=== PATIENT | male | born 1960 | race Two or more races ===

== ENCOUNTER 2020-05-20 13:16 | Outpatient (REF) | payer OTHER, SELFPAY ==
--- NOTE | 2020-05-20 13:21 | XR_ITS ---
EXAMINATION: XR CHEST CLINICAL INFORMATION: Contusion of right back wall of thorax. COMPARISON: None TECHNIQUE: 2 views of the chest were obtained. FINDINGS: No significant abnormality is noted involving the heart, lungs, mediastinum, bony thorax or soft tissues. XR/XR chest 2V IMPRESSION: Unremarkable chest exam
== END 2020-05-20 13:17 | disposition home or self-care (01) ==
LOC: HO.HMGCX 13:16
PROVIDERS: PCP Nurse Practitioner Family; Visit Provider Internal Medicine
DX: S20.221A Contusion of right back wall of thorax, initial encounter (principal); X58.XXXA Exposure to other specified factors, initial encounter; Y93.9 Activity, unspecified; Y92.9 Unspecified place or not applicable; Y99.9 Unspecified external cause status
CPT/HCPCS: 71046

== ENCOUNTER 2020-06-25 13:15 | Outpatient (REF) | payer OTHER, SELFPAY ==
--- NOTE | ~2020-06-25 | XR_ITS ---
EXAMINATION: XR CHEST CLINICAL INFORMATION: Shortness of breath COMPARISON: 05/20/2020 chest radiographs. TECHNIQUE: 2 views of the chest were obtained. FINDINGS: No significant abnormality is noted involving the heart, lungs, mediastinum, bony thorax or soft tissues. XR/XR chest 2V IMPRESSION: No acute cardiopulmonary process.
== END 2020-06-25 13:16 | disposition home or self-care (01) ==
LOC: HO.XRAY 13:15
PROVIDERS: PCP Nurse Practitioner Family; Visit Provider Family Medicine
DX: Z20.822 Contact with and (suspected) exposure to COVID-19 (principal); R06.02 Shortness of breath
CPT/HCPCS: 36415; 71046; U0003; U0005

== ENCOUNTER 2020-06-28 12:56 | Outpatient (REF) | payer OTHER, SELFPAY ==
--- NOTE | ~2020-06-28 | XR_ITS ---
EXAMINATION: XR knee LT 3V, XR knee standing BI CLINICAL INFORMATION: Reason for Exam M25.562 - Pain in left knee COMPARISON: None available at the time of this dictation. TECHNIQUE: Bilateral frontal standing, left lateral and patella sunrise view. FINDINGS: BONES: No fracture or dislocation is present. JOINTS: Narrowing of joint spaces suggest degenerative osteoarthritis. SOFT TISSUE: Normal XR/XR knee standing BI IMPRESSION: Mild DJD involving primarily medial compartments. No joint effusion.
--- NOTE | ~2020-06-28 | XR_ITS ---
EXAMINATION: XR knee LT 3V, XR knee standing BI CLINICAL INFORMATION: Reason for Exam M25.562 - Pain in left knee COMPARISON: None available at the time of this dictation. TECHNIQUE: Bilateral frontal standing, left lateral and patella sunrise view. FINDINGS: BONES: No fracture or dislocation is present. JOINTS: Narrowing of joint spaces suggest degenerative osteoarthritis. SOFT TISSUE: Normal XR/XR knee LT 3V IMPRESSION: Mild DJD involving primarily medial compartments. No joint effusion.
== END 2020-06-28 12:57 | disposition home or self-care (01) ==
LOC: HO.HOSX 12:56
PROVIDERS: Visit Provider Physician Assistant
DX: M25.562 Pain in left knee (principal); M23.92 Unspecified internal derangement of left knee
CPT/HCPCS: 73562; 73565

== ENCOUNTER 2020-07-01 12:01 | Outpatient (REF) | payer OTHER, SELFPAY ==
--- NOTE | ~2020-07-01 | MR_ITS ---
EXAMINATION: MR KNEE WITHOUT CONTRAST, LEFT CLINICAL INFORMATION: Left knee pain COMPARISON: Radiographs 06/28/2020 TECHNIQUE: MRI of the knee without contrast was performed using routine sequences on a high-field scanner. FINDINGS: MENISCI: Medial Meniscus: There is an undersurface tear at the junction of the body and posterior horn. Lateral Meniscus: Small tear extending obliquely along the superior articular surface of the posterior horn. LIGAMENTS: Cruciate: Anterior cruciate ligament is completely torn. There are distal fibers displaced anteriorly. The posterior cruciate ligament is intact. Collateral: Probable grade 1 sprains of the medial collateral ligament and fibular collateral ligament noting mild surrounding edema. Minimal partial tear at the soleus muscle origin. There is a popliteus muscle strain. There is mild edema of the medial gastrocnemius muscle surrounding an intramuscular vessel. This could represent a muscle strain. Cannot exclude the possibility of a calf vein thrombosis. EXTENSOR MECHANISM: Intact ARTICULAR CARTILAGE/BONE: Patellofemoral Compartment: Mild cartilage signal heterogeneity of the lateral patellar facet. Medial Compartment: Mild cartilage thinning and surface irregularity of the weightbearing femoral condyle. Lateral Compartment: Small impaction fractures with mild concavity and marrow edema at the posterior aspect of the tibia and the lateral femoral condyle anterolaterally near the sulcus terminalis. JOINT FLUID AND BURSAE: There is a moderate joint effusion. MR/MR knee LT wo con IMPRESSION: Complete ACL tear with impaction fractures of the lateral tibia and femoral condyle consistent with a pivot shift injury. Moderate joint effusion. Undersurface tearing of the medial meniscus at the junction of the body and posterior horn. Small horizontal tear of the posterior horn of the lateral meniscus extending along the superior articular surface. Probable grade 1 MCL and fibular collateral ligament sprains with muscle strains as described. There is edema of the medial gastrocnemius muscle surrounding a prominent vessel. Consider Doppler ultrasound for the possibility of a calf vein thrombosis. This critical result was discussed with COURTNEY Feliz at 8:45 AM on 07/02/2020 and it was ascertained that the content and urgency of the report was understood at the time of direct communication.
== END 2020-07-01 12:02 | disposition home or self-care (01) ==
LOC: HO.MRI 12:01
PROVIDERS: Visit Provider Physician Assistant
DX: M23.92 Unspecified internal derangement of left knee (principal)
CPT/HCPCS: 73721

== ENCOUNTER 2020-07-02 11:45 | Outpatient (REF) | payer OTHER, SELFPAY ==
--- NOTE | ~2020-07-02 | US_ITS ---
EXAMINATION: US VENOUS ULTRASOUND WITH DOPPLER LOWER EXTREMITY, LEFT CLINICAL INFORMATION: Left lower extremity pain and swelling. Assess for occult DVT. COMPARISON: Radiographs left knee 06/28/2020, MRI left knee 07/01/2020. TECHNIQUE: Ultrasound of the deep veins is performed from the hip to the calf with compression sonography and color and pulse Doppler assessment. Spectral analysis with color-flow imaging is performed. FINDINGS: There is normal venous compression and respiratory variation and augmented flow. The visualized common femoral vein, superficial femoral vein, profunda femoral vein, popliteal vein, and the trifurcation region shows no evidence of deep venous thrombosis. There is some trace fluid posteriorly at level knee joint, likely related to the moderate effusion noted on recent left knee MRI. US/US venous duplex LE LT IMPRESSION: No DVT demonstrated in the left lower extremity.
== END 2020-07-02 11:46 | disposition home or self-care (01) ==
LOC: HO.US 11:45
PROVIDERS: PCP Nurse Practitioner Family; Visit Provider Physician Assistant
DX: I82.409 Acute embolism and thrombosis of unspecified deep veins of unspecified lower extremity (principal); R60.9 Edema, unspecified
CPT/HCPCS: 93971

== ENCOUNTER → 2020-07-30 08:48 | Outpatient (BNVA) | payer OTHER, SELFPAY | PROVIDERS: PCP Nurse Practitioner Family; Visit Provider Physician Assistant | DX: S83.207D Unspecified tear of unspecified meniscus, current injury, left knee, subsequent encounter (principal); S83.512D Sprain of anterior cruciate ligament of left knee, subsequent encounter; M17.11 Unilateral primary osteoarthritis, right knee | CPT/HCPCS: 20610; J1040 ==

== ENCOUNTER → 2020-08-25 10:02 | Outpatient (BNVA) | payer OTHER, SELFPAY | PROVIDERS: PCP Nurse Practitioner Family; Visit Provider Physician Assistant ==

== ENCOUNTER 2020-10-05 07:13 | Outpatient (REF) | payer OTHER, SELFPAY ==
[2020-10-05 12:14] LABS: Alanine Aminotransferase 26 U/L (0-40); Albumin Level 4.3 g/dL (3.5-5.0); Alkaline Phosphatase 81 U/L (39-117); Anion Gap 13 (12-20); Aspartate Amino Transferase 15 U/L (5-37); Bilirubin Total 0.6 mg/dL (0.0-1.0); Blood Urea Nitrogen 17 mg/dL (9-16); Calcium 9.4 mg/dL (8.4-10.2); Carbon Dioxide 22 mmol/L (22-29); Chloride 108 mmol/L (96-108); Cholesterol 213 mg/dL; Estimated Glomerular Filt Rate > 60; Glucose Fasting 97 mg/dL (60-99); HDL Cholesterol 35 mg/dL; LDL Cholesterol Calculated 151 mg/dl; Potassium 4.3 mmol/L (3.3-5.1); Sodium 139 mmol/L (135-145); Total Protein 7.2 g/dL (6.5-8.0); Triglycerides 136 mg/dL
[2020-10-05 12:15] LABS: TSH reflex Free T4 1.06 uIU/mL (0.32-4.0)
== END 2020-10-05 07:14 | disposition home or self-care (01) ==
LOC: HO.HMGCLDS 07:13
PROVIDERS: PCP Nurse Practitioner Family; Visit Provider Nurse Practitioner Family
DX: Z01.818 Encounter for other preprocedural examination (principal); Z12.5 Encounter for screening for malignant neoplasm of prostate; S83.207A Unspecified tear of unspecified meniscus, current injury, left knee, initial encounter; S83.512A Sprain of anterior cruciate ligament of left knee, initial encounter
CPT/HCPCS: 36415; 80053; 80061; 84153; 84443

== ENCOUNTER 2020-10-11 11:00 | Outpatient (RCR) | payer OTHER, SELFPAY ==
--- NOTE | 2020-07-21 18:16 | MHC.PT.OE ---
[facility] [place] Office [place] Office [place] Office [address] Carlin Evans [address] [phone] F: [phone] F: [phone] F: [phone] F: [phone] Physical Therapy Evaluation Evaluation Date: 07/21/20 Current Condition Diagnosis: L ACL and meniscus tear. Onset Date: 06/28/2020 Date of Surgery: DOI: 06/28/20 Chief Complaint/ Current Level of Function: Pt reports on 06/28/20 he stepped in a snowbank and he lost his balance and felt and heard a pop in his L knee; reports he had to crawl from his front yard into his house. Reports compensating has affected his R knee. Reports standing and walking is unsteady. Reports his L lower leg went sideways when he tried to stand after he got into his house adding insult to initial injury. States no prior limitations. Pt went to ortho see MRI below; presents in donEchodio knee brace and B ax crutches. No surgical intervention at this time. Prior Level of Function/Occupation: Unrestricted; regularly installed handi ramps, stairs and ladders w/o issue. Diagnostic Imaging: MRI MR/MR knee LT wo con IMPRESSION: Complete ACL tear with impaction fractures of the lateral tibia and femoral condyle consistent with a pivot shift injury. Moderate joint effusion. Undersurface tearing of the medial meniscus at the junction of the body and posterior horn. Small horizontal tear of the posterior horn of the lateral meniscus extending along the superior articular surface. Probable grade 1 MCL and fibular collateral ligament sprains with muscle strains as described. Patient Goals and Expectations: Be able to walk, climb stairs and ladders. Past Medical History: Thyroidectomy, hand surgery, Medications: Precautions/ Contraindications: Outcome Measure: LEFI: Pain Pain Score: 7 Pain Scale Used: Numeric (0 - 10) Pain Location/ Description: L knee. Aggravating Factors: Alleviating Factors: Objective Findings Posture: Stands with B Ax crutch; L knee flexion Skin & Soft Tissue/ Palpation: moderate kae patellar effusion L knee. 3+ TTP of L medial joint line / MCL. Gait/ Functional Mobility: B axillary crutches; step to pattern; decreased L LE weight bearing; L knee flexion during stance; L mid/ forefoot contact more often than heel strike. Stairs: non reciprocal; reports at home he uses B crutches as he is not confident of his hand rails or he goes down the stairs on his back side. AROM (PROM) Strength Cervical Spine Flexion: Extension: Lateral Flexion: Rotation: Cervical Comments: Flexion: Extension: Lateral Flexion: Rotation: Other: Shoulder Flexion: Extension: Abduction: ER: IR: Apley ER: Apley IR: Comments: Flexion: Extension: Abduction: Adduction: ER: IR: Other: Elbow Flexion: Extension: Pronation: Supination: Comments: Flexion: Extension: Pronation: Supination: Wrist Flexion: Wrist Extension: Other: Lumbar Spine Flexion: Extension: Lateral Flexion: Rotation: Comments: Transverse abdominus: Extensors: Other: Hip Flexion: Extension: Abduction: Adduction: ER: IR: Comment: Flexion: L: 4+/5. Extension: Abduction: L: 4/5. R 4+/5. Adduction: ER: IR: Other: Knee Flexion: L: 80 degrees. painful. Extension: L: 6 degrees flexion;Pt apprehensive to allow knee to straighten d/t fear. Comments: MMT: L flexion 4/5 and painful. L extension: 4-/5 and painful/ apprehension. Patella Mobility: Flexion: Extension: Other: Ankle Dorsiflexion: Plantarflexion: Inversion: Eversion: Comments: Dorsiflexion: Plantarflexion: Inversion: Eversion: Comments: Mavis Assessment: Sacroiliac Assessment: Muscle Length: Special Tests: (-) ant/ posterior drawers, (+) valgus stress for mild increased laxity and pain. Vitals: BP: HR: O2SAT: RR: Other: Balance: Neurological Screen: Biceps DTR: Brachioradialis DTR: Triceps DTR: Patella DTR: Achilles DTR: Other: Dermatomes: Sensation: Myotomes: Patient Education Primary Language Welsh Mail Distributor Required No Who was Educated Patient Readiness for Learning Accepting Current Knowledge Minimal, needs reinforcement Education Needs Disease Information Equipment Use Exercise Pain Teaching Method Verbal Demonstration Handouts How did Patient Demonstrate Learning Patient demonstrates Patient verbalizes Barriers to Learning None Assessment Assessment: Pt is a 59 y/o male referred to PT for eval and treat of L ACL and meniscus tear who presents with signs and Sx consistent with L knee dysfunction resulting in decreased tolerance and ability for standing and walking, negotiating stairs and ladders, squatting activities, as well as heavy HH chores secondary to decreased L knee ROM, decreased R knee and hip strength, gait abnormality, L knee effusion, TTP of medial L knee joint line/ MCL area, (+) MRI finding for tearing, healing process, and pain. Pt is deemed an appropriate candidate to receive skilled PT in order to address his physical limitations to improve his functional ability. Rehabilitation Potential: Good Plan of Care Frequency and Duration 2 x / wk x 8 wks. Short Term Goals In 1 week: initiate HEP with evidence of compliance. In 3 weeks: full knee flexion achieved. initial: 70 degrees. Chcf Goals In 8 weeks: I with HEP. In 8 weeks: ambulates 1 mile with minimal difficulty; initial: unable. In 8 week: negotiates 1 flight of stairs with managed Sx and reciprocal fashion. Treatment Plan Therapeutic Exercise Dynamic Therapeutic Activities Neuromuscular Re-ed Manual Therapies Joint Mobilization Taping Gait Home Exercise Program Patient Education Electrical Stimulation Iontophoresis Ultrasound Hot or Cold Pack Reviewed/ Agreed with Student Documentation: Therapist: Electronically signed by: Kolby Vaughn PT. Please sign and return to therapist. Thank you for your referral.
--- NOTE | 2020-10-11 12:58 | MHC.PT.DC ---
[facility] [place] Office [place] Office [place] Office [address] Carlin Evans 140 [facility] [phone] F: [phone] F: [phone] F: [phone] F: [phone] Physical Therapy Discharge Report Diagnosis: L ACL and meniscus tear. Date of Surgery: DOI: 06/28/20 Date of Evaluation: 07/21/20 Date of Discharge: 10/11/20 Treatments to Date: Cancellations to Date: 0 No Shows to Date: 0 Discharge Status: Independent with HEP Discharge Summary: Karel has been an active participant in his therapy in the clinic with inconsistent home program and device compliance who is agreeable with DC at this time as he is no longer a non surgical patient and will be undergoing an ACL repair through another office. He has been re-educated and is I with his home program. Electronically signed by: Kolby Vaughn PT. Please sign and return to therapist. Thank you for your referral.
== END 2020-10-11 12:59 | disposition home or self-care (01) ==
LOC: HO.PTCHIC 11:00
PROVIDERS: PCP Nurse Practitioner Family; Visit Provider Physician Assistant
DX: S83.207A Unspecified tear of unspecified meniscus, current injury, left knee, initial encounter (principal); S83.512A Sprain of anterior cruciate ligament of left knee, initial encounter
CPT/HCPCS: 97014; 97110; 97116; 97161; 97530

== ENCOUNTER → 2020-11-15 11:33 | Outpatient (BNVA) | payer OTHER, SELFPAY | PROVIDERS: PCP Nurse Practitioner Family; Referring Provider Nurse Practitioner Family; Visit Provider Surgery ==

== ENCOUNTER 2020-11-18 08:28 | Outpatient (REF) | payer OTHER, SELFPAY ==
--- NOTE | ~2020-11-18 | CT_ITS ---
EXAMINATION: CT ABDOMEN AND PELVIS WITHOUT CONTRAST CLINICAL INFORMATION: Left testicular pain COMPARISON: Previous bladder ultrasound May 2019 TECHNIQUE: Multidetector volumetric imaging was performed from the superior aspect of the liver through the pubic symphysis. Sagittal and coronal reformatted images were obtained on the technologist's workstation. This CT examination was performed using dose optimization techniques as appropriate, variously including the following: *Automated exposure control *Adjustment of mA and/or kV according to patient size (this includes techniques or standardized protocols for targeted exams where dose is matched to indication/reason for exam; i.e. extremities or head) *Use of iterative reconstruction technique DLP: 1071 mGy-cm FINDINGS: LUNG BASES: The visualized lung bases are unremarkable. LIVER, GALLBLADDER, AND BILIARY TREE: The liver is normal in size, shape, and attenuation. No focal hepatic lesion or biliary ductal dilatation is present. There are gallstones in the gallbladder. PANCREAS: Unremarkable. SPLEEN: Unremarkable. ADRENAL GLANDS: Unremarkable. KIDNEYS AND URETERS: The kidneys are normal in size, shape, and attenuation. No hydronephrosis, hydroureter, or calculi seen. No perinephric stranding. BLADDER: Not optimally distended. GASTROINTESTINAL TRACT: There is diverticulosis of the colon. Small and large bowel is otherwise unremarkable. The appendix is normal. The stomach is normal. ABDOMINAL WALL: No significant hernia is appreciated. LYMPH NODES: Normal. VASCULAR: Unremarkable. PELVIC VISCERA: The prostate gland is slightly enlarged measuring 4.3 x 4.8 cm in AP and transverse dimension. OSSEOUS STRUCTURES: There is a lucent lesion with vertical striations in the L1 vertebral body suggestive of a hemangioma. There are several small sclerotic lesions spine. The largest measures 5 mm in the T10 vertebral body. These are nonspecific but may represent bone islands. CT/CT abdomen pelvis wo con IMPRESSION: Gallstones. Diverticulosis. Slightly enlarged prostate gland.
== END 2020-11-18 08:29 | disposition home or self-care (01) ==
LOC: HO.CT 08:28
PROVIDERS: Visit Provider Surgery
DX: N50.812 Left testicular pain (principal)
CPT/HCPCS: 74176

== ENCOUNTER 2020-11-23 15:15 | Outpatient (REF) | payer OTHER, SELFPAY ==
[2020-11-23 16:21] LABS: Glucose Urine UA NEG (NEG); Leukocyte Esterase Urine NEG (NEG); Nitrite Urine NEG (NEG); Specific Gravity - Urine >= 1.030 (1.005-1.025); Urine Blood 1+ (NEG); Urine Ketones NEG (NEG); Urine Protein NEG (NEG-TRACE)
[2020-11-23 16:24] LABS: Cholesterol 186 mg/dL; HDL Cholesterol 32 mg/dL; LDL Cholesterol Calculated 120 mg/dl; Triglycerides 174 mg/dL
[2020-11-23 16:31] LABS: Appearance Urine CLEAR; Color Urine YELLOW
== END 2020-11-23 15:16 | disposition home or self-care (01) ==
LOC: HO.LAB 15:15
PROVIDERS: PCP Nurse Practitioner Family; Visit Provider Surgery
DX: N50.812 Left testicular pain (principal); E78.5 Hyperlipidemia, unspecified
CPT/HCPCS: 36415; 80061; 81001; 81003

== ENCOUNTER 2020-12-01 13:59 | Outpatient (REF) | payer OTHER, SELFPAY ==
--- NOTE | ~2020-12-01 | US_ITS ---
EXAMINATION: US SCROTUM CLINICAL INFORMATION: Left testicular pain. COMPARISON: None TECHNIQUE: A sonogram of the scrotum was performed assessing woodall-scale appearance and color Doppler flow. Spectral Doppler analysis of the arterial and venous flow were performed in the testes bilaterally. FINDINGS: RIGHT: Right testicle measures 5.4 x 3.1 x 3.6 cm, volume 31.5 mL. No focal testicular parenchymal lesions are visualized. Spectral Doppler analysis of the arterial and venous flow is normal in the right testis. Right epididymal head is normal in size. No right varicocele is seen. Trace right-sided hydrocele. Right epididymal Doppler flow is normal. LEFT: Left testicle measures 5.7 x 2.5 x 3.2 cm, volume 23.8 mL. No focal testicular parenchymal lesions are visualized. Spectral Doppler analysis of the arterial and venous flow is normal in the left testis. Left epididymal head is slightly prominent and contains a complex cyst measuring 1.5 cm. No left varicocele is seen. Trace left-sided hydrocele. Left epididymal Doppler flow is normal. US/US scrotum IMPRESSION: Complex left epididymal head cyst measuring up to 1.5 cm. Trace right and left-sided hydroceles.
== END 2020-12-01 14:00 | disposition home or self-care (01) ==
LOC: HO.HMGCX 13:59
PROVIDERS: PCP Nurse Practitioner Family; Visit Provider Surgery
DX: N50.812 Left testicular pain (principal)
CPT/HCPCS: 76870

== ENCOUNTER 2020-12-13 09:42 | Outpatient (REF) | payer OTHER, SELFPAY | END 2020-12-13 09:43 | disposition home or self-care (01) | LOC: HO.LAB 09:42 | PROVIDERS: PCP Nurse Practitioner Family; Referring Provider Nurse Practitioner Family; Visit Provider Surgery | DX: N50.812 Left testicular pain (principal); R30.0 Dysuria | CPT/HCPCS: 87086 ==

== ENCOUNTER 2021-01-26 14:00 | Outpatient (RCR) | payer OTHER, SELFPAY | END 2021-03-21 13:02 | disposition home or self-care (01) | LOC: HO.PT 14:00 | PROVIDERS: Visit Provider Orthopaedic Surgery | DX: Z98.890 Other specified postprocedural states (principal) | CPT/HCPCS: 97110; 97112; 97116; 97162; 97530; 97535 ==

== ENCOUNTER 2021-02-03 09:20 | Outpatient (REF) | payer OTHER, SELFPAY ==
[2021-02-03 11:15] LABS: MANUAL DIFF FLAG NO
[2021-02-03 11:24] LABS: Basophils Absolute Auto 0.1 X10*3/uL (0.0-0.2); Basophils Percent Auto 0.8 % (0-2); Eosinophils Absolute Auto 0.3 X10*3/uL (0.0-0.4); Eosinophils Percent Auto 2.4 % (0-4); Hematocrit 43.4 % (42-52); Hemoglobin 14.3 g/dl (14.0-18.0); Imm Gran Abs Auto 0.05 X10*3/uL (0.00-0.03); Imm Gran Pct Auto 0.4 % (0.0-0.4); Lymphocytes Absolute Auto 2.3 X10*3/uL (1.2-4.9); Lymphocytes Percent Auto 19.8 % (20-40); Mean Corpuscular HGB Conc 32.9 g/dl (31.0-36.0); Mean Corpuscular Hemoglobin 29.9 pg (27.0-33.0); Mean Corpuscular Volume 90.8 fL (80-98); Mean Platelet Volume 12.4 fL (9.4-12.4); Monocytes Absolute Auto 1.1 X10*3/uL (0.1-1.2); Monocytes Percent Auto 9.7 % (2-11); Neutrophils Absolute Auto 7.7 X10*3/uL (2.0-8.3); Neutrophils Percent Auto 66.9 % (45-73); Platelet Count 272 X10*3/uL (160-400); Red Blood Count 4.78 X10*6/uL (4.60-5.80); Red Cell Distribution Width 13.5 % (11.0-16.0); White Blood Count 11.5 X10*3/uL (4.8-10.8)
[2021-02-03 11:45] LABS: Appearance Urine CLOUDY; Color Urine YELLOW; Glucose Urine UA NEG (NEG); Leukocyte Esterase Urine NEG (NEG); Nitrite Urine NEG (NEG); PH 5.5 (5.0-8.0); Specific Gravity - Urine >= 1.030 (1.005-1.025); Urine Blood TRACE (NEG); Urine Ketones 5 MG/DL (NEG); Urine Protein TRACE MG/DL (NEG-TRACE)
[2021-02-03 11:57] LABS: Alanine Aminotransferase 33 U/L (0-40); Albumin Level 4.5 g/dL (3.5-5.0); Alkaline Phosphatase 97 U/L (39-117); Anion Gap 14 (12-20); Aspartate Amino Transferase 20 U/L (5-37); Bilirubin Total 0.7 mg/dL (0.0-1.0); Blood Urea Nitrogen 15 mg/dL (9-16); Carbon Dioxide 22 mmol/L (22-29); Chloride 106 mmol/L (96-108); Estimated Glomerular Filt Rate > 60; Glucose Random 98 mg/dL (60-115); Potassium 4.3 mmol/L (3.3-5.1); Sodium 138 mmol/L (135-145); Total Protein 7.6 g/dL (6.5-8.0)
[2021-02-03 12:04] LABS: Amorphous Sediment Urine 3+ /LPF; RBC Urine 0 /HPF (0); WBC Urine 0 /HPF (0-4)
[2021-02-03 12:10] LABS: Prostate Specific Antigen Scr 4.81 ng/mL (<0.05-4.0)
== END 2021-02-03 09:21 | disposition home or self-care (01) ==
LOC: HO.HMGCLDS 09:20
PROVIDERS: PCP Nurse Practitioner Family; Visit Provider Hospitalist
DX: R10.9 Unspecified abdominal pain (principal)
CPT/HCPCS: 36415; 80053; 81001; 84153; 85025; 87086; U0003; U0005

== ENCOUNTER 2021-03-10 08:28 | Outpatient (REF) | payer OTHER, SELFPAY ==
--- NOTE | ~2021-03-10 | XR_ITS ---
EXAMINATION: XR PELVIS CLINICAL INFORMATION: Pain COMPARISON: CT abdomen pelvis November 18, 2020 TECHNIQUE: AP view of the pelvis. FINDINGS: The pelvic ring is intact. Sacroiliac joints are symmetric. There is neither fracture nor dislocation of either hip. Only mild degenerative changes of both hips is noted. XR/XR pelvis 1-2V IMPRESSION: No fracture.
== END 2021-03-10 08:29 | disposition home or self-care (01) ==
LOC: HO.HOSX 08:28
PROVIDERS: PCP Nurse Practitioner Family; Visit Provider Orthopaedic Surgery
DX: M25.552 Pain in left hip (principal)
CPT/HCPCS: 72170

== ENCOUNTER 2021-03-21 13:14 | Outpatient (REF) | payer OTHER, SELFPAY ==
--- NOTE | ~2021-03-21 | MR_ITS ---
EXAMINATION: MR HIP WITH CONTRAST, LEFT CLINICAL INFORMATION: Pain left hip. Patient reports left hip and groin pain for 6 months, fell. COMPARISON: XR pelvis 03/10/2021. TECHNIQUE: MRI of the left hip was performed after the intra-articular administration of a dilute gadolinium-containing solution on a high-field scanner. FINDINGS: ACETABULAR LABRUM: There is some degenerative irregularity and a superimposed subtle tear of the anterosuperior labrum, best seen on the radial sequence (series 11, image 2). The lateral and posterior labrum appear intact. ALPHA ANGLE: 40 degrees, within normal limits. ACETABULAR DEPTH: Within normal limits. ARTICULAR CARTILAGE/BONE: Intact. MUSCLES/TENDONS: There is mild left distal gluteus minimus insertional tendinosis. There is minor tendinosis at the origin of the left semimembranosus tendon. JOINT FLUID/BURSA: Within normal limits. LIGAMENTUM TERES: Attenuated. INTRAPELVIC STRUCTURES: There is an enlarged heterogeneous prostate. There is mild diffuse bladder wall thickening. MR/MR hip LT w con IMPRESSION: 1. Anterosuperior labral degeneration and subtle tear. 2. No MRI findings to suggest predisposition to femoroacetabular impingement. 3. Mild left distal gluteus minimus insertional tendinosis. Minor tendinosis at the origin of the left semimembranosus tendon. 4. Enlarged heterogeneous prostate and mild diffuse bladder wall thickening.
--- NOTE | ~2021-03-21 | FL_ITS ---
PROCEDURE: XR ARTHROGRAM HIP, LEFT CLINICAL INFORMATION: Left hip pain. COMPARISON: Previous pelvic x-ray 03/10/2021. TECHNIQUE/FINDINGS: Procedure and risks and benefits including bleeding and infection were discussed with the patient and informed consent was obtained. The left hip was prepped and draped in the usual sterile fashion. The skin and soft tissues were anesthetized with 1 % lidocaine plain. Using fluoroscopic guidance and a 22-gauge spinal needle, access to the left hip joint was obtained. A mixture of 6 mL 0.25% bupivacaine plain, 1 mL 80 mg Methylprednisolone and dilute gadolinium solution was injected into the left hip joint pre MRI. FINDINGS: FLUOROSCOPY TIME: 0.3 minutes DOSE AREA PRODUCT: 2.5 uGycm2 FL/FL arthrogram hip LT IMPRESSION: Pre-MRI left hip arthrogram.
== END 2021-03-21 13:15 | disposition home or self-care (01) ==
LOC: HO.XRAY 13:14
PROVIDERS: Visit Provider Orthopaedic Surgery
DX: M25.552 Pain in left hip (principal)
CPT/HCPCS: 27093; 73525; 73722; A9585

== ENCOUNTER → 2021-04-07 12:24 | Outpatient (BNVA) | payer OTHER, SELFPAY | PROVIDERS: Visit Provider Orthopaedic Surgery ==

== ENCOUNTER → 2021-04-28 10:24 | Outpatient (BNVA) | payer OTHER, SELFPAY | PROVIDERS: PCP Nurse Practitioner Family; Visit Provider Urology ==

== ENCOUNTER 2021-06-28 07:07 | Outpatient (REF) | payer OTHER, SELFPAY ==
[2021-06-28 11:55] LABS: Appearance Urine CLOUDY; Color Urine YELLOW; Glucose Urine UA NEG (NEG); Leukocyte Esterase Urine NEG (NEG); Nitrite Urine NEG (NEG); PH 5.5 (5.0-8.0); Specific Gravity - Urine >= 1.030 (1.005-1.025); UACC Culture Trigger NO; Urine Blood TRACE (NEG); Urine Ketones NEG (NEG); Urine Protein NEG (NEG-TRACE)
[2021-06-28 12:12] LABS: Amorphous Sediment Urine 1+ /LPF; Bacteria Urine 1+ /LPF; RBC Urine 0-2 /HPF (0); WBC Urine 0 /HPF (0-4)
[2021-06-28 12:21] LABS: Alanine Aminotransferase 31 U/L (0-40); Albumin Level 4.2 g/dL (3.5-5.0); Alkaline Phosphatase 69 U/L (39-117); Anion Gap 10 (12-20); Aspartate Amino Transferase 16 U/L (5-37); Bilirubin Total 0.5 mg/dL (0.0-1.0); Blood Urea Nitrogen 17 mg/dL (9-16); Calcium 9.8 mg/dL (8.4-10.2); Carbon Dioxide 25 mmol/L (22-29); Chloride 109 mmol/L (96-108); Cholesterol 226 mg/dL; Estimated Glomerular Filt Rate > 60; Glucose Fasting 105 mg/dL (60-99); HDL Cholesterol 29 mg/dL; LDL Cholesterol Calculated 167 mg/dl; Potassium 4.2 mmol/L (3.3-5.1); Sodium 140 mmol/L (135-145); Total Protein 7.1 g/dL (6.5-8.0); Triglycerides 150 mg/dL
[2021-06-28 12:30] LABS: B Type Natriuretic Peptide 12 pg/mL (<100)
== END 2021-06-28 07:08 | disposition home or self-care (01) ==
LOC: HO.HMGCLDS 07:07
PROVIDERS: Visit Provider Nurse Practitioner Family
DX: R60.0 Localized edema (principal); I10 Essential (primary) hypertension
CPT/HCPCS: 36415; 80053; 80061; 81001; 81003; 83880; 84443

== ENCOUNTER 2021-07-08 07:00 | Outpatient (RCR) | payer OTHER, SELFPAY ==
--- NOTE | 2021-05-27 09:03 | MHC.PT.EP ---
[facility] [place] Office [place] Office [place] Office [address] Carlin Evans [address] [phone] F: [phone] F: [phone] F: [phone] F: [phone] Physical Therapy Plan of Care Date of Evaluation: 05/27/20 Diagnosis: left lower quadrant pain Assessment: The patient's objective findings are consistent with subjective report. He has pain with motions using his hip adductors and hip flexors. Decreased strength noted in left lower extremity in general. The patient has poor slumped sitting posture. He also leans to the right side away from pain. His gait pattern is altered to accommodate pain. The patient also had pain with palpation of adductor longus insertion and in the muscle belly of the adductors. Minimal pain with palpation in inguinal canal. Pt demonstrates poor breathing techniques, bed mobility is poor and is straining to his PFM and abdominals, and he has poor body mechanics. The patient asked to defer the internal pelvic floor muscle exam to next session. Externally he had no painful palpation in bulbocavernosus, ishiocavernosus, or testicles directly. Testicular pain seems to be referred pain. Increased testicular pain with forward bending. I reviewed his initial HEP, posture recommendations, breathing technique to facilitate tissue healing. He was practicing on his own step ups and I asked him to stop this at this point. He is an excellent candidate for skilled Physical Therapy. Frequency and Duration: The patient will be seen 1x/week x 8 weeks. Short Term Goals: 1. Review diaphragmatic breathing to facilitate relaxation of PFM. 2. To improve sitting posture and standing posture to facilitate relaxation of PFM. 3. Review anatomy and physiology to help patient understand patient education recommendations. Senior Care Goals: 1. The patient to be able to report no pain in pelvis during house chore, and ADL's to help return to PLOF. 2. Pt to be able to return to normal sexual activity without pain. 3. Pt to be able to climb stairs without pain to return to community obstacle negotiation. Treatment Plan: Modalities to reduce pain, spasms and effusion. Manual therapy to restore motion and function. Therapeutic exercise to improve strength and flexibility. Neuromuscular re-education for posture and balance. Therapeutic activities to return to functional activities of daily living. Electronically signed by: Brynn Lynn PT DPT Please sign and return to therapist. Thank you for your referral.
--- NOTE | 2021-07-08 14:18 | MHC.PT.DC ---
[facility] [place] Office [place] Office [place] Office [address] Carlin Evans [address] [phone] F: [phone] F: [phone] F: [phone] F: [phone] Physical Therapy Discharge Report Diagnosis: left lower quadrant pain Date of Surgery: Na Date of Evaluation: 05/27/21 Date of Discharge: 07/08/21 Treatments to Date: 6 Cancellations to Date: No Shows to Date: Discharge Status: Achieved Goals Improved Function Discharge Summary: The patient asked to be d/c at this time. He feels he can manage on his own at home. We practiced gait pattern to help avoid habitual antalgic gait pattern. Pt able to do 6 inch step without pain. He was able to improve gait pattern with cues. He was able to walk with a heel to toe reciprocal gait pattern without asymmetry. He has limitations during step down on 6 inch step but his knee was more limiting than his groin. He felt poor eccentric control with step down. He has met his goals. D/c with HEP. Electronically signed by: Brynn Lynn PT DPT Please sign and return to therapist. Thank you for your referral.
== END 2021-07-08 14:18 | disposition home or self-care (01) ==
LOC: HO.PT 07:00
PROVIDERS: Visit Provider Urology
DX: R10.32 Left lower quadrant pain (principal)
CPT/HCPCS: 97110; 97112; 97140; 97162; 97530

== ENCOUNTER 2021-08-01 06:55 | Outpatient (REF) | payer OTHER, SELFPAY ==
[2021-08-01 08:44] LABS: Prostate Specific Antigen 3.64 ng/mL (<0.05-4.0)
== END 2021-08-01 06:56 | disposition home or self-care (01) ==
LOC: HO.LAB 06:55
PROVIDERS: PCP Nurse Practitioner Family; Visit Provider Urology
DX: Z12.5 Encounter for screening for malignant neoplasm of prostate (principal); R97.20 Elevated prostate specific antigen [PSA]
CPT/HCPCS: 36415; 84153

== ENCOUNTER → 2021-08-09 08:37 | Outpatient (BNVA) | payer OTHER, SELFPAY | PROVIDERS: PCP Nurse Practitioner Family; Visit Provider Urology | DX: R97.20 Elevated prostate specific antigen [PSA] (principal) ==

== ENCOUNTER → 2021-08-31 08:34 | Outpatient (REF) | payer OTHER, SELFPAY ==
--- NOTE | ~2021-08-31 | NM_ITS ---
Exercise Myocardial perfusion study Indication: Shortness of breath evaluate for myocardial ischemia Technique: The patient was brought in for an exercise perfusion study on 08/31/2021. Patient performed exercise as per Aluri protocol and was injected 45 mCi of sestamibi was given intravenously one target HR was achieved. Images were obtained using the SPECT gamma camera interlaced with the gating device. Images were obtained in supine position. Resting perfusion study was performed on 09/02/2021. Patient was administered 45 mCi of sestamibi intravenously at rest. Images were then obtained in supine position. Images obtained with and without CT attenuation. Total DLP 115 mGy-cm. Images were processed with the software and compared side to side in short axis, horizontal long axis and vertical long axis views. Findings: The stress perfusion study showed non attenuated images show mildly reduced uptake in the basal and mid inferior wall of the LV myocardium. Remainder of the LV myocardium is normally perfused. Attenuation corrected images show normal uptake of radiotracer in all segments of LV myocardium. The gated study shows normal LV systolic function with calculated LVEF of 63%. LV cavity is normal in size. The gated study shows normal systolic wall thickening and contraction of all segments. There is no transient ischemic dilation. Resting study shows no change in perfusion pattern compared to stress perfusion study. Gating at rest reveals normal systolic wall motion with ejection fraction at 61%. The findings are consistent with normal myocardial perfusion. NM/NM cardiolite stress test Impression: 1. Normal myocardial perfusion 2. Gated LVEF is 63% 3. Transient ischemic dilatation not present Stress EKG is negative for ischemia
--- NOTE | 2021-08-31 08:37 | CA_ITS ---
Transthoracic Echocardiogram Patient (Last, First, Middle): Karel Dutton, Gender: Male Date of : 1960 Age: 60 Procedure Date: 08/31/2021 Procedure Type: Transthoracic Echocardiogram Location: OP Height: 180.34 cm Weight: 117.94 kg BSA: 2.36 m2 Heart Rate: bpm BP: 170 / 90 mmHg Tangled Yarn Worker: RADHA Mtz MD: Kodi Be DISH UP PERSON- Symptoms: R60.0 - Localized edema Study Quality: Fair Conclusions: - 1. Normal LV systolic function with impaired relaxation filling pattern with elevated filling pressures 2. Normal cardiac valvular Doppler 3. Normal RV systolic pressure 4. Mildly dilated ascending aorta at 4 cm 5. No gross pericardial effusion Findings Procedure Information The patient declines contrast. Left Ventricle Normal left ventricular size, thickness, and systolic function. The visually estimated ejection fraction is between 60-65%. Spectral Doppler is indicative of an impaired relaxation filling pattern. Elevated filling pressures. E/E prime ratio is >15, consistent with elevated filling pressures. Right Ventricle Normal right ventricular cavity size and systolic function. Atria The left atrium is normal in size. Interatrial shunt cannot be excluded. The right atrium is normal in size. Aortic Valve The aortic valve structure and function is likely normal. There is no aortic valve stenosis. There is no aortic valve regurgitation. Mitral Valve Likely normal mitral valve structure and function. There is trace mitral valve regurgitation. There is no mitral valve stenosis. Pulmonic Valve The pulmonic valve was not well visualized. Tricuspid Valve Likely normal tricuspid valve structure and function. There is trace tricuspid valve regurgitation. The right ventricular systolic pressure is normal. The right ventricular systolic pressure is 26 mmHg. Normal right atrial pressure. There is no evidence of pulmonary hypertension. Great Vessels The pulmonary artery was not well visualized. There is mild dilatation of the ascending aorta measuring 4.00 cm. Venous The inferior vena cava is normal in size and collapses greater than 50% with inspiration. Pericardium/Pleural There is no evidence of pericardial effusion. Prior Study Comparison Changes noted compared to prior study. ascending aorta is measured to be mildly dilated on this study. Measurements 2D Linear Measurements IVSd: 0.94 0.6-0.9/0.6-1.0 cm LVIDd: 3.97 3.9-5.3/4.2-5.9 cm LVIDd Index: 1.68 2.4-3.2/2.2-3.1 cm/m2 LVIDs: 2.87 2.0-3.6 cm LVPWd: 0.86 0.7-1.1 cm LA Diam: 3.20 2.7-3.8/3.0-4.0 cm LAIDs Index: 1.36 1.5-2.3 cm/m2 LV Mass: 224.51 67-162/88-224 g LV Mass Index: 95.13 43-95/49-115 g/m2 LVOT Diam: 2.00 3.0+(-)1.3 cm Mitral Valve MV Pk E: 0.99 MV PK A: 1.21 MV Decel Time: 210.00 E/A: 0.80 E'Lateral: 6.31 E'Medial: 7.07 E/E' Med: 14.10 E/E' Lat: 15.80 PHT: 61.00 MVA PHT: 3.61 Decel Osborne: 4.74 Aortic Valve AoV Pk Didier: 1.52 AoV Mn Didier: 0.92 AoV VTI: 0.29 AoV Pk Grad: 9.00 Aov Mn Grad: 4.00 DELPHINE Cont.VTI: 3.08 LVOT LVOT Pk Didier: 1.47 LVOT Mn Didier: 0.92 LVOT VTI: 0.29 LVOT Pk Grad: 9.00 LVOT Mn Grad: 4.00 LVOT Diam: 2.00 LVOT Area: 3.14 Diastolic Function MV Pk E: 0.99 MV Pk A: 1.21 E/A: 0.80 E'Medial: 7.07 E/E' Med: 14.10 E' Laterial: 6.31 E/E' Lat: 15.80 Right Ventricle TAPSE (mm): 20.30 TVS' Didier: 14.40 Tricuspid Valve TR Pk Didier: 2.42 TR Pk Grad: 23.00 RA Press: 3.00 RVSP: 26.00 Great Vessels Aorta Sinus of Valsalva: 3.80 2.0-3.5 cm Ao Asc: 4.00 2.1-3.4 cm Ao Arch: 3.30 Updated in Other Vendor System with Status of Final Breezy Fields MD electronically signed on 08/31/2021 12:42:44 PM with status of Final
--- NOTE | 2021-08-31 09:34 | CA_ITS ---
Acquisition Time: 2021-08-31 09:51:03 Total Exercise Time: 00:07:00 Test Indications: Dyspnea Medications: ALBUTEROL LEVOTHYROXINE MELOXICAM Protocol: NABOR Max HR: 142 BPM 87% of Pred: 162 BPM Max BP: 168/098 mmHG Max Work Load: 6.5 METS Exercise stress test with exercise 7 min of altered Nabor protocol ( stage 1 held, then at 4 min exercise speed increased to 2 MPH and 12% incline, then at 5.5 min speed increased to 2.3 MPH) with moderate shortness of breath and pelvic floor discomfort, no chest discomfort, without arrythmia, with elevate BP at baseline and normal response to exercise, without EKG changes meeting criteria for ischemia. Nuclear images pending. Test reviewed with Dr Mcnamara. Referred By: Kodi Be Overread By: RICK HU
== END ==
LOC: HO.CARD 08:34
PROVIDERS: Visit Provider Nurse Practitioner Family
DX: I10 Essential (primary) hypertension (principal); R60.0 Localized edema; Z82.49 Family history of ischemic heart disease and other diseases of the circulatory system
CPT/HCPCS: 78452; 93017; 93306; A9500

== ENCOUNTER 2022-01-10 07:54 | Outpatient (REF) | payer OTHER, SELFPAY ==
[2022-01-10 12:16] LABS: Prostate Specific Antigen 3.59 ng/mL (<0.05-4.0)
== END 2022-01-10 07:55 | disposition home or self-care (01) ==
LOC: HO.HMGCLDS 07:54
PROVIDERS: PCP Nurse Practitioner Family; Visit Provider Urology
DX: Z12.5 Encounter for screening for malignant neoplasm of prostate (principal); R97.20 Elevated prostate specific antigen [PSA]
CPT/HCPCS: 36415; 84153

== ENCOUNTER 2022-02-28 08:21 | Outpatient (REF) | payer OTHER, SELFPAY ==
[2022-02-28 11:20] LABS: MANUAL DIFF FLAG NO
[2022-02-28 11:30] LABS: Basophils Absolute Auto 0.1 X10*3/uL (0.0-0.2); Basophils Percent Auto 1.1 % (0-2); Eosinophils Absolute Auto 0.4 X10*3/uL (0.0-0.4); Eosinophils Percent Auto 4.9 % (0-4); Hematocrit 42.8 % (42.0-52.0); Hemoglobin 14.4 g/dl (14.0-18.0); Imm Gran Abs Auto 0.02 X10*3/uL (0.00-0.03); Imm Gran Pct Auto 0.3 % (0.0-0.4); Lymphocytes Absolute Auto 1.6 X10*3/uL (1.2-4.9); Lymphocytes Percent Auto 21.7 % (20-40); Mean Corpuscular HGB Conc 33.6 g/dl (31.0-36.0); Mean Corpuscular Hemoglobin 30.6 pg (27.0-33.0); Mean Corpuscular Volume 90.9 fL (80.0-98.0); Mean Platelet Volume 12.1 fL (9.4-12.4); Monocytes Absolute Auto 0.8 X10*3/uL (0.1-1.2); Monocytes Percent Auto 10.1 % (2-11); Neutrophils Absolute Auto 4.7 x10*3/uL (2.0-8.3); Neutrophils Percent Auto 61.9 % (45-73); Platelet Count 273 X10*3/uL (160-400); Red Blood Count 4.71 X10*6/uL (4.60-5.80); Red Cell Distribution Width 13.4 % (11.0-16.0); White Blood Count 7.5 X10*3/uL (4.8-10.8)
[2022-02-28 11:46] LABS: Alanine Aminotransferase 31 U/L (0-40); Albumin Level 4.3 g/dL (3.5-5.0); Alkaline Phosphatase 78 U/L (39-117); Anion Gap 14 (12-20); Aspartate Amino Transferase 18 U/L (5-37); Bilirubin Total 0.4 mg/dL (0.0-1.0); Blood Urea Nitrogen 12 mg/dL (9-16); Calcium 9.6 mg/dL (8.4-10.2); Carbon Dioxide 24 mmol/L (22-29); Chloride 106 mmol/L (96-108); Cholesterol 188 mg/dL; Estimated Glomerular Filt Rate > 60; Glucose Fasting 101 mg/dL (60-99); HDL Cholesterol 30 mg/dL; LDL Cholesterol Calculated 130 mg/dl; Potassium 4.3 mmol/L (3.3-5.1); Sodium 140 mmol/L (135-145); Total Protein 7.2 g/dL (6.5-8.0); Triglycerides 144 mg/dL
[2022-02-28 12:09] LABS: TSH reflex Free T4 1.28 uIU/mL (0.32-4.0)
== END 2022-02-28 08:22 | disposition home or self-care (01) ==
LOC: HO.HMGCLDS 08:21
PROVIDERS: PCP Nurse Practitioner Family; Visit Provider Nurse Practitioner Family
DX: E78.5 Hyperlipidemia, unspecified (principal); I10 Essential (primary) hypertension
CPT/HCPCS: 36415; 80053; 80061; 84443; 85025

== ENCOUNTER 2022-03-22 06:24 | Emergency (ER) | payer OTHER, SELFPAY ==
--- NOTE | ~2022-03-22 | XR_ITS ---
EXAMINATION: XR CHEST CLINICAL INFORMATION: Chest pain COMPARISON: 06/25/2020 TECHNIQUE: Frontal view of the chest was obtained. FINDINGS: The lungs are well expanded. There is no focal consolidation, edema, or effusion. No pneumothorax. The cardiomediastinal silhouette is within normal limits. No acute osseous abnormality. XR/XR chest 1V IMPRESSION: No acute pulmonary disease.
[2022-03-22 06:57] VITALS: BP 161/108; PULSE 72; RESP 16; TEMP 36.8; O2SAT 95; BMI 38.6
--- NOTE | 2022-03-22 07:50 | ECG_ITS ---
Test Reason : hypertension Blood Pressure : / mmHG Vent. Rate : 071 BPM Atrial Rate : 071 BPM P-R Int : 178 ms QRS Dur : 096 ms QT Int : 392 ms P-R-T Axes : 052 004 032 degrees QTc Int : 425 ms Normal sinus rhythm Normal ECG When compared with ECG of 23-SEP-2017 20:46, No significant change was found Referred By: Generic ED Physician Electronically Signed By:ANYA MCDERMOTT MD
[2022-03-22 08:16] LABS: MANUAL DIFF FLAG NO
[2022-03-22 08:18] LABS: Basophils Absolute Auto 0.1 X10*3/uL (0.0-0.2); Basophils Percent Auto 1.1 % (0-2); Eosinophils Absolute Auto 0.3 X10*3/uL (0.0-0.4); Eosinophils Percent Auto 3.6 % (0-4); Hematocrit 45.5 % (42.0-52.0); Imm Gran Abs Auto 0.03 X10*3/uL (0.00-0.03); Imm Gran Pct Auto 0.4 % (0.0-0.4); Lymphocytes Absolute Auto 2.4 X10*3/uL (1.2-4.9); Lymphocytes Percent Auto 29.1 % (20-40); Mean Corpuscular Hemoglobin 29.9 pg (27.0-33.0); Mean Corpuscular Volume 90.8 fL (80.0-98.0); Mean Platelet Volume 11.1 fL (9.4-12.4); Monocytes Absolute Auto 0.8 X10*3/uL (0.1-1.2); Monocytes Percent Auto 10.1 % (2-11); Neutrophils Absolute Auto 4.6 x10*3/uL (2.0-8.3); Neutrophils Percent Auto 55.7 % (45-73); Platelet Count 262 X10*3/uL (160-400); Red Blood Count 5.01 X10*6/uL (4.60-5.80); Red Cell Distribution Width 13.6 % (11.0-16.0); White Blood Count 8.3 X10*3/uL (4.8-10.8)
[2022-03-22 08:31] LABS: Anion Gap 13 (12-20); Blood Urea Nitrogen 13 mg/dL (9-16); Calcium 9.6 mg/dL (8.4-10.2); Carbon Dioxide 25 mmol/L (22-29); Chloride 106 mmol/L (96-108); Creatinine Clr Calc Pharmacy 124.8; Estimated Glomerular Filt Rate > 60; Glucose Random 97 mg/dL (60-115); Potassium 4.3 mmol/L (3.3-5.1); Sodium 140 mmol/L (135-145)
[2022-03-22 08:39] LABS: Troponin-I High Sensitivity < 3.5 ng/L (<3.5-35.0)
--- NOTE | 2022-03-22 09:04 | ED_ITS ---
HPI - General Adult General Chief complaint: General Medical Stated complaint: sent in by pcp Time Seen by Provider: 03/22/22 09:00 Source: patient Mode of arrival: ambulatory Limitations: no limitations History of Present Illness HPI narrative: 61-year-old male with history of COPD, hypothyroidism, high cholesterol, hypertension on 50 mg of losartan daily here with reports of intermittent high blood pressure episodes for years. Patient reports was blood pressure is high he has a headache, blurry vision, he gets some tingling in his hands and fingers, feels dizzy and brain fog. He tried calling his primary care doctor but was referred into the emergency room. He has been on losartan since June. He has been intermittently checking blood pressure and has been greater than 170 systolic. He has not written down the numbers. He denies any associated shortness of breath, chest pain, leg swelling, fevers, chills. Related Data Previous Rx's Medication Instructions Recorded lidocaine 5 % topical cream (LMX 5) 1 appl topical BID PRN pain 30 08/09/21 days #28.35 grams losartan 50 mg tablet 50 mg PO DAILY 30 days #30 tabs 09/24/21 rosuvastatin 10 mg tablet 10 mg PO DAILY 90 days #90 tabs 02/28/22 albuterol sulfate 90 mcg/actuation 1 inh inhalation QID PRN shortness 03/01/22 aerosol inhaler (Ventolin HFA) of breath or wheezing 30 days #8.5 grams amlodipine 10 mg tablet (Norvasc) 10 mg PO DAILY #30 tabs 03/22/22 levothyroxine 75 mcg tablet 75 mcg PO QAM 90 days #90 tabs 03/22/22 Allergies Allergy/AdvReac Type Severity Reaction Status Date / Time methocarbamol [From Robaxin] Allergy Intermediate throat Verified 03/21/22 10:12 swells. Sulfa (Sulfonamide Allergy Unknown throat Verified 03/21/22 10:12 Antibiotics) swelling Review of Systems Review of Systems: Yes all other systems are reviewed and are negative Constitutional: Constitutional: Reports no additional constitutional complaints, Denies body ache(s), Denies chills, Denies fever(s), Reports headache(s) and Denies weakness Eyes: Eyes: Reports no additional eye complaints, Reports blurry vision, Denies change in vision and Denies photophobia ENT: Reports system reviewed and no additional complaints, except as documented, Reports dizziness, Reports headache(s), Denies nasal congestion, Denies nasal discharge and Denies neck pain Cardiovascular: Cardiovascular: Reports no additional cardiovascular complaints, Denies chest pain, Denies leg edema and Denies dyspnea Respiratory: Respiratory: Reports no additional respiratory complaints, Denies cough and Denies dyspnea Gastrointestinal: Gastrointestinal: Reports no additional gastrointestinal complaints, Denies abdominal pain, Denies diarrhea, Denies nausea and Denies vomiting Genitourinary: Genitourinary: Denies urinary incontinence Musculoskeletal: Musculoskeletal: Reports no additional musculoskeletal complaints, Denies back pain, Denies arthralgias, Denies joint swelling, Denies neck pain, Denies numbness and Reports tingling Integumentary/Breasts: Skin/Breast: Reports system reviewed and no additional complaints, except as docu and Denies rash Neurologic: Reports system reviewed and no additional complaints, except as documented, Reports dizziness, Reports headache(s), Denies numbness, Reports tingling and Denies weakness PMF Past Medical History Attestation statement: The following information was validated with the patient. Source: old records reviewed and nursing notes reviewed Medical History COPD (chronic obstructive pulmonary disease) Epididymal cyst Left testicular pain Mild ascending aorta dilatation Thyroid disease Surgical History H/O colonoscopy H/O hemorrhoidectomy History of nasal septoplasty History of repair of ACL Hx of tonsillectomy Family History Family History Father Hypertension Stroke Mother No problems noted. 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 Cognitive needs: Yes (cane) Hearing needs: No Vision needs: Yes (glasses) Physical Exam ED Vital Signs: Vital Signs - 24 hr 03/22/22 06:57 03/22/22 10:08 Temperature 98.2 F 98.8 F Pulse Rate 72 67 Respiratory Rate 16 16 Blood Pressure 161/108 H 181/110 H Pulse Oximetry 95 96 Oxygen Delivery Method Room Air Room Air BMI result Body Mass Index 38.6 Const General: cooperative, healthy appearing, comfortable and no acute distress Orientation/consciousness: patient oriented x3 Limitations: no limitations HENMT Head: Yes normal to inspection Ears: hearing grossly normal bilaterally and TM's normal bilaterally Throat: Yes posterior oropharynx normal Eyes General: appearance normal, both eyes and all related structures Visual Thompson: normal visual thompson by confrontation Alignment and Position: alignment normal Periorbital: periorbital findings normal Eyelids: Yes eyelids normal Conjunctivae: conjunctivae normal Sclerae: sclerae normal Corneas: corneas normal Pupils: Equal, round and reactive pupils present EOM: EOMs intact bilaterally Direct Ophthalmoscopy: No photophobia Neck Neck: Yes normal visual inspection, Yes full ROM, Yes no lymphadenopathy and Yes no meningeal signs Chest Chest palpation & inspection: normal inspection of the chest Resp Effort & Inspection: normal respiratory effort Auscultation: clear to auscultation bilaterally Cardio Rate: regular rate Rhythm: regular rhythm Peripheral pulses: Peripheral pulses 2+ throughout GI Inspection: Yes normal to inspection Palpation (GI): Soft to palpation and nontender General: Yes no CVA tenderness Back/Spine/Pelvis Back: no CVA tenderness Thoracic/Lumbar Spine: thoracic and lumbar spine normal to inspection Skin General skin exam: no rashes or lesions noted Neuro General: patient oriented x3, moves all extremities and no meningeal signs Cranial nerves: Yes CN's II-XII intact bilaterally, Yes Equal, round and reactive pupils present, Yes Bilaterally intact EOM present, Yes Nystagmus not present, Yes Normal facial strength present and Yes Midline tongue present Cognition (Neuro): normal cognition Gait exam (Neuro): Normal gait present Motor exam (neuro): 5/5 motor strength present throughout Sensory Exam: Normal double simultaneous stimulation for sensation Extrem General: Yes normal to inspection, Yes no pedal edema and Yes no calf tenderness NIH Stroke Scale Internal: Initial- Upon Arrival Level of Consciousness: Alert Level of Consciousness Questions: Answers both questions correctly Level of Consciousness Commands: Performs both tasks correctly Best Gaze: Normal Visual: No visual loss Facial Palsy: Normal Motor Arm (Right): No drift Motor Arm (Left): No drift Motor Leg (Right): No drift Motor Leg (Left): No drift Limb Ataxia: Absent Sensory: Normal Best Language: No aphasia Dysarthia: Normal Extinction and Inattention: No abnormality Score: 0 Course Course Course Narrative: Blood work is unremarkable. EKG shows no ischemic changes or signs of LVH. Chest x-ray is negative for any acute finding. Blood pressure 160/108. Would consider increasing dose of losartan to 100mg daily from 50mg daily. However, patient does not want to do this. He tells me he tried taking double doses for several days with no improvement in blood pressure. Will start norvasc 10mg daily instead. Will need f/u with PCP closely. Reevaluation(s) Reevaluation #1: 1000-I did speak to PCP office and patient has a follow-up tomorrow at 3:15pm. Reevaluation #2: 1020-Spoke to PCP Kodi MONTELONGO. We discussed patient's case and he feels comfortable following with the patient tomorrow. Consultations Consultation #1: Kodi MONTELONGO Medical Decision Making MDM Narrative Medical decision making narrative: 61-year-old male here with uncontrolled hypertension for years per patient despite being on losartan 50 mg. Patient tells me that when his blood pressure is elevated he feels quite symptomatic with headache, tingling in his hands and fingers, dizzy, blurry vision, brain fog. Patient tried getting his primary care doctor but was referred into the emergency room. Normal neuro exam w/ no focal deficit. Blood pressure 160/108. Feels okay here. NO CP/SOB/leg swelling. Sounds like hypertensive urgency when BP elevated. Will need better control and so we discussed increasing dose of losartan to 100mg daily but patient did not want to do this. Therefore we will add second agent. Patient given first dose in the ER. Will need close f/u with PCP. Patient wants to change PCP as he is not happy with current provider. We discussed he should have better control of BP prior to doing this to ensure follow-up. Will speak to PCP. Low concern for ACS with negative troponin, EKG which shows no ischemic changes No clinical findings concerning for CHF Medical Records Medical records reviewed: Yes I reviewed the patient's medical records. Lab Data Lab results reviewed: Yes I reviewed the patient's lab results. Result diagrams: 03/22/22 08:11 03/22/22 08:12 Labs: Lab Results 03/22/22 03/22/22 03/22/22 Range/Units 08:11 08:11 08:12 WBC 8.3 (4.8-10.8) X10*3/uL RBC 5.01 (4.60-5.80) X10*6/uL Hgb 15.0 (14.0-18.0) g/dl Hct 45.5 (42.0-52.0) % MCV 90.8 (80.0-98.0) fL MCH 29.9 (27.0-33.0) pg MCHC 33.0 (31.0-36.0) g/dl RDW 13.6 (11.0-16.0) % Plt Count 262 (160-400) X10*3/uL MPV 11.1 (9.4-12.4) fL Immature Gran % (Auto) 0.4 (0.0-0.4) % Neut % (Auto) 55.7 (45-73) % Lymph % (Auto) 29.1 (20-40) % [place] % (Auto) 10.1 (2-11) % Eos % (Auto) 3.6 (0-4) % Baso % (Auto) 1.1 (0-2) % Lymph # (Auto) 2.4 (1.2-4.9) X10*3/uL [place] # (Auto) 0.8 (0.1-1.2) X10*3/uL Eos # (Auto) 0.3 (0.0-0.4) X10*3/uL Baso # (Auto) 0.1 (0.0-0.2) X10*3/uL Abs Immat Gran (auto) 0.03 (0.00-0.03) X10*3/uL Absolute Neuts (auto) 4.6 (2.0-8.3) x10*3/uL Absolute Nucleated RBC 0.000 (0.0-0.012) X10*3/uL Nucleated RBC % (auto) 0.0 (0.0-0.2) /100WBC Sodium 140 (135-145) mmol/L Potassium 4.3 (3.3-5.1) mmol/L Chloride 106 (96-108) mmol/L Carbon Dioxide 25 (22-29) mmol/L Anion Gap 13 (12-20) BUN 13 (9-16) mg/dL Creatinine 0.86 (0.5-1.4) mg/dL Estim Creat Clear Calc 124.8 Estimated GFR > 60 Random Glucose 97 (60-115) mg/dL Calcium 9.6 (8.4-10.2) mg/dL Troponin I High Sens < 3.5 (<3.5-35.0) ng/L Imaging Data Chest x-ray: Attestation: I personally reviewed and interpreted this imaging study as follows: Radiologist's impression: [address] [address] XRay Report Signed Patient: Karel Dutton MR#: [id number] : 1960 Acct:[id number] Age/Sex: 61 / M ADM Date: 03/22/22 Loc: .ED Attending Dr: Ordering Physician: Generic ED Physician Date of Service: 03/22/22 Procedure(s): XR chest 1V Accession Number(s): [id number] cc: Generic ED Physician~ EXAMINATION: XR CHEST CLINICAL INFORMATION: Chest pain COMPARISON: 06/25/2020 TECHNIQUE: Frontal view of the chest was obtained. FINDINGS: The lungs are well expanded. There is no focal consolidation, edema, or effusion. No pneumothorax. The cardiomediastinal silhouette is within normal limits. No acute osseous abnormality. XR/XR chest 1V IMPRESSION: No acute pulmonary disease. ? ECG Data Attestation: I personally reviewed and interpreted this ECG as follows: Interpretation: Normal sinus rhythm with a rate of 71, normal IL, normal QRS, normal QT Discharge Plan Discharge Clinical Impression: Hypertension Patient Disposition: Home, Self-Care Instructions: Hypertension (ED) Additional Instructions: Please check blood pressure daily and write down the number Your EKG, blood work and chest x-ray are reassuring Follow-up with your PCP for a blood pressure re-check You do have an appointment tomorrow at 315 pm with Kodi Be. I will speak to him today to tell him about your ER visit. Continue your losartan 50mg daily. Start amlodipine. I do not expect that you will have a normal blood pressure immediately. It may take some time as well as titration of your medications. Prescriptions: New amlodipine [Norvasc] 10 mg tablet 10 mg PO DAILY Qty: 30 0RF No Action losartan 50 mg tablet 50 mg PO DAILY 30 Days Qty: 30 3RF rosuvastatin 10 mg tablet 10 mg PO DAILY 90 Days Qty: 90 0RF levothyroxine 75 mcg tablet 75 mcg PO QAM 90 Days Qty: 90 0RF albuterol sulfate [Ventolin HFA] 90 mcg/actuation HFA aerosol inhaler 1 inh inhalation QID PRN (Reason: shortness of breath or wheezing) 30 Days Qty: 8.5 1RF lidocaine [LMX 5] 5 % cream 1 appl topical BID PRN (Reason: pain) 30 Days Qty: 28.35 2RF Referrals: Kodi Be DIRECTOR OF CATEGORY MANAGEMENT-BC [Primary Care Provider] - 2 weeks Interventions: ED Discharge Assessment Last Done: 03/22/22 10:42 Discharge Date/Time: 03/22/22 10:44
[2022-03-22 10:08] VITALS: BP 181/110; PULSE 67; RESP 16; TEMP 37.1; O2SAT 96
[2022-03-22] MEDS: amLODIPine Besylate 10 MG TABLET PO (10:18)
== END 2022-03-22 10:44 | disposition home or self-care (01) ==
PROVIDERS: Emergency Provider Emergency Medicine; PCP Nurse Practitioner Family
DX: R51.9 Headache, unspecified (principal); I10 Essential (primary) hypertension; Z79.899 Other long term (current) drug therapy; Z87.891 Personal history of nicotine dependence
CPT/HCPCS: 36415; 71045; 80048; 84484; 85025; 93005; 99283; 99284

== ENCOUNTER 2022-03-29 07:23 | Outpatient (REF) | payer OTHER, SELFPAY ==
--- NOTE | ~2022-03-29 | CT_ITS ---
CT SOFT TISSUE NECK WITHOUT CONTRAST CLINICAL INFORMATION: Recurrent cyst under the right ear. COMPARISON: None available. TECHNIQUE: Helical imaging was performed in the axial plane with generation of coronal and sagittal reformatted images. This CT examination was performed using dose optimization techniques as appropriate, variously including the following: *Automated exposure control *Adjustment of mA and/or kV according to patient size (this includes techniques or standardized protocols for targeted exams where dose is matched to indication/reason for exam; i.e. extremities or head) *Use of iterative reconstruction technique FINDINGS: A palpable marker has been placed on the skin overlying the right parotid gland. No large intraparotid mass lesions are identified. There are several small 2 to 3 mm lymph nodes along the periphery of the right parotid tail at the site of palpable abnormality. Assessment is limited without contrast. The left parotid gland and the unenhanced submandibular glands are unremarkable there are a few surgical clips adjacent to the right thyroid gland and the thyroid is otherwise unremarkable. There is focal left facial skin thickening that contacts the left zygomaticus muscle on image 28 of series 3. Recommend correlating with physical exam. There are no retropharyngeal fluid collections. There is a lobulated up to 2 cm lesion extending from the preepiglottic fat through the thyrohyoid membrane between the upper thyroid strap muscles eccentric to the right side, likely a thyroglossal duct cyst that can be more definitively assessed with MRI. There is a partially imaged nodular density just anterior to the ascending thoracic aorta measuring 1.5 cm that can be further assessed with a contrast-enhanced CT of the chest. Imaged upper lungs remain clear and exhibit small pleural blebs. There is multilevel cervical spondylosis. No acute osseous findings. There is mild mucosal thickening throughout the ethmoid air cells bilaterally and within the left maxillary sinus. Moderate mucosal thickening within the right frontal sinus. Mastoid air cells are clear. CT/CT soft tissue neck wo IV con IMPRESSION: - A palpable marker has been placed on the skin overlying the right parotid gland. No large intraparotid mass lesions are identified. There are several small 2 to 3 mm lymph nodes along the periphery of the right parotid tail at the site of palpable abnormality. Assessment is limited without contrast. - There is a lobulated up to 2 cm lesion extending from the preepiglottic fat through the thyrohyoid membrane between the upper thyroid strap muscles eccentric to the right side, likely a thyroglossal duct cyst that can be more definitively assessed with MRI. - There is focal left facial skin thickening that contacts the left zygomaticus muscle on image 28 of series 3. Recommend correlating with physical exam. - There is a partially imaged nodular density just anterior to the ascending thoracic aorta measuring 1.5 cm that can be further assessed with a contrast-enhanced CT of the chest.
== END 2022-03-29 07:24 | disposition home or self-care (01) ==
LOC: HO.CT 07:23
PROVIDERS: PCP Nurse Practitioner Family; Visit Provider Surgery
DX: K11.8 Other diseases of salivary glands (principal)
CPT/HCPCS: 70490

== ENCOUNTER 2022-04-03 15:51 | Outpatient (REF) | payer OTHER, SELFPAY ==
--- NOTE | ~2022-04-03 | XR_ITS ---
EXAMINATION: XR HAND, RIGHT CLINICAL INFORMATION: M79.641 - Pain in right hand COMPARISON: None TECHNIQUE: PA, lateral, and oblique views of the right hand. FINDINGS: There is focal soft tissue swelling versus equal attenuation soft tissue mass lateral side mid index finger adjacent to the PIP joint. No soft tissue mineralization or gas tracking in the soft tissues. The bony structures appear intact. There is no acute or healing fracture, dislocation, or arthropathy. No focal joint narrowing or erosive change. No focal significant exostosis. XR/XR hand RT min 3V IMPRESSION: 1. Focal soft tissue swelling versus equal attenuation soft tissue mass lateral side index finger adjacent to PIP joint. No soft tissue mineralization or gas tracking in soft tissues. 2. No bony abnormality or arthropathy.
== END 2022-04-03 15:52 | disposition home or self-care (01) ==
LOC: HO.HOSX 15:51
PROVIDERS: Visit Provider Orthopaedic Surgery
DX: M79.641 Pain in right hand (principal)
CPT/HCPCS: 73130

== ENCOUNTER 2022-05-12 09:40 | Outpatient (REF) | payer OTHER, SELFPAY ==
--- NOTE | ~2022-05-12 | US_ITS ---
EXAMINATION: ULTRASOUND RENAL WITH DOPPLER CLINICAL INFORMATION: Hypertension, rule out renal artery stenosis COMPARISON: CT abdomen pelvis on 11/18/2020 TECHNIQUE: Real-time grayscale, color Doppler, and duplex Doppler evaluation of the kidneys and renal vasculature was performed. FINDINGS: RENAL MEASUREMENTS: Right: 13.4 x 6.3 x 5.7 cm (Sag x AP x TV) Left: 13.1 x 5.6 x 7.0 cm (Sag x AP x TV) The renal parenchyma appears normal. No hydronephrosis or nephrolithiasis. DOPPLER INTERROGATION: Aorta: 74.8 cm/sec Right Main Renal Artery: Proximal: 114 cm/sec Mid: 88 cm/sec Distal: 79 cm/sec Left Main Renal Artery: Proximal: 115 cm/sec Mid: 113 cm/sec Distal: 58 cm/sec Renal-Aortic Ratio (RAR): Right: 1.52 Left: 1.53 Interlobar resistive indices: Right: 0.67, 0.65, 0.61 Left: 0.53, 0.59, 0.67 Renal veins: Right: Patent Left: Patent US/US renal doppler IMPRESSION: No evidence of renal artery stenosis.
== END 2022-05-12 09:41 | disposition home or self-care (01) ==
LOC: HO.US 09:40
PROVIDERS: Visit Provider Internal Medicine Nephrology
DX: I10 Essential (primary) hypertension (principal)
CPT/HCPCS: 93975

== ENCOUNTER 2022-06-05 14:26 | Outpatient (REF) | payer OTHER, SELFPAY ==
--- NOTE | ~2022-06-05 | MR_ITS ---
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 COMPARISON: CT neck from 03/29/2022. TECHNIQUE: MRI of the neck was obtained using routine sequences without and with contrast. Intravenous contrast: Gadavist 10 mL. FINDINGS: Similar prior exam, there is a focal region of cutaneous thickening along the left cheek that abuts the adjacent left zygomatic muscle without overtly suspicious enhancement. There is a nonenhancing 0.6 cm cutaneous-based nodule in the right periauricular region posterolateral to the right parotid gland. No additional significant cutaneous thickening or subcutaneous inflammation. As previously noted, there is a midline nonenhancing cyst abutting the posterior margin of the body of the hyoid bone. There appears to be a component of this cystic structure that extends beneath the hyoid bone into the tissues anterior to the thyroid cartilage. The component of this cyst deep to the hyoid bone measures approximately 0.8 x 0.7 x 0.9 cm. The component of this cyst that extends anterior to the thyroid cartilage measures approximately 1 x 0.5 x 0.9 cm. No additional discrete fluid collection within the deep tissues of the neck. The premaxillary, retromaxillary, pterygopalatine fossa, orbital apical, parapharyngeal, and prelaryngeal adipose tissue is maintained. Normal appearance of the parotid, submandibular, and thyroid glands. Scattered subcentimeter lymph nodes bilaterally, none of which are pathologically enlarged or abnormally enhancing. No demonstrated focal lesion or abnormal enhancement within the intrinsic tissues of the tongue or floor of mouth. Normal mucosal contours of the pharynx and larynx without abnormal enhancement. Normal anatomic alignment of the cervical spine. Moderate degenerative disc disease from C4-C7. On limited evaluation, a disc-osteophyte complex eccentric to the left at C5-C6 appears to lead to mild spinal canal stenosis at this level. There is no prevertebral soft tissue swelling. Right dominant vertebral artery. The major vascular flow voids of the neck are maintained. The visualized portion of the skull base is without significant abnormalities. 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 Minimal mucosal thickening of the visualized paranasal sinuses. No signal abnormalities within the mastoids. Mild prominence of the CSF space posterior to the left cerebellar hemisphere. No demonstrated additional significant abnormalities of the visualized intracranial structures at the skull base. MR/MR orbits face neck wo/w con IMPRESSION: 1. As previously noted, there is a midline nonenhancing cyst abutting the posterior margin of the body of the hyoid bone suggestive of a thyroglossal duct cyst. 2. Nonspecific, nonenhancing 0.6 cm cutaneous-based nodule in the right periauricular region posterolateral to the right parotid gland. 3. No demonstrated additional focal lesion, collection, pathologically enlarged lymphadenopathy, or abnormal enhancement within the soft tissues of the neck. 4. Similar prior exam, there is a focal region of cutaneous thickening along the left cheek that abuts the adjacent left zygomatic muscle without overtly suspicious enhancement. 5. Moderate multilevel degenerative spondyloarthropathy of the cervical spine. There appears to be mild spinal canal stenosis at C5-C6.
== END 2022-06-05 14:27 | disposition home or self-care (01) ==
LOC: HO.MRI 14:26
PROVIDERS: PCP Nurse Practitioner Family; Visit Provider Otolaryngology
DX: D37.030 Neoplasm of uncertain behavior of the parotid salivary glands (principal)
CPT/HCPCS: 70543; A9585

== ENCOUNTER → 2022-06-06 08:58 | Outpatient (BNVA) | payer OTHER, SELFPAY | PROVIDERS: PCP Nurse Practitioner Family; Visit Provider Orthopaedic Surgery | DX: R22.32 Localized swelling, mass and lump, left upper limb (principal) ==

== ENCOUNTER 2022-06-28 11:37 | Outpatient (REF) | payer OTHER, SELFPAY ==
--- NOTE | 2022-06-28 08:30 | EMG_ITS ---
Please see scanned EMG / Nerve Conduction Report. MTDD
== END 2022-06-28 11:38 | disposition home or self-care (01) ==
LOC: HO.NEURO 11:37
PROVIDERS: PCP Nurse Practitioner Family; Visit Provider Orthopaedic Surgery
DX: R20.0 Anesthesia of skin (principal); R20.2 Paresthesia of skin
CPT/HCPCS: 95885; 95913

== ENCOUNTER 2022-07-06 06:53 | Day surgery (SDC) | payer OTHER, SELFPAY ==
[2022-07-03 09:24] VITALS: BMI 38.6
[2022-07-06] VITALS (7 sets, daily range): BP systolic 109–136; BP diastolic 70–79; PULSE 70–79; RESP 18–24; TEMP 36.3–36.6; O2SAT 95–98
--- NOTE | 2022-07-06 08:03 | P.HPSUR_ITS ---
Pre-Procedural Eval Section A Date of Service: 07/06/22 The patient is an INPATIENT: No Changes since office visit: No Cold of Flu in the past 2 weeks, No New Medical Problems, No Changes in Medication and No Patient answered all questions The History & Physical has been completed within 30 days and I have reviewed it.: Yes Section B Chief Complaint: Right index mass, and carpal tunnel syndrome Allergies: Allergies Allergy/AdvReac Type Severity Reaction Status Date / Time methocarbamol [From Robaxin] Allergy Intermediate throat Verified 06/06/22 09:04 swells. Sulfa (Sulfonamide Allergy Intermediate throat Verified 07/03/22 09:24 Antibiotics) swelling Plan Diagnosis/Plan: Change I have reviewed the history and physical and performed a pertinent physical examination on my patient. No changes have occurred unless specified. addendum was made to his last clinic note adding the EMG nerve conduction study findings. We are therefore adding a right carpal tunnel release to this procedure. The risks and benefits of operative treatment were discussed with the patient and the patient wishes to proceed with surgery. These risks include, but are not limited to risk of damage to blood vessels, nerves, tendons, infection, recurrence, incomplete relief of preoperative symptoms, persistent pain, possible need for further surgery and the risks associated with regional blocks and anesthesia. The plan is to take the patient to the operating room Today for the following procedures: 1. right index finger mass excisional biopsy 2. right carpal tunnel release All of the preoperative paperwork including the consent was filled out today. All the patient's questions were answered. The patient understands that they will be contacted by our production control specialist soon to schedule this procedure Time Spent With Patient Time: Total time managing care of this patient today ____ minutes.
--- NOTE | 2022-07-06 08:05 | W.PM.OPN ---
Operative Note Operative Note Date of Service: 07/06/22 Narrative: Operative Note Narrative: Preop diagnosis: 1. Right index finger soft tissue mass 2. Right carpal tunnel syndrome Postop diagnosis: Same Procedure: 1. Right index finger soft tissue mass excisional biopsy 2. Right carpal tunnel release Surgeon: Suzie Crook MD Anesthesia: General Anesthesia plus local blocks Findings: Right index finger soft tissue mass measured approximately 9 1 cm in diameter was white, and filled with a gritty white material most consistent with an epidermal inclusion cyst. Implants: none Tourniquet time: 18 minutes EBL: 5.0 ml Specimen: right index finger soft tissue mass for histopathology Drains: None Complications: None Disposition: Brought to the recovery room in stable condition Plan: Follow-up in 10-14 days for wound check, suture removal and to check pathology Indications: The patient is a 61 year old man with a right index finger soft tissue mass and right carpal tunnel syndrome . The risks and benefits of operative treatment, including but not limited to risk of damage to blood vessels, nerves, tendons, infection, recurrence, persistent pain or numbness, incomplete resolution of preoperative symptoms, or need for further surgery were discussed with the patient and they wished to proceed with surgery. Procedure: Once consent was obtained digital blocks were performed by me in preop hold using a combination of 1%lidocaine with epinephrine with sodium bicarb as a buffer. the patient tolerated that well. The patient was brought back to the operating suite and placed in the operating table in a supine position. . Perioperative antibiotics and anesthesia was administered by the anesthesia team. A tourniquet was applied to the proximal aspect of the right upper extremity and the limb was prepped and draped in a standard surgical fashion. The limb was elevated exsanguinated with Esmarch bandage and the tourniquet inflated to 250 mm of mercury for a total tourniquet time of 18 minutes. Once assured that we had a good block, a 2.0 cm longitudinal incision was made centered over the right carpal tunnel. The incision was made through the skin to the subcutaneous tissues using a #15 blade. Dissection was made down to the level of the transverse carpal ligament with care being taken to protect the palmar cutaneous nerve. Once the transverse carpal ligament was clearly visualized, a longitudinal incision was made in the transverse carpal ligament 1st using a #15 blade, then using tenotomy scissors under direct visualization. Care was taken to look for and protect the motor branch of the median nerve when seen in this area. Once satisfied with our carpal tunnel release the wound was irrigated with normal saline. I made a longitudinal mid lateral incision over the radial aspect of the patient's right index finger centered over the soft tissue mass. The incision was made through the skin to the subcutaneous tissues using a 15. Blade. I then carefully dissected down to the level of the soft tissue mass using tenotomy and iris scissors. The mass was white and spherical and measured about 1 cm in diameter. It extended deeply down to the level of the neurovascular bundle. The mass was carefully dissected free from the surrounding soft tissues with care being taken to protect the neurovascular bundle. It was then removed and placed on the back table to be sent for histo for pathology. No further masses were appreciated. At this point the tourniquet was deflated and hemostasis obtained with a brief period of local pressure and bipolar electrocautery. The wounds were copiously irrigated with normal saline. The skin edges were reapproximated with 5-0 nylon suture. A Sterile dressing was then applied. The patient appears to have tolerated the procedure well and with no complications. All digits were well vascularized conclusion of the case.
--- NOTE | 2022-07-06 08:59 | HO.ANESPROP2 ---
HPI - Anesthesia Eval Consult details Narrative: 61 M for right index finger soft tissue excision PMFSH Active Problems Active Problems: All Active Problems (Updated 07/03/22 @ 09:21 by Emily Harkins RN) Contusion (Acute) Shortness of breath (Acute) Cough (Acute) Internal derangement of left knee (Acute) DVT (deep venous thrombosis) (Acute) Edema (Acute) Tears of meniscus and ACL of left knee (Acute) Osteoarthritis of right knee (Acute) Pre-op evaluation (Acute) Screening PSA (prostate specific antigen) (Acute) COPD (chronic obstructive pulmonary disease) (Acute) Dyslipidemia (Acute) Elevated PSA (Acute) Dysuria (Acute) Abdominal pain (Acute) Left hip pain (Acute) Deep inguinal pain, left (Acute) HTN (hypertension) (Acute) Bilateral edema of lower extremity (Acute) Family history of PA (myocardial infarction) (Acute) Facial lesion (Acute) Hand lesion (Acute) Sinusitis (Acute) Mass of parotid gland (Acute) Bilateral hand numbness (Acute) Thyroglossal duct cyst (Acute) Mass of finger of left hand (Acute) COPD (chronic obstructive pulmonary disease) (Acute) Thyroid disease (Acute) Left testicular pain (Acute) Past Medical History Medical History (Updated 07/03/22 @ 09:21 by Emily Harkins RN) COPD (chronic obstructive pulmonary disease) Epididymal cyst Left testicular pain Mild ascending aorta dilatation Thyroid disease Family History Family History Father Hypertension Stroke Mother No problems noted. 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 Sulfa (Sulfonamide Allergy Intermediate throat Verified 07/03/22 09:24 Antibiotics) swelling Exam Exam Date and Time: July 06, 2022 0859 Height,Weight and Vital Signs: Height 5 ft 11 in Weight 125.645 kg Last Vital Signs Temp 97.3 F 07/06/22 07:41 Pulse 74 07/06/22 07:41 Resp 18 07/06/22 07:41 BP 136/79 07/06/22 07:41 Pulse Ox 97 07/06/22 07:41 O2 Del Method 07/06/22 07:41 Airway Mallampati Class: IV TM Dist: >3cm Neck ROM: Full Partial: Upper Loose/Missing/Broken Teeth: Yes Heart: S1,S2 Lungs: b/l breath sounds Assessment and Plan Assessment Anesthesia Assessment: Anesthesia Plan Discussed and Chart Reviewed Final Anesthetic Review Family History of Problems with Anesthesia: No History of Problems with Anesthesia: Yes (PONV) NPO: Yes ASA Class: III Final Preanesthetic Review: Meds/Allgs Chart Reviewed, Consent Obtained/Reviewed and Anes Risks/Benef Reviewed Patient Risk: Intermediate Procedure Risk: Intermediate Anesthetic Plan Anesthetic Plan: GA Disposition: Standard PACU
== END 2022-07-06 12:20 | disposition home or self-care (01) ==
PROVIDERS: PCP Nurse Practitioner Family; Visit Provider Orthopaedic Surgery
PROC: (CPT 64721; principal; 2022-07-06 08:40)
DX: G56.01 Carpal tunnel syndrome, right upper limb (principal); L72.0 Epidermal cyst; J44.9 Chronic obstructive pulmonary disease, unspecified; Z79.899 Other long term (current) drug therapy; Z88.2 Allergy status to sulfonamides; Z88.8 Allergy status to other drugs, medicaments and biological substances; Z87.891 Personal history of nicotine dependence
CPT/HCPCS: 64721; 11422; 88304; J0171; J0690; J1100; J2250; J2370; J2795

== ENCOUNTER → 2022-07-19 12:24 | Outpatient (BNVA) | payer OTHER, SELFPAY | PROVIDERS: PCP Nurse Practitioner Family; Visit Provider Physician Assistant | DX: Z13.89 Encounter for screening for other disorder (principal) ==

== ENCOUNTER 2022-10-20 08:34 | Outpatient (REF) | payer OTHER, SELFPAY ==
[2022-10-20 11:24] LABS: MANUAL DIFF FLAG NO
[2022-10-20 11:51] LABS: Basophils Absolute Auto 0.1 X10*3/uL (0.0-0.2); Basophils Percent Auto 1.3 % (0-2); Eosinophils Absolute Auto 0.2 X10*3/uL (0.0-0.4); Eosinophils Percent Auto 2.8 % (0-4); Hematocrit 43.1 % (42.0-52.0); Imm Gran Abs Auto 0.02 X10*3/uL (0.00-0.03); Imm Gran Pct Auto 0.3 % (0.0-0.4); Lymphocytes Absolute Auto 2.2 X10*3/uL (1.2-4.9); Lymphocytes Percent Auto 27.7 % (20-40); Mean Corpuscular HGB Conc 32.5 g/dl (31.0-36.0); Mean Corpuscular Hemoglobin 29.2 pg (27.0-33.0); Mean Platelet Volume 11.9 fL (9.4-12.4); Monocytes Absolute Auto 0.7 X10*3/uL (0.1-1.2); Monocytes Percent Auto 9.5 % (2-11); Neutrophils Absolute Auto 4.5 x10*3/uL (2.0-8.3); Neutrophils Percent Auto 58.4 % (45-73); Platelet Count 260 X10*3/uL (160-400); Red Blood Count 4.79 X10*6/uL (4.60-5.80); Red Cell Distribution Width 14.2 % (11.0-16.0); White Blood Count 7.8 X10*3/uL (4.8-10.8)
[2022-10-20 12:00] LABS: Appearance Urine Clear; Color Urine Yellow; Glucose Urine UA Negative (Negative); Leukocyte Esterase Urine Small (1+) (Negative); Nitrite Urine Negative (Negative); Specific Gravity - Urine 1.025 (1.005-1.025); UMIC TRIGGER UACC YES; Urine Blood Negative (Negative); Urine Ketones Negative (Negative); Urine Protein Negative (Neg-Trace)
[2022-10-20 12:16] LABS: Bacteria Urine None Seen (None Seen); Hyaline Casts Urine 0-2 /LPF (0-2); RBC Urine 0-2 /HPF (0-2); Squamous Epithelial Cell Urine 0-2 /HPF (0-2); UACC Culture Trigger YES; WBC Urine 0-5 /HPF (0-5)
[2022-10-20 12:38] LABS: Alanine Aminotransferase 36 U/L (0-40); Albumin Level 4.1 g/dL (3.5-5.0); Alkaline Phosphatase 74 U/L (39-117); Anion Gap 12 (12-20); Aspartate Amino Transferase 17 U/L (5-37); Bilirubin Total 0.6 mg/dL (0.0-1.0); Blood Urea Nitrogen 16 mg/dL (9-16); Calcium 9.5 mg/dL (8.4-10.2); Carbon Dioxide 24 mmol/L (22-29); Chloride 109 mmol/L (96-108); Cholesterol 223 mg/dL; Estimated Glomerular Filt Rate > 60; Glucose Fasting 99 mg/dL (60-99); HDL Cholesterol 33 mg/dL; LDL Cholesterol Calculated 161 mg/dl; Potassium 4.2 mmol/L (3.3-5.1); Sodium 141 mmol/L (135-145); TSH reflex Free T4 1.11 uIU/mL (0.32-4.0); Triglycerides 149 mg/dL
== END 2022-10-20 08:35 | disposition home or self-care (01) ==
LOC: HO.HMGCLDS 08:34
PROVIDERS: PCP Nurse Practitioner Family; Visit Provider Nurse Practitioner Family
DX: Z00.00 Encounter for general adult medical examination without abnormal findings (principal); R82.90 Unspecified abnormal findings in urine; E07.9 Disorder of thyroid, unspecified; E78.5 Hyperlipidemia, unspecified
CPT/HCPCS: 36415; 80053; 80061; 81001; 84443; 85025; 87086

== ENCOUNTER 2022-11-09 07:42 | Outpatient (REF) | payer OTHER, SELFPAY ==
--- NOTE | ~2022-11-09 | CT_ITS ---
EXAMINATION: CT CHEST WITH CONTRAST CLINICAL INFORMATION: Follow-up left upper lobe nodule seen on neck CT COMPARISON: Neck CT March 2022 TECHNIQUE: Multidetector volumetric CT imaging of the chest was obtained after the administration of 65 mL of Omnipaque 350 intravenous contrast without immediate adverse reactions. Axial MIP volume rendering provided. Sagittal and coronal reformatted images were obtained. This CT examination was performed using dose optimization techniques as appropriate, variously including the following: *Automated exposure control *Adjustment of mA and/or kV according to patient size (this includes techniques or standardized protocols for targeted exams where dose is matched to indication/reason for exam; i.e. extremities or head) *Use of iterative reconstruction technique DLP: 365 mGy-cm FINDINGS: LUNGS: Question 1.5 cm central perivascular left upper lobe nodule versus a nonopacified vessel axial image 155 series 5. This is similar appearing to neck CT March 2022. 3 mm peripheral or subpleural right lower lobe nodule axial image 349 series 5. The lungs are otherwise clear. There is mild paraseptal emphysema. MEDIASTINUM: Stable mediastinal lymph nodes. Largest lymph node is an anterior superior mediastinal lymph node that is upper normal in size anterior to aortic arch axial image 17 series 3 that measures 1.1 cm in short axis. There are additional smaller mediastinal and bilateral hilar lymph nodes.. No enlarged lymph nodes. Normal heart size. No pericardial effusion. No coronary artery calcification. Normal caliber thoracic aorta. PLEURA: There is no pleural effusion. No pleural mass or thickening. AXILLA: No lymphadenopathy. UPPER ABDOMEN: Gallstone. Small cyst in the spleen. OSSEOUS STRUCTURES: Degenerative changes of the spine. Nonspecific 1 cm sclerotic lesion in the right T10 vertebral body. Probable L1 hemangioma. CT/CT chest w IV con IMPRESSION: Stable question 1.5 cm. Sommer vascular left upper lobe nodule versus unopacified vessel. Follow-up contrast-enhanced chest CT scan recommended. Mild emphysema. Stable upper normal-size anterior mediastinal lymph node. Fleischner guidelines were followed.
[2022-11-09] MEDS: iohexoL 350 MG/ML 100 ML INFUS..BTL 65 ML IV (08:42)
== END 2022-11-09 07:43 | disposition home or self-care (01) ==
LOC: HO.CT 07:42
PROVIDERS: PCP Nurse Practitioner Family; Visit Provider Nurse Practitioner Family
DX: R93.89 Abnormal findings on diagnostic imaging of other specified body structures (principal)
CPT/HCPCS: 71260; Q9967

== ENCOUNTER 2023-01-01 06:59 | Outpatient (REF) | payer OTHER, SELFPAY ==
[2023-01-01 09:37] LABS: PSA,Total (Free>4and<10) 4.24 ng/mL (0.00-4.00)
[2023-01-01 09:48] LABS: Cholesterol 175 mg/dL; HDL Cholesterol 31 mg/dL; LDL Cholesterol Calculated 120 mg/dl; Triglycerides 122 mg/dL
[2023-01-04 09:33] LABS: Free Prostate Spec Ag 0.7 ng/mL; Percent Free Prostate Spec Ag 18 % (calc) (>25); Prostate Specific Ag Total 3.8 ng/mL (< OR = 4.0)
== END 2023-01-01 07:00 | disposition home or self-care (01) ==
LOC: HO.LAB 06:59
PROVIDERS: PCP Nurse Practitioner Family; Visit Provider Urology
DX: Z12.5 Encounter for screening for malignant neoplasm of prostate (principal); R97.20 Elevated prostate specific antigen [PSA]; E78.5 Hyperlipidemia, unspecified
CPT/HCPCS: 36415; 80061; 84153; 84154

== ENCOUNTER 2023-01-12 08:25 | Outpatient (AMB) | payer OTHER, SELFPAY ==
--- NOTE | 2023-01-12 08:28 | A.OFFVIS_ITS ---
Intake Intake Visit Reasons: 1YR PSA(set) Intake Note: Patient presents today for a follow-up on 1 year PSA : Meds- None Allergies to Antibiotic- Sulfa Blood Thinner- None PSA- 4.24 ng/mL 01/01/2023 Machine Guide Base Winder Required: No Accompanied by: Self / Same As Patient Allergies methocarbamol [From Robaxin] Allergy (Intermediate, Verified 01/12/23 08:34) throat swells. Sulfa (Sulfonamide Antibiotics) Allergy (Intermediate, Verified 01/12/23 08:34) throat swelling Medication List - Last Reconciled 01/12/23 by Sharad Pizarro MD albuterol sulfate 90 mcg/actuation (Ventolin HFA) 1 inh inhalation QID PRN 30 days amlodipine (Norvasc) 10 mg PO DAILY ezetimibe 10 mg PO DAILY 30 days levothyroxine 75 mcg PO QAM 90 days losartan 50 mg PO DAILY HPI HPI Comments History of Present Illness Details Karel SHAH is a very pleasant male. They are a patient of Dr Esquivel. He is seen for the following urologic conditions. - lower urinary tract symptoms - prior elevated PSA - left inguinal disruption PSA 3.6 Occasional left groin pain Continuing with exercises Review in 12 months with PSA Elevated PSA/Abnormal SANDRO:? Laboratory investigations include?05/08 4.58.? - 02/08 4.8, 08/09 3.6, 01/09 3.6, 01/10 3.8 18% Lower Urinary Tract Symptoms:? Current visit is for?further symptom evaluation of, lower urinary tract symptoms.? Current treatment includes?observation.? Prostate Symptom Score?05/08 , Mild (0-8), Bother 3.? Symptoms include?incomplete emptying, weak stream, nocturia (>2), and are progressing.? Prostate volume?50+gm.? Testing at next visit will include?bladder scan.? Treatment plan?continue review [facility] Medical History COPD (chronic obstructive pulmonary disease) Dyslipidemia Epididymal cyst Left testicular pain Mild ascending aorta dilatation Thyroid disease Surgical History H/O colonoscopy H/O hemorrhoidectomy History of nasal septoplasty History of repair of ACL Hx of tonsillectomy Family History Father Hypertension Stroke Mother No problems noted. 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 Cognitive needs: Yes (cane) Hearing needs: No Vision needs: Yes (glasses) Results AMB Urinalysis, Automated UA Leukoctes 0 Nikko/uL Last Edit by LAURA Green on 01/12/23 08:40 UA Nitrite Negative Last Edit by LAURA Green on 01/12/23 08:40 UA Urobilinogen 0.2 mg/dL Last Edit by LAURA Green on 01/12/23 08:4 0 UA Protein 0 mg/dL Last Edit by LAURA Green on 01/12/23 08:40 UA pH 7.0 Last Edit by LAURA Green on 01/12/23 08:40 UA Blood 0 Morales/uL Last Edit by LAURA Green on 01/12/23 08:40 UA Specific [place] 1.010 Last Edit by LAURA Green on 01/12/23 08: 40 UA Ketone Negative Last Edit by LAURA Green on 01/12/23 08:40 UA Bilirubin 0 mg/dL Last Edit by LAURA Green on 01/12/23 08:40 UA Glucose 0 mg/dL Last Edit by LAURA Green on 01/12/23 08:40 Results Reviewed Results Reviewed: Laboratory Last Values Urine pH (Auto) 7.0 01/12/23 08:39 Specific [place] (Auto) 1.010 01/12/23 08:39 Urine Protein (Auto) 0 mg/dL 01/12/23 08:39 Glucose (UA)(Auto) 0 mg/dL 01/12/23 08:39 Urine Ketones (Auto) Negative 01/12/23 08:39 Urine Blood (Auto) 0 Morales/uL 01/12/23 08:39 Urine Nitrite (Auto) Negative 01/12/23 08:39 Urine Bilirubin (Auto) 0 mg/dL 01/12/23 08:39 Urine Urobilinogen (Auto) 0.2 mg/dL 01/12/23 08:39 Leukocyte Esterase (Auto) 0 Nikko/uL 01/12/23 08:39 Assessment & Plan Assessment & Plan (1) Bladder outlet obstruction: Code(s): N32.0 - Bladder-neck obstruction Plan 12 month follow-up Orders: Orders PSA,Total (Free>4and<10) 364 Days N32.0 - Bladder-neck obstruction AMB Urinalysis Automated Today Z13.9 - Encounter for screening, unspecified Medications: New mupirocin 2% thin coat to affected area 3x a day for 2 weeks 1 appl topical TID 15 grams 0RF N32.0 - Bladder-neck obstruction, N48.1 - Balanitis lidocaine 5% 1 appl topical BEDTIME PRN 30 grams 0RF skin irritation 30 days N32.0 - Bladder-neck obstruction Patient Instructions: Imaging studies, laboratory and physical exam results were discussed and reviewed in detail. No major barriers to patient understanding were identified. An opportunity to ask questions regarding the treatment plan was provided. All questions were answered. The patient expressed understanding and agreement with the above treatment plan. The patient is aware they should contact our office by phone for worsening of their current condition or the appearance of new urologic symptoms. Compliance is encouraged with any medications and followup testing that is ordered. It is a privilege to participate in the urologic care of your patient. If you have any questions or concerns regarding treatment for the above conditions, or other urologic issues, please do not hesitate to contact me. The office telephone contact is [phone]. This note is constructed using voice recognition software. While every effort has been made to ensure accuracy observer gravity prospecting errors may have been included. Yours sincerely, Dr Sharad Pizarro MD, [facility] - Urology Providers of Expert, Compassionate Care for the Genitourinary System Coding Level of Care Code Est Pt Level 4 (82039) Diagnoses Bladder outlet obstruction N32.0
== END 2023-01-12 09:11 | disposition home or self-care (01) ==
PROVIDERS: PCP Nurse Practitioner Family; Visit Provider Urology
DX: N32.0 Bladder-neck obstruction (principal); Z13.89 Encounter for screening for other disorder
CPT/HCPCS: 99214

== ENCOUNTER → 2023-01-12 08:25 | Outpatient (BNVA) | payer OTHER, SELFPAY | PROVIDERS: Visit Provider Urology | DX: N32.0 Bladder-neck obstruction (principal) | CPT/HCPCS: 81003 ==

== ENCOUNTER 2023-02-15 08:16 | Outpatient (AMB) | payer OTHER, SELFPAY ==
[2023-02-15 08:25] VITALS: BP 138/88; PULSE 75; O2SAT 96; BMI 39.5
--- NOTE | 2023-02-15 08:25 | MHC.PC.OV ---
Vital Signs 02/15/23 08:25 Height 5 ft 11 in Weight 283 lb 8 oz BMI 39.5 BP 138/88 Blood Pressure Location Lt brachial Position Sitting Pulse 75 Pulse Source Pulse Oximeter Pulse Oximetry (%) 96 Oxygen Delivery Method Room Air Intake Visit Reasons: 4m follow up Allergies methocarbamol [From Robaxin] Allergy (Intermediate, Verified 02/15/23 08:29) throat swells. Sulfa (Sulfonamide Antibiotics) Allergy (Intermediate, Verified 02/15/23 08:29) throat swelling Medication List - Last Reconciled 02/15/23 by BRYAN Diaz albuterol sulfate 90 mcg/actuation (Ventolin HFA) 1 inh inhalation QID PRN 30 days amlodipine (Norvasc) 10 mg PO DAILY ezetimibe 10 mg PO DAILY levothyroxine 75 mcg PO QAM 90 days lidocaine 5% 1 appl topical BEDTIME PRN 30 days losartan 50 mg PO DAILY mupirocin 2% 1 appl topical TID Tobacco use date assessed: 02/15/23 Dental Screening Dental Screen Date: 02/15/23 Did you have a dental visit in the last 12 months?: No Did you have a dental problem in the last 6 months where you did not have access to dental care?: No Was dental information given to patient?: No HPI 4m follow up HPI Details HTN: stable currently. Denies any CP, dizziness, SOB, COOLEY, blurred vision. dilatation ascending aorta on previous echo, will repeat echo. . [facility] Medical History (Updated 02/15/23 @ 08:49 by BRYAN Diaz) Mild ascending aorta dilatation Epididymal cyst COPD (chronic obstructive pulmonary disease) Thyroid disease Left testicular pain Dyslipidemia Surgical History History of repair of ACL H/O colonoscopy H/O hemorrhoidectomy History of nasal septoplasty Hx of tonsillectomy Family History Father Hypertension Stroke Mother No problems noted. 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 Easton Yeboah, Mojgan White, Dylan Ferraro and colleagues, with an educational heather from [employer]. Physical exam (Primary Care) Vital Signs: Last Vital Signs Pulse 75 02/15/23 08:25 BP 138/88 02/15/23 08:25 Pulse Ox 96 02/15/23 08:25 Oxygen Delivery Method Room Air 02/15/23 08:25 BMI result Body Mass Index 39.5 Tobacco/Smoking Status: Tobacco use Status Tobacco use date assessed 02/15/23 02/15/23 08:32 Patient Tobacco Use Status Former Tobacco user 02/15/23 08:32 e-Cigarette/Vaping Use Never Used 02/15/23 08:32 Thrive Assessment: Date of Thrive Assessment Date Thrive assessed 03/01/22 02/15/23 08:32 Resp Effort & Inspection: normal respiratory effort Auscultation: clear to auscultation bilaterally (dim bilat) Cardio Palpation: normal PMI Rate: regular rate Rhythm: regular rhythm Heart sounds: S1 normal heart sound present and S2 normal heart sound present Extrem Right lower extremity: edema (trace) Left lower extremity: edema (trace) Assessment and Plan Assessment & Plan (1) HTN (hypertension): Code(s): I10 - Essential (primary) hypertension (2) Mild ascending aorta dilatation: Comment: had echocardiogram 08/31/21 ordered by PCP Code(s): I77.810 - Thoracic aortic ectasia Orders: Orders Complete Blood Count Auto Diff Today I10 - Essential (primary) hypertension TSH reflex Free T4 Today I10 - Essential (primary) hypertension Lipid Panel Today I10 - Essential (primary) hypertension Comprehensive [place]. Panel Fast Today I10 - Essential (primary) hypertension UA CC w/rflx Micro + Cult Today I10 - Essential (primary) hypertension CA echo transthoracic complete Today I77.810 - Thoracic aortic ectasia Medications: Refilled albuterol sulfate 90 mcg/actuation (Ventolin HFA) 1 inh inhalation QID 30 days PRN 8.5 grams 1RF shortness of breath or wheezing Coding Level of Care Code Est Pt Level 3 (58213) Diagnoses HTN (hypertension) I10 Mild ascending aorta dilatation I77.810
== END 2023-02-15 09:12 | disposition home or self-care (01) ==
PROVIDERS: Visit Provider Nurse Practitioner Family
DX: I10 Essential (primary) hypertension (principal); I77.810 Thoracic aortic ectasia
CPT/HCPCS: 99213

== ENCOUNTER → 2023-03-20 07:39 | Outpatient (REF) | payer OTHER, SELFPAY ==
--- NOTE | 2023-03-20 07:41 | CA_ITS ---
Transthoracic Echocardiogram Patient (Last, First, Middle): Karel Dutton, Gender: Male Date of : 1960 Age: 62 Procedure Date: 03/20/2023 Procedure Type: Transthoracic Echocardiogram Location: OP Height: 180.34 cm Weight: 113.4 kg BSA: 2.32 m2 Heart Rate: bpm BP: 138 / 85 mmHg Accounting Clerk: FARHANA/SIRIA Referring MD: Kodi Be [facility]- Symptoms: I77.810 - Thoracic aortic ectasia Study Quality: Adequate with contrast ECG Rhythm: Sinus Conclusions: - The left ventricular systolic function is normal. The calculated ejection fraction is 61% by biplane method. - No obvious valvular pathology seen on this study. - There is mild dilatation of the ascending aorta measuring 4.20 cm. Findings Procedure Information Contrast agent, definity, is being given per protocol without apparent complications. Left Ventricle Normal left ventricular cavity size. The left ventricular systolic function is normal. The calculated ejection fraction is 61% by biplane method. There is no evidence of regional wall motion abnormalities. Evidence suggests grade I (mild) diastolic dysfunction. There is mild septal asymmetric hypertrophy. Right Ventricle Mildly increased right ventricular cavity size. There is normal right ventricular systolic function. Atria Both atria are normal in size. Aortic Valve There is a normal trileaflet aortic valve. There is no aortic valve stenosis. There is no aortic valve regurgitation. Mitral Valve The mitral valve appears normal. There is no mitral valve regurgitation. There is no mitral valve stenosis. Pulmonic Valve The pulmonic valve is likely normal. Tricuspid Valve There is trace tricuspid valve regurgitation. There is no evidence of pulmonary hypertension. Great Vessels There is mild dilatation of the ascending aorta measuring 4.20 cm. Venous The inferior vena cava is normal in size and collapses greater than 50% with inspiration. Pericardium/Pleural There is no evidence of pericardial effusion. Prior Study Comparison Changes noted compared to prior study dated: 08/31/2021. slight increase in ascending aortic size. Recommendations, Care & Conclusions No obvious valvular pathology seen on this study. Measurements 2D Linear Measurements IVSd: 1.24 0.6-0.9/0.6-1.0 cm LVIDd: 3.74 3.9-5.3/4.2-5.9 cm LVIDd Index: 1.61 2.4-3.2/2.2-3.1 cm/m2 LVIDs: 2.54 2.0-3.6 cm LVPWd: 1.08 0.7-1.1 cm LA Diam: 3.50 2.7-3.8/3.0-4.0 cm LAIDs Index: 1.51 1.5-2.3 cm/m2 LV Mass: 177.04 67-162/88-224 g LV Mass Index: 76.31 43-95/49-115 g/m2 LVOT Diam: 2.20 3.0+(-)1.3 cm 2D Systolic Function EF 4C: 57.60 >55% EF 2C: 60.10 >55% EF BiP: 60.80 >55% Mitral Valve MV Pk E: 0.79 MV PK A: 1.08 MV Decel Time: 168.00 E/A: 0.70 E'Lateral: 6.31 E'Medial: 5.87 E/E' Med: 13.40 E/E' Lat: 12.50 PHT: 49.00 MVA PHT: 4.49 Decel [place]: 4.69 Aortic Valve AoV Pk Didier: 1.76 AoV Mn Didier: 1.07 AoV VTI: 0.34 AoV Pk Grad: 12.00 Aov Mn Grad: 6.00 DELPHINE Cont.VTI: 3.74 LVOT LVOT Pk Didier: 1.73 LVOT Mn Didier: 1.08 LVOT VTI: 0.34 LVOT Pk Grad: 12.00 LVOT Mn Grad: 6.00 LVOT Diam: 2.20 LVOT Area: 3.80 Diastolic Function MV Pk E: 0.79 MV Pk A: 1.08 E/A: 0.70 E'Medial: 5.87 E/E' Med: 13.40 E' Laterial: 6.31 E/E' Lat: 12.50 Right Ventricle TAPSE (mm): 25.90 TVS' Didier: 15.90 Tricuspid Valve TR Pk Didier: 2.44 TR Pk Grad: 24.00 RA Press: 3.00 RVSP: 27.00 Great Vessels Aorta Sinus of Valsalva: 4.00 2.0-3.[address] [place]: 3.41 1.7-3.4 cm Ao Asc: 4.20 2.1-3.4 cm Updated in Other Vendor System with Status of Final Shawn Rogers MD electronically signed on 03/20/2023 12:21:12 PM with status of Final
== END ==
LOC: HO.CARD 07:39
PROVIDERS: PCP Nurse Practitioner Family; Visit Provider Nurse Practitioner Family
DX: I77.810 Thoracic aortic ectasia (principal)
CPT/HCPCS: 93306; Q9957

== ENCOUNTER → 2023-03-20 07:41 | Outpatient (BNV) | payer OTHER, SELFPAY | PROVIDERS: PCP Nurse Practitioner Family; Visit Provider Internal Medicine | DX: I77.810 Thoracic aortic ectasia (principal) | CPT/HCPCS: 93306 ==

== ENCOUNTER 2023-05-15 08:03 | Outpatient (REF) | payer OTHER, SELFPAY ==
[2023-05-15] MEDS: iohexoL 350 MG/ML 100 ML INFUS..BTL IV (08:49)
[2023-05-15 13:29] LABS: Creatinine POC 0.9 mg/dL (0.5-1.4); GFR POC > 60
== END 2023-05-15 08:04 | disposition home or self-care (01) ==
LOC: HO.CT 08:03
PROVIDERS: PCP Nurse Practitioner Family; Visit Provider Nurse Practitioner Family
DX: R91.1 Solitary pulmonary nodule (principal)
CPT/HCPCS: 71260; 82565; Q9967

== ENCOUNTER 2023-05-18 06:06 | Outpatient (REF) | payer OTHER, SELFPAY ==
[2023-05-18 06:28] LABS: MANUAL DIFF FLAG NO
[2023-05-18 07:08] LABS: Basophils Absolute Auto 0.1 X10*3/uL (0.0-0.2); Basophils Percent Auto 1.1 % (0-2); Eosinophils Absolute Auto 0.3 X10*3/uL (0.0-0.4); Eosinophils Percent Auto 3.8 % (0-4); Hematocrit 43.4 % (42.0-52.0); Hemoglobin 14.6 g/dl (14.0-18.0); Imm Gran Abs Auto 0.03 X10*3/uL (0.00-0.03); Imm Gran Pct Auto 0.4 % (0.0-0.4); Lymphocytes Absolute Auto 2.7 X10*3/uL (1.2-4.9); Lymphocytes Percent Auto 32.1 % (20-40); Mean Corpuscular HGB Conc 33.6 g/dl (31.0-36.0); Mean Corpuscular Hemoglobin 29.9 pg (27.0-33.0); Mean Corpuscular Volume 88.9 fL (80.0-98.0); Mean Platelet Volume 11.3 fL (9.4-12.4); Monocytes Absolute Auto 0.9 X10*3/uL (0.1-1.2); Monocytes Percent Auto 10.8 % (2-11); Neutrophils Absolute Auto 4.4 x10*3/uL (2.0-8.3); Neutrophils Percent Auto 51.8 % (45-73); Platelet Count 247 X10*3/uL (160-400); Red Blood Count 4.88 X10*6/uL (4.60-5.80); White Blood Count 8.5 X10*3/uL (4.8-10.8)
[2023-05-18 07:15] LABS: Appearance Urine Clear; Color Urine Yellow; Glucose Urine UA Negative (Negative); Leukocyte Esterase Urine Trace (Negative); Nitrite Urine Negative (Negative); PH 5.5 (5.0-9.0); Specific Gravity - Urine >= 1.030 (1.005-1.025); UMIC TRIGGER UACC YES; Urine Blood Negative (Negative); Urine Ketones Negative (Negative); Urine Protein Negative (Neg-Trace)
[2023-05-18 07:20] LABS: Bacteria Urine None Seen (None Seen); Hyaline Casts Urine 0-2 /LPF (0-2); RBC Urine 0-2 /HPF (0-2); Squamous Epithelial Cell Urine 0-2 /HPF (0-2); UACC Culture Trigger YES
[2023-05-18 07:30] LABS: Alanine Aminotransferase 32 U/L (0-40); Albumin Level 4.2 g/dL (3.5-5.0); Alkaline Phosphatase 69 U/L (39-117); Anion Gap 13 (12-20); Aspartate Amino Transferase 18 U/L (5-37); Bilirubin Total 0.3 mg/dL (0.0-1.0); Blood Urea Nitrogen 17 mg/dL (9-16); Calcium 9.5 mg/dL (8.4-10.2); Carbon Dioxide 23 mmol/L (22-29); Chloride 107 mmol/L (96-108); Cholesterol 218 mg/dL (<200); Estimated Glomerular Filt Rate > 60; Glucose Fasting 101 mg/dL (60-99); HDL Cholesterol 37 mg/dL (>40); LDL Cholesterol Calculated 156 mg/dL (<100); Sodium 139 mmol/L (135-145); Total Protein 7.4 g/dL (6.5-8.0); Triglycerides 129 mg/dL (<150)
[2023-05-18 07:46] LABS: TSH reflex Free T4 3.13 uIU/mL (0.32-4.0)
== END 2023-05-18 06:07 | disposition home or self-care (01) ==
LOC: HO.LAB 06:06
PROVIDERS: PCP Nurse Practitioner Family; Visit Provider Nurse Practitioner Family
DX: I10 Essential (primary) hypertension (principal); R82.90 Unspecified abnormal findings in urine
CPT/HCPCS: 36415; 80053; 80061; 81001; 84443; 85025; 87086

== ENCOUNTER 2023-05-30 12:51 | Outpatient (AMB) | payer OTHER, SELFPAY ==
--- NOTE | 2023-05-30 12:56 | A.OFFVIS_ITS ---
Intake Vital Signs 05/30/23 13:04 Height 5 ft 11 in Weight 289 lb BMI 40.3 BP 144/87 H Blood Pressure Location Rt brachial Position Sitting Pulse 86 Intake Visit Reasons: multiple lung nodules Intake Note: Patient referred by pcp Kodi Be NP for multiple lung nodules. Recent Chest CT on 05-15-23. Patient c/o: difficulty breathing. Shortness of breath for many years. 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 Financial Service Professional Required: No Accompanied by: Nicole, spouse Allergies methocarbamol [From Robaxin] Allergy (Intermediate, Verified 05/30/23 13:01) throat swells. Sulfa (Sulfonamide Antibiotics) Allergy (Intermediate, Verified 05/30/23 13:01) throat swelling ezetimibe Adverse Reaction (Verified 05/30/23 13:01) Muscle Pain Medication List - Last Reconciled 05/30/23 by Aaron Heaton MD albuterol sulfate 90 mcg/actuation (Ventolin HFA) 1 inh inhalation QID PRN 30 days amlodipine (Norvasc) 10 mg PO DAILY ezetimibe 10 mg PO DAILY levothyroxine 75 mcg PO QAM 90 days lidocaine 5% 1 appl topical BEDTIME PRN 30 days losartan 50 mg PO DAILY mupirocin 2% 1 appl topical TID HPI HPI Comments History of Present Illness Details Patient's his for annual lung cancer screening/surveillance. His most recent CT scan was compared with the others and he has stable bilateral lung lesions. Incidental finding of a small liver hemangioma. Patient has no new respiratory symptoms. He has some shortness of breath which has been longstanding. He denies any chronic cough, hemoptysis, chest pain, wheezing. Appetite energy and weight are stable. Chart was reviewed patient evaluate [facility] Medical History (Updated 05/30/23 @ 13:05 by LAURA Harrington) Vocal cord nodule Thyroid nodule Mild ascending aorta dilatation Epididymal cyst COPD (chronic obstructive pulmonary disease) Thyroid disease Left testicular pain Dyslipidemia Surgical History (Updated 05/30/23 @ 13:41 by Aaron Heaton MD) History of repair of ACL H/O colonoscopy H/O hemorrhoidectomy History of nasal septoplasty Hx of tonsillectomy Family History Father Hypertension Stroke Mother No problems noted. 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 Corpulent male in no acute distress. Neck Other: No cervical periclavicular adenopathy bilaterally. Chest Other: Breath sounds bilaterally. GI Other: Abdomen soft, corpulent, benign Assessment & Plan Assessment & Plan (1) Lung nodule, multiple: Code(s): R91.8 - Other nonspecific abnormal finding of lung field Plan: Current plan is for continued annual lung cancer screening surveillance. Arrangements were made for this. All questions answered. Patient will see me when years time or p.r.n.. Orders: Orders CT chest wo con - High Res 11 Months R91.8 - Other nonspecific abnormal finding of lung field Coding Level of Care Code New Pt Level 4 (20574) Diagnoses Lung nodule, multiple R91.8
[2023-05-30 13:04] VITALS: BP 144/87; PULSE 86; BMI 40.3
== END 2023-05-30 13:49 | disposition home or self-care (01) ==
PROVIDERS: PCP Nurse Practitioner Family; Referring Provider Nurse Practitioner Family; Visit Provider Surgery
DX: R91.8 Other nonspecific abnormal finding of lung field (principal)
CPT/HCPCS: 99204

== ENCOUNTER → 2023-05-30 12:51 | Outpatient (BNVA) | payer OTHER, SELFPAY | PROVIDERS: PCP Nurse Practitioner Family; Referring Provider Nurse Practitioner Family; Visit Provider Surgery ==

== ENCOUNTER 2023-08-16 08:25 | Outpatient (AMB) | payer OTHER, SELFPAY ==
[2023-08-16 08:30] VITALS: BP 132/80; PULSE 73; O2SAT 96; BMI 40.4
--- NOTE | 2023-08-16 08:30 | A.OFFPC_ITS ---
Vital Signs 08/16/23 08:30 Height 5 ft 11 in Weight 290 lb BMI 40.4 BP 132/80 Blood Pressure Location Lt brachial Position Sitting Pulse 73 Pulse Source Pulse Oximeter Pulse Oximetry (%) 96 Oxygen Delivery Method Room Air Intake Visit Reasons: 6 month follow up Intake Note: pt is here for 6 month follow up, weight loss Test Administrator Required: No Accompanied by: Self / Same As Patient Allergies methocarbamol [From Robaxin] Allergy (Intermediate, Verified 05/30/23 13:01) throat swells. Sulfa (Sulfonamide Antibiotics) Allergy (Intermediate, Verified 05/30/23 13:01) throat swelling ezetimibe Adverse Reaction (Verified 05/30/23 13:01) Muscle Pain Medication List - Last Reconciled 08/16/23 by BRYAN Diaz albuterol sulfate 90 mcg/actuation (Ventolin HFA) 1 inh inhalation QID PRN 30 days amlodipine (Norvasc) 10 mg PO DAILY levothyroxine 75 mcg PO QAM 90 days lidocaine 5% 1 appl topical BEDTIME PRN 30 days losartan 50 mg PO DAILY mupirocin 2% 1 appl topical TID Tobacco use date assessed: 08/16/23 Dental Screening Dental Screen Date: 08/16/23 Did you have a dental visit in the last 12 months?: Yes Did you have a dental problem in the last 6 months where you did not have access to dental care?: No Was dental information given to patient?: Patient has dentist HPI 6 month follow up HPI Details HTN: Blood pressure is stable, managed with losartan 50mg and amlodipine 10mg. Pt monitors his blood pressure at home. Denies chest pain, heacache, dizziness, and blurred vision. He does report some shortness of breath. Pt used to smoke but reports quitting 20 years ago. He will be seeing pulmonology next month.Pt goes for low-dose lung CTs. Pt had an echo in February of 2023 which showed: the left ventricular systolic function is normal. The calculated ejection fraction is 61% by biplane method. No obvious valvular pathology seen on this study. There is mild dilatation of the ascending aorta measuring 4.20 cm. Repeat echo has been ordered to be completed in the fall. Pt reports some edema of his BLE. Will start chlorthalidone 15mg. Pt may start decreasing his amlodipine. [facility] Medical History Vocal cord nodule Thyroid nodule Mild ascending aorta dilatation Epididymal cyst COPD (chronic obstructive pulmonary disease) Thyroid disease Left testicular pain Dyslipidemia Surgical History History of repair of ACL H/O colonoscopy H/O hemorrhoidectomy History of nasal septoplasty Hx of tonsillectomy Family History Father Hypertension Stroke Mother No problems noted. 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 1. Little interest or pleasure in doing things: not at all 2. Feeling down, depressed, or hopeless: not at all 3. Trouble falling or staying asleep, or sleeping too much: not at all 4. Feeling tired or having little energy: not at all 5. Poor appetite or overeating: not at all 6. Feeling bad about yourself - or that you are a failure or have let yourself or your family down: not at all 7. Trouble concentrating on things, such as reading the newspaper or watching television: not at all 8. Moving or speaking so slowly that other people could have noticed. Or the opposite - being so fidgety or restless that you have been moving around a lot more than usual: not at all 9. Thoughts that you would be better off or of hurting yourself in some way: not at all Total score: 0 Depression Screening Interpretation: Negative Depression Screening Done: Yes 62658 - PHQ-9 Billing: Yes Source: Developed by Drs. Easton Yeboah, Mojgan White, Dylan Ferraro and colleagues, with an educational heather from [employer]. Thrive Questionnaire Date Thrive assessed: 08/16/23 I am a: Patient What is your living situation today?: I have a steady place to live Within the past 12 months, did the food you bought not last and you didn't have the money to get more?: Never true Within the past 12 months, did you worry whether your food would run out before you got money to buy more?: Never true Do you have trouble paying for medicines?: No Do you have trouble getting transportation to medical appointments?: No Do you have trouble paying your heating and electricity bill?: No Do you have trouble taking care of your child, family member or friend?: No Do you have trouble with day-to-day activities such as bathing, preparing meals, shopping, managing finances, etc.?: No Are you currently unemployed and looking for a job?: No Are you interested in more education?: No Please select the resources that you would like help with: None Currently or been in a relationship where the following occur: no concerns reported THRIVE Score: 0 AUDIT C Alcohol Use Questionnaire (AUDIT-C) 1. How often do you have a drink containing alcohol?: Never 3. How often do you have six or more drinks on one occasion?: Never Total Score: 0 Score Reviewed/Action Taken: Yes KAMALA-7 AMB Questionnaire KAMALA-7 Date KAMALA - 7 assessed: 08/16/23 Feeling nervous, anxious, or on edge: 0 = Not at all Not being able to stop or control worryin = Not at all Worrying too much about different things: 0 = Not at all Trouble relaxin = Not at all Being so restless that it is hard to sit still: 0 = Not at all Becoming easily annoyed or irritable: 0 = Not at all Feeling afraid as if something awful might happen: 0 = Not at all Total KAMALA-7 score (0-4 normal; 5-9 mild; 10-14 moderate; 15-21 severe): 0 Source: Developed by Drs. Easton Yeboah, Mojgan White, Dylan Ferraro and colleagues, with an educational heather from [employer]. KAMALA-7 Assessment Billing KAMALA-7 Assessment Tool: KAMALA-7 Assessment 03635 Review of Systems Const Reports as per HPI Physical exam (Primary Care) Vital Signs: Last Vital Signs Pulse 73 08/16/23 08:30 BP 132/80 08/16/23 08:30 Pulse Ox 96 08/16/23 08:30 Oxygen Delivery Method Room Air 08/16/23 08:30 BMI result Body Mass Index 40.4 Tobacco/Smoking Status: Tobacco use Status Tobacco use date assessed 08/16/23 08/16/23 08:36 Patient Tobacco Use Status Former Tobacco user 08/16/23 08:30 e-Cigarette/Vaping Use Never Used 08/16/23 08:30 PHQ-9: PHQ-9 Score PHQ-9: Total score 0 08/16/23 09:13 Depression Screening Interpretation: Negative Thrive Assessment: Date of Thrive Assessment Date Thrive assessed 08/16/23 08/16/23 08:36 Currently or been in a relationship where the following occur: no concerns reported Const General: cooperative Nutritional Appearance: obese morbidly obese Orientation/consciousness: patient oriented x3 Resp Effort & Inspection: normal respiratory effort Auscultation: clear to auscultation bilaterally Cardio Rate: regular rate Rhythm: regular rhythm Heart sounds: S1 normal heart sound present and S2 normal heart sound present Neuro General: patient oriented x3 Extrem Right lower extremity: edema Details: pitting and 1+ Left lower extremity: edema Details: pitting and 1+ Psych Appearance: grossly normal Mental Status: mental status grossly normal Speech and movement: Normal speech and movement present Affect: normal affect Attitude: cooperative Thought process: Normal thought process present Thought content: Normal thought content present Insight: Good insight present (Psych) Judgement: Good judgement present (Psych) Assessment and Plan Assessment & Plan (1) HTN (hypertension): Code(s): I10 - Essential (primary) hypertension Plan: Labs ordered, started diuretic, repeat labs in approx 2 weeks Plan The patient agreed to the use of a medical receptionist for this encounter. Scribed for BRYAN Hernández by Tamica Prather medical receptionist, on 08/16/2023 at 08:50 EST. Orders: Orders Complete Blood Count Auto Diff Today I10 - Essential (primary) hypertension TSH reflex Free T4 Today I10 - Essential (primary) hypertension Comprehensive [place]. Panel Fast Today I10 - Essential (primary) hypertension UA CC w/rflx Micro + Cult Today I10 - Essential (primary) hypertension Lipid Panel Today I10 - Essential (primary) hypertension Medications: New chlorthalidone 15 mg PO DAILY 90 tabs 0RF Coding Level of Care Code Est Pt Level 3 (76962) Diagnoses HTN (hypertension) I10 Additional Codes KAMALA-7 Assessment Billing - KAMALA-7 Assessment Tool: KAMALA-7 Assessment 29700 ([id number])
== END 2023-08-16 09:47 | disposition home or self-care (01) ==
PROVIDERS: PCP Nurse Practitioner Family; Visit Provider Nurse Practitioner Family
DX: I10 Essential (primary) hypertension (principal)
CPT/HCPCS: 99213

== ENCOUNTER 2023-09-18 10:26 | Outpatient (AMB) | payer OTHER, SELFPAY ==
[2023-09-18 10:38] VITALS: PULSE 77; O2SAT 96; BMI 40.4
--- NOTE | 2023-09-18 10:38 | MHC.OFFVIS ---
Vital Signs 09/18/23 10:38 Height 5 ft 11 in Weight 290 lb BMI 40.4 Pulse 77 Pulse Source Pulse Oximeter Pulse Oximetry (%) 96 Oxygen Delivery Method Room Air Intake Visit Reasons: Shortness of breath Glueline Worker Required: No Allergies methocarbamol [From Robaxin] Allergy (Intermediate, Verified 09/18/23 10:39) throat swells. Sulfa (Sulfonamide Antibiotics) Allergy (Intermediate, Verified 09/18/23 10:39) throat swelling ezetimibe Adverse Reaction (Verified 09/18/23 10:39) Muscle Pain HPI Comments Details: The patient is here for pulmonary evaluation. The patient is a 62-year-old gentleman presenting with worsening symptoms of dyspnea. The patient states that for the last year to he has been noticing progressive dyspnea on exertion. He does have a rescue inhaler with albuterol that he uses in does not help him at all. 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 The patient did smoke for many years but quit around 15 years ago or so. He has been participating in the lung cancer screening program. We did look at CT scan together. The patient does have some septal emphysema and some subpleural emphysema but minimal therefore not explain his degree of dyspnea. He has not had pulmonary function studies. Will go ahead and start him on a maintenance inhaler and also request pulmonary function studies see with the lung capacities like. Will go ahead and follow-up after his trial with Kristina in his pulmonary function studies. [facility] Medical History Vocal cord nodule Thyroid nodule Mild ascending aorta dilatation Epididymal cyst COPD (chronic obstructive pulmonary disease) Thyroid disease Left testicular pain Dyslipidemia Surgical History History of repair of ACL H/O colonoscopy H/O hemorrhoidectomy History of nasal septoplasty Hx of tonsillectomy Family History Father Hypertension Stroke Mother No problems noted. 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 Cognitive needs: Yes (cane) Hearing needs: No Vision needs: Yes (glasses) Review of Systems Const Denies chills and Denies fever(s) Eyes Denies blurry vision ENT Denies vertigo, Denies dizziness and Denies sore throat Card Denies chest pain at rest, Denies chest pain with activity, Denies diaphoresis, Denies dyspnea and Reports dyspnea on exertion Resp Denies cough, Denies dyspnea, Reports dyspnea on exertion and Denies wheezing GI Denies abdominal pain, Denies melena, Denies hematochezia, Denies constipation, Denies diarrhea and Denies loose stools Musc Denies numbness and Denies tingling Skin/Breast Denies lesions Neuro Denies vertigo, Denies dizziness, Denies numbness and Denies tingling Psych Denies anxiety, Denies depression, Denies homicidal ideation, Denies suicidal ideation and Denies other (substance abuse) Aller/Immun Denies wheezing Physical Exam Vital Signs: Last Vital Signs Pulse 77 09/18/23 10:38 Pulse Ox 96 09/18/23 10:38 Oxygen Delivery Method Room Air 09/18/23 10:38 BMI result Body Mass Index 40.4 Const General: cooperative and comfortable Orientation/consciousness: patient oriented x3 HEENT Head: Yes normocephalic and Yes atraumatic Eyes Pupils: Equal, round and reactive pupils present EOM: EOMs intact bilaterally Neck Neck: Yes supple Chest Chest palpation & inspection: normal inspection of the chest Resp Other: Distant breath sounds with some wheezing Effort & Inspection: normal respiratory effort and prolonged expiratory phase Auscultation: not clear to auscultation bilaterally, no wheezes and diminished lung sounds Cardio Rate: regular rate Rhythm: regular rhythm Heart sounds: S1 normal heart sound present, S2 normal heart sound present, no gallops, no murmurs and no rubs GI Palpation (GI): Soft to palpation Skin General skin exam: no rashes or lesions noted Neuro General: patient oriented x3 and gait normal Cranial nerves: Yes Equal, round and reactive pupils present Extrem General: Yes no clubbing, cyanosis or edema Psych Affect: normal affect Assessment & Plan Assessment & Plan (1) Lung nodule, multiple: Code(s): R91.8 - Other nonspecific abnormal finding of lung field Category: Surgical (2) Former tobacco use: Code(s): Z87.891 - Personal history of nicotine dependence Category: Social Hx (3) Cough: Code(s): R05 - Cough Category: Medical Qualifiers: Cough type: chronic Qualified Code(s): R05.3 - Chronic cough (4) COPD (chronic obstructive pulmonary disease): Code(s): J44.9 - Chronic obstructive pulmonary disease, unspecified Category: Medical Qualifiers: COPD type: chronic bronchitis Chronic bronchitis type: simple Qualified Code(s): J41.0 - Simple chronic bronchitis Plan start Trelegy DWAIN as needed PFTs repeat CT chest 04/2024 F/U 2-3 months Orders: Orders PFT pulmonary function test Today Medications: New tdbtziktudb-fxncpcmzr-bwastblo 100-62.5-25 mcg (Trelegy Ellipta) 1 inh inhalation DAILY 30 days 60 ea 11RF J44.9 - Chronic obstructive pulmonary disease, unspecified Coding Level of Care Code New Pt Level 4 (23969) Diagnoses Lung nodule, multiple R91.8 Former tobacco use Z87.891 Chronic cough R05.3 Cough type: chronic Simple chronic bronchitis J41.0 COPD type: chronic bronchitis Chronic bronchitis type: simple Time Spent (min) 40
== END 2023-09-18 11:01 | disposition home or self-care (01) ==
PROVIDERS: PCP Nurse Practitioner Family; Visit Provider Hospitalist
DX: R91.8 Other nonspecific abnormal finding of lung field (principal); Z87.891 Personal history of nicotine dependence; R05.3 Chronic cough
CPT/HCPCS: 99204

== ENCOUNTER → 2023-09-18 10:26 | Outpatient (BNVA) | payer OTHER, SELFPAY | PROVIDERS: PCP Nurse Practitioner Family; Visit Provider Hospitalist ==

== ENCOUNTER 2023-09-29 07:43 | Outpatient (REF) | payer OTHER, SELFPAY ==
--- NOTE | 2023-09-29 09:22 | PFT_ITS ---
Flows: FEV1: 89 % of predicted at 3.26 L FVC: 85 % of predicted at 4.05 L FEV1/FVC: 80 % Bronchodilator response: Absent Volumes: Total lung capacity: 86 % of predicted at 6.39 L Residual volume: 97 % of predicted at 2.25 L Slow vital capacity: 79 % of predicted at 4.13 L Expiratory reserve volume: 6 % of predicted at 0.08 L Diffusion capacity: Normal Impression: No obstructive or restrictive ventilatory defect. No bronchodilator response. Decreased expiratory reserve volume suggests extrathoracic restriction likely secondary to abdominal obesity. MTDD
[2023-09-29 10:27] VITALS: PULSE 76; RESP 16; O2SAT 96
== END 2023-09-29 07:44 | disposition home or self-care (01) ==
LOC: HO.RESP 07:43
PROVIDERS: PCP Nurse Practitioner Family; Visit Provider Hospitalist
DX: R06.00 Dyspnea, unspecified (principal)
CPT/HCPCS: 94010; 94640; 94727; 94729

== ENCOUNTER → 2023-09-29 09:22 | Outpatient (BNV) | payer OTHER, SELFPAY | PROVIDERS: PCP Nurse Practitioner Family; Visit Provider Internal Medicine Pulmonary Disease | DX: R06.09 Other forms of dyspnea (principal) | CPT/HCPCS: 94060; 94727; 94729 ==

== ENCOUNTER 2023-10-18 06:00 | Outpatient (REF) | payer OTHER, SELFPAY ==
[2023-10-18 06:11] LABS: MANUAL DIFF FLAG NO
[2023-10-18 07:56] LABS: Appearance Urine Clear; Basophils Absolute Auto 0.1 X10*3/uL (0.0-0.2); Basophils Percent Auto 1.5 % (0-2); Color Urine Yellow; Eosinophils Absolute Auto 0.3 X10*3/uL (0.0-0.4); Eosinophils Percent Auto 3.4 % (0-4); Glucose Urine UA Negative (Negative); Hematocrit 42.4 % (42.0-52.0); Hemoglobin 14.5 g/dl (14.0-18.0); Imm Gran Abs Auto 0.03 X10*3/uL (0.00-0.03); Imm Gran Pct Auto 0.3 % (0.0-0.4); Leukocyte Esterase Urine Small (1+) (Negative); Lymphocytes Absolute Auto 3.2 X10*3/uL (1.2-4.9); Mean Corpuscular HGB Conc 34.2 g/dl (31.0-36.0); Mean Corpuscular Hemoglobin 30.7 pg (27.0-33.0); Mean Corpuscular Volume 89.8 fL (80.0-98.0); Mean Platelet Volume 12.1 fL (9.4-12.4); Monocytes Percent Auto 10.8 % (2-11); Neutrophils Absolute Auto 4.7 x10*3/uL (2.0-8.3); Nitrite Urine Negative (Negative); PH 6.5 (5.0-9.0); Platelet Count 257 X10*3/uL (160-400); Red Blood Count 4.72 X10*6/uL (4.60-5.80); Red Cell Distribution Width 13.7 % (11.0-16.0); Specific Gravity - Urine 1.015 (1.005-1.025); UMIC TRIGGER UACC YES; Urine Blood Negative (Negative); Urine Ketones Negative (Negative); Urine Protein Negative (Neg-Trace); White Blood Count 9.4 X10*3/uL (4.8-10.8)
[2023-10-18 08:09] LABS: Bacteria Urine None Seen (None Seen); Hyaline Casts Urine 0-2 /LPF (0-2); RBC Urine 0-2 /HPF (0-2); Squamous Epithelial Cell Urine 0-2 /HPF (0-2); UACC Culture Trigger YES; WBC Urine 0-5 /HPF (0-5)
[2023-10-18 08:35] LABS: Alanine Aminotransferase 34 U/L (0-40); Albumin Level 4.2 g/dL (3.5-5.0); Alkaline Phosphatase 73 U/L (39-117); Anion Gap 14 (12-20); Aspartate Amino Transferase 17 U/L (5-37); Bilirubin Total 0.4 mg/dL (0.0-1.0); Blood Urea Nitrogen 19 mg/dL (9-16); Calcium 9.2 mg/dL (8.4-10.2); Carbon Dioxide 23 mmol/L (22-29); Chloride 107 mmol/L (96-108); Cholesterol 206 mg/dL (<200); Estimated Glomerular Filt Rate > 60; Glucose Fasting 97 mg/dL (60-99); HDL Cholesterol 35 mg/dL (>40); LDL Cholesterol Calculated 142 mg/dL (<100); Potassium 3.6 mmol/L (3.3-5.1); Sodium 140 mmol/L (135-145); Total Protein 7.3 g/dL (6.5-8.0); Triglycerides 146 mg/dL (<150)
[2023-10-18 08:41] LABS: TSH reflex Free T4 1.28 uIU/mL (0.32-4.0)
== END 2023-10-18 06:01 | disposition home or self-care (01) ==
LOC: HO.LAB 06:00
PROVIDERS: PCP Nurse Practitioner Family; Visit Provider Nurse Practitioner Family
DX: I10 Essential (primary) hypertension (principal); E78.5 Hyperlipidemia, unspecified; R82.90 Unspecified abnormal findings in urine
CPT/HCPCS: 36415; 80053; 80061; 81001; 84443; 85025; 87086

== ENCOUNTER 2023-11-19 08:39 | Outpatient (AMB) | payer OTHER, SELFPAY ==
[2023-11-19 08:42] VITALS: PULSE 75; O2SAT 96; BMI 40.4
--- NOTE | 2023-11-19 08:42 | MHC.OFFVIS ---
Vital Signs 11/19/23 08:42 Height 5 ft 11 in Weight 290 lb BMI 40.4 Pulse 75 Pulse Source Pulse Oximeter Pulse Oximetry (%) 96 Oxygen Delivery Method Room Air Intake Visit Reasons: Shortness of breath Fuel Attendant Required: No Allergies methocarbamol [From Robaxin] Allergy (Intermediate, Verified 11/19/23 08:43) throat swells. Sulfa (Sulfonamide Antibiotics) Allergy (Intermediate, Verified 11/19/23 08:43) throat swelling ezetimibe Adverse Reaction (Verified 11/19/23 08:43) Muscle Pain HPI Comments Details: The patient is a 62-year-old gentleman presenting with worsening symptoms of dyspnea. The patient states that for the last year to he has been noticing progressive dyspnea on exertion. He does have a rescue inhaler with albuterol that he uses in does not help him at all. 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 The patient did smoke for many years but quit around 15 years ago or so. He has been participating in the lung cancer screening program. We did look at CT scan together. The patient does have some septal emphysema and some subpleural emphysema but minimal therefore not explain his degree of dyspnea. He has not had pulmonary function studies. Will go ahead and start him on a maintenance inhaler and also request pulmonary function studies see with the lung capacities like. Will go ahead and follow-up after his trial with Trelegy in his pulmonary function studies. 11/19/2023 the patient is here for pulmonary follow-up visit overall he is doing okay. He did stop the Trelegy because it was causing some nausea symptoms. Initially he stopped it in him he restarted develop the same symptoms and therefore he knew that it was the medication. His respiratory status has been stable. The we did review his pulmonary function studies that had in 10/08/2023. No evidence of any obstructive nor restrictive ventilatory defects and no significant response to bronchodilators noted. Therefore I do believe that a rescue inhaler be sufficient. Specially with the heating humidity during the season. The patient also had a CT scan of the chest back in 05/09/2023 demonstrating multiple pulmonary nodules. He will need to have a repeat CT scan sometime around 6 months to follow-up those nodules. The patient also has a minimal emphysema noted. Otherwise patient is without any other complaints. Will follow-up in 6-[address] scan. [facility] Medical History Vocal cord nodule Thyroid nodule Mild ascending aorta dilatation Epididymal cyst COPD (chronic obstructive pulmonary disease) Thyroid disease Left testicular pain Dyslipidemia Surgical History History of repair of ACL H/O colonoscopy H/O hemorrhoidectomy History of nasal septoplasty Hx of tonsillectomy Family History Father Hypertension Stroke Mother No problems noted. 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 Cognitive needs: Yes (cane) Hearing needs: No Vision needs: Yes (glasses) Review of Systems Const Denies chills and Denies fever(s) Eyes Denies blurry vision ENT Denies vertigo, Denies dizziness and Denies sore throat Card Denies chest pain at rest, Denies chest pain with activity, Denies diaphoresis, Denies dyspnea and Reports dyspnea on exertion Resp Denies cough, Denies dyspnea, Reports dyspnea on exertion and Denies wheezing GI Denies abdominal pain, Denies melena, Denies hematochezia, Denies constipation, Denies diarrhea and Denies loose stools Musc Denies numbness and Denies tingling Skin/Breast Denies lesions Neuro Denies vertigo, Denies dizziness, Denies numbness and Denies tingling Psych Denies anxiety, Denies depression, Denies homicidal ideation, Denies suicidal ideation and Denies other (substance abuse) Aller/Immun Denies wheezing Physical Exam Vital Signs: Last Vital Signs Pulse 75 11/19/23 08:42 Pulse Ox 96 11/19/23 08:42 Oxygen Delivery Method Room Air 11/19/23 08:42 BMI result Body Mass Index 40.4 Const General: cooperative and comfortable Orientation/consciousness: patient oriented x3 HEENT Head: Yes normocephalic and Yes atraumatic Eyes Pupils: Equal, round and reactive pupils present EOM: EOMs intact bilaterally Neck Neck: Yes supple Chest Chest palpation & inspection: normal inspection of the chest Resp Other: Distant breath sounds with some wheezing Effort & Inspection: normal respiratory effort Auscultation: not clear to auscultation bilaterally, no wheezes and diminished lung sounds Cardio Rate: regular rate Rhythm: regular rhythm Heart sounds: S1 normal heart sound present, S2 normal heart sound present, no gallops, no murmurs and no rubs GI Palpation (GI): Soft to palpation Skin General skin exam: no rashes or lesions noted Neuro General: patient oriented x3 and gait normal Cranial nerves: Yes Equal, round and reactive pupils present Extrem General: Yes no clubbing, cyanosis or edema Psych Affect: normal affect Assessment & Plan Assessment & Plan (1) Lung nodule, multiple: Code(s): R91.8 - Other nonspecific abnormal finding of lung field Category: Surgical (2) Former tobacco use: Code(s): Z87.891 - Personal history of nicotine dependence Category: Social Hx (3) Cough: Code(s): R05 - Cough Category: Medical Qualifiers: Cough type: chronic Qualified Code(s): R05.3 - Chronic cough (4) COPD (chronic obstructive pulmonary disease): Code(s): J44.9 - Chronic obstructive pulmonary disease, unspecified Category: Medical Qualifiers: COPD type: chronic bronchitis Chronic bronchitis type: simple Qualified Code(s): J41.0 - Simple chronic bronchitis Plan stopped Trelegy due to adverse symptoms DWAIN as needed repeat CT chest 04/2024 F/U 6-8 months Orders: Orders CT chest wo IV con 05/26/24 R91.8 - Other nonspecific abnormal finding of lung field Coding Level of Care Code Est Pt Level 4 (59080) Diagnoses Lung nodule, multiple R91.8 Former tobacco use Z87.891 Chronic cough R05.3 Cough type: chronic Simple chronic bronchitis J41.0 COPD type: chronic bronchitis Chronic bronchitis type: simple Time Spent (min) 16
== END 2023-11-19 08:59 | disposition home or self-care (01) ==
PROVIDERS: PCP Nurse Practitioner Family; Visit Provider Hospitalist
DX: R91.8 Other nonspecific abnormal finding of lung field (principal); Z87.891 Personal history of nicotine dependence; J41.0 Simple chronic bronchitis
CPT/HCPCS: 99214

== ENCOUNTER → 2023-11-19 08:39 | Outpatient (BNVA) | payer OTHER, SELFPAY | PROVIDERS: PCP Nurse Practitioner Family; Visit Provider Hospitalist | DX: J44.9 Chronic obstructive pulmonary disease, unspecified (principal) ==

== ENCOUNTER 2024-01-17 06:17 | Outpatient (REF) | payer OTHER, SELFPAY ==
[2024-01-17 08:38] LABS: PSA,Total (Free>4and<10) 5.48 ng/mL (0.00-4.00)
[2024-01-22 11:08] LABS: Free Prostate Spec Ag 0.9 ng/mL; Percent Free Prostate Spec Ag 15 % (calc) (>25); Prostate Specific Ag Total 5.9 ng/mL (< OR = 4.0)
== END 2024-01-17 06:18 | disposition home or self-care (01) ==
LOC: HO.LAB 06:17
PROVIDERS: PCP Nurse Practitioner Family; Visit Provider Urology
DX: N32.0 Bladder-neck obstruction (principal); Z12.5 Encounter for screening for malignant neoplasm of prostate
CPT/HCPCS: 36415; 84153; 84154

== ENCOUNTER 2024-02-29 10:51 | Outpatient (AMB) | payer OTHER, SELFPAY ==
--- NOTE | 2024-02-29 11:22 | A.OFFVIS_ITS ---
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 Sulfa (Sulfonamide Antibiotics) Allergy (Intermediate, Verified 03/06/24 10:33) throat swelling ezetimibe Adverse Reaction (Verified 03/06/24 10:33) Muscle Pain Medication List - Last Reconciled 02/29/24 by Sharad Pizarro MD albuterol sulfate 90 mcg/actuation 2 inhalations inhalation Q6H PRN 30 days amlodipine (Norvasc) 10 mg PO DAILY chlorthalidone 15 mg PO DAILY finasteride 5 mg PO DAILY 90 days levothyroxine 75 mcg PO QAM 90 days lidocaine 5% 1 appl topical BEDTIME PRN 30 days losartan 50 mg PO DAILY mupirocin 2% 1 appl topical TID tadalafil 5 mg PO DAILY 90 days HPI Comments Details: Karel SHAH is a very pleasant male. They are a patient of Dr Joyce tenorio. He is seen for the following urologic conditions. - lower urinary tract symptoms - prior elevated PSA - left inguinal disruption PSA slight climb free PSA stable Recommend trial finasteride Add finasteride He would like to trial daily Cialis Six-month follow-up lab Elevated PSA/Abnormal SANDRO:? Laboratory investigations include?05/08 4.58.? - 02/08 4.8, 08/09 3.6, 01/09 3.6, 01/10 3.8 18%, 01/11 5.9 15% Lower Urinary Tract Symptoms:? Current visit is for?further symptom evaluation of, lower urinary tract symptoms.? Current treatment includes?observation.? Prostate Symptom Score?05/08 , Mild (0-8), Bother 3.? Symptoms include?incomplete emptying, weak stream, nocturia (>2), and are progressing.? Prostate volume?50+gm.? Testing at next visit will include?bladder scan.? Treatment plan?continue review [facility] Medical History (Updated 03/28/24 @ 20:06 by BRYAN Diaz) Vocal cord nodule Thyroid nodule Mild ascending aorta dilatation Epididymal cyst COPD (chronic obstructive pulmonary disease) Thyroid disease Left testicular pain Dyslipidemia Surgical History History of repair of ACL H/O colonoscopy H/O hemorrhoidectomy History of nasal septoplasty Hx of tonsillectomy Family History Father Hypertension Stroke Mother No problems noted. 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 Cognitive needs: Yes (cane) Hearing needs: No Vision needs: Yes (glasses) Review of Systems Const Denies chills and Denies fever(s) Card Reports no additional complaints and Denies syncope Resp Denies cough GI Denies abdominal pain and Denies heartburn Reports as per HPI and Denies change in libido Neuro Denies syncope Psych Denies change in libido Endo Denies change in libido Physical Exam Const General: cooperative, healthy appearing, comfortable and no acute distress Orientation/consciousness: patient oriented x3 HEENT Face and sinus: Yes normal facial exam Mouth: moist mucous membranes Neck Neck: Yes normal visual inspection, Yes full ROM and Yes trachea midline Chest Chest palpation & inspection: normal inspection of the chest Resp Effort & Inspection: normal respiratory effort, able to speak in complete sentences and no respiratory distress GI Inspection: Yes normal to inspection Back/Spine/Pelvis Cervical Spine: normal cervical lordosis Thoracic/Lumbar Spine: thoracic and lumbar spine normal to inspection Skin General skin exam: no rashes or lesions noted Neuro General: patient oriented x3, gait normal, tone normal and moves all extremities Extrem General: Yes normal to inspection and Yes capillary refill normal Assessment & Plan Assessment & Plan (1) Elevated PSA: Code(s): R97.20 - Elevated prostate specific antigen [PSA] Category: Medical (2) Bladder outlet obstruction: Code(s): N32.0 - Bladder-neck obstruction Category: Medical Plan Start finasteride Six-month follow-up PSA Trial tadalafil Orders: Orders PSA,Total (Free>4and<10) 6 Months R97.20 - Elevated prostate specific antigen [PSA] Medications: New finasteride 5 mg PO DAILY 90 tabs 1RF 90 days R97.20 - Elevated prostate specific antigen [PSA], N40.1 - Benign prostatic hyperplasia with lower urinary tract symptoms, N13.8 - Other obstructive and reflux uropathy, R33.9 - Retention of urine, unspecified tadalafil 5 mg PO DAILY 90 tabs 1RF sexual activity 90 days N32.0 - Bladder- neck obstruction Patient Instructions: Imaging studies, laboratory and physical exam results were discussed and reviewed in detail. No major barriers to patient understanding were identified. An opportunity to ask questions regarding the treatment plan was provided. All questions were answered. The patient expressed understanding and agreement with the above treatment plan. The patient is aware they should contact our office by phone for worsening of their current condition or the appearance of new urologic symptoms. Compliance is encouraged with any medications and followup testing that is ordered. It is a privilege to participate in the urologic care of your patient. If you have any questions or concerns regarding treatment for the above conditions, or other urologic issues, please do not hesitate to contact me. The office telephone contact is [phone]. This note is constructed using voice recognition software. While every effort has been made to ensure accuracy electric motor tester errors may have been included. Yours sincerely, Dr Sharad Pizarro MD, [facility] - Urology Providers of Expert, Compassionate Care for the Genitourinary System Coding Level of Care Code Est Pt Level 4 (93472) Diagnoses Elevated PSA R97.20 Bladder outlet obstruction N32.0
== END 2024-02-29 12:14 | disposition home or self-care (01) ==
PROVIDERS: PCP Nurse Practitioner Family; Visit Provider Urology
DX: R97.20 Elevated prostate specific antigen [PSA] (principal); N32.0 Bladder-neck obstruction
CPT/HCPCS: 99214

== ENCOUNTER → 2024-02-29 10:51 | Outpatient (BNVA) | payer OTHER, SELFPAY | PROVIDERS: PCP Nurse Practitioner Family; Visit Provider Urology ==

== ENCOUNTER 2024-03-06 09:55 | Outpatient (AMB) | payer OTHER, SELFPAY ==
--- NOTE | 2024-03-06 09:56 | A.OFFPC_ITS ---
Vital Signs 03/06/24 09:57 Height 5 ft 11 in Weight 295 lb BMI 41.1 BP 136/80 Blood Pressure Location Rt brachial Position Sitting Pulse 77 Pulse Source Pulse Oximeter Pulse Oximetry (%) 96 Oxygen Delivery Method Room Air Intake Visit Reasons: Med F/U Intake Note: pt is here for a follow up Property Condition Assessor Required: No Accompanied by: Self / Same As Patient Allergies methocarbamol [From Robaxin] Allergy (Intermediate, Verified 03/06/24 10:33) throat swells. Sulfa (Sulfonamide Antibiotics) Allergy (Intermediate, Verified 03/06/24 10:33) throat swelling ezetimibe Adverse Reaction (Verified 03/06/24 10:33) Muscle Pain Medication List - Last Reconciled 03/06/24 by BRYAN Diaz albuterol sulfate 90 mcg/actuation 2 inhalations inhalation Q6H PRN 30 days amlodipine (Norvasc) 10 mg PO DAILY finasteride 5 mg PO DAILY 90 days levothyroxine 75 mcg PO QAM 90 days lidocaine 5% 1 appl topical BEDTIME PRN 30 days losartan 50 mg PO DAILY mupirocin 2% 1 appl topical TID tadalafil 5 mg PO DAILY 90 days Tobacco use date assessed: 08/16/23 Dental Screening Dental Screen Date: 08/16/23 HPI Med F/U HPI Details HTN: Blood pressure is managed with amlodipine 10mg, chlorthalidone 15mg, and losartan 50mg. He reports that his blood pressure has been elevated at home (140s/80s). Pt reports that he has beensplitting some of his medications, taking amlodipine 2.5mg and losartan 25mg. Will have him take 2.5mg of amlodipine and 50mg of losartan. Will stop chlorthalidone 15mg, because he has not been taking this, it causes dizziness and i pee too much . Denies chest pain, shortness of breath, headache, dizziness, and blurred vision. [facility] Medical History Vocal cord nodule Thyroid nodule Mild ascending aorta dilatation Epididymal cyst COPD (chronic obstructive pulmonary disease) Thyroid disease Left testicular pain Dyslipidemia Surgical History History of repair of ACL H/O colonoscopy H/O hemorrhoidectomy History of nasal septoplasty Hx of tonsillectomy Family History Father Hypertension Stroke Mother No problems noted. 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 1. Little interest or pleasure in doing things: not at all 2. Feeling down, depressed, or hopeless: not at all 3. Trouble falling or staying asleep, or sleeping too much: not at all 4. Feeling tired or having little energy: not at all 5. Poor appetite or overeating: not at all 6. Feeling bad about yourself - or that you are a failure or have let yourself or your family down: not at all 7. Trouble concentrating on things, such as reading the newspaper or watching television: not at all 8. Moving or speaking so slowly that other people could have noticed. Or the opposite - being so fidgety or restless that you have been moving around a lot more than usual: not at all 9. Thoughts that you would be better off or of hurting yourself in some way: not at all Total score: 0 Depression Screening Interpretation: Negative Depression Screening Done: Yes 77830 - PHQ-9 Billing: Yes Source: Developed by Drs. Easton Yeboah, Mojgan White, Dylan Ferraro and colleagues, with an educational heather from [employer]. Thrive Questionnaire Date Thrive assessed: 03/06/24 I am a: Patient What is your living situation today?: I have a steady place to live Within the past 12 months, did the food you bought not last and you didn't have the money to get more?: I choose not to answer this question Within the past 12 months, did you worry whether your food would run out before you got money to buy more?: Never true Do you have trouble paying for medicines?: No Do you have trouble getting transportation to medical appointments?: No Do you have trouble paying your heating and electricity bill?: Yes Do you have trouble taking care of your child, family member or friend?: No Do you have trouble with day-to-day activities such as bathing, preparing meals, shopping, managing finances, etc.?: No Are you currently unemployed and looking for a job?: I choose not to answer this question Are you interested in more education?: No Please select the resources that you would like help with: None Currently or been in a relationship where the following occur: No concerns reported THRIVE Score: 1 AUDIT C Alcohol Use Questionnaire (AUDIT-C) 1. How often do you have a drink containing alcohol?: Monthly or less 2. How many drinks containing alcohol do you have on a typical day when you are drinking?: 1 or 2 3. How often do you have six or more drinks on one occasion?: Never Total Score: 1 Score Reviewed/Action Taken: Yes KAMALA-7 AMB Questionnaire KAMALA-7 Date KAMALA - 7 assessed: 03/06/24 Feeling nervous, anxious, or on edge: 0 = Not at all Not being able to stop or control worryin = Not at all Worrying too much about different things: 1 = Several days Trouble relaxin = Not at all Being so restless that it is hard to sit still: 0 = Not at all Becoming easily annoyed or irritable: 0 = Not at all Feeling afraid as if something awful might happen: 0 = Not at all Total KAMALA-7 score (0-4 normal; 5-9 mild; 10-14 moderate; 15-21 severe): 1 Source: Developed by Drs. Easton Yeboah, Mojgan White, Dylan Ferraro and colleagues, with an educational heather from [employer]. KAMALA-7 Assessment Billing KAMALA-7 Assessment Tool: KAMALA-7 Assessment 35590 Review of Systems Const Reports as per HPI Physical exam (Primary Care) Vital Signs: Last Vital Signs Pulse 77 03/06/24 09:57 BP 136/80 03/06/24 09:57 Pulse Ox 96 03/06/24 09:57 Oxygen Delivery Method Room Air 03/06/24 09:57 BMI result Body Mass Index 41.1 Tobacco/Smoking Status: Tobacco use Status Tobacco use date assessed 08/16/23 03/06/24 10:02 Patient Tobacco Use Status Former Tobacco user 03/06/24 10:02 e-Cigarette/Vaping Use Never Used 03/06/24 10:02 PHQ-9: PHQ-9 Score PHQ-9: Total score 0 03/06/24 10:12 Depression Screening Interpretation: Negative Thrive Assessment: Date of Thrive Assessment Date Thrive assessed 03/06/24 03/06/24 10:02 Currently or been in a relationship where the following occur: No concerns reported Const General: cooperative Nutritional Appearance: obese morbidly obese Orientation/consciousness: patient oriented x3 Resp Effort & Inspection: normal respiratory effort Auscultation: clear to auscultation bilaterally (slightly dim) Cardio Rate: regular rate Rhythm: regular rhythm Heart sounds: S1 normal heart sound present, S2 normal heart sound present and Murmur heart sound present systolic Neuro General: patient oriented x3 Extrem Right lower extremity: edema (trace) Left lower extremity: edema (trace) Psych Appearance: grossly normal Mental Status: mental status grossly normal Speech and movement: Normal speech and movement present Affect: normal affect Attitude: cooperative Thought process: Normal thought process present Thought content: Normal thought content present Insight: Good insight present (Psych) Judgement: Good judgement present (Psych) Coding Level of Care Code Est Pt Level 3 (37371) Diagnoses HTN (hypertension) I10 Systolic murmur R01.1 Additional Codes KAMALA-7 Assessment Billing - KAMALA-7 Assessment Tool: KAMALA-7 Assessment 05924 ([id number]) Assessment & Plan Assessment & Plan (1) HTN (hypertension): Code(s): I10 - Essential (primary) hypertension Category: Medical Plan: losartan 50mg and amlodipine 2.5mg (2) Systolic murmur: Code(s): R01.1 - Cardiac murmur, unspecified Category: Medical Plan: echo ordered for ascending aorta dilatation as well Plan The patient agreed to the use of a medical staff physician for this encounter. Scribed for BRYAN Hernández by sotero Antunez scribe, on 03/06/2024 at 10:10 EST. Orders: Orders Complete Blood Count Auto Diff Today I10 - Essential (primary) hypertension Comprehensive [place]. Panel Fast Today I10 - Essential (primary) hypertension TSH reflex Free T4 Today I10 - Essential (primary) hypertension UA CC w/rflx Micro + Cult Today I10 - Essential (primary) hypertension Lipid Panel Today I10 - Essential (primary) hypertension Medications: Discontinued chlorthalidone Discontinued Reason: Doctor's Order 15 mg PO DAILY 90 tabs 0RF
[2024-03-06 09:57] VITALS: BP 136/80; PULSE 77; O2SAT 96; BMI 41.1
== END 2024-03-06 10:33 | disposition home or self-care (01) ==
PROVIDERS: PCP Nurse Practitioner Family; Visit Provider Nurse Practitioner Family
DX: I10 Essential (primary) hypertension (principal); R01.1 Cardiac murmur, unspecified

== ENCOUNTER → 2024-03-06 09:55 | Outpatient (BNVA) | payer OTHER, SELFPAY | PROVIDERS: PCP Nurse Practitioner Family; Visit Provider Nurse Practitioner Family | DX: I10 Essential (primary) hypertension (principal); R01.1 Cardiac murmur, unspecified; Z79.899 Other long term (current) drug therapy | CPT/HCPCS: 96127 ==

== ENCOUNTER 2024-03-13 06:04 | Outpatient (REF) | payer OTHER, SELFPAY ==
[2024-03-13 06:26] LABS: MANUAL DIFF FLAG NO
[2024-03-13 07:53] LABS: Basophils Absolute Auto 0.1 X10*3/uL (0.0-0.2); Basophils Percent Auto 1.1 % (0-2); Eosinophils Absolute Auto 0.3 X10*3/uL (0.0-0.4); Eosinophils Percent Auto 3.3 % (0-4); Hematocrit 41.9 % (42.0-52.0); Imm Gran Abs Auto 0.04 X10*3/uL (0.00-0.03); Imm Gran Pct Auto 0.5 % (0.0-0.4); Lymphocytes Absolute Auto 2.3 X10*3/uL (1.2-4.9); Lymphocytes Percent Auto 27.2 % (20-40); Mean Corpuscular HGB Conc 33.4 g/dl (31.0-36.0); Mean Corpuscular Hemoglobin 30.2 pg (27.0-33.0); Mean Corpuscular Volume 90.3 fL (80.0-98.0); Mean Platelet Volume 11.7 fL (9.4-12.4); Monocytes Absolute Auto 0.8 X10*3/uL (0.1-1.2); Monocytes Percent Auto 9.6 % (2-11); Neutrophils Percent Auto 58.3 % (45-73); Platelet Count 276 X10*3/uL (160-400); Red Blood Count 4.64 X10*6/uL (4.60-5.80); Red Cell Distribution Width 14.2 % (11.0-16.0); White Blood Count 8.6 X10*3/uL (4.8-10.8)
[2024-03-13 08:02] LABS: Appearance Urine Clear; Color Urine Yellow; Glucose Urine UA Negative (Negative); Leukocyte Esterase Urine Negative (Negative); Nitrite Urine Negative (Negative); Specific Gravity - Urine 1.025 (1.005-1.025); Urine Blood Negative (Negative); Urine Ketones Negative (Negative); Urine Protein Negative (Neg-Trace)
[2024-03-13 08:28] LABS: Alanine Aminotransferase 40 U/L (0-40); Albumin Level 4.1 g/dL (3.5-5.0); Alkaline Phosphatase 64 U/L (39-117); Anion Gap 10 (12-20); Aspartate Amino Transferase 24 U/L (5-37); Bilirubin Total 0.4 mg/dL (0.0-1.0); Blood Urea Nitrogen 17 mg/dL (9-16); Calcium 9.9 mg/dL (8.4-10.2); Carbon Dioxide 26 mmol/L (22-29); Chloride 107 mmol/L (96-108); Cholesterol 204 mg/dL (<200); Estimated Glomerular Filt Rate > 60; Glucose Fasting 102 mg/dL (60-99); HDL Cholesterol 33 mg/dL (>40); LDL Cholesterol Calculated 147 mg/dL (<100); Potassium 4.2 mmol/L (3.3-5.1); Sodium 139 mmol/L (135-145); Triglycerides 121 mg/dL (<150)
[2024-03-13 08:48] LABS: TSH reflex Free T4 1.43 uIU/mL (0.32-4.0)
== END 2024-03-13 06:05 | disposition home or self-care (01) ==
LOC: HO.LAB 06:04
PROVIDERS: PCP Nurse Practitioner Family; Visit Provider Nurse Practitioner Family
DX: I10 Essential (primary) hypertension (principal)
CPT/HCPCS: 36415; 80053; 80061; 81003; 84443; 85025

== ENCOUNTER → 2024-03-18 07:38 | Outpatient (REF) | payer OTHER, SELFPAY ==
--- NOTE | 2024-03-18 07:42 | CA_ITS ---
Transthoracic Echocardiogram Patient (Last, First, Middle): Karel Dutton, Gender: Male Date of : 1960 Age: 63 Procedure Date: 03/18/2024 Procedure Type: Transthoracic Echocardiogram Location: OP Height: 180.34 cm Weight: 133.81 kg BSA: 2.49 m2 Heart Rate: bpm BP: 130 / 80 mmHg Product Development Scientist: BARBER Referring MD: Kodi Be [facility] Symptoms: I77.810 - Thoracic aortic ectasia Study Quality: Adequate ECG Rhythm: Sinus Conclusions: - The left ventricular systolic function is normal. The visually estimated ejection fraction is between 60-65%. - No obvious valvular pathology seen on this study. - There is mild dilatation of the ascending aorta measuring 4.10 cm. Findings Left Ventricle Normal left ventricular cavity size. There is mildly increased left ventricular wall thickness. The left ventricular systolic function is normal. The visually estimated ejection fraction is between 60-65%. There is no evidence of regional wall motion abnormalities. Diastolic function is normal for age. Right Ventricle Mildly increased right ventricular cavity size. There is normal right ventricular systolic function. Atria Both atria are normal in size. Aortic Valve There is a normal trileaflet aortic valve. There is no aortic valve stenosis. There is no aortic valve regurgitation. Mitral Valve The mitral valve appears normal. There is no mitral valve regurgitation. There is no mitral valve stenosis. Pulmonic Valve The pulmonic valve is likely normal. Tricuspid Valve There is trace tricuspid valve regurgitation. There is no evidence of pulmonary hypertension. Great Vessels There is mild dilatation of the ascending aorta measuring 4.10 cm. Venous The inferior vena cava is normal in size and collapses less than 50% with inspiration. Pericardium/Pleural There is no evidence of pericardial effusion. Prior Study Comparison No significant change compared to prior study dated: 03/20/2023. Recommendations, Care & Conclusions No obvious valvular pathology seen on this study. Measurements 2D Linear Measurements IVSd: 1.11 0.6-0.9/0.6-1.0 cm LVIDd: 5.41 3.9-5.3/4.2-5.9 cm LVIDd Index: 2.17 2.4-3.2/2.2-3.1 cm/m2 LVIDs: 3.15 2.0-3.6 cm LVPWd: 1.14 0.7-1.1 cm Ao Root: 3.70 2.1-3.5 cm LA Diam: 3.50 2.7-3.8/3.0-4.0 cm LAIDs Index: 1.41 1.5-2.3 cm/m2 LV Mass: 302.76 67-162/88-224 g LV Mass Index: 121.59 43-95/49-115 g/m2 LVOT Diam: 2.30 3.0+(-)1.3 cm 2D Systolic Function EF 4C: 69.30 >55% EF 2C: 66.10 >55% Mitral Valve MV Pk E: 0.88 MV PK A: 1.16 MV Decel Time: 146.00 E/A: 0.80 E'Lateral: 8.27 E'Medial: 5.77 E/E' Med: 15.30 E/E' Lat: 10.70 PHT: 43.00 MVA PHT: 5.12 Decel Clark: 6.02 Aortic Valve AoV Pk Didier: 1.55 AoV Mn Didier: 0.96 AoV VTI: 0.31 AoV Pk Grad: 10.00 Aov Mn Grad: 4.00 DELPHINE Cont.VTI: 2.92 LVOT LVOT Pk Didier: 0.97 LVOT Mn Didier: 0.73 LVOT VTI: 0.22 LVOT Pk Grad: 4.00 LVOT Mn Grad: 2.00 LVOT Diam: 2.30 LVOT Area: 4.15 Diastolic Function MV Pk E: 0.88 MV Pk A: 1.16 E/A: 0.80 E'Medial: 5.77 E/E' Med: 15.30 E' Laterial: 8.27 E/E' Lat: 10.70 Right Ventricle TAPSE (mm): 29.00 TVS' Didier: 17.00 Tricuspid Valve TR Pk Didier: 2.30 TR Pk Grad: 21.00 RA Press: 8.00 RVSP: 29.00 Great Vessels Aorta Ao Root-2D: 3.70 2.0-3.7 cm Ao Asc: 4.10 2.1-3.4 cm Pulmonary Valve PV Pk Didier: 1.03 Peak PV Grad: 4.00 Updated in Other Vendor System with Status of Final Shawn Rogers MD electronically signed on 03/19/2024 11:20:16 AM with status of Final
== END ==
LOC: HO.CARD 07:38
PROVIDERS: PCP Nurse Practitioner Family; Visit Provider Nurse Practitioner Family
DX: I77.810 Thoracic aortic ectasia (principal); R01.1 Cardiac murmur, unspecified
CPT/HCPCS: 93306

== ENCOUNTER → 2024-03-18 07:42 | Outpatient (BNV) | payer OTHER, SELFPAY | PROVIDERS: PCP Nurse Practitioner Family; Visit Provider Internal Medicine | DX: I36.1 Nonrheumatic tricuspid (valve) insufficiency (principal); I77.810 Thoracic aortic ectasia | CPT/HCPCS: 93306 ==

== ENCOUNTER 2024-06-19 07:02 | Outpatient (REF) | payer OTHER, SELFPAY ==
--- NOTE | ~2024-06-19 | CT_ITS ---
CLINICAL HISTORY: R91.8 - Other nonspecific abnormal finding of lung field CT chest without contrast Comparison: CT/REG/SR - CT CHEST W IV CON - 05/15/23 08:[address]/NM - CT CHEST W IV CON - 11/09/22 08:18 EDT Findings: There is no cardiomegaly. There remains mild atherosclerotic disease of the coronary arteries. Stable subcentimeter prevascular lymph node. No discrete thyroid lesion identified. Stable pulmonary nodules, for example subpleural right upper lobe on axial image 76 and subpleural right lower lobe on axial image 104. No new, increasing or suspicious nodule. Mild centrilobular emphysema and small paraseptal bleb formation. Airway thickening is present. The visualized upper abdomen demonstrates gallstones. No acute osseous abnormality. Stable sclerotic focus within T10. Impression: Stable benign pulmonary nodules given long-term stability. No further follow-up guidance for these nodules This document has been electronically signed by: Andi Strauss MD on 06/19/2024 10:37:58
--- OUTSIDE RECORDS SUMMARY | 2024-06-19 10:28 | XMS_ITS | Clinical Summary ---
Author Organization [facility] Address [address] [place] [address] Care Team Providers Care Paper Cup Handle Machine Operator Name Role Phone Kodi Be Primary Care Provider [phone] Allergies No known active allergies Medications Medication Sig Dispensed Refills Start Date End Date Status levothyroxine (SYNTHROID, LEVOXYL) tablet 75 mcg Take 75 mcg by mouth every morning on an empty stomach. 0 Active meloxicam (MOBIC) 15 MG tablet Take 1 tablet daily for 7 days following surgery, beginning the night of surgery 7 tablet 0 11/04/2020 Active gabapentin (Neurontin) 300 MG capsule Take 300mg for 3 days at bedtime. Please start 1 night prior to surgery 3 capsule 0 11/04/2020 Active oxyCODONE (ROXICODONE) 5 MG immediate release tablet Take 1 tablet (5 mg total) by mouth every 6 (six) hours as needed for pain. Do not take until after surgery 25 tablet 0 11/04/2020 Active promethazine (PHENERGAN) 12.5 MG tablet Take 1 tablet (12.5 mg total) by mouth every 8 (eight) hours as needed for nausea. Use after surgery as needed 4 tablet 0 11/04/2020 Active Active Problems No known active problems Family History Medical History Relation Name Comments Hypertension Father Relation Name Status Comments Father Social History Tobacco Use Types Packs/Day Years Used Date Smoking Tobacco: Former Cigarettes Q uit: 2000 Smokeless Tobacco: Never Alcohol Use Standard Drinks/Week Comments No 0 (1 standard drink = 0.6 oz pur e alcohol) Sex and Gender Information Value Date Recorded Sex Assigned at Not on file Gender Identity Not on file Sexual Orientation Not on file Job Start Date Occupation Industry Not on file Not on file Not on file Last Filed Vital Signs Vital Sign Reading Time Taken Comments Blood Pressure - - Pulse - - Temperature - - Respiratory Rate - - Oxygen Saturation - - Inhaled Oxygen Concentration - - Weight 112.9 kg (249 lb) 04/11/2021 1:33 PM EST Height 180.3 cm (5' 11 ) 04/11/2021 1:33 PM EST Body Mass Index 34.73 04/11/2021 1:33 PM EST Plan of Treatment Health Maintenance Due Date Last Done Comments Hepatitis C Screening 1960 COVID-19 Vaccine (#1) 06/26/1961 Pneumococcal Vaccine (1 of 2 - PCV) 1968 Depression Screening 1974 BMI Counseling 1980 Preventative Health Evaluation 1980 DTap / Tdap / Td (1 - Tdap) 1981 Colon Cancer Screening (Colonoscopy) 12/25/2007 Shingrix-Zoster Vaccine (1 of 2) 2012 Influenza Vaccine (#1) 2024 RSV Adult > 60+ Yrs or Pregn ant (1 - 1-dose 75+ series) 2037 Hepatitis B Vaccines Aged Out No long er eligible based on patient's age to complete this topic RSV Ped < 20 months Aged Out No longe r eligible based on patient's age to complete this topic Care Teams Paper Cup Handle Machine Operator Relationship Specialty Start Date End Date Kodi Be [address] [place] [address] PCP - General Family Medicine 08/26/20
--- OUTSIDE RECORDS SUMMARY | 2024-06-19 10:28 | XMS_ITS | Clinical Summary ---
Author Organization [facility], Address [address] [place] [address] [place] [address] Phone Care Team Providers Care Fish And Wildlife Scientific Aid Name Role Phone Kodi Be NP Primary Care Provider [phone] Allergies Active Allergy Reactions Criticality Noted Date Comments Betamethasone 03/30/2022 Medications losartan (Cozaar) 50 MG tablet Take 1.5 tablets (75 mg total) by mouth 1 (one) time each day 135 tablet 3 04/05/2022 Active tamsulosin (FLOMAX) 0.4 MG 24 hr capsule Take 1 capsule (0.4 mg total) by mouth 1 (one) time each day 30 capsule 5 07/18/2022 Active amLODIPine (NORVASC) 10 MG tablet TAKE 1 TABLET BY MOUTH EVERY DAY 90 tablet 1 05/17/2023 Active Active Problems Problem Noted Date Diagnosed Date Hypertension 03/30/2022 Social History Tobacco Use Types Packs/Day Years Used Date Smoking Tobacco: Never Assessed Sex and Gender Information Value Date Recorded Sex Assigned at Not on file Legal Sex Male 9:21 AM EDT Gender Identity Not on file Sexual Orientation Not on file Last Filed Vital Signs Vital Sign Reading Time Taken Comments Blood Pressure 124/85 07/18/2022 4:15 PM EST Pulse 81 07/18/2022 4:15 PM EST Temperature - - Respiratory Rate - - Oxygen Saturation - - Inhaled Oxygen Concentration - - Weight - - Height - - Body Mass Index - - Plan of Treatment Health Maintenance Due Date Last Done Comments Pneumococcal Vaccine: Pediat rics (0 to 5 Years) and At-Risk Patients (6 to 64 Years) (1 of 2 - PCV) 1968 Colorectal Cancer Screening: Annual FOBT 12/25/2011 Colorectal Cancer Screening: Colonoscopy 12/25/2011 Colorectal Cancer Screening: Sigmoidoscopy 12/25/2011 Influenza Vaccine (#1) 2024 Hepatitis B Vaccine Aged Out No longe r eligible based on patient's age to complete this topic Insurance COMPREHENSIVE BENEFITS Care Teams Fish And Wildlife Scientific Aid Relationship Specialty Start Date End Date Kodi Be NP [address] [place] [id number] PCP - General Nurse Practitioner 03/23/22
--- OUTSIDE RECORDS SUMMARY | 2024-06-19 10:28 | XMS_ITS | Encounter Summary ---
Author Organization [facility] Address [address] [place] [address] Phone Care Team Providers Care Business Planning Director Name Role Phone Kodi Be NP Primary Care Provider [phone] Encounter Details Date Type Department Care Team (Late st Contact Info) Description 03/31/2022 Documentation Only [facility] [place], [address] [place] [address] Kodi Be NP [address] [place] [address] Social History Tobacco Use Types Packs/Day Years Used Date Smoking Tobacco: Never Assessed Sex and Gender Information Value Date Recorded Sex Assigned at Not on file Legal Sex Male 9:21 AM EDT Gender Identity Not on file Sexual Orientation Not on file documented as of this encounter Plan of Treatment Not on file documented as of this encounter Visit Diagnoses Not on filedocumented in this encounter Care Teams Business Planning Director Relationship Specialty Start Date End Date Kodi Be NP [address] [place] [address] PCP - General Nurse Practitioner 03/23/22 documented as of this encounter
--- OUTSIDE RECORDS SUMMARY | 2024-06-19 10:28 | XMS_ITS | Clinical Summary ---
Author Organization [facility] Address [address] [place] [address] Care Team Providers Care Hosiery Looper Name Role Phone Unavailable Primary Care Provider Unavailabl e Source Comments PLEASE NOTE, if this patient is a minor, it may be UNLAWFUL to discuss sensitive information that is contained in these records (such as FAMILY PLANNING, MENTAL HEALTH or SUBSTANCE ABUSE) with the minor patient's parent or other person without the patient's specific authorization.[facility] Social History Tobacco Use Types Packs/Day Years Used Date Smoking Tobacco: Never Assessed Social Connections Answer Date Recorded Social Connections and Isolation 0 08/15/2019 Financial Resource Strain Answer Date R ecorded Financial Resource Strain 0 2019 Stress Answer Date Recorded Stress 0 08/15/2019 Physical Activity Answer Date Recorded Physical Activity 0 08/15/2019 Food Insecurity Answer Date Recorded Food 0 08/15/2019 Transportation Needs Answer Date Record ed Transportation 0 08/15/2019 Housing Stability Answer Date Recorded Housing 0 08/15/2019 Safety and Environment Answer Date Roel rded Safety 0 08/15/2019 Utilities Answer Date Recorded Utilities 0 08/15/2019 Employment Answer Date Recorded Employment 0 08/15/2019 Sex and Gender Information Value Date Recorded Sex Assigned at Not on file Legal Sex Male 5:33 AM PDT Gender Identity Female 11/04/2018 4:55 PM PDT Sexual Orientation Not on file Plan of Treatment Not on file Insurance [employer]
--- OUTSIDE RECORDS SUMMARY | 2024-06-19 10:28 | XMS_ITS | Encounter Summary ---
Author Organization [facility] Address [address] [place] [address] Phone Care Team Providers Care Rate Clerk Passenger Name Role Phone Kodi Be NP Primary Care Provider [phone] Reason for Visit * Reason Comments Med Refill Encounter Details Date Type Department Care Team (Late st Contact Info) Description 08/08/2023 Refill [facility] [place], [address] [place] [address] Mihir Wheeler MD [address] [place] [address] Social History Tobacco Use Types Packs/Day Years [...] on filedocumented in this encounter Care Teams Rate Clerk Passenger Relationship Specialty Start Date End Date Kodi Be NP [address] [place] [address] PCP - General Nurse Practitioner 03/23/22 documented as of this encounter
--- OUTSIDE RECORDS SUMMARY | 2024-06-19 10:28 | XMS_ITS | Encounter Summary ---
Author Organization [facility] Address [address] [place] [address] Phone Care Team Providers Care Airport Operations Manager Name Role Phone Kodi Be NP Primary Care Provider [phone] Encounter Details Date Type Department Care Team (Late st Contact Info) Description 03/28/2022 Documentation Only [facility] [place], [address] [place] [address] Kodi Be NP [address] [place] [address] Social History Tobacco Use Types Packs/Day Years [...] on filedocumented in this encounter Care Teams Airport Operations Manager Relationship Specialty Start Date End Date Kodi Be NP [address] [place] [address] PCP - General Nurse Practitioner 03/23/22 documented as of this encounter
--- OUTSIDE RECORDS SUMMARY | 2024-06-19 10:28 | XMS_ITS | Encounter Summary ---
Author Organization [facility] Address [address] [place] [address] Phone Care Team Providers Care Apparel Cutter Name Role Phone Kodi Be NP Primary Care Provider [phone] Reason for Visit * Reason Comments Med Refill Encounter Details Date Type Department Care Team (Late st Contact Info) Description 11/05/2023 Refill [facility] [place], [address] [place] [address] Mihir Wheeler MD [address] [place] [address] Social History Tobacco Use Types [...] on filedocumented in this encounter Care Teams Apparel Cutter Relationship Specialty Start Date End Date Kodi Be NP [address] [place] [address] PCP - General Nurse Practitioner 03/23/22 documented as of this encounter
== END 2024-06-19 07:03 | disposition home or self-care (01) ==
LOC: HO.CT 07:02
PROVIDERS: PCP Nurse Practitioner Family; Visit Provider Surgery
DX: R91.8 Other nonspecific abnormal finding of lung field (principal)
CPT/HCPCS: 71250

== ENCOUNTER → 2024-06-19 07:04 | Outpatient (BNV) | payer OTHER, SELFPAY | PROVIDERS: PCP Nurse Practitioner Family; Visit Provider Radiology Vascular & Interventional Radiology | DX: R91.8 Other nonspecific abnormal finding of lung field (principal) | CPT/HCPCS: 71250 ==

== ENCOUNTER → 2024-07-01 14:02 | Outpatient (BNVA) | payer OTHER, SELFPAY | PROVIDERS: PCP Nurse Practitioner Family; Visit Provider Surgery ==

== ENCOUNTER 2024-07-14 09:26 | Outpatient (AMB) | payer OTHER, SELFPAY ==
[2024-07-14 09:30] VITALS: BP 160/98; PULSE 81; O2SAT 95; BMI 39.5
--- NOTE | 2024-07-14 09:30 | A.OFFVIS_ITS ---
Vital Signs 07/14/24 09:30 Height 5 ft 11 in Weight 283 lb 4.704 oz BMI 39.5 BP 160/98 H Blood Pressure Location Rt brachial Position Sitting Pulse 81 Pulse Source Pulse Oximeter Pulse Oximetry (%) 95 Oxygen Delivery Method Room Air Intake Visit Reasons: Shortness of breath Allergies methocarbamol [From Robaxin] Allergy (Intermediate, Verified 07/14/24 09:36) throat swells. Sulfa (Sulfonamide Antibiotics) Allergy (Intermediate, Verified 07/14/24 09:36) throat swelling ezetimibe Adverse Reaction (Verified 07/14/24 09:36) Muscle Pain HPI Comments Details: The patient is a 63-year-old gentleman presenting with worsening symptoms of dyspnea. The patient states that for the last year to he has been noticing progressive dyspnea on exertion. He does have a rescue inhaler with albuterol that he uses in does not help him at all. 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 The patient did smoke for many years but quit around 15 years ago or so. He has been participating in the lung cancer screening program. We did look at CT scan together. The patient does have some septal emphysema and some subpleural emphysema but minimal therefore not explain his degree of dyspnea. He has not had pulmonary function studies. Will go ahead and start him on a maintenance inhaler and also request pulmonary function studies see with the lung capacities like. Will go ahead and follow-up after his trial with Trelegy in his pulmonary function studies. 11/19/2023 the patient is here for pulmonary follow-up visit overall he is doing okay. He did stop the Trelegy because it was causing some nausea symptoms. Initially he stopped it in him he restarted develop the same symptoms and therefore he knew that it was the medication. His respiratory status has been stable. The we did review his pulmonary function studies that had in 10/08/2023. No evidence of any obstructive nor restrictive ventilatory defects and no significant response to bronchodilators noted. Therefore I do believe that a rescue inhaler be sufficient. Specially with the heating humidity during the season. The patient also had a CT scan of the chest back in 05/09/2023 demonstrating multiple pulmonary nodules. He will need to have a repeat CT scan sometime around 6 months to follow-up those nodules. The patient also has a minimal emphysema noted. Otherwise patient is without any other complaints. Will follow-up in 6-[address] scan. 07/14/2024 the patient is here for a pulmonary follow-up visit. Overall the patient has been doing okay. Today his blood pressure is a little high. He has been adjusting his blood pressure medications. He will continue to do that and then follow-up with his primary care doctor about that. I believe the initial blood pressure was 160/98 then I rechecked at 150/92. He does have a blood pressure cuff at home that he can use. From a respiratory status seems to be doing okay. He rarely uses his rescue inhaler typically once a week. He did have a CT scan of the chest that we personally reviewed. Pulmonary nodules have not changed compared to the last CT scan although he also has a bone island that we looked at. Does not appear to have changed either. Will follow-up with a CT scan in a year's time. If he has any issues prior to that he will call for an earlier assessment. [facility] Medical History (Updated 07/14/24 @ 17:10 by Dmitry Funez MD) Bone lesion Vocal cord nodule Thyroid nodule Mild ascending aorta dilatation Epididymal cyst COPD (chronic obstructive pulmonary disease) Thyroid disease Left testicular pain Dyslipidemia Surgical History History of repair of ACL H/O colonoscopy H/O hemorrhoidectomy History of nasal septoplasty Hx of tonsillectomy Family History Father Hypertension Stroke Mother No problems noted. 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 Cognitive needs: Yes (cane) Hearing needs: No Vision needs: Yes (glasses) Review of Systems Const Denies chills and Denies fever(s) Eyes Denies blurry vision ENT Denies vertigo, Denies dizziness and Denies sore throat Card Denies chest pain at rest, Denies chest pain with activity, Denies diaphoresis, Denies dyspnea and Reports dyspnea on exertion Resp Denies cough, Denies dyspnea, Reports dyspnea on exertion and Denies wheezing GI Denies abdominal pain, Denies melena, Denies hematochezia, Denies constipation, Denies diarrhea and Denies loose stools Musc Denies numbness and Denies tingling Skin/Breast Denies lesions Neuro Denies vertigo, Denies dizziness, Denies numbness and Denies tingling Psych Denies anxiety, Denies depression, Denies homicidal ideation, Denies suicidal ideation and Denies other (substance abuse) Aller/Immun Denies wheezing Physical Exam Vital Signs: Last Vital Signs Pulse 81 07/14/24 09:30 BP 160/98 H 07/14/24 09:30 Pulse Ox 95 07/14/24 09:30 Oxygen Delivery Method Room Air 07/14/24 09:30 BMI result Body Mass Index 39.5 Const General: cooperative and comfortable Orientation/consciousness: patient oriented x3 HEENT Head: Yes normocephalic and Yes atraumatic Eyes Pupils: Equal, round and reactive pupils present EOM: EOMs intact bilaterally Neck Neck: Yes supple Chest Chest palpation & inspection: normal inspection of the chest Resp Other: Distant breath sounds with some wheezing Effort & Inspection: normal respiratory effort Auscultation: not clear to auscultation bilaterally, no wheezes and diminished lung sounds Cardio Rate: regular rate Rhythm: regular rhythm Heart sounds: S1 normal heart sound present, S2 normal heart sound present, no gallops, no murmurs and no rubs GI Palpation (GI): Soft to palpation Skin General skin exam: no rashes or lesions noted Neuro General: patient oriented x3 and gait normal Cranial nerves: Yes Equal, round and reactive pupils present Extrem General: Yes no clubbing, cyanosis or edema Psych Affect: normal affect Office Procedures Flu Questionnaire Does the patient have a severe egg allergy?: No Does the patient have severe life threatening allergies?: No Does the patient have a fever or illness today?: No Has the patient ever had Guillain-Polo Syndrome?: No Has the patient ever had any past reaction to a flu shot?: No Immunizations Fluarix Triv [id number] (PF) 45 mcg (15 mcg x 3)/0.5 mL IM syringe Performing Provider: Dmitry Funez MD Performing Location: [facility] Administered by: Samreen Bush LPN on 07/14/24 09:58 Dose Route Admin Location Dispensed Lot Number Expiration Date NDC Committee Member 0.5 mL IM Left Deltoid 0.5 mL [id number] 11/17/24 25959-116-29 [employer] VIS Given Date VIS Provided VIS Publication Date 07/14/24 Single Vaccine 20 Eligibility Eligibility Date Funding Source Not [facility] Eligible 07/14/24 Private Administration Comments: given by Dmitry Funez MD Assessment & Plan Assessment & Plan (1) Lung nodule, multiple: Code(s): R91.8 - Other nonspecific abnormal finding of lung field Category: Surgical (2) Former tobacco use: Code(s): Z87.891 - Personal history of nicotine dependence Category: Social Hx (3) Cough: Code(s): R05 - Cough Category: Medical Qualifiers: Cough type: chronic Qualified Code(s): R05.3 - Chronic cough (4) COPD (chronic obstructive pulmonary disease): Code(s): J44.9 - Chronic obstructive pulmonary disease, unspecified Category: Medical Qualifiers: COPD type: chronic bronchitis Chronic bronchitis type: simple Qualified Code(s): J41.0 - Simple chronic bronchitis (5) Bone lesion: Code(s): M89.9 - Disorder of bone, unspecified Category: Medical (6) HTN (hypertension): Code(s): I10 - Essential (primary) hypertension Category: Medical Qualifiers: Hypertension type: primary hypertension Qualified Code(s): I10 - Essential (primary) hypertension Plan DWAIN as needed repeat CT chest 1 yr F/U with PCP regarding elevated BP F/U 12 months Orders: Orders Influenza [id number] Immunization Today J41.0 - Simple chronic bronchitis CT chest wo IV con 1 Year R91.1 - Solitary pulmonary nodule Medications: Discontinued albuterol sulfate 90 mcg/actuation Discontinued Reason: Doctor's Order 2 inhalations inhalation Q6H 30 days PRN 18 grams 12RF shortness of breath or wheezing J44.9 - Chronic obstructive pulmonary disease, unspecified, J45.909 - Unspecified asthma, uncomplicated Coding Level of Care Code Est Pt Level 4 (78921) Diagnoses Lung nodule, multiple R91.8 Former tobacco use Z87.891 Chronic cough R05.3 Cough type: chronic Simple chronic bronchitis J41.0 COPD type: chronic bronchitis Chronic bronchitis type: simple Bone lesion M89.9 Primary hypertension I10 Hypertension type: primary hypertension Time Spent (min) 17
--- OUTSIDE RECORDS SUMMARY | 2024-07-14 10:13 | XMS_ITS | Encounter Summary ---
Author Organization [facility] Address [address] [place] [address] Phone Care Team Providers Care Nonprofit Fundraiser Name Role Phone Kodi Be NP Primary Care Provider [phone] Encounter Details Date Type Department Care Team (Late st Contact Info) Description 03/28/2022 Documentation Only [facility] [place], [address] [place] [address] Kodi Be NP [address] [place] [address] Social History Tobacco Use Types Packs/Day Years [...] on filedocumented in this encounter Care Teams Nonprofit Fundraiser Relationship Specialty Start Date End Date Kodi Be NP [address] [place] [address] PCP - General Nurse Practitioner 03/23/22 documented as of this encounter
--- OUTSIDE RECORDS SUMMARY | 2024-07-14 10:13 | XMS_ITS | Clinical Summary ---
Author Organization [facility] Address [address] [place] [address] Care Team Providers Care Polisher Aluminum Name Role Phone Kodi Be Primary Care Provider [phone] Allergies No known active allergies Medications Medication [...] age to complete this topic Care Teams Polisher Aluminum Relationship Specialty Start Date End Date Kodi Be [address] [place] [address] PCP - General Family Medicine 08/26/20
--- OUTSIDE RECORDS SUMMARY | 2024-07-14 10:13 | XMS_ITS | Encounter Summary ---
Author Organization [facility] Address [address] [place] [address] Phone Care Team Providers Care Manager Transport Name Role Phone Kodi Be NP Primary Care Provider [phone] Encounter Details Date Type Department Care Team (Late st Contact Info) Description 03/31/2022 Documentation Only [facility] [place], [address] [place] [address] Kodi Be NP [address] [place] [address] Social History Tobacco Use Types Packs/Day Years [...] on filedocumented in this encounter Care Teams Manager Transport Relationship Specialty Start Date End Date Kodi Be NP [address] [place] [address] PCP - General Nurse Practitioner 03/23/22 documented as of this encounter
--- OUTSIDE RECORDS SUMMARY | 2024-07-14 10:13 | XMS_ITS | Encounter Summary ---
Author Organization [facility] Address [address] [place] [address] Phone Care Team Providers Care Motor Setter Name Role Phone Kodi Be NP Primary Care Provider [phone] Reason for Visit * Reason Comments Med Refill Encounter Details Date Type Department Care Team (Late st Contact Info) Description 11/05/2023 Refill [facility] [place], [address] [place] [address] Mihir Wheeler MD [address] [facility] [place] [address] Social History Tobacco Use Types [...] on filedocumented in this encounter Care Teams Motor Setter Relationship Specialty Start Date End Date Kodi Be NP [address] [place] [address] PCP - General Nurse Practitioner 03/23/22 documented as of this encounter
--- OUTSIDE RECORDS SUMMARY | 2024-07-14 10:13 | XMS_ITS | Encounter Summary ---
Author Organization [facility] Address [address] [place] [address] Phone Care Team Providers Care Absorption Operator Name Role Phone Kodi Be NP Primary Care Provider [phone] Reason for Visit * Reason Comments Med Refill Encounter Details Date Type Department Care Team (Late st Contact Info) Description 08/08/2023 Refill [facility] [place], [address] [place] [address] Mihir Wheeler MD [address] [place] [address] Social History Tobacco Use Types [...] on filedocumented in this encounter Care Teams Absorption Operator Relationship Specialty Start Date End Date Kodi Be NP [address] [place] [address] PCP - General Nurse Practitioner 03/23/22 documented as of this encounter
--- OUTSIDE RECORDS SUMMARY | 2024-07-14 10:13 | XMS_ITS | Clinical Summary ---
Author Organization [facility], Address [address] [place] [address] [place] [address] Phone Care Team Providers Care Outside Sales Executive Name Role Phone Kodi Be NP Primary Care Provider [phone] Allergies Active Allergy Reactions Criticality Noted Date [...] to complete this topic [place] [address] Care Teams Outside Sales Executive Relationship Specialty Start Date End Date Kodi Be NP [address] [place] [address] PCP - General Nurse Practitioner 03/23/22
--- OUTSIDE RECORDS SUMMARY | 2024-07-14 10:13 | XMS_ITS | Clinical Summary ---
Author Organization [facility] Address [address] [place] [address] Care Team Providers Care Piped Pocket Machine Operator Name Role Phone Unavailable Primary [...]
== END 2024-07-14 10:30 | disposition home or self-care (01) ==
PROVIDERS: PCP Nurse Practitioner Family; Visit Provider Hospitalist
DX: Z23 Encounter for immunization (principal); R91.8 Other nonspecific abnormal finding of lung field; Z87.891 Personal history of nicotine dependence; J41.0 Simple chronic bronchitis; M89.9 Disorder of bone, unspecified; I10 Essential (primary) hypertension
CPT/HCPCS: 99214

== ENCOUNTER → 2024-07-14 09:26 | Outpatient (BNVA) | payer OTHER, SELFPAY | PROVIDERS: PCP Nurse Practitioner Family; Visit Provider Hospitalist | DX: J41.0 Simple chronic bronchitis (principal); R91.8 Other nonspecific abnormal finding of lung field; Z23 Encounter for immunization; R05.3 Chronic cough; M89.9 Disorder of bone, unspecified; I10 Essential (primary) hypertension; Z87.891 Personal history of nicotine dependence | CPT/HCPCS: 90471; 90656 ==

== ENCOUNTER 2024-07-22 07:47 | Outpatient (AMB) | payer OTHER, SELFPAY ==
--- OUTSIDE RECORDS SUMMARY | 2024-07-22 07:50 | XMS_ITS | Encounter Summary ---
Author Organization [facility] Address [address] [place] [address] Phone Care Team Providers Care Medical Equipment Technician Name Role Phone Kodi Be NP Primary Care Provider [phone] Reason for Visit * Reason Comments Med Refill Encounter Details Date Type Department Care Team (Late st Contact Info) Description 11/05/2023 Refill [facility] [place], [address] [place] [address] Mihir Wheeler MD [address] [place] [address] Social History Tobacco Use Types [...] on filedocumented in this encounter Care Teams Medical Equipment Technician Relationship Specialty Start Date End Date Kodi Be NP [address] [place] [address] PCP - General Nurse Practitioner 03/23/22 documented as of this encounter
--- OUTSIDE RECORDS SUMMARY | 2024-07-22 07:50 | XMS_ITS | Clinical Summary ---
Author Organization [facility], Address [address] [place] [address] [place] [address] Phone Care Team Providers Care Technology Specialist Name Role Phone Kodi Be NP Primary Care Provider [phone] Allergies Active Allergy Reactions Criticality Noted Date [...] this topic Insurance COMPREHENSIVE BENEFITS Care Teams Technology Specialist Relationship Specialty Start Date End Date Kodi Be NP [address] [place] [address] PCP - General Nurse Practitioner 03/23/22
--- OUTSIDE RECORDS SUMMARY | 2024-07-22 07:50 | XMS_ITS | Encounter Summary ---
Author Organization [facility] Address [address] [place] [address] Phone Care Team Providers Care Cage Cashier Name Role Phone Kodi Be NP Primary Care Provider [phone] Encounter Details Date Type Department Care Team (Late st Contact Info) Description 03/28/2022 Documentation Only [facility] [place], [address] [place] [address] Kodi Be NP [address] [place] [address] Social History Tobacco Use Types Packs/Day Years [...] on filedocumented in this encounter Care Teams Cage Cashier Relationship Specialty Start Date End Date Kodi Be NP [address] [place] [address] PCP - General Nurse Practitioner 03/23/22 documented as of this encounter
--- OUTSIDE RECORDS SUMMARY | 2024-07-22 07:50 | XMS_ITS | Clinical Summary ---
Author Organization [facility] Address [address] [place] [address] Care Team Providers Care Breast Surgeon Name Role Phone Unavailable Primary Care Provider [...]
--- OUTSIDE RECORDS SUMMARY | 2024-07-22 07:50 | XMS_ITS | Encounter Summary ---
Author Organization [facility] Address [address] [place] [address] Phone Care Team Providers Care It Sales Consultant Name Role Phone Kodi Be NP Primary Care Provider [phone] Encounter Details Date Type Department Care Team (Late st Contact Info) Description 03/31/2022 Documentation Only [facility] [place], [address] [place] [address] Kodi Be NP [address] [place] [address] Social History Tobacco Use Types Packs/Day Years [...] on filedocumented in this encounter Care Teams It Sales Consultant Relationship Specialty Start Date End Date Kodi Be NP [address] [place] [address] PCP - General Nurse Practitioner 03/23/22 documented as of this encounter
--- OUTSIDE RECORDS SUMMARY | 2024-07-22 07:50 | XMS_ITS | Clinical Summary ---
Author Organization [facility] Address [address] [place] [address] Care Team Providers Care Drapery Hemmer Automatic Name Role Phone Kodi Be Primary Care Provider [phone] Allergies No known active allergies Medications Medication [...] age to complete this topic Care Teams Drapery Hemmer Automatic Relationship Specialty Start Date End Date Kodi Be [address] [place] [address] PCP - General Family Medicine 08/26/20
--- OUTSIDE RECORDS SUMMARY | 2024-07-22 07:50 | XMS_ITS | Encounter Summary ---
Author Organization [facility] Address [address] [place] [address] Phone Care Team Providers Care Clearing House Clerk Name Role Phone Kodi Be NP Primary Care Provider [phone] Reason for Visit * Reason Comments Med Refill Encounter Details Date Type Department Care Team (Late st Contact Info) Description 08/08/2023 Refill [facility] [place], [address] [place] [address] Mihir Wheeler MD [address] [place] [address] Social History Tobacco Use Types [...] on filedocumented in this encounter Care Teams Clearing House Clerk Relationship Specialty Start Date End Date Kodi Be NP [address] [place] [address] PCP - General Nurse Practitioner 03/23/22 documented as of this encounter
[2024-07-22 08:05] VITALS: BP 140/94; PULSE 78; TEMP 36.7; O2SAT 98; BMI 38.8
--- NOTE | 2024-07-22 08:05 | A.OFFPC_ITS ---
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 Sulfa (Sulfonamide Antibiotics) Allergy (Intermediate, Verified 07/22/24 08:35) throat swelling ezetimibe Adverse Reaction (Verified 07/22/24 08:35) Muscle Pain Medication List - Last Reconciled 07/22/24 by REGINALD Diaz- finasteride 5 mg PO DAILY 90 days levothyroxine 75 mcg PO QAM 90 days lidocaine 5% 1 appl topical BEDTIME PRN 30 days losartan 100 mg PO DAILY 90 days mupirocin 2% 1 appl topical TID semaglutide (Ozempic) 0.25 mg (0.368 mL) subcut QWEEK tadalafil 5 mg PO DAILY 90 days Tobacco use date assessed: 07/22/24 Dental Screening Dental Screen Date: 07/22/24 Did you have a dental visit in the last 12 months?: Yes Did you have a dental problem in the last 6 months where you did not have access to dental care?: No Was dental information given to patient?: Patient has dentist HPI PE HPI Details History of Present Illness The patient is a 63-year-old male presenting with Essential Hypertension management and weight management. He is on Mounjaro as part of a weight management program, which he continues to tolerate well, contributing to successful weight loss. Blood pressure remains elevated at 140s systolically. Previous antihypertensive therapy included amlodipine, which he prefers to avoid. We plan to initiate hydrochlorothiazide 12.5 mg to supplement his current losartan 100 mg regimen to optimize blood pressure control. He denies recent chest pain, dyspnea, any gastrointestinal symptoms, neurological deficits, or any mental health concerns such as suicidal or homicidal ideation. The patient is undergoing surveillance for lung nodules with thoracic/pulmonary care, maintaining stability in this regard. Colon cancer screening is current, and PSA levels are routinely monitored under urological guidance. His ?s recent breast cancer diagnosis may affect his psychological well- being. Continuous monitoring and support will be necessitated as they navigate this development. Health Maintenance - Current on colon cancer screening - Regular PSA testing with urology Social History - Spouse recently diagnosed with breast cancer - Actively involved in weight management program Review of Systems - Cardiovascular: Reports blood pressure readings in the 140s systolically. - Respiratory: Denies shortness of breat h. - Gastrointestinal: Denies blood in stoo l, constipation, diarrhea, or abdominal tenderness. - Neurological: Denies numbness and ting ling. - Psychiatric: Denies suicidal or homici suzie ideations. Physical Exam General: Cooperative, healthy appearing, comfortable, no acute distress and well developed Orientation: Patient oriented x3 Limitations: No limitations Head: Normal to inspection Ears: Hearing grossly normal bilaterally Nose: Normal external nose present Face and sinus: Normal facial exam Eyes: Appearance normal, both eyes and all related structures Neck: Normal visual inspection and Yes full ROM Respiratory: Normal respiratory effort and able to speak in complete sentences. Clear to auscultation bilaterally Cardiovascular: Regular rate and rhythm. Normal S1 and S2 GI: Normal to inspection. Soft to palpation and nontender Skin: No rashes or lesions noted Neuro: Patient oriented x3 Extremities: Normal to inspection Results Plan 1. 5 mg to his current losartan 100 mg f or improved blood pressure management. The patient will complete follow-up lab work to evaluate the efficacy and toleration of the new combination. Ongoing monitoring of lung nodules remains in effect through specialized care. Given the recent development of his ?s breast cancer diagnosis, emotional support and mental health monitoring are recommended.: Discussion Notes I discussed with the patient the decision to add hydrochlorothiazide to his antihypertensive regimen to better manage his Essential Hypertension, emphasizing the goal of achieving optimal blood pressure control. The risks and benefits of the change in medication, as well as potential side effects, were reviewed, with the patient expressing understanding and agreement. I underscored the importance of follow-up lab testing to monitor the adjustment. We addressed his ongoing surveillance of lung nodules, affirming no changes needed at this time. Outlined the provision of support amidst his spouse?s diagnosis and emphasized the importance of maintaining his own health during this period. Patient Instructions - Begin taking hydrochlorothiazide 12.5 mg in addition to losartan 100 mg as directed. - Schedule and complete follow-up lab te sts to monitor new medication regimen. - Continue attending appointments for jeri ng nodule monitoring. - Seek support and maintain good self-ca re practices in light of recent family health changes. - Report any new or worsening symptoms p romptly. [facility] Medical History Bone lesion Vocal cord nodule Thyroid nodule Mild ascending aorta dilatation Epididymal cyst COPD (chronic obstructive pulmonary disease) Thyroid disease Left testicular pain Dyslipidemia Surgical History History of repair of ACL H/O colonoscopy H/O hemorrhoidectomy History of nasal septoplasty Hx of tonsillectomy Family History Father Hypertension Stroke Mother No problems noted. 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 1. Little interest or pleasure in doing things: not at all 2. Feeling down, depressed, or hopeless: not at all 3. Trouble falling or staying asleep, or sleeping too much: not at all 4. Feeling tired or having little energy: not at all 5. Poor appetite or overeating: not at all 6. Feeling bad about yourself - or that you are a failure or have let yourself or your family down: not at all 7. Trouble concentrating on things, such as reading the newspaper or watching television: not at all 8. Moving or speaking so slowly that other people could have noticed. Or the opposite - being so fidgety or restless that you have been moving around a lot more than usual: not at all 9. Thoughts that you would be better off or of hurting yourself in some way : not at all Total score: 0 Depression Screening Interpretation: Negative Depression Screening Done: Yes 09010 - PHQ-9 Billing: Yes Source: Developed by Drs. Easton Yeboah, Mojgan White, Dylan Ferraro and colleagues, with an educational heather from [employer]. Thrive Questionnaire Date Thrive assessed: 07/15/24 I am a: Patient What is your living situation today?: I have a steady place to live Within the past 12 months, did the food you bought not last and you didn't have the money to get more?: Never true Within the past 12 months, did you worry whether your food would run out before you got money to buy more?: Never true Do you have trouble paying for medicines?: No Do you have trouble getting transportation to medical appointments?: No Do you have trouble paying your heating and electricity bill?: No Do you have trouble taking care of your child, family member or friend?: No Do you have trouble with day-to-day activities such as bathing, preparing meals, shopping, managing finances, etc.?: No Are you currently unemployed and looking for a job?: No Are you interested in more education?: No Please select the resources that you would like help with: None Currently or been in a relationship where the following occur: No concerns reported THRIVE Score: 0 AUDIT C Alcohol Use Questionnaire (AUDIT-C) 1. How often do you have a drink containing alcohol?: Monthly or less 2. How many drinks containing alcohol do you have on a typical day when you are drinking?: 1 or 2 3. How often do you have six or more drinks on one occasion?: Never Total Score: 1 Score Reviewed/Action Taken: Yes KAMALA-7 AMB Questionnaire KAMALA-7 Date KAMALA - 7 assessed: 07/22/24 Feeling nervous, anxious, or on edge: 0 = Not at all Not being able to stop or control worryin = Not at all Worrying too much about different things: 0 = Not at all Trouble relaxin = Not at all Being so restless that it is hard to sit still: 0 = Not at all Becoming easily annoyed or irritable: 0 = Not at all Feeling afraid as if something awful might happen: 0 = Not at all Total KAMALA-7 score (0-4 normal; 5-9 mild; 10-14 moderate; 15-21 severe): 0 Source: Developed by Drs. Easton Yeboah, Mojgan White, Dylan Ferraro and colleagues, with an educational heather from [employer]. KAMALA-7 Assessment Billing KAMALA-7 Assessment Tool: KAMALA-7 Assessment 01898 Physical exam (Primary Care) Vital Signs: Last Vital Signs Temp 98.1 F 07/22/24 08:05 Pulse 78 07/22/24 08:05 BP 140/94 H 07/22/24 08:05 Pulse Ox 98 07/22/24 08:05 BMI result Body Mass Index 38.8 Tobacco/Smoking Status: Tobacco use Status Tobacco use date assessed 07/22/24 07/22/24 08:06 Patient Tobacco Use Status Former Tobacco user 07/22/24 08:06 e-Cigarette/Vaping Use Never Used 07/22/24 08:06 PHQ-9: PHQ-9 Score PHQ-9: Total score 0 07/22/24 08:06 Depression Screening Interpretation: Negative Thrive Assessment: Date of Thrive Assessment Date Thrive assessed 07/15/24 07/22/24 08:06 Currently or been in a relationship where the following occur: No concerns reported Coding Level of Care Code Est Pt Prev Care 40-64y(84400) Diagnoses Primary hypertension I10 Hypertension type: primary hypertension Physical exam Z00.00 Lung nodule, multiple R91.8 Additional Codes KAMALA-7 Assessment Billing - KAMALA-7 Assessment Tool: KAMALA-7 Assessment 72957 ([id number]) PHQ-9 - 05370 - PHQ-9 Billing: Yes ([id number]) Assessment & Plan Assessment & Plan (1) HTN (hypertension): Code(s): I10 - Essential (primary) hypertension Category: Medical Qualifiers: Hypertension type: primary hypertension Qualified Code(s): I10 - Essential (primary) hypertension (2) Physical exam: Code(s): Z00.00 - Encounter for general adult medical examination without abnormal findings Category: Medical (3) Lung nodule, multiple: Code(s): R91.8 - Other nonspecific abnormal finding of lung field Category: Surgical Plan . Orders: Orders Complete Blood Count Auto Diff Today Z00.00 - Encounter for general adult medical examination without abnormal findings Comprehensive [place]. Panel Fast Today Z00.00 - Encounter for general adult medical examination without abnormal findings TSH reflex Free T4 Today Z00.00 - Encounter for general adult medical examination without abnormal findings UA CC w/rflx Micro + Cult Today Z00.00 - Encounter for general adult medical examination without abnormal findings Lipid Panel Today Z00.00 - Encounter for general adult medical examination wit aurora abnormal findings Medications: New losartan-hydrochlorothiazide 100-12.5 mg 1 tab PO DAILY 90 tabs 0RF Discontinued losartan Discontinued Reason: Doctor's Order 100 mg PO DAILY 90 days 90 tabs 1RF
== END 2024-07-22 09:33 | disposition home or self-care (01) ==
PROVIDERS: PCP Nurse Practitioner Family; Visit Provider Nurse Practitioner Family
DX: I10 Essential (primary) hypertension (principal); Z00.00 Encounter for general adult medical examination without abnormal findings; R91.8 Other nonspecific abnormal finding of lung field

== ENCOUNTER → 2024-07-22 07:47 | Outpatient (BNVA) | payer OTHER, SELFPAY | PROVIDERS: PCP Nurse Practitioner Family; Visit Provider Nurse Practitioner Family | DX: Z00.01 Encounter for general adult medical examination with abnormal findings (principal); I10 Essential (primary) hypertension; R91.8 Other nonspecific abnormal finding of lung field; R60.0 Localized edema | CPT/HCPCS: 96127 ==

== ENCOUNTER 2024-08-29 06:35 | Outpatient (REF) | payer OTHER, SELFPAY ==
--- OUTSIDE RECORDS SUMMARY | 2024-08-29 06:38 | XMS_ITS | Encounter Summary ---
Author Organization [facility] Address [address] [place] [address] Phone Care Team Providers Care Documentation Supervisor Name Role Phone Kodi Be NP Primary Care Provider [phone] Encounter Details Date Type Department Care Team (Late st Contact Info) Description 03/28/2022 Documentation Only [facility] [place], [address] [place] [address] Kodi Be NP [address] [place] [address] Social History Tobacco Use Types Packs/Day Years [...] on filedocumented in this encounter Care Teams Documentation Supervisor Relationship Specialty Start Date End Date Kodi Be NP [address] [place] [address] PCP - General Nurse Practitioner 03/23/22 documented as of this encounter
--- OUTSIDE RECORDS SUMMARY | 2024-08-29 06:38 | XMS_ITS | Clinical Summary ---
Author Organization [facility] Address [address] [place] [address] Care Team Providers Care Music Publisher Name Role Phone Kodi Be Primary Care Provider [phone] Allergies No known active allergies Medications Medication [...] age to complete this topic Care Teams Music Publisher Relationship Specialty Start Date End Date Kodi Be [address] [place] [address] PCP - General Family Medicine 08/26/20
--- OUTSIDE RECORDS SUMMARY | 2024-08-29 06:38 | XMS_ITS | Encounter Summary ---
Author Organization [facility] Address [address] [place] [address] Phone Care Team Providers Care Gas Worker Name Role Phone Kodi Be NP Primary Care Provider [phone] Encounter Details Date Type Department Care Team (Late st Contact Info) Description 03/31/2022 Documentation Only [facility] [place], [address] [place] [address] Kodi Be NP [address] [place] [address] Social History Tobacco Use Types Packs/Day Years [...] on filedocumented in this encounter Care Teams Gas Worker Relationship Specialty Start Date End Date Kodi Be NP [address] [place] [address] PCP - General Nurse Practitioner 03/23/22 documented as of this encounter
--- OUTSIDE RECORDS SUMMARY | 2024-08-29 06:38 | XMS_ITS | Clinical Summary ---
Author Organization [facility] Address [address] [place] [address] Care Team Providers Care Plumbing Mechanic Name Role Phone Unavailable Primary Care Provider [...]
--- OUTSIDE RECORDS SUMMARY | 2024-08-29 06:38 | XMS_ITS | Encounter Summary ---
Author Organization [facility] Address [address] [place] [address] Phone Care Team Providers Care Events Manager Name Role Phone Kodi Be NP Primary Care Provider [phone] Reason for Visit * Reason Comments Med Refill Encounter Details Date Type Department Care Team (Late st Contact Info) Description 11/05/2023 Refill [facility], [address] [place] [address] Mihir Wheeler MD [address] [place] [address] Social History Tobacco Use Types [...] on filedocumented in this encounter Care Teams Events Manager Relationship Specialty Start Date End Date Kodi Be NP [address] [place] [address] PCP - General Nurse Practitioner 03/23/22 documented as of this encounter
--- OUTSIDE RECORDS SUMMARY | 2024-08-29 06:38 | XMS_ITS | Clinical Summary ---
Author Organization [facility], Address [address] [place] [address] [place] [address] Phone Care Team Providers Care Filtration Supervisor Name Role Phone Kodi Be NP Primary Care Provider [phone] Allergies Active Allergy Reactions Criticality Noted Date [...] Due Date Last Done Comments Pneumococcal Vaccine: Peds ( 0 to 5 Years) and At-Risk Patients (6 to 49 Years) (1 of 2 - PCV) 1968 Colorectal Cancer Screening: Annual FOBT 12/25/2011 Colorectal Cancer Screening: Colonoscopy 12/25/2011 Colorectal Cancer Screening: Sigmoidoscopy 12/25/2011 Influenza Vaccine (Season Ended) 2025 Hepatitis B Vaccine Aged Out No longe r eligible based on patient's age to complete this topic Insurance Comprehensive Benefits Care Teams Filtration Supervisor Relationship Specialty Start Date End Date Kodi Be NP [facility] [place] [address] PCP - General Nurse Practitioner 03/23/22
[2024-08-29 06:59] LABS: MANUAL DIFF FLAG NO
[2024-08-29 07:08] LABS: Basophils Absolute Auto 0.1 X10*3/uL (0.0-0.2); Basophils Percent Auto 1.1 % (0-2); Eosinophils Absolute Auto 0.3 X10*3/uL (0.0-0.4); Eosinophils Percent Auto 3.2 % (0-4); Hematocrit 42.3 % (42.0-52.0); Hemoglobin 14.3 g/dl (14.0-18.0); Imm Gran Abs Auto 0.05 X10*3/uL (0.00-0.03); Imm Gran Pct Auto 0.5 % (0.0-0.4); Lymphocytes Absolute Auto 2.8 X10*3/uL (1.2-4.9); Lymphocytes Percent Auto 27.4 % (20-40); Mean Corpuscular HGB Conc 33.8 g/dl (31.0-36.0); Mean Corpuscular Hemoglobin 30.6 pg (27.0-33.0); Mean Corpuscular Volume 90.6 fL (80.0-98.0); Mean Platelet Volume 10.9 fL (9.4-12.4); Monocytes Percent Auto 9.6 % (2-11); Neutrophils Absolute Auto 5.9 x10*3/uL (2.0-8.3); Neutrophils Percent Auto 58.2 % (45-73); Platelet Count 257 X10*3/uL (160-400); Red Blood Count 4.67 X10*6/uL (4.60-5.80); White Blood Count 10.2 X10*3/uL (4.8-10.8)
[2024-08-29 07:22] LABS: Appearance Urine Clear; Color Urine Yellow; Glucose Urine UA Negative (Negative); Leukocyte Esterase Urine Negative (Negative); Nitrite Urine Negative (Negative); PH 5.5 (5.0-9.0); Specific Gravity - Urine 1.025 (1.005-1.025); Urine Blood Negative (Negative); Urine Ketones Negative (Negative); Urine Protein Negative (Neg-Trace)
[2024-08-29 07:31] LABS: Alanine Aminotransferase 29 U/L (0-40); Albumin Level 4.1 g/dL (3.5-5.0); Alkaline Phosphatase 69 U/L (39-117); Anion Gap 11 (12-20); Aspartate Amino Transferase 19 U/L (5-37); Bilirubin Total 0.4 mg/dL (0.0-1.0); Blood Urea Nitrogen 20 mg/dL (9-16); Calcium 9.6 mg/dL (8.4-10.2); Carbon Dioxide 24 mmol/L (22-29); Chloride 109 mmol/L (96-108); Cholesterol 191 mg/dL (<200); Estimated Glomerular Filt Rate > 60; Glucose Fasting 100 mg/dL (60-99); Glucose Random 99 mg/dL (60-115); HDL Cholesterol 32 mg/dL (>40); LDL Cholesterol Calculated 130 mg/dL (<100); Potassium 3.9 mmol/L (3.3-5.1); Sodium 140 mmol/L (135-145); Total Protein 7.2 g/dL (6.5-8.0); Triglycerides 145 mg/dL (<150)
[2024-08-29 08:00] LABS: PSA,Total (Free>4and<10) 4.52 ng/mL (0.00-4.00)
[2024-09-01 11:04] LABS: Free Prostate Spec Ag 0.5 ng/mL; Percent Free Prostate Spec Ag 12 % (calc) (>25); Prostate Specific Ag Total 4.3 ng/mL (< OR = 4.0)
== END 2024-08-29 06:36 | disposition home or self-care (01) ==
LOC: HO.LAB 06:35
PROVIDERS: Absent Provider Urology; PCP Nurse Practitioner Family; Visit Provider Nurse Practitioner Family
DX: Z00.00 Encounter for general adult medical examination without abnormal findings (principal); R97.20 Elevated prostate specific antigen [PSA]; I10 Essential (primary) hypertension; E78.5 Hyperlipidemia, unspecified; Z12.5 Encounter for screening for malignant neoplasm of prostate
CPT/HCPCS: 36415; 80053; 80061; 81003; 84153; 84154; 84443; 85025

== ENCOUNTER 2024-09-02 14:38 | Outpatient (AMB) | payer OTHER, SELFPAY ==
--- NOTE | 2024-09-02 14:41 | MHC.OFFVIS ---
Intake Visit Reasons: 6 M PSA Intake Note: Patient is present for 6M/PSA Urology Medication:FINASTERRIDE,TADALAFIL,LIDOCAINE Antibiotic Allergy:SULFA Blood Thinner:NONE TODAY'S PVR:317ML'S Security Solutions Engineer Required: No Allergies methocarbamol [From Robaxin] Allergy (Intermediate, Verified 09/02/24 14:42) throat swells. Sulfa (Sulfonamide Antibiotics) Allergy (Intermediate, Verified 09/02/24 14:42) throat swelling ezetimibe Adverse Reaction (Verified 09/02/24 14:42) Muscle Pain HPI Comments Details: Karel SHAH is a very pleasant male. They are a patient of Dr Esquivel. He is seen for the following urologic conditions. - lower urinary tract symptoms - prior elevated PSA - left inguinal disruption PSA slowly falling on finasteride Also on tadalafil 5 mg daily Lab work in six-months Tele visit Elevated PSA/Abnormal SANDRO:? Laboratory investigations include?05/08 4.58.? - 02/08 4.8, 08/09 3.6, 01/09 3.6, 01/10 3.8 18%, 01/11 5.9 15%, 08/12 4.3 12% Lower Urinary Tract Symptoms:? Current visit is for?further symptom evaluation of, lower urinary tract symptoms.? Current treatment includes?observation.? Prostate Symptom Score?05/08 , Mild (0-8), Bother 3.? Symptoms include?incomplete emptying, weak stream, nocturia (>2), and are progressing.? Prostate volume?50+gm.? Testing at next visit will include?bladder scan.? Treatment plan?continue review [facility] Medical History Bone lesion Vocal cord nodule Thyroid nodule Mild ascending aorta dilatation Epididymal cyst COPD (chronic obstructive pulmonary disease) Thyroid disease Left testicular pain Dyslipidemia Surgical History History of repair of ACL H/O colonoscopy H/O hemorrhoidectomy History of nasal septoplasty Hx of tonsillectomy Family History Father Hypertension Stroke Mother No problems noted. 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 Cognitive needs: Yes (cane) Hearing needs: No Vision needs: Yes (glasses) Review of Systems Const Denies chills and Denies fever(s) Card Reports no additional complaints and Denies syncope Resp Denies cough GI Denies abdominal pain and Denies heartburn Reports as per HPI and Denies change in libido Neuro Denies syncope Psych Denies change in libido Endo Denies change in libido Physical Exam Const General: cooperative, healthy appearing, comfortable and no acute distress Orientation/consciousness: patient oriented x3 HEENT Face and sinus: Yes normal facial exam Mouth: moist mucous membranes Neck Neck: Yes normal visual inspection, Yes full ROM and Yes trachea midline Chest Chest palpation & inspection: normal inspection of the chest Resp Effort & Inspection: normal respiratory effort, able to speak in complete sentences and no respiratory distress GI Inspection: Yes normal to inspection Back/Spine/Pelvis Cervical Spine: normal cervical lordosis Thoracic/Lumbar Spine: thoracic and lumbar spine normal to inspection Skin General skin exam: no rashes or lesions noted Neuro General: patient oriented x3, gait normal, tone normal and moves all extremities Extrem General: Yes normal to inspection and Yes capillary refill normal Office Procedures Post Void Residual Post Residual Void Post Void Residual (PVR): [id number] Void Residual by ultrasound Assessment & Plan Assessment & Plan (1) Bladder outlet obstruction: Code(s): N32.0 - Bladder-neck obstruction Category: Medical (2) Elevated PSA: Code(s): R97.20 - Elevated prostate specific antigen [PSA] Category: Medical Plan Six-month follow-up lab work Orders: Orders PSA,Total (Free>4and<10) 6 Months R97.20 - Elevated prostate specific antigen [PSA] Patient Instructions: This note is constructed using voice recognition software. While every effort has been made to ensure accuracy environmental health inspector errors may have been included. Imaging studies, laboratory and physical exam results were discussed and reviewed in detail. No major barriers to patient understanding were identified. An opportunity to ask questions regarding the treatment plan was provided. All questions were answered. The patient expressed understanding and agreement with the above treatment plan. The patient is aware they should contact our office by phone for worsening of their current condition or the appearance of new urologic symptoms. Compliance is encouraged with any medications and followup testing that is ordered. It is a privilege to participate in the urologic care of your patient. If you have any questions or concerns regarding treatment for the above conditions, or other urologic issues, please do not hesitate to contact me. The office telephone contact is [phone]. Sincerely, Dr Sharad Pizarro MD, [facility] - Urology Compassionate Specialist Care for the Genitourinary System Coding Level of Care Code Est Pt Level 3 (24746) Complex EM visit Add On G2211 Diagnoses Bladder outlet obstruction N32.0 Elevated PSA R97.20 CPT Codes Post Residual Void - PVR CPT Code: 30265-Omdh Void Residual by ultrasound ([id number])
--- OUTSIDE RECORDS SUMMARY | 2024-09-02 17:52 | XMS_ITS | Encounter Summary ---
Author Organization [facility] Address [address] [place] [address] Phone Care Team Providers Care Construction Superintendent Name Role Phone Kodi Be NP Primary Care Provider [phone] Reason for Visit * Reason Comments Med Refill Encounter Details Date Type Department Care Team (Late st Contact Info) Description 11/05/2023 Refill [facility] [place], [address] [place] [address] Mihir Wheeler MD [address] [place] [address] Social History Tobacco Use Types [...] on filedocumented in this encounter Care Teams Construction Superintendent Relationship Specialty Start Date End Date Kodi Be NP [address] [place] [address] PCP - General Nurse Practitioner 03/23/22 documented as of this encounter
--- OUTSIDE RECORDS SUMMARY | 2024-09-02 17:52 | XMS_ITS | Clinical Summary ---
Author Organization [facility] Address [address] [place] [address] Care Team Providers Care Punch Box Tender Name Role Phone Kodi Be Primary Care Provider [phone] Allergies No known active allergies Medications Medication [...] age to complete this topic Care Teams Punch Box Tender Relationship Specialty Start Date End Date Kodi Be [address] [place] [address] PCP - General Family Medicine 08/26/20
--- OUTSIDE RECORDS SUMMARY | 2024-09-02 17:52 | XMS_ITS | Clinical Summary ---
Author Organization [facility], Address [address] [place] [address] [place] [address] Phone Care Team Providers Care Operators School Manager Name Role Phone Kodi Be NP Primary Care Provider [phone] Allergies Active Allergy Reactions Criticality Noted Date [...] Due Date Last Done Comments Pneumococcal Vaccine: 50+ Ye ars (1 of 2 - PCV) 1981 Colorectal Cancer Screening: Annual FOBT 12/25/2011 Colorectal Cancer Screening: Colonoscopy 12/25/2011 Colorectal Cancer Screening: Sigmoidoscopy 12/25/2011 Influenza Vaccine (Season Ended) 2025 Hepatitis B Vaccine Aged Out No longe r eligible based on patient's age to complete this topic Insurance Comprehensive Benefits Care Teams Operators School Manager Relationship Specialty Start Date End Date Kodi Be NP [address] [place] [address] PCP - General Nurse Practitioner 03/23/22
--- OUTSIDE RECORDS SUMMARY | 2024-09-02 17:52 | XMS_ITS | Encounter Summary ---
Author Organization [facility] Address [address] [place] [address] Phone Care Team Providers Care Quality Officer Name Role Phone Kodi Be NP Primary Care Provider [phone] Encounter Details Date Type Department Care Team (Late st Contact Info) Description 03/28/2022 Documentation Only [facility] [place], [address] [place] [address] Kodi Be NP [address] [place] [address] Social History Tobacco Use Types Packs/Day Years [...] on filedocumented in this encounter Care Teams Quality Officer Relationship Specialty Start Date End Date Kodi Be NP [address] [place] [address] PCP - General Nurse Practitioner 03/23/22 documented as of this encounter
--- OUTSIDE RECORDS SUMMARY | 2024-09-02 17:52 | XMS_ITS | Encounter Summary ---
Author Organization [facility] Address [address] [place] [address] Phone Care Team Providers Care Account Coordinator Name Role Phone Kodi Be NP Primary Care Provider [phone] Reason for Visit * Reason Comments Med Refill Encounter Details Date Type Department Care Team (Late st Contact Info) Description 08/08/2023 Refill [facility] [place], [address] [place] [address] Mihir Wheeler MD [address] [place] [address] Social History Tobacco Use Types [...] on filedocumented in this encounter Care Teams Account Coordinator Relationship Specialty Start Date End Date Kodi Be NP [address] [place] [address] PCP - General Nurse Practitioner 03/23/22 documented as of this encounter
--- OUTSIDE RECORDS SUMMARY | 2024-09-02 17:52 | XMS_ITS | Encounter Summary ---
Author Organization [facility] Address [address] [place] [address] Phone Care Team Providers Care Metal Cleaner Name Role Phone Kodi Be NP Primary Care Provider Encounter Details Date Type Department Care Team (Late st Contact Info) Description 03/31/2022 Documentation Only [facility] [place], [address] [place] [address] Kodi Be NP [address] [place] [address] Social History Tobacco Use Types Packs/Day Years [...] on filedocumented in this encounter Care Teams Metal Cleaner Relationship Specialty Start Date End Date Kodi Be NP [address] [place] [address] PCP - General Nurse Practitioner 03/23/22 documented as of this encounter
--- OUTSIDE RECORDS SUMMARY | 2024-09-02 17:52 | XMS_ITS | Clinical Summary ---
Author Organization [facility] Address [address] [place] [address] Care Team Providers Care Coal Pipeline Operator Name Role Phone Unavailable Primary Care [...]
== END 2024-09-02 14:58 | disposition home or self-care (01) ==
LOC: HO.HUSH 14:38
PROVIDERS: PCP Nurse Practitioner Family; Visit Provider Urology
DX: N32.0 Bladder-neck obstruction (principal); R97.20 Elevated prostate specific antigen [PSA]
CPT/HCPCS: 99213

== ENCOUNTER → 2024-09-02 14:38 | Outpatient (BNVA) | payer OTHER, SELFPAY | PROVIDERS: PCP Nurse Practitioner Family; Visit Provider Urology | DX: N32.0 Bladder-neck obstruction (principal); R97.20 Elevated prostate specific antigen [PSA] | CPT/HCPCS: 51798 ==

== ENCOUNTER 2024-11-25 10:17 | Outpatient (AMB) | payer OTHER, SELFPAY ==
--- NOTE | 2024-11-25 10:19 | A.OFFVIS_ITS ---
Intake Visit Reasons: retractile testicle Intake Note: Patient is present for follow up Urology Medication:FINASTERRIDE,TADALAFIL Antibiotic Allergy:SULFA Blood Thinner:NONE TODAY'S PVR:32 ml's Vocational Rehabilitation Supervisor Required: No Accompanied by: Self / Same As Patient Allergies methocarbamol (From Robaxin) Allergy (Intermediate, Verified 11/25/24 10:20) throat swells. Sulfa (Sulfonamide Antibiotics) Allergy (Intermediate, Verified 11/25/24 10:20) throat swelling ezetimibe Adverse Reaction (Verified 11/25/24 10:20) Muscle Pain HPI Comments Details: Karel SHAH is a very pleasant male. They are a patient of Dr Esquivel. He is seen for the following urologic conditions. - lower urinary tract symptoms - prior elevated PSA - left inguinal disruption Recurrent left testicle pain primarily to do with testicular retraction during activity discussed options conservative versus intervention would like to move ahead with surgery PSA slowly falling on finasteride Also on tadalafil 5 mg daily Elevated PSA/Abnormal SANDRO:? Laboratory investigations include?05/08 4.58.? - 02/08 4.8, 08/09 3.6, 01/09 3.6, 01/10 3.8 18%, 01/11 5.9 15%, 08/12 4.3 12% Lower Urinary Tract Symptoms:? Current visit is for?further symptom evaluation of, lower urinary tract symptoms.? Current treatment includes?observation.? Prostate Symptom Score?05/08 , Mild (0-8), Bother 3.? Symptoms include?incomplete emptying, weak stream, nocturia (>2), and are progressing.? Prostate volume?50+gm.? Testing at next visit will include?bladder scan.? Treatment plan?continue review [facility] Medical History Bone lesion Vocal cord nodule Thyroid nodule Mild ascending aorta dilatation Epididymal cyst COPD (chronic obstructive pulmonary disease) Thyroid disease Left testicular pain Dyslipidemia Surgical History History of repair of ACL H/O colonoscopy H/O hemorrhoidectomy History of nasal septoplasty Hx of tonsillectomy Family History Father Hypertension Stroke Mother No problems noted. 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 Cognitive needs: Yes (cane) Hearing needs: No Vision needs: Yes (glasses) Review of Systems Const Denies chills and Denies fever(s) Card Reports no additional complaints and Denies syncope Resp Denies cough GI Denies abdominal pain and Denies heartburn Reports as per HPI and Denies change in libido Neuro Denies syncope Psych Denies change in libido Endo Denies change in libido Physical Exam Const General: cooperative, healthy appearing, comfortable and no acute distress Orientation/consciousness: patient oriented x3 HEENT Face and sinus: Yes normal facial exam Mouth: moist mucous membranes Neck Neck: Yes normal visual inspection, Yes full ROM and Yes trachea midline Chest Chest palpation & inspection: normal inspection of the chest Resp Effort & Inspection: normal respiratory effort, able to speak in complete sentences and no respiratory distress GI Inspection: Yes normal to inspection Back/Spine/Pelvis Cervical Spine: normal cervical lordosis Thoracic/Lumbar Spine: thoracic and lumbar spine normal to inspection Skin General skin exam: no rashes or lesions noted Neuro General: patient oriented x3, gait normal, tone normal and moves all extremities Extrem General: Yes normal to inspection and Yes capillary refill normal Assessment & Plan Assessment & Plan (1) 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 These include but are not limited to infection, bleeding, damage to local organs and tissues, need for further interventions. Anesthetic risks regarding cardiac arrhythmia, blood clots, and potential mortality were discussed. The patient understands the typical recovery time and the outpatient nature of the procedure. After consideration of these risks the patient gives full informed consent and they wish to move ahead with the procedure. microsurgical subinguinal cremaster muscle release - left side Patient Instructions: This note is constructed using voice recognition software. While every effort has been made to ensure accuracy credit card specialist errors may have been included. Imaging studies, laboratory and physical exam results were discussed and reviewed in detail. No major barriers to patient understanding were identified. An opportunity to ask questions regarding the treatment plan was provided. All questions were answered. The patient expressed understanding and agreement with the above treatment plan. The patient is aware they should contact our office by phone for worsening of their current condition or the appearance of new urologic symptoms. Compliance is encouraged with any medications and followup testing that is ordered. It is a privilege to participate in the urologic care of your patient. If you have any questions or concerns regarding treatment for the above conditions, or other urologic issues, please do not hesitate to contact me. The office telephone contact is [phone]. 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
--- OUTSIDE RECORDS SUMMARY | 2024-11-25 11:09 | XMS_ITS | Encounter Summary ---
Author Organization [facility] Address [address] [place] [address] Phone Care Team Providers Care Machine Joint Cutter Name Role Phone Kodi Be NP Primary Care Provider [phone] Reason for Visit * Reason Comments Med Refill Encounter Details Date Type Department Care Team (Late st Contact Info) Description 08/08/2023 Refill [facility] [place], [address] [place] [place] [address] Mihir Wheeler MD [address] [place] [address] Social History Tobacco Use Types [...] on filedocumented in this encounter Care Teams Machine Joint Cutter Relationship Specialty Start Date End Date Kodi Be NP [address] [place] [address] PCP - General Nurse Practitioner 03/23/22 documented as of this encounter
--- OUTSIDE RECORDS SUMMARY | 2024-11-25 11:10 | XMS_ITS | Data Portability ---
Author Organization [facility], , [facility] Address [address] [place] [address] Care Team Providers Care Lifter Name Role Phone [facility] OTHER Assessment No assessment recorded. Plan of Treatment Reminders Order Date Submit Date Provider Last Modified By Organization Details Last Modified Time Details Appointments None recorded. Lab BMP, serum or plasma 2017 018 [facility], [address] [facility], [place], [address], 8 15:59:08 Referral urologist referral - 57 y/o with recurrent infections in the scrotum, please assess and treat 2017 018 HIWOT Harris MD, [address] [facility] [place], [facility] [address], [place], [address], 9 05:00:22 orthopedic surgeon referral - L pinky finger trigger finger.// appt 05/31/2018 10am Karl Chamberlain 2017 018 [email or web address] Giuseppe Callaway MD, [address] [facility] , [facility] [address], [place], [address], 9 08:13:59 Procedures None recorded. Surgeries None recorded. Imaging US, scrotum - 57 y/o with hx of scrotal cyst, please assess 2017 018 [facility] (Imaging), [address], [place], [address], 8 13:37:24 CT, chest, w/o contrast - f/u pulm nodules - due Jun 2018//auth #[id number] A 2017 018 [facility], [address] [facility], [place], [address], 9 05:44:57 Medication Orders hydrochlor othiazide 25 mg tablet 2017 018 [facility], [address] [place] [address], [address], 8 10:20:04 losartan 50 mg tablet 2017 018 [facility], [address] [place] [address], [address], 8 09:50:29 ammonium lactate 12 % topical cream 2017 018 [facility], [address] [place] [address], [address], 8 12:15:01 levothyrox ine 75 mcg tablet 2017 018 [facility], [address] [place] [address], [address], 8 12:26:57 lisinopril 10 mg tablet 2017 018 [facility], [address] [place] [address], [address], 8 09:23:51 Patient TargetsNo targets recorded. Patient Instructions Encounter Date Encounter Id Patient Instructions Last Modified By Organization Details Last Modified Time 10/29/2017 [id number] BP at goal of less than 140/90 and thyroid in control. Cracked heel - try amonium lactated cream. move [facility] to [facility] sent there. [email or web address] Not available 10/29/2017 12:26:38 11/20/2017 [id number] Tdap administere d today. Call clinic if you develop fever/chills, or red streaks near site of injury. Wellness exam 04/01/2019. [email or web address] Not available 11/20/2017 17:37:36 04/01/2018 [id number] Well Visit 50 to 65: Care Instructions [email or web address] Not available 04/01/2018 09:48:13 Doing pretty well. Recommend see sports medicine for the left pinky trigger finger. Acutaly he prefers ortho at [place]. Thyroid was checked in September in the emergency room and was normal as was the sugar which was also normal. For the cough on lisinopril we can easily switch over to losartan and that causes a cough 1% of the time rather than 15% of the time. Follow-up blood pressure check for that in 3-4 wks. Skin tags can be treated on legs. - they irritate Repeat CT scan. for the nodule rekha Not available 04/01/2018 09:47:25 Prostate Cancer Screening using PSA was discussed. The U.S. Preventive Services Task Force advises not to make a PSA test a part of the standard exam for men ages 55-69. Instead they recommend the uncertainties about the test be discussed and ordered only if a patient still wants it. Over their lifetimes as many as 50% or more of men will develop prostate cancer but only 2% of men will of prostate cancer. For men who chose to be screened for prostate cancer if 1000 men are screened with a psa test over a 15 year period there might be 1-2 deaths prevented however 235 men will have a biopsy with risk of infection, bleeding and Pain, 100 men will have their prostate removed by surgery or radiation treatments and 60-70 of those will suffer incontinence or impotence. There is also the risk of anesthesia or radiation complications. For men over 70 prostate cancer screening offered no benefit and risked pain, worry, expense and possibly shorter life expectancy. Not available 04/01/2018 08:51:29 04/22/2018 [id number] BP good on hctz. Mild COOLEY. And some confusion. He'll stop it for about a week and see if those symptoms resolved and then reStart it. If he can definitely show that the symptoms were related in other words they come back when he restarts it then I would change to the amlodipine 2.5. Get labs on it. For the skin tags he'll follow up as needed. [email or web address] Not available 04/22/2018 10:18:32 05/16/2018 [id number] -Finish antibiotic -Call urology office for appointment: Royce Aldridge MD [address] [place] [address] Ph. Not available 05/16/2018 13:16:48 Reason for Referral Orthopedic Surgeon Referral for Trigger finger of left hand L pinky finger trigger finger.// appt 05/31/2018 10am Karl Chamberlain Referring Physician: Kareem Esquivel, Family Medicine, Encounter Date: 04/01/2018 Urologist Referral for Pain in scrotum 57 y/o with recurrent infections in the scrotum, please assess and treat Referring Physician: Carmela Awad, Family Medicine, Encounter Date: 05/16/2018 Results Created Date Observation Date Name Description Value Unit Range Abnormal Flag Note LastModifiedBy Organization Detail LastModifiedTime 10/04/19 18 10/03/2017 gluco se, QN [mass /volu me], serum or plasm a glucose 97 mg/dL 70-100 Not Available [address], [address], 10/03/2017 11:39:06 04/22/20 18 04/22/2018 BMP, serum or plasm a glucose 87 mg/dL 70-100 Not Available [address], [address], 04/22/2018 15:59:08 04/22/20 18 04/22/2018 BMP, serum or plasm a BUN 18 mg/dL 7-18 Not Available [address], [address], 04/22/2018 15:59:08 04/22/20 18 04/22/2018 BMP, serum or plasm a creatinine 1.0 mg/dL 0.8-1. 3 Not Available [address], [address], 04/22/2018 15:59:08 04/22/20 18 04/22/2018 BMP, serum or plasm a B/C 18.0 ratio Not Available [address], [address], 04/22/2018 15:59:08 04/22/20 18 04/22/2018 BMP, serum or plasm a GFR -non 82.5 mL/mi n Recom megha d GFR by the Natio nal Kidne y Found ation >60 mL/mi n/1.7 3m2 - Beth l <60 mL/mi n/1.7 3m2 - Chron ic Kidne y Disea se <15 mL/mi n/1.7 3m2 - Kidne y Failu re Not Available [address], [address], 04/22/2018 15:59:08 04/22/20 18 04/22/2018 BMP, serum or plasm a GFR - if 99.8 mL/mi n For Afric an Ameri can patie nts: Resul ts Multi plied by 1.21 Not Available [address], [address], 04/22/2018 15:59:08 04/22/20 18 04/22/2018 BMP, serum or plasm a sodium 140 mmol/ L 136-14 5 Not Available [address], [address], 04/22/2018 15:59:08 04/22/20 18 04/22/2018 BMP, serum or plasm a potassium 4.3 mmol/ L 3.5-5. 1 Not Available [address], [address], 04/22/2018 15:59:08 04/22/20 18 04/22/2018 BMP, serum or plasm a chloride 101 mmol/ L 96-107 Not Available [address], [address], 04/22/2018 15:59:08 04/22/20 18 04/22/2018 BMP, serum or plasm a anion gap 10.5 5.0-15 .0 Not Available [address], [address], 04/22/2018 15:59:08 04/22/20 18 04/22/2018 BMP, serum or plasm a CO2 29 mmol/ L 21-32 Not Available [address], [address], 04/22/2018 15:59:08 04/22/20 18 04/22/2018 BMP, serum or plasm a calcium 10.2 mg/dL 8.5-10 .3 Not Available [address], [address], 04/22/2018 15:59:08 10/19/19 18 10/16/2017 exerc ise stres s test No observ ation record ed. [facility] [address], [place], [address], 10/21/2017 20:25:17 10/20/19 18 10/16/2017 exerc ise stres s test No observ ation record ed. [facility] [address], [place], [address], 10/21/2017 20:25:17 10/20/19 18 10/19/2017 exerc ise stres s test No observ ation record ed. [facility] [address], [place], [address], 10/29/2017 12:00:37 05/16/20 18 05/16/2018 US, scrot um OBSERV ATION: Ultras onic examin ation of the perine um below the scrotu m is perfor med in evalua tion of painfu l mass. No prior. No fluid collec tions. There is soft tissue thicke liam involv ing portio ns of what appear s to be dermal layer of the skin but no cyst or fluid collec tion. Blood flow is seen in the region , possib ly indica ting inflam matory reacti on. Impres campos: Soft tissue thicke liam of nonspe cific appear ance withou t discre te mass or fluid collec tion. POS - VMG Electr onical ly signed Readin g Physic negin: Andreas heaton MD [facility] (Imaging) [address] , [place], [address], 05/16/2018 13:44:02 07/31/19 19 07/30/2018 CT, chest , w/o contr ast No observ ation record ed. [facility] [address] [facility], [place], [address], 08/03/2018 12:19:09 Result Notes None recorded. Problems Name Problem SNOMED Code Status Onset Date Resolution Date Notes Provider Name and Address Organization Details Recorded Time Hypothyroidis m 92308910 Active 2015 Kareem Esquivel MD [address] [place], [place] [address], [address], [facility] 6 09:36:23 Multiple nodules of lung 925879511 Active 2017 f/u 06/2018 for repeat Kareem Esquivel MD [address] [place], [place] [address], [address], [facility] 8 09:18:44 Problem Notes None recorded. Procedures Surgical History Date Name Laterality Status Provider Name and Address Organization Details Recorded Time 8 Skin Tag Removal (up to 15) completed Kareem Esquivel MD [address] [place] [address], [address], [facility] 04/22/2018 10:15:38 8 Post hospital/SNF follow-up/Raymundo sitional Care completed Omaira Sewell CMA [facility] 09/26/2017 08:43:47 7 POC Urinalysis Testing completed Manisha Block [facility] 09/12/2016 15:03:22 7 POC Strep Testing completed Seema Sanchez LPN [facility] 09/06/2016 16:28:58 Imaging Results None recorded. Procedure Notes None recorded. Medical Equipment None Reported. Allergies Allergen ID Allergen Name Allergen Category Reaction Reaction Severity Criticality Documentation Date Start Date Code Code System Note Provider Name and Address Organization Details Recorded Time 20810119 lisinopri l medicatio n cough moderate Not available 04/01/20182017 81001 RxNorm Kareem Esquivel MD [address] [place] [address], [place], [address] , [facility] 8 09:24:12 Medications Name Sig Start Date Stop Date Status Note LastModified by Organization Details LastModified Time losartan 50 mg tablet Take 1 tablet every day by oral route. 04/22 completed Headache s and confusio n Not Available Not Available Not Available amoxicill in 500 mg capsule TAKE 1 CAP BY MOUTH 3 TIMES DAILY FOR 7 DAYS active Not Available Not Available No t Available doxycycli ne hyclate 100 mg capsule 12/13 completed Not Available Not Available Not Available atorvasta tin 20 mg tablet 09/06 completed Not Available Not Available Not Available fluconazo le 150 mg tablet TAKE 1 TABLET BY MOUTH ONCE. MAY REPEAT AFTER 72 HOURS active Not Available Not Available No t Available benzonata te 200 mg capsule 12/13 completed Not Available Not Available Not Available ondansetr on HCl 4 mg tablet 02/27 completed Not Available Not Available Not Available Anucort-H C 25 mg supposito ry Insert 1 supposit ory every day by rectal route. 09/06 completed Not Available Not Available Not Available amlodipin e 2.5 mg tablet Take 1 tablet every day by oral route. 10/29 completed Not Available Not Available Not Available prochlorp erazine maleate 10 mg tablet 02/27 completed Not Available Not Available Not Available ciproflox acin 500 mg tablet Take 1 tablet every 12 hours by oral route for 21 days. 11/29 completed Not Available Not Available Not Available levothyro xine 75 mcg tablet TAKE ONE TABLET BY MOUTH ONCE DAILY 2018 active Not Available Not Available Not Avai lable oxycodone -acetamin ophen 5 mg-325 mg tablet 09/06 completed Not Available Not Available Not Available amoxicill in 875 mg tablet 09/06 completed Not Available Not Available Not Available levothyro xine 50 mcg tablet 02/27 completed Not Available Not Available Not Available lisinopri l 10 mg tablet Take 1 tablet every day by oral route. 04/01 completed cough Not Available Not Available Not Available ammonium lactate 12 % topical cream APPLY TO AFFECTED AREA TWICE A DAY BY TOPICAL ROUTE 2017 active Not Available Not Available Not Avai lable hydrochlo rothiazid e 25 mg tablet Take 1 tablet every day by oral route. 2017 active Not Available Not Available Not Avai lable ibuprofen 600 mg tablet 02/27 completed Not Available Not Available Not Available polyethyl ganesh glycol 3350 17 gram/dose oral powder Take 17 g every day by oral route. 09/06 completed Not Available Not Available Not Available fluticaso ne propionat e 50 mcg/actua tion nasal spray,tiburcio pension 01/05 completed PRN Not Available Not Available Not Available clotrimaz ole 1 % topical cream APPLY TO AFFECTED AREA EXTERNAL LY TWICE A DAY FOR 7 DAYS active Not Available Not Available No t Available amoxicill in 875 mg-potass ium clavulana te 125 mg tablet 09/06 completed Not Available Not Available Not Available Ventolin HFA 90 mcg/actua tion aerosol inhaler 01/05 completed PRN Not Available Not Available Not Available Bactrim DS 800 mg-160 mg tablet Take 1 tablet every 12 hours by oral route for 10 days. 2017 active Not Available Not Available Not Avai lable Dulcolax Stool Softener (docusate ) 100 mg capsule 03/29 completed Not Available Not Available Not Available GaviLyte- G 236 gram-22.7 4 gram-6.74 gram-5.86 gram oral solution 03/29 completed Not Available Not Available Not Available lidocaine 5 % topical ointment 02/27 completed Not Available Not Available Not Available Flucelvax Quad 5951-7602 (PF) 60 mcg (15 mcg x 4)/0.5 mL IM syringe TO BE ADMINIST ERED BY PHARMACI ST FOR IMMUNIZA TION 04/01 completed Not Available Not Available Not Available Vitals Date Recorded Body height Body mass index (BMI) Body weight Heart rate Systolic And Diastolic Provider Name and Address Organization Details Last Updated DateTime 10/29/2017 176.53 cm 38 kg/m2 728305.6 1 g 80 /min 112/72 mm[Hg] Omaira Sewell CMA [facility] 10/29/2017 11:55:49 Date Recorded Body height Body mass index (BMI) Body weight Heart rate Systolic And Diastolic Provider Name and Address Organization Details Last Updated DateTime 11/20/2017 176.53 cm 37.8 kg/m2 330637.2 2 g 88 /min 128/84 mm[Hg] Seema Sanchez LPN [facility] 8 16:53:01 Date Recorded Body height Body mass index (BMI) Body weight Heart rate Systolic And Diastolic Provider Name and Address Organization Details Last Updated DateTime 04/01/2018 176.53 cm 38.3 kg/m2 614201.7 9 g 64 /min 110/74 mm[Hg] Omaira Sewell [facility] 04/01/2018 09:00:01 Date Recorded Body height Body mass index (BMI) Body weight Heart rate Systolic And Diastolic Provider Name and Address Organization Details Last Updated DateTime 04/22/2018 176.53 cm 38.6 kg/m2 105304.9 8 g 80 /min 136/86 mm[Hg] Omaira Sewell [facility] 04/22/2018 09:38:54 Date Recorded Body height Body mass index (BMI) Body weight Heart rate Body temperature Systolic And Diastolic Provider Name and Address Organization Details Last Updated DateTime 176.53 cm 38.7 kg/m2 412127. 57 g 82 /min 98 [degF] 110/70 mm[Hg] Omaira Sewell [facility] 8 12:25:10 Social History Question Answer Notes LastModified by Organizat ion Details LastModified Time Tobacco Smoking Status Former Smoker Kareem Esquivel MD [address] [place] [address], [address], [facility] 02/07/2016 10:54:45 When Did You Quit Smoking? 11-15years sincelastc igarette Quit Age 42 [facility] Information not available 02/07/2016 How Many Days In The Past Year Have You Had A Heavy Drinking Consumption (4+ Female, 5+ Male)? 0 [facility] Information not available 02/28/2016 Live Alone Or With Others? With Others Information not available 01/05/2017 Marital Status Single 20 Yr GF Nara( Taxes Not Favorable For Marriage) [facility] Information not available 02/07/2016 What Was The Date Of Your Most Recent Tobacco Screening? 05/16/2018 Information not available 12/11/2018 What Is Your Current Pack Years? 30ormorepa ckyears [facility] Information not available 02/07/2016 Seat Belts Used Routinely Yes Information not available 01/05/2017 Smoke Alarm In Home Yes Information not available 01/05/2017 General Stress Level Medium Information not available 01/05/2017 Sex: Unknown Functional Status Question Answer Note LastModified by Organizat ion Details LastModified Time What is your level of alcohol consumption? 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 Family History Relationship Description Onset Age of this Age Resolved Age Notes LastModified by Organization Details LastModified Time Father Transient cerebral ischemia on BP meds [facility] Not available 09/26/2017 09:10:30 Notes:Grandmother: aortic an eurysm Medical History No medical history recorded. Immunizations Vaccine Type Date Status Note Provider Nam e and Address Organization Details Recorded Time Influenza, split virus, quadrivalent, PF 6 completed Not Available [facility] 06/07/2019 02:20:43 Tdap 8 completed Not Available [facility] 06/07/2019 02:37:12 influenza, unspecified formulation 8 completed Omaira Sewell CMA [facility] 04/01/2018 08:58:42 Past Encounters Encounter ID Performer Location Encounter Start Date Encounter Closed Date Diagnosis/Indication Diagnosis SNOMED-CT Code Diagnosis ICD10 Code Diagnosis Note [id number] MD ARIANNE Greene, [facility], OFFICE [address] [place] [id number] 02/07/2016 08:18:03 02/07/2016 09:30:37 Epidermoid cyst of skin 814287461 L72.0 Active or passive immunization 404361800 Z23 Hemorrhoids 08350258 K64 .9 [id number] MD ARIANNE Greene, [place], OFFICE [address] [place] [phone] 02/28/2016 08:50:56 02/28/2016 13:39:59 Hypothyroidism 75708718 E03.9 Adult heal th examination 886515983 Z00.00 Screening for malignant neoplasm of lung 270714794 Z12.2 Dyspnea 977229914 R06.00 [id number] Kareem Esquivel MD , [facility], OFFICE [address] [place] [id number] 03/29/2016 09:15:42 03/29/2016 09:56:46 Hemorrhoids 84103812 K64.9 Hypothyroidism 76036236 E03.9 Dyspnea on exertion 6084 5006 R06.09 Chronic constipation 236 787999 K59.09 Aortic billy t dilatation 057469237 I77.449 [id number] Kareem Esquivel MD , [facility], OFFICE [address] [place] [id number] 05/01/2016 07:49:03 05/01/2016 09:01:05 Obesity 879349636 E66.9 Dyspnea 867230126 R06.00 Hypothyroidism 34390694 E03.9 Palpitations 27805017 R0 0.2 [id number] Kareem Esquivel MD , [facility], OFFICE [address] [place] [id number] 05/24/2016 08:06:32 05/24/2016 10:23:48 Dyspnea on exertion 57107307 R06.09 Aortic billy t dilatation 242267797 I77.810 Abnormal weight gain 161 560324 R63.5 Decreased diffusion capacity of lung 50837014 R94.2 [id number] Terri Damon, , Rdn, Ldn, [facility] [address] [address] 06/22/2016 08:50:48 06/22/2016 09:47:42 Obesity 413540214 E66.9 [id number] Terri Damon Ms, Rdn, Ldn, [facility] [address] [address] 08/17/2016 07:47:52 08/17/2016 14:52:53 Obesity 300772464 E66.9 [id number] Sirena Clark NP , [facility], OFFICE [address] [place] [phone] 09/06/2016 16:20:10 09/06/2016 16:44:33 Acute pharyngitis 642882950 J02.9 Most sore throats are viral and do not benefit from antibiotic s. Recommend supportive care with warm salt water gargles, lozenges, tea and honey. Return to clinic if develop difficulty swallowing , throat or neck swelling, or severe pain. Good hygiene with careful hand washing and avoiding sharing utensils and food will prevent contagion. [id number] Kareem Esquivel MD , [facility], OFFICE [address] [place] [id number] 09/12/2016 14:14:09 09/12/2016 15:01:11 Obesity 945592376 E66.9 Acute prostatitis 494802 02 N41.0 Dysuria 45036579 R30.0 Parotitis 40184898 K11.2 0 [id number] Kareem Esquivel MD , [facility], OFFICE [address] [place] [id number] 11/29/2016 11:26:17 11/29/2016 13:40:15 On examination - parotid swelling 730455581 K11.9 Tinnitus 92282787 H93.13 [id number] Kareem Esquivel MD , [facility], OFFICE [address] [place] [id number] 12/13/2016 09:17:14 12/13/2016 10:34:35 Disorder of salivary gland 26126882 K11.9 Mass of parotid gland 31 6967238 R22.1 Solitary n odule of lung 695740315 R91.1 Seborrheic dermatitis 50 825276 L21.9 Fatigue 21464584 R53.83 [id number] Kareem Esquivel MD , [facility], OFFICE [address] [place] [id number] 01/05/2017 08:18:42 01/05/2017 08:59:13 On examination - parotid swelling 757503519 K11.9 [id number] Kareem Esquivel MD , [facility], OFFICE [address] [place] [id number] 03/30/2017 08:39:22 03/30/2017 09:46:32 Adult health examination 493280857 Z00.00 see Risk Assessment and Lifestyle Change Counseling section above Counseling 632325106 Z71 .9 Hypothyroidism 69249571 E03.9 Aortic billy t dilatation 796588191 I77.810 Pes anseri nus bursitis 49252485 M70.52 [id number] Kareem Esquivel MD , [facility], OFFICE [address] [place] [id number] 6 09/26/2017 08:26:15 09/26/2017 09:23:59 Benign essential hypertension 2636420 I10 Chest pain 35450876 R07. 9 [id number] Kareem Esquivel MD , [facility], OFFICE [address] [place] [id number] 10/03/2017 08:38:53 10/03/2017 09:58:10 Benign essential hypertension 9613876 I10 Blood pressure at goal of less than 140/90. [id number] Kareem Esquivel MD , [facility], OFFICE [address] [place] [id number] 10/29/2017 11:49:18 10/30/2017 10:32:31 Benign essential hypertension 8649889 I10 Blood pressure at goal of less than 140/90. Hypothyroidism 85311963 E03.9 On examina tion - cracked skin of feet 073580685 R23.4 [id number] Siena May MD , [facility], OFFICE [address] [place] [id number] 11/20/2017 16:44:50 11/22/2017 15:50:28 Open wound of foot 281352013 S91.301A Tdap administer ed. Active or passive immunization 470521859 Z23 [id number] MD ARIANNE Greene, [facility], OFFICE [address] [place] [id number] 04/01/2018 08:41:11 04/01/2018 10:07:40 Adult health examination 819546782 Z00.00 see Risk Assessment and Lifestyle Change Counseling section above Counseling 679628999 Z71 .9 Depression screening 171 730946 Z13.89 depression screening tool administer ed, entered into emr, scored Hypothyroidism 57081638 E03.9 Benign ess ential hypertension 1909122 I10 Blood pressure at goal of less than 140/90. Solitary n odule of lung 878704902 R91.1 Cough 74396205 R05 Trigger fi nger of left hand 7406208266 1209372 M65.30 [id number] Kareem Esquivel MD FP, [facility], OFFICE [address] [place] [address] 04/22/2018 09:29:30 04/22/2018 10:55:56 Benign essential hypertension 6120193 I10 Blood pressure at goal of less than 140/90 Multiple skin tags 44836 7009 L91.8 [id number] Carmela Awad , [facility], OFFICE [address] [place] [address] 05/16/2018 12:14:29 05/16/2018 13:09:43 Pain in scrotum 62373985 N50.82 Cellulitis 712970593 L03 .90 Recurrent, but no collection on [place] Plan as below. Health Concerns Section Related Observation LastModified by Organization Detai ls LastModified Time None Recorded Concern Status LastModified by Organization Details LastModified Time None Recorded Advance Directives Directive None Recorded Payers Insurance Date Sequence Insurance Name Policy Number Policy Peacock Covered Member ID Peacock Member ID Guarantor Name 09/04/2017 1 [facility] [employer] - TOGETHER (MEDICAID HMO) Karel Dutton [id number] Karel Dutton 07/09/2018 1 [place] [facility] PRIOR TO 08/19/2022 - [facility] (MEDICAID) Karel Polancoty [id number] Karel Marija Notes Date Note Type Note Provider Name and Address Organization Details Recorded Time 8 text/html Has rare cough on the new lisinopril. low salt diet. had stress test to follow up the chest pain from [facility] ER visit. Stress test on 10/19 was normal. last laboratory test here was November but he had one in the emergency department this past September which was 1.07 on 10/05/17. Just moved this weekend from [place] to [place]. would like to change pahmacies. Notes cracked heel. putting cream on it. seems to be gettingn bigger. Kareem Esquivel MD [address] [place], [address], [facility] 10/29/2017 12:27:20 8 text/html Comes in with .56 y/o male presents with CC of cutting right foot on nail this morning. Slammed nail on medial right foot.Cleaned wound with hydrogen peroxide and topical antibitioc ointment 2 x today, covered in bandage.Wound bled for 1 hour.Denies pain, swelling. Light amount of blood.No record of tetnus vaccine, belives it's been over 5 years. Sima Devries NP [address] [place] [address], [phone], [facility] 11/20/2017 18:43:35 8 text/html Risk Assessment and Lifestyle Change Counseling 50-64Reported bypatient.Coronary Artery Disease Risk Assessment:No Family history of coronary artery disease; No personal history of diabetes; No history of peripheral vascular disease, AAA, or carotid disease; No personal history of coronary artery disease Breast Cancer Risk Assessment:No family history of breast cancer; No history of breast cancer or dcis Colon Cancer Risk Assessment:No family history of colon polyps or cancer; No history of adenomatous colon polyps Lung Cancer Risk Assessment:Never smoked; No asbestos exposure Fracture Risk Assessment:No unexplained fracture Cognitive/Behavioral Risk Assessment:No personal history of mental illness; No family history of mental illness Safety Risk Assessment:No evidence of abuse/neglect Here for physical. Has had colonsocopy.Wanda) [employer] house in [place]. [place] in the [place]- clearing brush, fence posts, etc. [place]. Lots of stress trying to improve the house-/ land, but the city giving them grief. Parotid gland swelling finallyl resolved. Quit smoking 2011. 1ppd x 30 yrs. Hx enlarged ascending aorta. Cough he attributes to liniopril. 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 Has been on lisinopril which gave him a cough, losartan which gave him headache and confusion. It looks like amlodipine was prescribed but I don't think he ever took it. He was started on HCTZ 3 weeks ago and thinks he might have a mild headache associated with that and ? confusion. Kareem Esquivel MD [address] [place] [address], [phone], [facility] 04/23/2018 20:46:45 8 text/html Pt comes in today lump behind c/o lump behind the scrotum. Pt has had this issue intermittently over the past ten years or so. Pt had surgery a few years ago 'to remove the pocket' and it didn't work at all. Pt started on Bactrim four days ago without improvement. Pt states it's painful with walking. No drainage. He can't see it; his girlfriend said it lookd inflamed. Carmela Awad [address] [place], [phone], [facility] 05/16/2018 13:17:18
--- OUTSIDE RECORDS SUMMARY | 2024-11-25 11:10 | XMS_ITS | Clinical Summary ---
Author Organization [facility] Address [address] [place] [address] Care Team Providers Care Director Of Hotel Operations Name Role Phone Unavailable Primary Care Provider [...]
--- OUTSIDE RECORDS SUMMARY | 2024-11-25 11:10 | XMS_ITS | Clinical Summary ---
Author Organization [facility] Address [address] [place] [address] Care Team Providers Care Sample Coordinator Name Role Phone Kodi Be Primary Care Provider [phone] Allergies No known active allergies Medications Medication [...] (1 of 2) 2012 Influenza Vaccine (#1) 2025 RSV Adult > 60+ Yrs or Pregn ant (1 - 1-dose 75+ series) 2037 Hepatitis B Vaccines Aged Out No long er eligible based on patient's age to complete this topic RSV Ped < 20 months Aged Out No longe r eligible based on patient's age to complete this topic Care Teams Sample Coordinator Relationship Specialty Start Date End Date Kodi Be [address] [place] [address] PCP - General Family Medicine 08/26/20
== END 2024-11-25 10:50 | disposition home or self-care (01) ==
LOC: HO.HUSH 10:18
PROVIDERS: PCP Nurse Practitioner Family; Visit Provider Urology
DX: Q55.22 Retractile testis (principal); Z13.9 Encounter for screening, unspecified
CPT/HCPCS: 99214

== ENCOUNTER → 2024-11-25 10:17 | Outpatient (BNVA) | payer OTHER, SELFPAY | PROVIDERS: PCP Nurse Practitioner Family; Visit Provider Urology | DX: Q55.22 Retractile testis (principal) | CPT/HCPCS: 51798; 81003 ==

== ENCOUNTER 2024-11-27 13:30 | Outpatient (AMB) | payer OTHER, SELFPAY ==
--- OUTSIDE RECORDS SUMMARY | 2024-11-27 13:32 | XMS_ITS | Encounter Summary ---
Author Organization [facility] Address [address] [place] [address] Phone Care Team Providers Care New Car Driver Name Role Phone Kodi Be NP Primary Care Provider [phone] Reason for Visit * Reason Comments Med Refill Encounter Details Date Type Department Care Team (Late st Contact Info) Description 08/08/2023 Refill [facility], [address] [place] [address] Mihir Wheeler MD [address] [place] [address] Social History Tobacco Use Types [...] on filedocumented in this encounter Care Teams New Car Driver Relationship Specialty Start Date End Date Kodi Be NP [address] [place] [address] PCP - General Nurse Practitioner 03/23/22 documented as of this encounter
--- NOTE | 2024-11-27 13:33 | MHC.PC.OV ---
Vital Signs 11/27/24 13:37 Height 5 ft 11 in Weight 262 lb BMI 36.5 BP 122/78 Blood Pressure Location Rt brachial Position Sitting Respiration 16 Pulse 82 Pulse Source Pulse Oximeter Temp 98.5 F Temp Source Oral Pulse Oximetry (%) 96 Oxygen Delivery Method Room Air Intake Visit Reasons: 4 month followup Intake Note: pt coming in for 4mth f/u Training Engineer Required: No Allergies methocarbamol (From Robaxin) Allergy (Intermediate, Verified 11/27/24 14:15) throat swells. Sulfa (Sulfonamide Antibiotics) Allergy (Intermediate, Verified 11/27/24 14:15) throat swelling ezetimibe Adverse Reaction (Verified 11/27/24 14:15) Muscle Pain Medication List - Last Reconciled 11/27/24 by REGINALD Diaz-HUGO finasteride 5 mg PO DAILY 90 days levothyroxine 75 mcg PO QAM 90 days lidocaine 5% 1 appl topical DAILY PRN losartan-hydrochlorothiazide 100-12.5 mg 1 tab PO DAILY semaglutide (Ozempic) 0.25 mg (0.368 mL) subcut QWEEK tadalafil 5 mg PO DAILY 90 days Tobacco use date assessed: 11/27/24 Dental Screening Dental Screen Date: 11/27/24 Did you have a dental visit in the last 12 months?: Yes Did you have a dental problem in the last 6 months where you did not have access to dental care?: No Was dental information given to patient?: Patient has dentist HPI 4 month followup HPI Details Chief Complaint The patient presents for follow-up on hypertension. History of Present Illness The patient is a 63-year-old male presenting with hypertension management. His blood pressure is currently well controlled, and he denies experiencing any increased dyspnea, chest pain, headaches, blurred vision, or dizziness. He reports feeling quite well overall. The patient has a history of thyroidectomy / thyroid nodule. There is no documentation available regarding the thyroidectomy or the thyroid nodule, and an ultrasound is planned for further assessment. Social History Health Maintenance Review of Systems - Cardiovascular: Denies chest pain, dizziness, or headaches. - Respiratory: Denies dyspnea. - Neurological: Denies blurred vision. Physical Exam General: Cooperative, healthy appearing, comfortable, no acute distress and well developed, obese Orientation: Patient oriented x3 Limitations: No limitations Head: Normal to inspection Ears: Hearing grossly normal bilaterally Nose: Normal external nose present Face and sinus: Normal facial exam Eyes: Appearance normal, both eyes and all related structures Neck: Normal visual inspection and Yes full ROM Respiratory: Normal respiratory effort and able to speak in complete sentences. Clear to auscultation bilaterally Cardiovascular: Regular rate and rhythm. Normal S1 and S2 GI: Normal to inspection. Soft to palpation and nontender Skin: No rashes or lesions noted Neuro: Patient oriented x3 Extremities: Normal to inspection, trace edema to lower extremities Results Plan The patient will continue with current hypertension management as his blood pressure is well controlled. Lab orders have been entered, and the patient is advised to fast before the tests. An ultrasound is planned to assess the thyroid nodule, given the history of thyroidectomy. Patient Instructions - Continue current hypertension management. - Fast before lab tests as instructed. - Follow up for an ultrasound to assess the thyroid nodule. [facility] Medical History (Updated 11/27/24 @ 14:10 by BRYAN Diaz) Bone lesion Vocal cord nodule Thyroid nodule Mild ascending aorta dilatation Epididymal cyst COPD (chronic obstructive pulmonary disease) Thyroid disease Left testicular pain Dyslipidemia Surgical History (Updated 11/27/24 @ 14:12 by BRYAN Diaz) H/O partial thyroidectomy History of repair of ACL H/O colonoscopy H/O hemorrhoidectomy History of nasal septoplasty Hx of tonsillectomy Family History Father Hypertension Stroke Mother No problems noted. 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 1. Little interest or pleasure in doing things: not at all 2. Feeling down, depressed, or hopeless: not at all 3. Trouble falling or staying asleep, or sleeping too much: not at all 4. Feeling tired or having little energy: not at all 5. Poor appetite or overeating: not at all 6. Feeling bad about yourself - or that you are a failure or have let yourself or your family down: not at all 7. Trouble concentrating on things, such as reading the newspaper or watching television: not at all 8. Moving or speaking so slowly that other people could have noticed. Or the opposite - being so fidgety or restless that you have been moving around a lot more than usual: not at all 9. Thoughts that you would be better off or of hurting yourself in some way: not at all Total score: 0 Depression Screening Interpretation: Negative Depression Screening Done: Yes 97619 - PHQ-9 Billing: Yes Source: Developed by Drs. Easton Yeboah, Mojgan White, Dylan Ferraro and colleagues, with an educational heather from [employer]. Thrive Questionnaire Date Thrive assessed: 11/27/24 I am a: Patient What is your living situation today?: I have a steady place to live Within the past 12 months, did the food you bought not last and you didn't have the money to get more?: Never true Within the past 12 months, did you worry whether your food would run out before you got money to buy more?: Never true Do you have trouble paying for medicines?: No Do you have trouble getting transportation to medical appointments?: No Do you have trouble paying your heating and electricity bill?: No Do you have trouble taking care of your child, family member or friend?: No Do you have trouble with day-to-day activities such as bathing, preparing meals, shopping, managing finances, etc.?: No Are you currently unemployed and looking for a job?: No Are you interested in more education?: No Please select the resources that you would like help with: None Currently or been in a relationship where the following occur: No concerns reported THRIVE Score: 0 AUDIT C Alcohol Use Questionnaire (AUDIT-C) 1. How often do you have a drink containing alcohol?: Monthly or less 2. How many drinks containing alcohol do you have on a typical day when you are drinking?: 1 or 2 3. How often do you have six or more drinks on one occasion?: Never Total Score: 1 Score Reviewed/Action Taken: Yes KAMALA-7 AMB Questionnaire KAMALA-7 Date KAMALA - 7 assessed: 07/22/24 Source: Developed by DrsSarath Yeboah, Mojgan White, Dylan Ferraro and colleagues, with an educational heather from [employer]. Physical exam (Primary Care) Vital Signs: Last Vital Signs Temp 98.5 F 11/27/24 13:37 Pulse 82 11/27/24 13:37 Resp 16 11/27/24 13:37 BP 122/78 11/27/24 13:37 Pulse Ox 96 11/27/24 13:37 Oxygen Delivery Method Room Air 11/27/24 13:37 BMI result Body Mass Index 36.5 Tobacco/Smoking Status: Tobacco use Status Tobacco use date assessed 11/27/24 11/27/24 13:44 Patient Tobacco Use Status Former Tobacco user 11/27/24 13:44 e-Cigarette/Vaping Use Never Used 11/27/24 13:44 PHQ-9: PHQ-9 Score PHQ-9: Total score 0 11/27/24 14:04 Depression Screening Interpretation: Negative Thrive Assessment: Date of Thrive Assessment Date Thrive assessed 11/27/24 11/27/24 13:44 Currently or been in a relationship where the following occur: No concerns reported Coding Level of Care Code Est Pt Level 3 (93524) Diagnoses Primary hypertension I10 Hypertension type: primary hypertension Thyroid nodule E04.1 Additional Codes PHQ-9 - 15088 - PHQ-9 Billing: Yes ([id number]) Assessment & Plan Assessment & Plan (1) HTN (hypertension): Code(s): I10 - Essential (primary) hypertension Category: Medical Qualifiers: Hypertension type: primary hypertension Qualified Code(s): I10 - Essential (primary) hypertension (2) Thyroid nodule: Comment: 2011 Code(s): E04.1 - Nontoxic single thyroid nodule Category: Medical Plan . Orders: Orders UA CC w/rflx Micro + Cult Today I10 - Essential (primary) hypertension Complete Blood Count Auto Diff Today I10 - Essential (primary) hypertension Comprehensive Letcher. Panel Fast Today I10 - Essential (primary) hypertension TSH reflex Free T4 Today I10 - Essential (primary) hypertension Lipid Panel Today I10 - Essential (primary) hypertension US thyroid Today E04.1 - Nontoxic single thyroid nodule Medications: New lidocaine 5% 1 appl topical DAILY PRN 50 grams 2RF pain
--- OUTSIDE RECORDS SUMMARY | 2024-11-27 13:33 | XMS_ITS | Clinical Summary ---
Author Organization [facility] Address [address] [place] [address] Care Team Providers Care Premix Concrete Batcher Name Role Phone Unavailable Primary Care Provider [...]
--- OUTSIDE RECORDS SUMMARY | 2024-11-27 13:33 | XMS_ITS | Clinical Summary ---
Author Organization [facility] Address [address] [place] [address] Care Team Providers Care Craft Superintendent Name Role Phone Kodi Be Primary Care Provider [phone] Allergies No known active allergies Medications Medication [...] age to complete this topic Care Teams Craft Superintendent Relationship Specialty Start Date End Date Kodi Be [address] [place] [address] PCP - General Family Medicine 08/26/20
[2024-11-27 13:37] VITALS: BP 122/78; PULSE 82; RESP 16; TEMP 36.9; O2SAT 96; BMI 36.5
== END 2024-11-27 14:56 | disposition home or self-care (01) ==
LOC: HO.HMCC 13:31
PROVIDERS: PCP Nurse Practitioner Family; Visit Provider Nurse Practitioner Family
DX: I10 Essential (primary) hypertension (principal); E04.1 Nontoxic single thyroid nodule

== ENCOUNTER → 2024-11-27 13:30 | Outpatient (BNVA) | payer OTHER, SELFPAY | PROVIDERS: PCP Nurse Practitioner Family; Visit Provider Nurse Practitioner Family | DX: I10 Essential (primary) hypertension (principal); E04.1 Nontoxic single thyroid nodule | CPT/HCPCS: 96127 ==

== ENCOUNTER 2024-12-16 08:11 | Outpatient (AMB) | payer OTHER, SELFPAY ==
--- OUTSIDE RECORDS SUMMARY | 2024-12-16 08:17 | XMS_ITS | Data Portability ---
Author Organization [facility], , [facility] Address [address] [place] [address] Care Team Providers Care Oil Treater Name Role Phone [facility] OTHER [phone] Assessment No assessment recorded. Plan of Treatment Reminders Order Date Submit Date Provider Last Modified By Organization Details Last Modified Time Details Appointments None recorded. Lab BMP, serum or plasma 2017 018 [facility], [address], [place], [address], 8 15:59:08 Referral urologist referral - 57 y/o with recurrent infections in the scrotum, please assess and treat 2017 018 HIWOT Harris MD, [address] [facility], [facility] [address], [place], [address], 9 05:00:22 orthopedic surgeon referral - L pinky finger trigger finger.// appt 05/31/2018 10am Karl Chamberlain 2017 018 [email or web address] Giuseppe Callaway MD, 10 [facility] , [facility] [address], [place], [address], 9 08:13:59 Procedures None recorded. Surgeries None recorded. Imaging US, scrotum - 57 y/o with hx of scrotal cyst, please assess 2017 018 [facility] ([facility]), [address], [place], [address], 8 13:37:24 CT, chest, w/o contrast - f/u pulm nodules - due Jun 2018//auth #[id number] A 2017 018 [facility], [address] [facility], [place], [address], 9 05:44:57 Medication Orders hydrochlor othiazide 25 mg tablet 2017 018 [facility], [address] [place] [address], [address], 8 10:20:04 losartan 50 mg tablet 2017 018 [facility], [address] [place] [address], [address], 8 09:50:29 ammonium lactate 12 % topical cream 2017 018 [facility], [address] [place] [address], [address], 8 12:15:01 levothyrox ine 75 mcg tablet 2017 018 [facility], [address] [place] [address], [address], 8 12:26:57 lisinopril 10 mg tablet 2017 018 [facility], [address] [place] [address], [address], 8 09:23:51 Patient TargetsNo targets recorded. Patient Instructions Encounter Date Encounter Id Patient Instructions Last Modified By Organization Details Last Modified Time 10/29/2017 [id number] BP at goal of less than 140/90 and thyroid in control. Cracked heel - try amonium lactated cream. move [facility] to [facility] sent there. [email or web address] Not available 10/29/2017 12:26:38 11/20/2017 [id number] Tdap administere d today. Call clinic if you develop fever/chills, or red streaks near site of injury. Wellness exam 04/01/2019. [email or web address] Not available 11/20/2017 17:37:36 04/01/2018 [id number] Well Visit 50 to 65: Care Instructions [email or web address] Not available 04/01/2018 09:48:13 Doing pretty well. Recommend see sports medicine for the left pinky trigger finger. Acutaly he prefers ortho at [place]. Thyroid was checked in September in the [...] life expectancy. Not available 04/01/2018 08:51:29 04/22/2018 [id number] BP good on hctz. Mild COOLEY. And [...] needed. [email or web address] Not available 04/22/2018 10:18:32 05/16/2018 [id number] -Finish antibiotic -Call urology office for appointment: Royce Aldridge MD [address] [place] [address] Ph. Not available 05/16/2018 13:16:48 Reason for [...] a glucose 97 mg/dL 70-100 Not Available [address], [address], 10/03/2017 11:39:06 04/22/20 18 04/22/2018 BMP, serum or plasm a glucose 87 mg/dL 70-100 Not Available [address], [address], 04/22/2018 15:59:08 04/22/20 18 04/22/2018 BMP, serum or plasm a BUN 18 mg/dL 7-18 Not Available [address], [address], 04/22/2018 15:59:08 04/22/20 18 04/22/2018 BMP, serum or plasm a creatinine 1.0 mg/dL 0.8-1. 3 Not Available [address], [address], 04/22/2018 15:59:08 04/22/20 18 04/22/2018 BMP, serum or plasm a B/C 18.0 ratio Not Available [address], [address], 04/22/2018 15:59:08 04/22/20 18 04/22/2018 BMP, serum or plasm a GFR -non 82.5 mL/mi n Recom megha d GFR by the Natio nal Kidne y Found ation >60 mL/mi n/1.7 3m2 - Beth l <60 mL/mi n/1.7 3m2 - Chron ic Kidne y Disea se <15 mL/mi n/1.7 3m2 - Kidne y Failu re Not Available [address], [address], 04/22/2018 15:59:08 04/22/20 18 04/22/2018 BMP, serum or plasm a GFR - if 99.8 mL/mi n For Afric an Ameri can patie nts: Resul ts Multi plied by 1.21 Not Available [address], [address], 04/22/2018 15:59:08 04/22/20 18 04/22/2018 BMP, serum or plasm a sodium 140 mmol/ L 136-14 5 Not Available [address], [address], 04/22/2018 15:59:08 04/22/20 18 04/22/2018 BMP, serum or plasm a potassium 4.3 mmol/ L 3.5-5. 1 Not Available [address], [address], 04/22/2018 15:59:08 04/22/20 18 04/22/2018 BMP, serum or plasm a chloride 101 mmol/ L 96-107 Not Available [address], [address], 04/22/2018 15:59:08 04/22/20 18 04/22/2018 BMP, serum or plasm a anion gap 10.5 5.0-15 .0 Not Available [address], [address], 04/22/2018 15:59:08 04/22/20 18 04/22/2018 BMP, serum or plasm a CO2 29 mmol/ L 21-32 Not Available [address], [address], 04/22/2018 15:59:08 04/22/20 18 04/22/2018 BMP, serum or plasm a calcium 10.2 mg/dL 8.5-10 .3 Not Available [address], [address], 04/22/2018 15:59:08 10/19/19 18 10/16/2017 exerc ise stres s test No observ ation record ed. [facility] [address], [place], [address], 10/21/2017 20:25:17 10/20/19 18 10/16/2017 exerc ise stres s test No observ ation record ed. [facility] [address], [place], [address], 10/21/2017 20:25:17 10/20/19 18 10/19/2017 exerc ise stres s test No observ ation record ed. [facility] [address], [place], [address], 10/29/2017 12:00:37 05/16/20 18 05/16/2018 US, scrot [...] Readin g Physic negin: Andreas heaton MD [facility]) [address] , [place], [address], 05/16/2018 13:44:02 07/31/19 19 07/30/2018 CT, chest , w/o contr ast No observ ation record ed. [facility] [address] [facility], [place], [address], 08/03/2018 12:19:09 Result Notes None recorded. Problems Name Problem SNOMED Code Status Onset Date Resolution Date Notes Provider Name and Address Organization Details Recorded Time Hypothyroidis m 48600246 Active 2015 Kareem Esquivel MD [address] [place], [place] [address], [address], [facility] 6 09:36:23 Multiple nodules of lung 669602443 Active 2017 f/u 06/2018 for repeat Kareem Esquivel MD [address] [place], [place] [address], [address], [facility] 8 09:18:44 Problem Notes None recorded. Procedures Surgical History Date Name Laterality Status Provider Name and Address Organization Details Recorded Time 8 Skin Tag Removal (up to 15) completed Kareem Esquivel MD [address] [place] [address], [address], [facility] 04/22/2018 10:15:38 8 Post hospital/SNF follow-up/Raymundo sitional Care completed Omaira Sewell CMA [facility] 09/26/2017 08:43:47 7 POC Urinalysis Testing completed Manisha Block [facility] 09/12/2016 15:03:22 7 POC Strep Testing completed Seema Sanchez LPN [facility] 09/06/2016 16:28:58 Imaging Results None recorded. Procedure Notes None recorded. Medical Equipment None Reported. Allergies Allergen ID Allergen Name Allergen Category Reaction Reaction Severity Criticality Documentation Date Start Date Code Code System Note Provider Name and Address Organization Details Recorded Time 20810119 lisinopri l medicatio n cough moderate Not available 04/01/20182017 21756 RxNorm Kareem Esquivel MD [address] [place] [address], [place], [address] , [facility] 8 09:24:12 Medications Name Sig Start Date [...] Available Not Available Not Available Flucelvax Quad 7895-2688 (PF) 60 mcg (15 mcg x 4)/0.5 mL IM syringe TO BE ADMINIST ERED BY PHARMACI ST FOR IMMUNIZA TION 04/01 completed Not Available Not Available Not Available Vitals Date Recorded Body height Body mass index (BMI) Body weight Heart rate Systolic And Diastolic Provider Name and Address Organization Details Last Updated DateTime 10/29/2017 176.53 cm 38 kg/m2 556945.6 1 g 80 /min 112/72 mm[Hg] Omaira Sewell CMA [facility] 10/29/2017 11:55:49 Date Recorded Body height Body mass index (BMI) Body weight Heart rate Systolic And Diastolic Provider Name and Address Organization Details Last Updated DateTime 11/20/2017 176.53 cm 37.8 kg/m2 815699.2 2 g 88 /min 128/84 mm[Hg] Seema Sanchez LPN [facility] 8 16:53:01 Date Recorded Body height Body mass index (BMI) Body weight Heart rate Systolic And Diastolic Provider Name and Address Organization Details Last Updated DateTime 04/01/2018 176.53 cm 38.3 kg/m2 546411.7 9 g 64 /min 110/74 mm[Hg] Omaira Sewell [facility] 04/01/2018 09:00:01 Date Recorded Body height Body mass index (BMI) Body weight Heart rate Systolic And Diastolic Provider Name and Address Organization Details Last Updated DateTime 04/22/2018 176.53 cm 38.6 kg/m2 911749.9 8 g 80 /min 136/86 mm[Hg] Omaira Sewell [facility] 04/22/2018 09:38:54 Date Recorded Body height Body mass index (BMI) Body weight Heart rate Body temperature Systolic And Diastolic Provider Name and Address Organization Details Last Updated DateTime 176.53 cm 38.7 kg/m2 298617. 57 g 82 /min 98 [degF] 110/70 mm[Hg] Omaira Sewell [facility] 8 12:25:10 Social History Question Answer Notes LastModified by Organizat ion Details LastModified Time Tobacco Smoking Status Former Smoker Kareem Esquivel MD [address] [place] [address], [address], [facility] 02/07/2016 10:54:45 When Did You Quit Smoking? 11-15years sincelastc igarette Quit Age 42 [facility] Information not available 02/07/2016 How Many Days In The Past Year Have You Had A Heavy Drinking Consumption (4+ Female, 5+ Male)? 0 [facility] Information not available 02/28/2016 Live Alone Or With Others? With Others Information not available 01/05/2017 Marital Status Single 20 Yr GF Nara( Taxes Not Favorable For Marriage) [facility] Information not available 02/07/2016 What Was The Date Of Your Most Recent Tobacco Screening? 05/16/2018 Information not available 12/11/2018 What Is Your Current Pack Years? 30ormorepa ckyears [facility] Information not available 02/07/2016 Seat Belts Used Routinely Yes Information not available 01/05/2017 Smoke Alarm In Home Yes Information not available 01/05/2017 General Stress Level Medium Information not available 01/05/2017 Sex: Unknown Functional Status Question Answer Note LastModified by Organizat ion Details LastModified Time What is your level of alcohol consumption? 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 Family History Relationship Description Onset Age of this Age Resolved Age Notes LastModified by Organization Details LastModified Time Father Transient cerebral ischemia on BP meds [facility] Not available 09/26/2017 09:10:30 Notes:Grandmother: aortic an [...] unspecified formulation 8 completed Omaira Sewell CMA [facility] 04/01/2018 08:58:42 Past Encounters Encounter ID Performer Location Encounter Start Date Encounter Closed Date Diagnosis/Indication Diagnosis SNOMED-CT Code Diagnosis ICD10 Code Diagnosis Note [id number] MD ARIANNE Greene, [facility], OFFICE [address] [place] [id number] 02/07/2016 08:18:03 02/07/2016 09:30:37 Epidermoid cyst of skin 225368262 L72.0 Active or passive immunization 098451254 Z23 Hemorrhoids 40895180 K64 .9 [id number] MD ARIANNE Greene, [place], OFFICE [address] [place] [id number] 02/28/2016 08:50:56 02/28/2016 13:39:59 Hypothyroidism 99436814 E03.9 Adult heal th examination 833792771 Z00.00 Screening for malignant neoplasm of lung 296165553 Z12.2 Dyspnea 524958798 R06.00 [id number] Kareem Esquivel MD , [facility], OFFICE [address] [place] [id number] 03/29/2016 09:15:42 03/29/2016 09:56:46 Hemorrhoids 38579141 K64.9 Hypothyroidism 08645898 E03.9 Dyspnea on exertion 6084 5006 R06.09 Chronic constipation 236 768324 K59.09 Aortic billy t dilatation 581093494 I77.355 [id number] Kareem Esquivel MD , [facility], OFFICE [address] [place] [id number] 05/01/2016 07:49:03 05/01/2016 09:01:05 Obesity 370619063 E66.9 Dyspnea 968740273 R06.00 Hypothyroidism 45539611 E03.9 Palpitations 35619667 R0 0.2 [id number] Kareem Esquivel MD , [facility], OFFICE [address] [place] [id number] 05/24/2016 08:06:32 05/24/2016 10:23:48 Dyspnea on exertion 62566197 R06.09 Aortic billy t dilatation 403442562 I77.810 Abnormal weight gain 161 360465 R63.5 Decreased diffusion capacity of lung 23968055 R94.2 [id number] Terri Damon, , Rdn, Ldn, [facility] [employer] [address] [address] 06/22/2016 08:50:48 06/22/2016 09:47:42 Obesity 686740327 E66.9 [id number] Terri Damon Ms, Rdn, Ldn, [employer] [address] [address] 08/17/2016 07:47:52 08/17/2016 14:52:53 Obesity 549251338 E66.9 [id number] Sirena Clark NP , [facility], OFFICE [address] [place] [id number] 09/06/2016 16:20:10 09/06/2016 16:44:33 Acute pharyngitis 164457044 J02.9 Most sore throats are viral and do not benefit from antibiotic s. Recommend supportive care with warm salt water gargles, lozenges, tea and honey. Return to clinic if develop difficulty swallowing , throat or neck swelling, or severe pain. Good hygiene with careful hand washing and avoiding sharing utensils and food will prevent contagion. [id number] Kareem Esquivel MD , [facility], OFFICE [address] [place] [id number] 09/12/2016 14:14:09 09/12/2016 15:01:11 Obesity 861158529 E66.9 Acute prostatitis 546408 02 N41.0 Dysuria 93154725 R30.0 Parotitis 95154490 K11.2 0 [id number] Kareem Esquivel MD , [facility], OFFICE [address] [place] [id number] 11/29/2016 11:26:17 11/29/2016 13:40:15 On examination - parotid swelling 974738073 K11.9 Tinnitus 01153570 H93.13 [id number] Kareem Esquivel MD , [facility], OFFICE [address] [place] [id number] 12/13/2016 09:17:14 12/13/2016 10:34:35 Disorder of salivary gland 18376996 K11.9 Mass of parotid gland 31 5710094 R22.1 Solitary n odule of lung 778343795 R91.1 Seborrheic dermatitis 50 731414 L21.9 Fatigue 74911328 R53.83 [id number] Kareem Esquivel MD , [facility], OFFICE [address] [place] [id number] 01/05/2017 08:18:42 01/05/2017 08:59:13 On examination - parotid swelling 672556944 K11.9 [id number] Kareem Esquivel MD , [facility], OFFICE [address] [place] [id number] 03/30/2017 08:39:22 03/30/2017 09:46:32 Adult health examination 729372872 Z00.00 see Risk Assessment and Lifestyle Change Counseling section above Counseling 737039345 Z71 .9 Hypothyroidism 93545212 E03.9 Aortic billy t dilatation 345755732 I77.810 Pes anseri nus bursitis 34825846 M70.52 [id number] Kareem Esquivel MD , [facility], OFFICE [address] [place] [id number] 09/26/2017 08:26:15 09/26/2017 09:23:59 Benign essential hypertension 7405047 I10 Chest pain 29001452 R07. 9 [id number] Kareem Esquivel MD , [facility], OFFICE [address] [place] [id number] 10/03/2017 08:38:53 10/03/2017 09:58:10 Benign essential hypertension 7603993 I10 Blood pressure at goal of less than 140/90. [id number] Kareem Esquivel MD , [facility], OFFICE [address] [place] [id number] 10/29/2017 11:49:18 10/30/2017 10:32:31 Benign essential hypertension 9145275 I10 Blood pressure at goal of less than 140/90. Hypothyroidism 52080299 E03.9 On examina tion - cracked skin of feet 455298210 R23.4 [id number] Siena May MD , [facility], OFFICE [address] [place] [id number] 11/20/2017 16:44:50 11/22/2017 15:50:28 Open wound of foot 694051382 S91.301A Tdap administer ed. Active or passive immunization 589746104 Z23 [id number] MD ARIANNE Greene, [facility], OFFICE [address] [place] [id number] 04/01/2018 08:41:11 04/01/2018 10:07:40 Adult health examination 443565612 Z00.00 see Risk Assessment and Lifestyle Change Counseling section above Counseling 344033841 Z71 .9 Depression screening 171 606619 Z13.89 depression screening tool administer ed, entered into emr, scored Hypothyroidism 41686594 E03.9 Benign ess ential hypertension 6130292 I10 Blood pressure at goal of less than 140/90. Solitary n odule of lung 403788501 R91.1 Cough 42398488 R05 Trigger fi nger of left hand 6550249261 9233210 M65.30 [id number] Kareem Esquivel MD FP, [facility], OFFICE [address] [place] [id number] 04/22/2018 09:29:30 04/22/2018 10:55:56 Benign essential hypertension 7360355 I10 Blood pressure at goal of less than 140/90 Multiple skin tags 98009 7009 L91.8 [id number] Carmela Awad , [facility], OFFICE [address] [place] [id number] 05/16/2018 12:14:29 05/16/2018 13:09:43 Pain in scrotum 98289510 N50.82 Cellulitis 819392134 L03 .90 Recurrent, but no collection on [place] Plan as below. Health Concerns Section Related Observation LastModified by Organization Detai ls LastModified Time None Recorded Concern Status LastModified by Organization Details LastModified Time None Recorded Advance Directives Directive None Recorded Payers Insurance Date Sequence Insurance Name Policy Number Policy Peacock Covered Member ID Peacock Member ID Guarantor Name 09/04/2017 1 [facility] [employer] - TOGETHER (MEDICAID HMO) Karel Dutton [id number] Karel Dutton 07/09/2018 1 [place] PRIOR TO 2022 - [facility] (MEDICAID) Karel Dutton [id number] Karel Dutton
--- OUTSIDE RECORDS SUMMARY | 2024-12-16 08:17 | XMS_ITS | Clinical Summary ---
Author Organization [facility] Address [address] [place] [address] Care Team Providers Care Title I Coordinator Name Role Phone Unavailable Primary Care [...]
--- OUTSIDE RECORDS SUMMARY | 2024-12-16 08:17 | XMS_ITS | Encounter Summary ---
Author Organization [facility] Address [address] [place] [address] Phone Care Team Providers Care Vehicle Modification Technician Name Role Phone Kodi Be NP Primary Care Provider [phone] Reason for Visit * Reason Comments Med Refill Encounter Details Date Type Department Care Team (Late st Contact Info) Description 08/08/2023 Refill [facility], [address] [place] [address] Mihir Wheeler MD [address] [place] [address] Social History Tobacco Use Types [...] on filedocumented in this encounter Care Teams Vehicle Modification Technician Relationship Specialty Start Date End Date Kodi Be NP [address] [place] [address] PCP - General Nurse Practitioner 03/23/22 documented as of this encounter
--- OUTSIDE RECORDS SUMMARY | 2024-12-16 08:17 | XMS_ITS | Encounter Summary ---
Author Organization [facility] Address [address] [place] [address] [place] [address] Phone Care Team Providers Care Fruit Harvest Worker Name Role Phone Kareem Esquivel MD Primary Care Provider Kareem Esquivel MD Unavailable [phone] Kareem Esquivel MD Unavailable [phone] Encounter Details Date Type Department Care Team (Late st Contact Info) Description 06/29/2017 Procedure Pass [facility], Ct Scan - [address] [address] Social History Tobacco Use Types Packs/Day Years [...] on filedocumented in this encounter Care Teams Fruit Harvest Worker Relationship Specialty Start Date End Date Kareem Esquivel MD [email or web address] PCP - General Family Medicine 12/13/16 Kareem Esquivel MD [email or web address] Referring Physician 12/26/16 Kareem Esquivel MD [address] [place] [id number] [email or web address] Insurance Assigned Provider 08/18/17 04/26/19 documented as of this encounter Additional Source Comments The information contained in this document represents components of the legal health record. It is not the complete legal health record.[facility]
--- OUTSIDE RECORDS SUMMARY | 2024-12-16 08:17 | XMS_ITS | Clinical Summary ---
Author Organization [facility] Address [address] [place] [address] Care Team Providers Care Purchasing Intern Name Role Phone Kodi Be Primary Care Provider [phone] Allergies No known active allergies Medications Medication [...] age to complete this topic Care Teams Purchasing Intern Relationship Specialty Start Date End Date Kodi Be [address] [place] [address] PCP - General Family Medicine 08/26/20
[2024-12-16 08:25] VITALS: BP 142/82; PULSE 77; TEMP 36.7; O2SAT 97; BMI 36.7
--- NOTE | 2024-12-16 08:25 | AM.OFFWIN_ITS ---
Intake Vital Signs 12/16/24 08:25 Height 5 ft 11 in Weight 263 lb BMI 36.7 BP 142/82 H Blood Pressure Location Lt brachial Position Sitting Pulse 77 Pulse Source Pulse Oximeter Temp 98.1 F Temp Source Oral Pulse Oximetry (%) 97 Oxygen Delivery Method Room Air Intake Visit Reasons: EP personal? Intake Note: presents with burning to inside penis and with peeing for a few days, denies rash/lower abdominal pain Patient Tobacco Use Status: Former Tobacco user Allergies methocarbamol (From Robaxin) Allergy (Intermediate, Verified 12/16/24 08:28) throat swells. Sulfa (Sulfonamide Antibiotics) Allergy (Intermediate, Verified 12/16/24 08:28) throat swelling ezetimibe Adverse Reaction (Verified 12/16/24 08:28) Muscle Pain Do you need a note to return to daycare/school/sports/work: No HPI HPI Comments History of Present Illness Details History - The patient is a 63-year-old male pres enting with 2-3 days of symptoms suggestive of a urinary tract infection and concerns about a possible sexually transmitted infection. - Reports burning sensation during urina tion with clear fluid discharge, no fever, low back pain, or hematuria. - Increased frequency of urination and i ncomplete bladder emptying noted, consistent with baseline BPH. - Engaged in unprotected sexual intercou rse with a regular partner three weeks ago, raising STI concerns. Physical Exam General: Cooperative, healthy appearing, comfortable, no acute distress and well developed Orientation: Patient oriented x3 Limitations: No limitations Head: Normal to inspection Ears: Hearing grossly normal bilaterally Face and sinus: Normal facial exam Neck: Normal visual inspection and Yes full ROM Respiratory: Normal respiratory effort and able to speak in complete sentences. Skin: No rashes or lesions noted Neuro: Patient oriented x3 [facility] Medical History (Updated 11/27/24 @ 14:10 by REGINALD Diaz-HUGO) Bone lesion Vocal cord nodule Thyroid nodule Mild ascending aorta dilatation Epididymal cyst COPD (chronic obstructive pulmonary disease) Thyroid disease Left testicular pain Dyslipidemia Surgical History (Updated 11/27/24 @ 14:12 by REGINALD Diaz-HUGO) H/O partial thyroidectomy History of repair of ACL H/O colonoscopy H/O hemorrhoidectomy History of nasal septoplasty Hx of tonsillectomy Family History Father Hypertension Stroke Mother No problems noted. 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 Cognitive needs: Yes (cane) Hearing needs: No Vision needs: Yes (glasses) Review of Systems Const All systems reviewed & are unremarkable except as noted in HPI and below Physical Exam Vital Signs: Last Vital Signs Temp 98.1 F 12/16/24 08:25 Pulse 77 12/16/24 08:25 BP 142/82 H 12/16/24 08:25 Pulse Ox 97 12/16/24 08:25 Oxygen Delivery Method Room Air 12/16/24 08:25 BMI result Body Mass Index 36.7 Assessment & Plan Assessment & Plan (1) Dysuria: Code(s): R30.0 - Dysuria Plan: Plan Patient was informed and verbally consented to the use of an ambient scribe for clinic note documentation during this visit. Dysuria - Urinalysis negative; urine culture pending to guide antibiotic therapy. - Gonorrhea and chlamydia tests pending; antibiotics to be prescribed if positive. - 5 previous urine cultures were all negative Orders: Orders Urine Culture Today N39.0 - Urinary tract infection, site not specified Coding Level of Care Code Est Pt Level 3 (87019) Diagnoses Dysuria R30.0
== END 2024-12-16 09:36 | disposition home or self-care (01) ==
PROVIDERS: PCP Nurse Practitioner Family; Visit Provider Physician Assistant
DX: R30.0 Dysuria (principal); Z13.9 Encounter for screening, unspecified

== ENCOUNTER 2024-12-16 08:11 | Outpatient (REF) | payer OTHER, SELFPAY ==
[2024-12-16 10:34] LABS: Appearance Urine Cloudy; Glucose Urine UA Negative (Negative); PH 7.0 (5.0-9.0); Specific Gravity - Urine 1.020 (1.005-1.025); UMIC TRIGGER UACC YES
== END 2024-12-16 08:12 | disposition home or self-care (01) ==
LOC: HO.LAB 08:11
PROVIDERS: PCP Nurse Practitioner Family
DX: R30.0 Dysuria (principal); R35.0 Frequency of micturition
CPT/HCPCS: 81001; 81003; 87086

== ENCOUNTER 2025-01-06 13:38 | Outpatient (REF) | payer OTHER, SELFPAY ==
--- NOTE | ~2025-01-06 | US_ITS ---
EXAMINATION: US THYROID CLINICAL INFORMATION: Nontoxic single thyroid nodule. Partial thyroidectomy COMPARISON: None available. TECHNIQUE: Linear transducer grayscale and color Doppler examination with attention to the region of the thyroid. FINDINGS: SIZE: Measurements of the thyroid lobes and nodules are given in sagittal, anteroposterior and transverse dimensions respectively. Right Thyroid Lobe: 3.5 x 1.4 x 1.4 cm, volume 3.4 mL. Parenchyma: The gland echotexture is normal. Thyroid vascularity is normal. Left Thyroid Lobe: 4.5 x 1.8 x 2.0 cm, volume 8.5 mL. Parenchyma: The gland echotexture is normal. Thyroid vascularity is normal. Isthmus: 0.5 cm in maximum AP dimension. Estimated total number of nodules greater than or equal to 1 cm: 0. Photo Mask Pattern Generator nodules are described as follows: 1. Location: Midportion left thyroid lobe.. Size: 0.4 x 0.3 x 0.4 cm, volume 0.03 mL. Nodule characteristics: Composition: Solid/almost completely solid (2). Echogenicity: Hypoechoic (2). Shape: Not taller than wide (0). Margins: Ill-defined (0). Echogenic Foci: None (0). ACR TI-RADS total points: 4 ACR TI-RADS category: 4 NODES: No lymphadenopathy is seen in the tissue surrounding the thyroid gland. US/US thyroid IMPRESSION: ACR TI-RADS category: 4. Subcentimeter nodule left thyroid lobe. ACR TI-RADS RECOMMENDATION REFERENCE: Ultrasound-guided fine-needle aspiration, followup ultrasound, no further follow up. * TR1 (0 point) and TR2 (2 points): No FNA or follow up. * TR3 (3 points): FNA if more than or equal to 2.5 cm in maximum dimension, followup ultrasound in 1, 3 and 5 years if 1.5 to 2.4 cm in maximum dimension. * TR4 (4-6 points): FNA if more than or equal to 1.5 cm in maximum dimension, followup ultrasound in 1, 2, 3 and 5 years if 1 to 1.4 cm in maximum dimension. * TR5 (more than or equal to 7 points): FNA if more than or equal to 1 cm in maximum dimension, followup ultrasound every year for 5 years if 0.5 to 0.9 cm in maximum dimension. * TR3, TR4 or TR5 nodules that are below the size threshold for followup receive no follow up. Electronically signed by: Steven Rosales MD 01/06/2025 02:39 PM EDT
--- OUTSIDE RECORDS SUMMARY | 2025-01-06 14:52 | XMS_ITS | Encounter Summary ---
Author Organization [facility] Address [address] [place] [address] [place] [id number] Phone Care Team Providers Care Complex Director Name Role Phone Kareem Esquivel MD Primary Care Provider Kareem Esquivel MD Unavailable [phone] Kareem Esquivel MD Unavailable [phone] Encounter Details Date Type Department Care Team (Late st Contact Info) Description 06/29/2017 Procedure Pass [facility], Ct Scan - [address] [address] Social History Tobacco Use Types Packs/Day Years [...] on filedocumented in this encounter Care Teams Complex Director Relationship Specialty Start Date End Date Kareem Esquivel MD PCP - General Family Medicine 12/13/16 Kareem Esquivel MD [email or web address] Referring Physician 12/26/16 Kareem Esquivel MD [address] [place] [id number] [email or web address] Insurance Assigned Provider 08/18/17 04/26/19 documented as of this encounter Additional Source Comments The information contained in this document represents components of the legal health record. It is not the complete legal health record.[facility]
--- OUTSIDE RECORDS SUMMARY | 2025-01-06 14:52 | XMS_ITS | Clinical Summary ---
Author Organization [facility] Address [address] [place] [address] Care Team Providers Care Glove Operator Name Role Phone Kodi Be Primary Care Provider [phone] Allergies No known active allergies Medications Medication [...] age to complete this topic Care Teams Glove Operator Relationship Specialty Start Date End Date Kodi Be [address] [place] [address] PCP - General Family Medicine 08/26/20
--- OUTSIDE RECORDS SUMMARY | 2025-01-06 14:52 | XMS_ITS | Encounter Summary ---
Author Organization [facility] Address [address] [place] [address] Phone Care Team Providers Care Pleating Machine Operator Name Role Phone Kodi Be NP Primary Care Provider [phone] Reason for Visit * Reason Comments Med Refill Encounter Details Date Type Department Care Team (Late st Contact Info) Description 08/08/2023 Refill [facility], [address] [place] [address] Mihir Wheeler MD [address] [place] [address] Social History Tobacco Use Types [...] on filedocumented in this encounter Care Teams Pleating Machine Operator Relationship Specialty Start Date End Date Kodi Be NP [address] [place] [address] PCP - General Nurse Practitioner 03/23/22 documented as of this encounter
--- OUTSIDE RECORDS SUMMARY | 2025-01-06 14:52 | XMS_ITS | Clinical Summary ---
Author Organization [facility] Address [address] [place] [address] Care Team Providers Care Air Pollution Specialist Name Role Phone Unavailable Primary Care Provider [...]
== END 2025-01-06 13:39 | disposition home or self-care (01) ==
LOC: HO.US 13:38
PROVIDERS: PCP Nurse Practitioner Family; Visit Provider Nurse Practitioner Family
DX: E04.1 Nontoxic single thyroid nodule (principal)
CPT/HCPCS: 76536

== ENCOUNTER → 2025-01-06 13:40 | Outpatient (BNV) | payer OTHER, SELFPAY | PROVIDERS: PCP Nurse Practitioner Family; Visit Provider Radiology Diagnostic Radiology | DX: E04.1 Nontoxic single thyroid nodule (principal) | CPT/HCPCS: 76536 ==

== ENCOUNTER 2025-01-12 11:45 | Day surgery (SDC) | payer OTHER, SELFPAY ==
--- OUTSIDE RECORDS SUMMARY | 2024-12-08 08:00 | XMS_ITS | Clinical Summary ---
Author Organization [facility] Address [address] [place] [address] Care Team Providers Care Rehab Office Coordinator Name Role Phone Unavailable Primary Care Provider [...]
--- OUTSIDE RECORDS SUMMARY | 2024-12-08 08:00 | XMS_ITS | Clinical Summary ---
Author Organization [facility] Address [address] [place] [address] Care Team Providers Care Slasher Name Role Phone Kodi Be Primary Care Provider [phone] Allergies No known active allergies Medications Medication [...] age to complete this topic Care Teams Slasher Relationship Specialty Start Date End Date Kodi Be [address] [place] [address] PCP - General Family Medicine 08/26/20
--- OUTSIDE RECORDS SUMMARY | 2024-12-08 08:00 | XMS_ITS | Encounter Summary ---
Author Organization [facility] Address [address] [place] [address] Phone Care Team Providers Care Air Deodorizer Servicer Name Role Phone Kodi Be NP Primary Care Provider [phone] Reason for Visit * Reason Comments Med Refill Encounter Details Date Type Department Care Team (Late st Contact Info) Description 08/08/2023 Refill [facility], [address] [place] [address] Mihir Wheeler MD [address] [place] [address] Social History Tobacco Use Types [...] on filedocumented in this encounter Care Teams Air Deodorizer Servicer Relationship Specialty Start Date End Date Kodi Be NP [address] [place] [address] PCP - General Nurse Practitioner 03/23/22 documented as of this encounter
--- OUTSIDE RECORDS SUMMARY | 2024-12-08 08:00 | XMS_ITS | Encounter Summary ---
Author Organization [facility] Address [address] [place] [address] [place] [address] Phone Care Team Providers Care Etymology Teacher Name Role Phone Kareem Esquivel MD Primary Care Provider Kareem Esquivel MD Unavailable [phone] Kareem Esquivel MD Unavailable [phone] Encounter Details Date Type Department Care Team (Late st Contact Info) Description 06/29/2017 Procedure [facility], Ct Scan - [address] [address] Social History Tobacco Use Types Packs/Day Years [...] on filedocumented in this encounter Care Teams Etymology Teacher Relationship Specialty Start Date End Date Kareem Esquivel MD PCP - General Family Medicine 12/13/16 Kareem Esquivel MD Referring Physician 12/26/16 Kareem Esquivel MD [address] [place] [id number] [email or web address] Insurance Assigned Provider 08/18/17 04/26/19 documented as of this encounter Additional Source Comments The information contained in this document represents components of the legal health record. It is not the complete legal health record.[facility]
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
--- NOTE | 2025-01-09 11:24 | P.CONAN_ITS ---
HPI - Anesthesia Eval Consult details Narrative: 64 yr old male for Denervation left Testicle (micro surgical Sub inguinal,Creamster muscle Release) Thoracic aorta dilatation: last echo 2023 detailed below Anesthesia Pre-Procedure Meds Is the patient on any of the following meds?: GLP1/DPP4 PMFSH Active Problems Active Problems: All Active Problems Thyroid nodule (Acute) Retractile testis (Acute) Bone lesion (Acute) Systolic murmur (Acute) Lung nodule, multiple (Acute) Former tobacco use (Acute) Mild ascending aorta dilatation (Acute) Bladder outlet obstruction (Acute) Lung nodule (Acute) Dyslipidemia (Acute) Nodular radiologic density (Acute) Physical exam (Acute) S/P carpal tunnel release (Acute) Contusion (Acute) Shortness of breath (Acute) Cough (Acute) Internal derangement of left knee (Acute) DVT (deep venous thrombosis) (Acute) Edema (Acute) Tears of meniscus and ACL of left knee (Acute) Osteoarthritis of right knee (Acute) Pre-op evaluation (Acute) Screening PSA (prostate specific antigen) (Acute) COPD (chronic obstructive pulmonary disease) (Acute) Elevated PSA (Acute) Dysuria (Acute) Abdominal pain (Acute) Left hip pain (Acute) Deep inguinal pain, left (Acute) HTN (hypertension) (Acute) Bilateral edema of lower extremity (Acute) Family history of TN (myocardial infarction) (Acute) Facial lesion (Acute) Hand lesion (Acute) Sinusitis (Acute) Mass of parotid gland (Acute) Bilateral hand numbness (Acute) Thyroglossal duct cyst (Acute) Mass of finger of left hand (Acute) COPD (chronic obstructive pulmonary disease) (Acute) Thyroid disease (Acute) Left testicular pain (Acute) Past Medical History Medical History (Updated 11/27/24 @ 14:10 by REGINALD Diaz-HUGO) Bone lesion Vocal cord nodule Thyroid nodule Mild ascending aorta dilatation Epididymal cyst COPD (chronic obstructive pulmonary disease) Thyroid disease Left testicular pain Dyslipidemia Family History Family History Father Hypertension Stroke Mother No problems noted. 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 Sulfa (Sulfonamide Allergy Intermediate throat Verified 12/16/24 08:28 Antibiotics) swelling ezetimibe AdvReac Muscle Pain Verified 12/16/24 08:28 Exam Narrative Narrative: Procedure Date: 03/18/2024 Procedure Type: Transthoracic Echocardiogram Location: OP Height: 180.34 cm Weight: 133.81 kg BSA: 2.49 m2 Heart Rate: bpm BP: 130 / 80 mmHg Respiratory Supervisor: Referring MD: Kodi Be [facility] Symptoms: I77.810 - Thoracic aortic ectasia Study Quality: Adequate ECG Rhythm: Sinus Conclusions: - The left ventricular systolic function is normal. The visually estimated ejection fraction is between 60-65%. - No obvious valvular pathology seen on this study. - There is mild dilatation of the ascending aorta measuring 4.10 cm. Assessment and Plan Final Anesthetic Review Family History of Problems with Anesthesia: No History of Problems with Anesthesia: Yes (PONV)
[2025-01-12] VITALS (7 sets, daily range): BP systolic 129–149; BP diastolic 68–83; PULSE 60–97; RESP 16–18; TEMP 36.6–36.8; O2SAT 94–97; BMI 36.5
--- NOTE | 2025-01-12 14:50 | MHC.SHP ---
Pre-Procedural Eval Section A - 24 Hr Update-Section A only Date of Service: 01/12/25 The patient is an INPATIENT: No Changes since office visit: No Cold of Flu in the past 2 weeks, No New Medical Problems, No Changes in Medication and No Patient answered all questions The patient has been examined within 24 hours of the surgical procedure. 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 Sulfa (Sulfonamide Allergy Intermediate throat Verified 12/16/24 08:28 Antibiotics) swelling ezetimibe AdvReac Muscle Pain Verified 12/16/24 08:28 Review of Systems Sugical H&P ROS: Negative: Constitution, Cardiovascular, Respiratory, Neurological, Psychiatric, Hem-Onc, Allergic/Immunologic, Gastrointestinal, Genitourinary, Musculoskeletal, Integumentary, Endocrine and Eyes/Ears/Nose/Throat Exam Surgical H&P Exam: Normal: HEENT, Normal: Heart, Normal: Lungs, Normal: Extremities, Normal: Abdomen, Normal: Skin and Normal: Neurological Plan Diagnosis/Plan: Unchanged I have reviewed the history and physical and performed a pertinent physical examination on my patient. No changes have occurred unless specified. Time Spent With Patient Time: Total time managing care of this patient today ____ minutes.
--- NOTE | 2025-01-12 16:44 | P.OP_ITS ---
Operative Note Operative Note Date of Service: 01/12/25 Narrative: PreOperative Diagnosis: Left painful testicular retraction and persistent testicular pain Post Operative Diagnosis: Same Procedure: microscopic division of left cremasteric cord fibers and inguinal nerve denervation Surgeon: Dr Sharad Pizarro Anesthesia: General Indications for procedure: Left painful testicular retraction and Persistent testicular pain. In the office responded well to local anesthetic infiltration in the cord. Was offered microscopic division of cremasteric cord structures plus inguinal cord denervation. Understands this is 80% successful and primary risk is loss of testicle. Procedure: After informed consent was verified the patient was brought to the operating room and placed in a supine position. Anesthesia was administered per protocol. The patient was shaved and prepped and draped in a sterile fashion. Safety pause time-out was performed. Antibiotics had been given. The left inguinal canal was palpated. This was marked and then a 4 cm incision was marked approximately 1 cm distal to the inguinal canal. The skin was infiltrated with local anesthetic. Using a 15 blade skin was incised and dissection was performed in the subcutaneous tissue. [employer] retractors were used. Dissection was performed using a snape until inguinal cord was visualised. A peanut was used to help expose the cord. Using a bassam clap the cord was delivered through the incision to the skin surface. A tongue depressor was then used to elevate the cord from the incision placed through a half-inch Sekou drain. Dissection and denervation were performed on the cremasteric muscle layer and kae vasal tissues. The operating microscope was brought into place. Dissection was then performed on the cord. Cremasteric muscle fibers surrounding the cord were all dissected. This was performed using bipolar cautery and scissors. The overlying tissue was removed and the cord packets exposed. Fascia was cauterized and dissected from the packet. During dissection there was marked retractile response from the cremasteric fibers. The proximal cremasteric fibers retracted significantly toward the inguinal canal. The vas deferens packet was dissected. The primary vascular packet was then tagged with a vessel loop and retracted from the field. The vas deferens packet was identified and the cord was isolated. Using an ocular blade the cord was denervated for approximately 1-1.5 cm. The blade was swept across the surface of the vas deferens small bleeding areas were controlled using bipolar cautery. When this was complete the cord was examined. The tongue depressor was removed and the cord allowed to sit in its normal position. The area was irrigated with saline. Then excess local anesthetic was allowed to soak the cord area. Reapproximation of deep tissue was performed using interrupted 3-0 Vicryl. Skin was reapposed using a 4-0 running Monocryl. Incisions were closed with Dermabond He tolerated the procedure well and was extubated in operating room and transferred in stable condition to the recovery area.
== END 2025-01-12 17:48 | disposition home or self-care (01) ==
PROVIDERS: PCP Nurse Practitioner Family; Visit Provider Urology
PROC: (CPT 55899; principal; 2025-01-12 13:50)
DX: Q55.22 Retractile testis (principal); N50.812 Left testicular pain; J44.9 Chronic obstructive pulmonary disease, unspecified; E78.5 Hyperlipidemia, unspecified; I77.810 Thoracic aortic ectasia; M89.9 Disorder of bone, unspecified; E04.1 Nontoxic single thyroid nodule; Z88.2 Allergy status to sulfonamides; Z88.8 Allergy status to other drugs, medicaments and biological substances; Z98.890 Other specified postprocedural states; Z87.891 Personal history of nicotine dependence
CPT/HCPCS: 55899; 64722; J0131; J0690; J1100; J1596; J1885; J2003; J2250; J2405; J2704; J2795; J3010

== ENCOUNTER → 2025-01-12 11:45 | Outpatient (BNV) | payer OTHER, SELFPAY | PROVIDERS: PCP Nurse Practitioner Family; Visit Provider Urology | DX: N50.812 Left testicular pain (principal) | CPT/HCPCS: 55520; 64640 ==

== ENCOUNTER 2025-02-11 12:44 | Outpatient (AMB) | payer OTHER, SELFPAY ==
--- OUTSIDE RECORDS SUMMARY | 2016-02-14 | XMS_ITS | Encounter Summary ---
Author Organization [facility] Address [address] [facility] [address] [place] [address] Phone Care Team Providers Care Animal Control Officer Name Role Phone Unavailable Primary Care Provider Unavailabl e Reason for Visit * MRI/CAT Scan - Closed Specialty Diagnoses / Procedures Referred By Contac t Referred To Contact Procedures CT Neck Outside (No Interpretation) Rodri Peña MD [address] [place] [address] Phone: tel: fax: mailto:[email or web address] Referral ID Status Reason Start Date Expiration Date Visits Re quested Visits Authorized [id number] Closed 01/08/2017 01/08/2018 1 1 Encounter Details Date Type Department Care Team (Late st Contact Info) Description 02/14/2016 Hospital Encounter [facility] [address] [place] [address] Rodri Peña MD [address] [place] [phone] [email or web address] Social History Tobacco Use Types Packs/Day Years [...] (No Interpretation) (02/14/2016 12:00 AM EDT) Narrative [facility] INTERFACES - 01/08/2017 10:27 AM EDT This study is for PACS storage only and not for interpretation. us Rodri Peña MD IMG OUTSIDE IMAGING W/OUT INT ERPRETATION Final Result [facility]G INTERFACES documented in this encounter Visit Diagnoses Not on filedocumented in this encounter Additional Source Comments The information contained in this document represents components of the legal health record. It is not the complete legal health record.[facility]
--- OUTSIDE RECORDS SUMMARY | 2016-02-14 00:15 | XMS_ITS | Encounter Summary ---
Author Organization [facility] Address [address] [facility] [address] [place] [id number] Phone Care Team Providers Care Yarn Texture Machine Operator Name Role Phone Unavailable Primary Care Provider Unavailabl e Reason for Visit * MRI/CAT Scan - Closed Specialty Diagnoses / Procedures Referred By Contac t Referred To Contact Procedures CT Neck Outside (No Interpretation) Rodri Peña MD [address] [place] [id number] Phone: tel: fax: mailto:[email or web address] Referral ID Status Reason Start Date Expiration Date Visits Re quested Visits Authorized [id number] Closed 01/08/2017 01/08/2018 1 1 Encounter Details Date Type Department Care Team (Late st Contact Info) Description 02/14/2016 12:15 AM EDT Hospital Encounter [facility] [address] [place] [address] Rodri Peña MD [address] [place] [id number] [email or web address] Social History Tobacco Use Types Packs/Day [...] (No Interpretation) (02/14/2016 12:15 AM EDT) Narrative [facility] - 01/08/2017 10:28 AM EDT This study is for PACS storage only and not for interpretation. us Rodri Peña MD IMG OUTSIDE IMAGING W/OUT INT ERPRETATION Final Result [facility] documented in this encounter Visit Diagnoses Not on filedocumented in this encounter Additional Source Comments The information contained in this document represents components of the legal health record. It is not the complete legal health record.[facility]
--- NOTE | 2025-02-11 12:52 | A.OFFVIS_ITS ---
Intake Visit Reasons: micro subinguinal cremaster muscle release F/U Intake Note: Patient is present for Post-Op Urology Medication:FINASTERRIDE,TADALAFIL Antibiotic Allergy:SULFA Blood Thinner:NONE BP: 144/86 Pulse:98 LAST PVR:32 ml's [employer] Superintendent Required: No Accompanied by: Self / Same As Patient Allergies methocarbamol (From Robaxin) Allergy (Intermediate, Verified 02/11/25 12:53) throat swells. Sulfa (Sulfonamide Antibiotics) Allergy (Intermediate, Verified 02/11/25 12:53) throat swelling ezetimibe Adverse Reaction (Verified 02/11/25 12:53) Muscle Pain HPI Comments Details: Karel SHAH is a very pleasant male. They are a patient of Dr Esquivel. He is seen for the following urologic conditions. - lower urinary tract symptoms - prior elevated PSA - left inguinal disruption Has done well from testicular Procedure Left testicle hanging much lower Minimal pain new incision healing well Does want to increase daily tadalafil from 5 mg to 10 mg Prescription provided Elevated PSA/Abnormal SANDRO:? Laboratory investigations include?05/08 4.58.? - 02/08 4.8, 08/09 3.6, 01/09 3.6, 01/10 3.8 18%, 01/11 5.9 15%, 08/12 4.3 12% Lower Urinary Tract Symptoms:? Current visit is for?further symptom evaluation of, lower urinary tract symptoms.? Current treatment includes?observation.? Prostate Symptom Score?05/08 , Mild (0-8), Bother 3.? Symptoms include?incomplete emptying, weak stream, nocturia (>2), and are progressing.? Prostate volume?50+gm.? Testing at next visit will include?bladder scan.? Treatment plan?continue review [facility] Medical History Bone lesion Vocal cord nodule Thyroid nodule Mild ascending aorta dilatation Epididymal cyst COPD (chronic obstructive pulmonary disease) Thyroid disease Left testicular pain Dyslipidemia Surgical History (Updated 11/27/24 @ 14:12 by REGINALD Diaz-BC) H/O partial thyroidectomy History of repair of ACL H/O colonoscopy H/O hemorrhoidectomy History of nasal septoplasty Hx of tonsillectomy Family History Father Hypertension Stroke Mother No problems noted. 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 Cognitive needs: Yes (cane) Hearing needs: No Vision needs: Yes (glasses) Review of Systems Const Denies chills and Denies fever(s) Card Reports no additional complaints and Denies syncope Resp Denies cough GI Denies abdominal pain and Denies heartburn Reports as per HPI and Denies change in libido Neuro Denies syncope Psych Denies change in libido Endo Denies change in libido Physical Exam Const General: cooperative, healthy appearing, comfortable and no acute distress Orientation/consciousness: patient oriented x3 HEENT Face and sinus: Yes normal facial exam Mouth: moist mucous membranes Neck Neck: Yes normal visual inspection, Yes full ROM and Yes trachea midline Chest Chest palpation & inspection: normal inspection of the chest Resp Effort & Inspection: normal respiratory effort, able to speak in complete sentences and no respiratory distress GI Inspection: Yes normal to inspection Back/Spine/Pelvis Cervical Spine: normal cervical lordosis Thoracic/Lumbar Spine: thoracic and lumbar spine normal to inspection Skin General skin exam: no rashes or lesions noted Neuro General: patient oriented x3, gait normal, tone normal and moves all extremities Extrem General: Yes normal to inspection and Yes capillary refill normal Assessment & Plan Assessment & Plan (1) Left testicular pain: Code(s): N50.812 - Left testicular pain Category: Medical Plan Six-month follow-up PSA Orders: Orders Prostate Specific Antigen 6 Months R97.20 - Elevated prostate specific antigen [PSA] Medications: Changed From tadalafil 5 mg PO DAILY 90 days 90 tabs 1RF sexual activity N32.0 - Bladder-neck obstruction To tadalafil 10 mg PO DAILY 90 tabs 1RF sexual activity 90 days N32.0 - Bladder- neck obstruction Patient Instructions: This note is constructed using voice recognition software. While every effort has been made to ensure accuracy business management analyst errors may have been included. Imaging studies, laboratory and physical exam results were discussed and reviewed in detail. No major barriers to patient understanding were identified. An opportunity to ask questions regarding the treatment plan was provided. All questions were answered. The patient expressed understanding and agreement with the above treatment plan. The patient is aware they should contact our office by phone for worsening of their current condition or the appearance of new urologic symptoms. Compliance is encouraged with any medications and followup testing that is ordered. It is a privilege to participate in the urologic care of your patient. If you have any questions or concerns regarding treatment for the above conditions, or other urologic issues, please do not hesitate to contact me. The office telephone contact is [phone]. Sincerely, Dr Sharad Pizarro MD, [facility] - Urology Compassionate Specialist Care for the Genitourinary System Coding Level of Care Code Est Pt Level 4 (88856) Diagnoses Left testicular pain N50.812
--- OUTSIDE RECORDS SUMMARY | 2025-02-11 15:15 | XMS_ITS | Clinical Summary ---
Author Organization [facility], Address [address] [place] [address] [place] [address] Phone Care Team Providers Care E Commerce Merchandising Coordinator Name Role Phone Kodi Be NP Primary Care Provider [phone] Allergies Active Allergy Reactions Criticality Noted Date [...] Cancer Screening: Sigmoidoscopy 12/25/2011 Influenza Vaccine (#1) 2025 Hepatitis B Vaccine Aged Out No longe r eligible based on patient's age to complete this topic Insurance Comprehensive Benefits Care Teams E Commerce Merchandising Coordinator Relationship Specialty Start Date End Date Kodi Be NP [address] [place] [address] PCP - General Nurse Practitioner 03/23/22
--- OUTSIDE RECORDS SUMMARY | 2025-02-11 15:15 | XMS_ITS | Encounter Summary ---
Author Organization [facility] Address [address] [facility] [address] [place] [address] Phone Care Team Providers Care Loom Tuner Name Role Phone Kareem Esquivel MD Primary Care Provider [phone] Kareem Esquivel MD Unavailable [phone] Kareem Esquivel MD Unavailable [phone] Reason for Referral * MRI/CAT Scan - Closed Specialty Diagnoses / Procedures Referred By Ritchie johns Referred To Contact Radiology Diagnoses Solitary pulmonary nodule Procedures CT Chest Kareem Esquivel MD Phone: tel: fax: [email or web address] Referral ID Status Reason Start Date Expiration Date Visits Re quested Visits Authorized [id number] Closed 06/25/2017 09/23/2017 1 1 Encounter Details Date Type Department Care Team (Late st Contact Info) Description 06/29/2017 Ancillary Orders Virtual Department [address] [place] [address] Kareem Esquivel MD [address] [place] [address] [email or web address] Solitary pulmonary nodule Social History Tobacco Use Types Packs/Day Years [...] on file documented as of this encounter Results * CT CHEST WITHOUT CONTRAST (07/09/2017 9:10 AM EST) Anatomical Region Laterality Modality Chest Computed Tomogra phy 07/09/2017 10:1 4 AM EST Impressions 07/09/2017 1:23 PM EST Right pulmonary nodules measuring up to 7 mm are stable as far back as 06/14/2016. One of the nodules has ground-glass appearance. Recommend follow-up CT in 12 months. Cholelithiasis. TOTAL CTDIvol: 10.40 mGy POS - [id number] Edited by: Sharon Tee on 07/09/2017 11:10 AM Narrative 07/09/2017 1:23 PM EST COMPARISON: 12/12/2016, 06/14/2016 TECHNIQUE: CT of the chest without IV contrast. Sagittal and coronal reformatted images obtained. Automated exposure control utilized. FINDINGS: Lungs/pleura: A 7 mm subpleural nodule anteriorly in the right middle lobe, 2 mm subpleural nodule in the posterior right lower lobe on image 186, punctate nodule in the right lower lobe on image 197, and a 3 mm ground-glass nodule in the medial right apex are stable since 06/14/2016. No new nodule mass or infiltrate. No endobronchial lesion. No pleural effusions. Mild centrilobular and paraseptal emphysema. Lymph nodes: Sensitivity for lymphadenopathy is limited without IV contrast. Stable borderline-enlarged lymph node in the superior mediastinum. No new mediastinal or hilar lymphadenopathy. No axillary lymphadenopathy. Cardiovascular: Heart is not enlarged. Minimal pericardial fluid at the base of the heart as before. Tiny calcifications within the left anterior descending coronary artery. Stable dilatation of the ascending aorta measuring 4.0 cm at the level of the pulmonary trunk. It tapers at the arch. No major arch anomaly. Soft tissues: Surgical clips adjacent to a diminutive right thyroid lobe. Stable appearance of the left thyroid lobe. No esophageal abnormality. Upper abdomen: No adrenal mass. Multiple subcentimeter calcified gallstones. Stable too small to characterize hypodense lesions in the upper spleen, cysts or hemangiomas are possible. Bones: No new compression deformities. Stable hemangioma within the T12 vertebral body. No new destructive bone lesion. Procedure Note Jere Nuñez MD - 07/09/2017 COMPARISON: 12/12/2016, 06/14/2016 TECHNIQUE: CT of the chest without IV contrast. Sagittal and coronalreformatted images obtained. Automated exposure control utilized. FINDINGS: Lungs/pleura: A 7 mm subpleural nodule anteriorly in the right middlelobe, 2 mm subpleural nodule in the posterior right lower lobe on [id number], punctate nodule in the right lower lobe on image 197, and a 3 mmground-glass nodule in the medial right apex are stable since 06/14/2016.No new nodule mass or infiltrate. No endobronchial lesion. No pleuraleffusions. Mild centrilobular and paraseptal emphysema. Lymph nodes: Sensitivity for lymphadenopathy is limited without IVcontrast. Stable borderline-enlarged lymph node in the superiormediastinum. No new mediastinal or hilar lymphadenopathy. No axillarylymphadenopathy. Cardiovascular: Heart is not enlarged. Minimal pericardial fluid at thebase of the heart as before. Tiny calcifications within the left anteriordescending coronary artery. Stable dilatation of the ascending aortameasuring 4.0 cm at the level of the pulmonary trunk. It tapers at thearch. No major arch anomaly. Soft tissues: Surgical clips adjacent to a diminutive right thyroidlobe. Stable appearance of the left thyroid lobe. No esophagealabnormality. Upper abdomen: No adrenal mass. Multiple subcentimeter calcifiedgallstones. Stable too small to characterize hypodense lesions in theupper spleen, cysts or hemangiomas are possible. Bones: No new compression deformities. Stable hemangioma within the [id number] body. No new destructive bone lesion. IMPRESSION: Right pulmonary nodules measuring up to 7 mm are stable as far back 06/14/2016. One of the nodules has ground-glass appearance. Recommendfollow-up CT in 12 months. Cholelithiasis. TOTAL CTDIvol: 10.40 mGy POS - [id number] Edited by: Sharon Tee on 07/09/2017 11:10 AM Kareem Esquivel MD IMG CT CHEST Final Resul t documented in this encounter Visit Diagnoses Diagnosis Solitary pulmonary nodule Solitary pulmonary nodule documented in this encounter Care Teams Loom Tuner Relationship Specialty Start Date End Date Kareem Esquivel MD PCP - General Family Medicine 12/13/16 Kareem Esquivel MD Referring Physician 12/26/16 Kareem Esquivel MD [address] [place] [id number] [email or web address] Insurance Assigned Provider 08/18/17 04/26/19 documented as of this encounter Additional Source Comments The information contained in this document represents components of the legal health record. It is not the complete legal health record.[facility]
--- OUTSIDE RECORDS SUMMARY | 2025-02-11 15:15 | XMS_ITS | Clinical Summary ---
Author Organization [facility] Address [address] [place] [address] Care Team Providers Care Payment Manager Name Role Phone Kodi Be Primary Care Provider Allergies No known active allergies Medications Medication [...] age to complete this topic Care Teams Payment Manager Relationship Specialty Start Date End Date Kodi Be [address] [place] [address] PCP - General Family Medicine 08/26/20
--- OUTSIDE RECORDS SUMMARY | 2025-02-11 15:15 | XMS_ITS | Encounter Summary ---
Author Organization [facility] Address [address] [place] [address] Phone Care Team Providers Care Toll Line Repairer Name Role Phone Kodi Be NP Primary Care Provider [phone] Encounter Details Date Type Department Care Team (Late st Contact Info) Description 03/28/2022 Documentation Only [facility], [address] [place] [address] Kodi Be NP [address] [place] [address] Social History Tobacco Use Types Packs/Day Years [...] on filedocumented in this encounter Care Teams Toll Line Repairer Relationship Specialty Start Date End Date Kodi Be NP [address] [place] [address] PCP - General Nurse Practitioner 03/23/22 documented as of this encounter
--- OUTSIDE RECORDS SUMMARY | 2025-02-11 15:15 | XMS_ITS | Encounter Summary ---
Author Organization [facility] Address [address] [place] [address] Phone Care Team Providers Care Community Service Aide Name Role Phone Kodi Be NP Primary Care Provider [phone] Reason for Visit * Reason Comments Med Refill Encounter Details Date Type Department Care Team (Late st Contact Info) Description 08/08/2023 Refill [facility], [address] [place] [address] Mihir Wheeler MD [address] [place] [address] Social History Tobacco Use Types [...] on filedocumented in this encounter Care Teams Community Service Aide Relationship Specialty Start Date End Date Kodi Be NP [address] [place] [address] PCP - General Nurse Practitioner 03/23/22 documented as of this encounter
--- OUTSIDE RECORDS SUMMARY | 2025-02-11 15:15 | XMS_ITS | Encounter Summary ---
Author Organization [facility] Address [address] [place] [address] [place] [address] Phone Care Team Providers Care Willow Analyst Name Role Phone Kareem Esquivel MD Primary Care Provider [phone] Kareem Esquivel MD Unavailable [phone] Kareem Esquivel MD Unavailable [phone] Encounter Details Date Type Department Care Team (Late st Contact Info) Description 04/25/2018 Ancillary Orders Virtual Department [address] [place] [address] Kareem Esquivel MD [address] [place] [address] [email or web address] Solitary pulmonary nodule Social History Tobacco Use [...] documented as of this encounter Visit Diagnoses Diagnosis Solitary pulmonary nodule documented in this encounter Care Teams Willow Analyst Relationship Specialty Start Date End Date Kareem Esquivel MD [email or web address] PCP - General Family Medicine 12/13/16 Kareem Esquivel MD [email or web address] Referring Physician 12/26/16 Kareem Esquivel MD [address] [place] [address] [email or web address] Insurance Assigned Provider 08/18/17 04/26/19 documented as of this encounter Additional Source Comments The information contained in this document represents components of the legal health record. It is not the complete legal health record.[facility]
--- OUTSIDE RECORDS SUMMARY | 2025-02-11 15:15 | XMS_ITS | Clinical Summary ---
Author Organization [facility] Address [address] [place] [address] Care Team Providers Care Portfolio Accountant Name Role Phone Unavailable Primary Care Provider [...]
--- OUTSIDE RECORDS SUMMARY | 2025-02-11 15:15 | XMS_ITS | Clinical Summary ---
Author Organization [facility] Address [address] [facility] [address] [place] [address] Phone Care Team Providers Care Sagger Soak Name Role Phone Kareem Esquivel MD Primary Care Provider [phone] Kareem Esquivel MD Unavailable [phone] Allergies No known active allergies Medications LEVOTHYROXINE SODIUM (LEVOTHYROXINE ORAL) Take by mouth. Activ e hydrocortisone acetate (ANUCORT-HC) 25 mg suppository 1 suppository Rectal Once daily Active pravastatin (PRAVACHOL) 20 MG tablet Take 1 tablet by mouth daily. 7 Active levothyroxine (SYNTHROID, LEVOTHROID) 75 MCG tablet 1 tablet Orally Once a day Active Active Problems No known active problems Family History Medical History Relation Comments Cancer Neg Hx Social History Tobacco Use Types Packs/Day Years [...] Sign Reading Time Taken Comments Blood Pressure 130/70 10/16/2017 12:11 PM EDT Pulse 74 05/12/2016 11:08 AM EST Temperature 36.7 C (98 F) 05/12/2016 11:08 AM EST Respiratory Rate - - Oxygen Saturation - - Inhaled Oxygen Concentration - - Weight 117.9 kg (260 lb) 12/26/2016 3:00 PM EDT Height 177.8 cm (5' 10 ) 12/26/2016 3:00 PM EDT Body Mass Index 37.31 12/26/2016 3:00 PM EDT Plan of Treatment Health Maintenance Due Date Last Done Comments TSH LEVEL 1962 DEPRESSION SCREENING 1974 SMOKING Hx and SMOKELESS TOBACCO SCREENING 12/25/1975 HEPATITIS C SCREENING 1980 HIV ONE-TIME SCREENING (18-6 5 YEARS) 1980 COLOGUARD 12/25/2007 COLONOSCOPY 12/25/2007 COLORECTAL CANCER SCREENING 12/25/2007 FIT TEST 12/25/2007 FOBT 12/25/2007 SIGMOIDOSCOPY 12/25/2007 VIRTUAL COLONOSCOPY 12/25/2007 PNEUMOCOCCAL VACCINES (50+ years) (1 of 1 - PCV) 2012 ZOSTER VACCINES (1 of 2) 2012 LIPID PANEL 09/24/2022 09/24/2017 INFLUENZA VACCINE (#1) 2024 , 04/23/2019, 03/16/2018 COVID-19 VACCINE (2 - 2024-2 6 season) 2025 08/18/2020 Adult Td,Tdap Booster 05/21/2027 05/21/2017 , 10/02/2015 RSV VACCINE (1 - 1-dose 75+ series) 2037 HEPATITIS A VACCINES Aged Out No long er eligible based on patient's age to complete this topic HIB VACCINES Aged Out No longer eligi ble based on patient's age to complete this topic MENINGOCOCCAL VACCINES (ACWY) Aged Out No longer eligible based on patient's age to complete this topic MENINGOCOCCAL VACCINES (B) Aged Out N o longer eligible based on patient's age to complete this topic Medical Devices Not on file Care Teams Sagger Soak Relationship Specialty Start Date End Date Kareem Esquivel MD [email or web address] PCP - General Family Medicine 12/13/16 Kareem Esquivel MD [email or web address] Referring Physician 12/26/16 Additional Source Comments The information contained in this document represents components of the legal health record. It is not the complete legal health record.[facility]
--- OUTSIDE RECORDS SUMMARY | 2025-02-11 15:15 | XMS_ITS | Encounter Summary ---
Author Organization [facility] Address [address] [place] [address] Phone Care Team Providers Care Account Classification Clerk Name Role Phone Kodi Be NP Primary Care Provider [phone] Encounter Details Date Type Department Care Team (Late st Contact Info) Description 03/31/2022 Documentation Only [facility] [place], [address] [place] [address] Kodi Be NP [address] [place] [address] Social History Tobacco Use Types Packs/Day Years [...] filedocumented in this encounter Care Teams Account Classification Clerk Relationship Specialty Start Date End Date Kodi Be NP [address] [place] [address] PCP - General Nurse Practitioner 03/23/22 documented as of this encounter
--- OUTSIDE RECORDS SUMMARY | 2025-02-11 15:15 | XMS_ITS | Encounter Summary ---
Author Organization [facility] Address [address] [facility] [address] [place] [address] Phone Care Team Providers Care Stator Tester Name Role Phone Kareem Esquivel MD Primary Care Provider [phone] Kareem Esquivel MD Unavailable [phone] Kareem Esquivel MD Unavailable [phone] Encounter Details Date Type Department Care Team (Late st Contact Info) Description 01/08/2017 Procedure Pass [facility] [address] [place] [address] Social History Tobacco Use Types Packs/Day Years [...] on filedocumented in this encounter Care Teams Stator Tester Relationship Specialty Start Date End Date Kareem Esquivel MD PCP - General Family Medicine 12/13/16 Kareem Esquivel MD Referring Physician 12/26/16 Kareem Esquivel MD [address] [place] [address] [email or web address] Insurance Assigned Provider 08/18/17 04/26/19 documented as of this encounter Additional Source Comments The information contained in this document represents components of the legal health record. It is not the complete legal health record.[facility]
--- OUTSIDE RECORDS SUMMARY | 2025-02-11 15:15 | XMS_ITS | Encounter Summary ---
Author Organization [facility] Address [address] [facility] [address] [place] [address] Phone Care Team Providers Care Professor Of Spanish Name Role Phone Kareem Esquivel MD Primary Care Provider Kareem Esquivel MD Unavailable [phone] Kareem Esquivel MD Unavailable [phone] Encounter Details Date Type Department Care Team (Late st Contact Info) Description 01/08/2017 Ancillary Orders [facility] [address] [facility], [address]th [address], [address] [place] [address] MD, FACS [address] [place] [address] [email or web address] Social History Tobacco Use [...] on filedocumented in this encounter Care Teams Professor Of Spanish Relationship Specialty Start Date End Date Kareem Esquivel MD [email or web address] PCP - General Family Medicine 12/13/16 Kareem Esquivel MD [email or web address] Referring Physician 12/26/16 Kareem Esquivel MD [address] [place] [address] [email or web address] Insurance Assigned Provider 08/18/17 04/26/19 documented as of this encounter Additional Source Comments The information contained in this document represents components of the legal health record. It is not the complete legal health record.[facility]
--- OUTSIDE RECORDS SUMMARY | 2025-02-11 15:15 | XMS_ITS | Encounter Summary ---
Author Organization [facility] Address [address] [facility] [address] [place] [address] Phone Care Team Providers Care Respiratory Care Specialist Name Role Phone Kareem Esquivel MD Primary Care Provider Kareem Eqsuivel MD Unavailable [phone] Kareem Esquivel MD Unavailable [phone] Encounter Details Date Type Department Care Team (Late st Contact Info) Description 01/08/[address] [facility] [address] [place] [address] Social History Tobacco Use Types Packs/Day Years [...] on filedocumented in this encounter Care Teams Respiratory Care Specialist Relationship Specialty Start Date End Date Kareem Esquivel MD PCP - General Family Medicine 12/13/16 Kareem Esquivel MD Referring Physician 12/26/16 Kareem Esquivel MD [address] [place] [address] [email or web address] Insurance Assigned Provider 08/18/17 04/26/19 documented as of this encounter Additional Source Comments The information contained in this document represents components of the legal health record. It is not the complete legal health record.[facility]
--- OUTSIDE RECORDS SUMMARY | 2025-02-11 15:15 | XMS_ITS | Encounter Summary ---
Author Organization [facility] Address [address] [place] [address] [place] [address] Phone Care Team Providers Care Wireworker Supervisor Name Role Phone Kareem Esquivel MD Primary Care Provider [phone] Kareem Esquivel MD Unavailable [phone] Kareem Esquivel MD Unavailable [phone] Encounter Details Date Type Department Care Team (Late st Contact Info) Description 01/08/2017 Procedure Pass [facility] OUTSIDE [address] [place] [address] Social History Tobacco Use Types Packs/Day Years [...] on filedocumented in this encounter Care Teams Wireworker Supervisor Relationship Specialty Start Date End Date Kareem Esquivel MD PCP - General Family Medicine 12/13/16 Kareem Esquivel MD Referring Physician 12/26/16 Kareem Esquivel MD [address] [place] [address] [email or web address] Insurance Assigned Provider 08/18/17 04/26/19 documented as of this encounter Additional Source Comments The information contained in this document represents components of the legal health record. It is not the complete legal health record.[facility]
--- OUTSIDE RECORDS SUMMARY | 2025-02-11 15:15 | XMS_ITS | Encounter Summary ---
Author Organization [facility] Address [address] [facility] [address] [place] [address] Phone Care Team Providers Care Shearing Machine Feeder Name Role Phone Kareem Esquivel MD Primary Care Provider Kareem Esquivel MD Unavailable [phone] Kareem Esquivel MD Unavailable [phone] Encounter Details Date Type Department Care Team (Late st Contact Info) Description 01/08/2017 Procedure Pass [facility] [address] [place] [address] Social History Tobacco Use Types Packs/Day Years [...] on filedocumented in this encounter Care Teams Shearing Machine Feeder Relationship Specialty Start Date End Date Kareem Esquivel MD PCP - General Family Medicine 12/13/16 Kareem Esquivel MD Referring Physician 12/26/16 Kareem Esquivel MD [address] [place] [address] [email or web address] Insurance Assigned Provider 08/18/17 04/26/19 documented as of this encounter Additional Source Comments The information contained in this document represents components of the legal health record. It is not the complete legal health record.[facility]
--- OUTSIDE RECORDS SUMMARY | 2025-02-11 15:15 | XMS_ITS | Encounter Summary ---
Author Organization [facility] Address [address] [place] [address] Phone Care Team Providers Care Solution Manager Name Role Phone Kodi Be NP Primary Care Provider [phone] Reason for Visit * Reason Comments Med Refill Encounter Details Date Type Department Care Team (Late st Contact Info) Description 11/05/2023 Refill [facility] [place], [address] [place] [address] Mihir Wheeler MD [address] [facility] [place] [address] Social History Tobacco Use Types [...] on filedocumented in this encounter Care Teams Solution Manager Relationship Specialty Start Date End Date Kodi Be NP [address] [place] [address] PCP - General Nurse Practitioner 03/23/22 documented as of this encounter
--- OUTSIDE RECORDS SUMMARY | 2025-02-11 15:15 | XMS_ITS | Encounter Summary ---
Author Organization [facility] Address [address] [place] [address] [place] [address] Phone Care Team Providers Care Marine Engine Machinist Apprentice Name Role Phone Kareem Esquivel MD Primary Care Provider [phone] Kareem Esquivel MD Unavailable [phone] Kareem Esquivel MD Unavailable [phone] Encounter Details Date Type Department Care Team (Late st Contact Info) Description 01/08/2017 Procedure Pass [facility] OUTS[facility] [address] [place] [address] Social History Tobacco Use Types Packs/Day Years [...] on filedocumented in this encounter Care Teams Marine Engine Machinist Apprentice Relationship Specialty Start Date End Date Kareem Esquivel MD PCP - General Family Medicine 12/13/16 Kareem Esquivel MD Referring Physician 12/26/16 Kareem Esquivel MD [address] [place] [address] [email or web address] Insurance Assigned Provider 08/18/17 04/26/19 documented as of this encounter Additional Source Comments The information contained in this document represents components of the legal health record. It is not the complete legal health record.[facility]
--- OUTSIDE RECORDS SUMMARY | 2025-02-11 15:15 | XMS_ITS | Encounter Summary ---
Author Organization [facility] Address [address] [facility] [address] [place] [address] Phone Care Team Providers Care Cyber Security Architect Name Role Phone aKreem Esquivel MD Primary Care Provider Kareem Esquivel MD Unavailable [phone] Kareem Esquivel MD Unavailable [phone] Encounter Details Date Type Department Care Team (Late st Contact Info) Description 01/08/2017 Procedure Pass [facility] [address] [place] [address] Social History Tobacco Use Types Packs/Day Years [...] on filedocumented in this encounter Care Teams Cyber Security Architect Relationship Specialty Start Date End Date Kareem Esquivel MD PCP - General Family Medicine 12/13/16 Kareem Esquivel MD Referring Physician 12/26/16 Kareem Esquivel MD [address] [place] [address] [email or web address] Insurance Assigned Provider 08/18/17 04/26/19 documented as of this encounter Additional Source Comments The information contained in this document represents components of the legal health record. It is not the complete legal health record.[facility]
--- OUTSIDE RECORDS SUMMARY | 2025-02-11 15:15 | XMS_ITS | Encounter Summary ---
Author Organization [facility] Address [address] [place] [address] Phone Care Team Providers Care Billing Control Clerk Name Role Phone Kareem Esquivel MD Primary Care Provider [phone] Kareem Esquivel MD Unavailable [phone] Kareem Esquivel MD Unavailable [phone] Encounter Details Date Type Department Care Team (Late st Contact Info) Description 04/04/2017 Ancillary Orders [facility] [address] 3rd Floor, [address] [place] [address] Kareem Esquivel MD [address] [place], [place] [id number] [email or web address] Aortic root dilatation Social History Tobacco Use Types Packs/Day Years [...] documented as of this encounter Results * TTE COMPREHENSIVE (04/30/2017 2:36 PM EST) Anatomical Region Laterality Modality Heart Ultrasound us Kareem Esquivel MD CV ECHO ORDERABLES Final Re sult documented in this encounter Visit Diagnoses Diagnosis Aortic root dilatation Thoracic 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 of rupture documented in this encounter Care Teams Billing Control Clerk Relationship Specialty Start Date End Date Kareem Esquivel MD [email or web address] PCP - General Family Medicine 12/13/16 Kareem Esquivel MD [email or web address] Referring Physician 12/26/16 Kareem Esquivel MD [address] [place] [address] [email or web address] Insurance Assigned Provider 08/18/17 04/26/19 documented as of this encounter Additional Source Comments The information contained in this document represents components of the legal health record. It is not the complete legal health record.[facility]
--- OUTSIDE RECORDS SUMMARY | 2025-02-11 15:15 | XMS_ITS | Encounter Summary ---
Author Organization [facility] Address [address] [place] [address] Phone Care Team Providers Care Hr Administrative Assistant Name Role Phone Kareem Esquivel MD Primary Care Provider Kareem Esquivel MD Unavailable [phone] Kareem Esquivel MD Unavailable [phone] Encounter Details Date Type Department Care Team (Late st Contact Info) Description 09/27/2017 Transcribe [facility] [address] [place] [address] 3rd Floor, [address] [place] [address] Kareem Esquivel MD [address] [place], [place] [phone] [email or web address] Chest pain, unspecified type (Primary Dx) Social History Tobacco Use Types Packs/Day Years [...] documented as of this encounter Results * Stress Test Exercise (10/16/2017 12:16 PM EDT) Anatomical Region Laterality Modality Heart Ultrasound Narrative 10/18/2017 1:28 PM EDT Response to Stress Patient exercised for 6 minutes on a standard brady protocol achieving 7.0 METS and 86% MPHR (144 BPM). The test was terminated due to musculoskeletal fatigue. SUMMARY: 1. RESTING EKG: Normal sinus rhythm 2. EXERCISE EKG: No ekg changes suggestive of ischemia 3. SYMPTOMS: No chest pain or symptoms concerning for angina 4. PHYSIOLOGY: Hypertensive with exercise 220/100 mmhg. Normal heart rate response to exercise. Normal functional capacity for age. 5. ARRHYTHMIA: None CONCLUSION: Normal exercise tolerance exam. EKG reviewed with Dr. Gurrola. Kofi Collado, TOYIN . Kareem Esquivel MD CV STRESS ORDERABLES Final Result documented in this encounter Visit Diagnoses Diagnosis Chest pain, unspecified type- Primary Chest pain, unspecified type documented in this encounter Care Teams Hr Administrative Assistant Relationship Specialty Start Date End Date Kareem Esquivel MD [email or web address] PCP - General Family Medicine 12/13/16 Kareem Esquivel MD [email or web address] Referring Physician 12/26/16 Kareem Esquivel MD [address] [place] [address] [email or web address] Insurance Assigned Provider 08/18/17 04/26/19 documented as of this encounter Additional Source Comments The information contained in this document represents components of the legal health record. It is not the complete legal health record.[facility]
--- OUTSIDE RECORDS SUMMARY | 2025-02-11 15:15 | XMS_ITS | Encounter Summary ---
Author Organization [facility] Address [address] [place] [address] [place] [address] Phone Care Team Providers Care Digital Asset Manager Name Role Phone Kareem Esquivel MD Primary Care Provider Kareem Esquivel MD Unavailable [phone] Kareem Esquivel MD Unavailable [phone] Encounter Details Date Type Department Care Team (Late st Contact Info) Description 06/29/2017 Procedure Pass [facility], Ct Scan - [address] [address] Social History Tobacco Use Types Packs/Day Years [...] on filedocumented in this encounter Care Teams Digital Asset Manager Relationship Specialty Start Date End Date Kareem Esquivel MD [email or web address] PCP - General Family Medicine 12/13/16 Kareem Esquivel MD [email or web address] Referring Physician 12/26/16 Kareem Esquivel MD [address] [place] [address] [email or web address] Insurance Assigned Provider 08/18/17 04/26/19 documented as of this encounter Additional Source Comments The information contained in this document represents components of the legal health record. It is not the complete legal health record.[facility]
--- OUTSIDE RECORDS SUMMARY | 2025-02-11 15:15 | XMS_ITS | Encounter Summary ---
Author Organization [facility] Address [address] [place] [address] Phone Care Team Providers Care Lubrication Equipment Servicer Name Role Phone Kareem Esquivel MD Primary Care Provider [phone] Kareem Esquivel MD Unavailable [phone] Kareem Esquivel MD Unavailable [phone] Reason for Referral * MRI/CAT Scan - Closed Specialty Diagnoses / Procedures Referred By Ritchie johns Referred To Contact Procedures CT Neck Outside (No Interpretation) Brendan Lane MD, FACS Phone: tel: fax: mailto:[email or web address] Referral ID Status Reason Start Date Expiration Date Visits Re quested Visits Authorized [id number] Closed 01/08/2017 01/08/2018 1 1 * MRI/CAT Scan - Closed Specialty Diagnoses / Procedures Referred By Ritchie johns Referred To Contact Procedures MRI Neck Outside (No Interpretation) Brendan Lane MD, FACS Phone: tel: fax: mailto:[email or web address] Referral ID Status Reason Start Date Expiration Date Visits Re quested Visits Authorized [id number] Closed 01/08/2017 01/08/2018 1 1 Encounter Details Date Type Department Care Team (Late st Contact Info) Description 01/08/2017 Ancillary Orders [facility] OUTS[facility] [address] [place] [address] MD, FACS [address] [place] [address] [email or web address] Social History Tobacco Use Types Packs/Day Years [...] as of this encounter Results * CT Neck Outside (No Interpretation) (01/08/2017 3:39 PM EDT) Narrative [facility] INTERFACES - 01/08/2017 3:39 PM EDT This study is for PACS storage only and not for interpretation. us Brendan Lane MD, FACS IMG OUTSIDE IMAGING W/OUT INTERPRETATION Final Result Performing Organization Address [facility] Phone Number [facility] INTERFAC[facility] * MRI Neck Outside (No Interpretation) (01/02/2017 12:30 AM EDT) Narrative [facility] INTERFACES - 01/08/2017 3:38 PM EDT This study is for PACS storage only and not for interpretation. us Brendan Lane MD, FACS IMG OUTSIDE IMAGING W/OUT INTERPRETATION Final Result Performing Organization Address [facility] Phone Number [facility] INTERFACES documented in this encounter Visit Diagnoses Not on filedocumented in this encounter Care Teams Lubrication Equipment Servicer Relationship Specialty Start Date End Date Kareem Esquivel MD [email or web address] PCP - General Family Medicine 12/13/16 Kareem Esquivel MD [email or web address] Referring Physician 12/26/16 Kareem Esquivel MD [address] [place] [id number] [email or web address] Insurance Assigned Provider 08/18/17 04/26/19 documented as of this encounter Additional Source Comments The information contained in this document represents components of the legal health record. It is not the complete legal health record.[facility]
== END 2025-02-11 13:22 | disposition home or self-care (01) ==
LOC: HO.HUSH 12:45
PROVIDERS: Visit Provider Urology
DX: N50.812 Left testicular pain (principal)
CPT/HCPCS: 99024

== ENCOUNTER 2025-03-30 08:06 | Outpatient (AMB) | payer OTHER, SELFPAY ==
--- OUTSIDE RECORDS SUMMARY | 2016-02-13 23:00 | XMS_ITS | Encounter Summary ---
Author Organization [facility] Address [address] [facility] [address] [place] [address] Phone Care Team Providers Care Conditioner Tumbler Name Role Phone Unavailable Primary Care Provider Unavailabl e Reason for Visit * MRI/CAT Scan - Closed Specialty Diagnoses / Procedures Referred By Contac t Referred To Contact Procedures CT Neck Outside (No Interpretation) Rodri Peña MD [address] [place] [address] Phone: tel: fax: mailto:[email or web address] Referral ID Status Reason Start Date Expiration Date Visits Re quested Visits Authorized [id number] Closed 01/08/2017 01/08/2018 1 1 Encounter Details Date Type Department Care Team (Late st Contact Info) Description 02/14/2016 Hospital Encounter [facility] [address] [place] [address] Rodri Peña MD [address] [place] [phone] [email or web address], located [facility] [...] (No Interpretation) (02/14/2016 12:00 AM EDT) Narrative [facility] [place] [facility] INTERFACES - 01/08/2017 10:27 AM EDT This study is for PACS storage only and not for interpretation. us Rodri Peña MD IMG OUTSIDE IMAGING W/OUT INT ERPRETATION Final Result [facility] [place] [facility] INTERFACES documented in this encounter Visit Diagnoses Not on filedocumented in this encounter Additional Source Comments The information contained in this document represents components of the legal health record. It is not the complete legal health record.[facility]
--- OUTSIDE RECORDS SUMMARY | 2016-02-13 23:15 | XMS_ITS | Encounter Summary ---
Author Organization [facility] Address [address] [facility] [address] [place] [address] Phone Care Team Providers Care Tire Care Manager Name Role Phone Unavailable Primary Care Provider Unavailabl e Reason for Visit * MRI/CAT Scan - Closed Specialty Diagnoses / Procedures Referred By Contac t Referred To Contact Procedures CT Neck Outside (No Interpretation) Rodri Peña MD [address] [place] [address] Phone: tel: fax: mailto:[email or web address] Referral ID Status Reason Start Date Expiration Date Visits Re quested Visits Authorized [id number] Closed 01/08/2017 01/08/2018 1 1 Encounter Details Date Type Department Care Team (Late st Contact Info) Description 02/14/2016 12:15 AM EDT Hospital Encounter [facility] [address] [place] [address] Rodri Peña MD [address] [place] [address] [email or web address] Social History Tobacco Use Types Packs/Day [...] (No Interpretation) (02/14/2016 12:15 AM EDT) Narrative [facility] INTERFACES - 01/08/2017 10:28 AM EDT This study is for PACS storage only and not for interpretation. us Rodri Peña MD IMG OUTSIDE IMAGING W/OUT INT ERPRETATION Final Result [facility] INTER[facility]ACES documented in this encounter Visit Diagnoses Not on filedocumented in this encounter Additional Source Comments The information contained in this document represents components of the legal health record. It is not the complete legal health record.[facility]
--- NOTE | 2025-03-30 08:10 | AM.OFFWIN_ITS ---
Intake Vital Signs 03/30/25 08:11 Height 5 ft 11 in Weight 245 lb BMI 34.2 BP 132/80 Blood Pressure Location Rt brachial Position Sitting Pulse 95 Pulse Source Pulse Oximeter Pulse Oximetry (%) 96 Oxygen Delivery Method Room Air Intake Visit Reasons: pt says he has the clap Intake Note: Patient presents with c/o the clap. Patient Tobacco Use Status: Former Tobacco user Allergies methocarbamol (From Robaxin) Allergy (Intermediate, Verified 03/30/25 08:14) throat swells. Sulfa (Sulfonamide Antibiotics) Allergy (Intermediate, Verified 03/30/25 08:14) throat swelling ezetimibe Adverse Reaction (Verified 03/30/25 08:14) Muscle Pain Do you need a note to return to daycare/school/sports/work: Yes HPI HPI Comments History of Present Illness Details 64 y/o Male presents to the walk-in clin ic with complaints of urinary symptoms for the past week. Reports burning with urination and grayish/white penile discharge. States he is sexually active only with his and does not use protection; denies any symptoms. Mentions ongoing marital problems. Denies fever, chills, nausea, vomiting, abdominal pain, constipation, or diarrhea. Admits to inserting a Q-tip into his urethra to express discharge. [facility] Medical History Bone lesion Vocal cord nodule Thyroid nodule Mild ascending aorta dilatation Epididymal cyst COPD (chronic obstructive pulmonary disease) Thyroid disease Left testicular pain Dyslipidemia Surgical History (Updated 11/27/24 @ 14:12 by Kodi Be, [facility]) H/O partial thyroidectomy History of repair of ACL H/O colonoscopy H/O hemorrhoidectomy History of nasal septoplasty Hx of tonsillectomy Family History Father Hypertension Stroke Mother No problems noted. 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 General: Yes no CVA tenderness Back/Spine/Pelvis Back: no CVA tenderness Skin Other: Denies rash around Penile Head. Neuro General: patient oriented x3, gait normal and moves all extremities Psych Attitude: cooperative Results AMB Urinalysis, Automated UA Leukoctes 0 Nikko/uL Last Edit by Dorie Hummel CMA on 03/30/25 08:32 UA Nitrite Negative Last Edit by Dorie Hummel CMA on 03/30/25 08:32 UA Urobilinogen 0.2 mg/dL Last Edit by Dorie Hummel CMA on 03/30/25 08: 32 UA Protein 0 mg/dL Last Edit by Dorie Hummel CMA on 03/30/25 08:32 UA pH 6.0 Last Edit by Dorie Hummel CMA on 03/30/25 08:32 UA Blood 0 Morales/uL Last Edit by Dorie Hummel CMA on 03/30/25 08:32 UA Specific Penrose 1.020 Last Edit by Dorie Hummel CMA on 03/30/25 08 :32 UA Ketone Negative Last Edit by Dorie Hummel CMA on 03/30/25 08:32 UA Bilirubin 0 mg/dL Last Edit by Dorie Hummel CMA on 03/30/25 08:32 UA Glucose 0 mg/dL Last Edit by Dorie Hummel CMA on 03/30/25 08:32 Assessment & Plan Assessment & Plan (1) Dysuria: Code(s): R30.0 - Dysuria Plan: Urethritis, likely infectious (consider gonorrhea/chlamydia; possible mechanical irritation due to self-instrumentation). Risk of secondary infection due to urethral trauma. Urinalysis negative. Sent urine for NG/CT/Trich Avoid inserting objects into urethra to prevent trauma/infection. Recommend abstinence until results return and treatment completed; partner evaluation if infection confirmed. Orders: Orders CT NG by PCR Urine Today R30.0 - Dysuria Trichomonas vag. RNA Ur Male Today R30.0 - Dysuria AMB Urinalysis Automated Today Z13.9 - Encounter for screening, unspecified Coding Level of Care Code Est Pt Level 4 (71142) Diagnoses Dysuria R30.0 Time Spent (min) 20
[2025-03-30 08:11] VITALS: BP 132/80; PULSE 95; O2SAT 96; BMI 34.2
--- OUTSIDE RECORDS SUMMARY | 2025-03-30 08:15 | XMS_ITS | Encounter Summary ---
Author Organization [facility] Address [address] [place] [address] [place] [address] Phone Care Team Providers Care Bag Loader Machine Operator Name Role Phone Kareem Esquivel MD Primary Care Provider [phone] Kareem Esquivel MD Unavailable [phone] Kareem Esquivel MD Unavailable [phone] Encounter Details Date Type Department Care Team (Late st Contact Info) Description 06/29/2017 Procedure Pass [facility], Ct Scan - [address] [address] Social History Tobacco Use Types Packs/Day Years [...] on filedocumented in this encounter Care Teams Bag Loader Machine Operator Relationship Specialty Start Date End Date Kareem Esquivel MD [email or web address] PCP - General Family Medicine 12/13/16 Kareem Esquivel MD [email or web address] Referring Physician 12/26/16 Kareem Esquivel MD [address] [place] [address] [email or web address] Insurance Assigned Provider 08/18/17 04/26/19 documented as of this encounter Additional Source Comments The information contained in this document represents components of the legal health record. It is not the complete legal health record.[facility]
--- OUTSIDE RECORDS SUMMARY | 2025-03-30 08:15 | XMS_ITS | Encounter Summary ---
Author Organization [facility] Address [address] [place] [address] Phone Care Team Providers Care Hotel Reservationist Name Role Phone Kareem Esquivel MD Primary Care Provider Kareem Esquivel MD Unavailable [phone] Kareem Esquivel MD Unavailable [phone] Encounter Details Date Type Department Care Team (Late st Contact Info) Description 09/27/2017 Transcribe [facility] [address] [place] [address] 3rd Floor, [address] [place] [address] Kareem Esquivel MD [address] [place], [place] [phone] [email or web address] Chest pain, unspecified type (Primary Dx) Social [...] type documented in this encounter Care Teams Hotel Reservationist Relationship Specialty Start Date End Date Kareem Esquivel MD [email or web address] PCP - General Family Medicine 12/13/16 Kareem Esquivel MD [email or web address] Referring Physician 12/26/16 Kareem Esquivel MD [address] [place] [address] [email or web address] Insurance Assigned Provider 08/18/17 04/26/19 documented as of this encounter Additional Source Comments The information contained in this document represents components of the legal health record. It is not the complete legal health record.[facility]
--- OUTSIDE RECORDS SUMMARY | 2025-03-30 08:16 | XMS_ITS | Clinical Summary ---
Author Organization [facility] Address [address] [place] [address] Phone Care Team Providers Care General Practice Name Role Phone Kareem Esquivel MD Primary Care Provider [phone] Kareem Esquivel MD Unavailable [phone] Allergies No known active allergies Medications LEVOTHYROXINE [...] SCREENING (18-6 5 YEARS) 1980 COLOGUARD 12/25/2007 FIT TEST 12/25/2007 FOBT 12/25/2007 SIGMOIDOSCOPY 12/25/2007 VIRTUAL COLONOSCOPY 12/25/2007 PNEUMOCOCCAL VACCINES (50+ years) (1 of 1 - PCV) 2012 ZOSTER VACCINES (1 of 2) 2012 LIPID PANEL 09/24/2022 09/24/2017 INFLUENZA VACCINE (#1) 2024 , 04/23/2019, 03/16/2018 COVID-19 VACCINE (2 - 2024-2 6 season) 2025 08/18/2020 COLONOSCOPY 11/11/2025 11/12/2015 COLORECTAL CANCER SCREENING 11/11/2025 Adult Td,Tdap Booster 05/21/2027 05/21/2017 , 10/02/2015 [...] this topic Medical Devices Not on file Procedures Procedure Name Priority Date/Time Associated Diagnosis Comments COLONOSCOPY FOR RESULT ENTRY ONLY Routine 11/12/2015 from Last 3 Months or Most Recently Relevant to Health Maintenance Results * COLONOSCOPY FOR RESULT ENTRY ONLY (11/12/2015) Colonoscopy External us Historical Provider HEALTH MAINTENANCE Final Result from Last 3 Months or Most Recently Relevant to Health Maintenance Care Teams General Practice Relationship Specialty Start Date End Date Kareem Esquivel MD PCP - General Family Medicine 12/13/16 Kareem Esquivel MD Referring Physician 12/26/16 Additional Source Comments The information contained in this document represents components of the legal health record. It is not the complete legal health record.[facility]
--- OUTSIDE RECORDS SUMMARY | 2025-03-30 08:16 | XMS_ITS | Encounter Summary ---
Author Organization [facility] Address [address] [facility] [address] [place] [address] Phone Care Team Providers Care Big Data Developer Name Role Phone Kareem Esquivel MD Primary Care Provider [phone] Kareem Esquivel MD Unavailable [phone] Kareem Esquivel MD Unavailable [phone] Reason for Referral * MRI/CAT Scan - Closed Specialty Diagnoses / Procedures Referred By Ritchie johns Referred To Contact Radiology Diagnoses Multiple nodules of lung Procedures CT Chest Kareem Esquivel MD Phone: tel: fax: mailto:[email or web address] Referral ID Status Reason Start Date Expiration Date Visits Re quested Visits Authorized [id number] Closed 07/09/2018 07/09/2019 1 1 Encounter Details Date Type Department Care Team (Late st Contact Info) Description 07/09/2018 Ancillary Orders Virtual Department [address] [place] [address] Kareem Esquivel MD [address] [place] [address] [email or web address] Multiple nodules of lung Social History Tobacco Use Types Packs/Day Years [...] encounter Results * CT CHEST WITHOUT CONTRAST (07/30/2018 2:39 PM EDT) Anatomical Region Laterality Modality Chest Computed Tomogra phy 07/30/2018 6:25 PM EDT Impressions 07/30/2018 6:54 PM EDT 1. Multiple lung nodules, majority stable from May 2016. One groundglass nodule in the right upper lobe measuring 3 mm is probably new from June 2017. Based on Fleischner Criteria 2017, new ground glass or sub- solid pulmonary nodule measuring <6 mm does not need any further follow up. 2. Stable ectasia of the ascending thoracic aorta TOTAL CTDIvol: 11.1 mGy POS - [id number] Narrative 07/30/2018 6:54 PM EDT EXAM: CT CHEST WITHOUT CONTRAST CT CHEST WITHOUT INTRAVENOUS CONTRAST COMPARISON: July 09, 2017; June 14, 2016 TECHNIQUE: CT scan of the chest was performed without intravenous contrast. Coronal and sagittal reformatted images were generated, together with axial maximum intensity projection images of the lungs. Automated exposure control utilized. FINDINGS: Absence of intravenous contrast decreases sensitivity for detection of lymphadenopathy and vascular pathology. LUNGS AND LARGE AIRWAYS: Central airways are patent. No lung consolidations or lung masses. Lung nodules as follows: - Right upper lobe 3 mm groundglass nodule (5:72), stable from 2017 -Right upper lobe groundglass nodule 3 mm (5:81), new from 2018. -Right lower lobe pleural-based 7 mm (5:154) may be at the location of the focal atelectasis/scarring seen in 2017. -Right middle lobe pleural-based 5 mm (5:157) stable from 2017 -Right middle lobe 3 mm (5:172) stable from 2017 -Right lower lobe pleural-based 4 mm (5:208) stable from 2018. - Right lower lobe 2 mm (5:211), stable from 2017 PLEURA: No pleural effusion. No pneumothorax. MEDIASTINUM AND ISABELLE: No adenopathy or masses. Prominent lymph node in the anterior mediastinal fat is stable from 2017. Visualized thyroid is unremarkable. Esophagus appear unremarkable. HEART AND VESSELS: Heart is normal in size. Trace pericardial effusion. Ectasia of the ascending thoracic aorta measuring up to 4.0 cm (measurement on coronal view). Pulmonary trunk is normal in caliber. UPPER ABDOMEN: Multiple calcified gallstones. Scattered diverticula along the colonic loops. Stomach is distended with ingested content. BONES AND SOFT TISSUES: Soft tissues are grossly unremarkable. No acute or suspicious osseous abnormalities. Stable hemangioma of T12 vertebral body. Procedure Note Trevor Leung MD - 07/30/2018 EXAM: CT CHEST WITHOUT CONTRAST CT CHEST WITHOUT INTRAVENOUS CONTRAST COMPARISON: July 09, 2017; June 14, 2016 TECHNIQUE: CT scan of the chest was performed without intravenouscontrast. Coronal and sagittal reformatted images were generated,together with axial maximum intensity projection images of the lungs.Automated exposure control utilized. FINDINGS: Absence of intravenous contrast decreases sensitivity for detection oflymphadenopathy and vascular pathology. LUNGS AND LARGE AIRWAYS: Central airways are patent. No lungconsolidations or lung masses. Lung nodules as follows: - Right upper lobe 3 mm groundglass nodule (5:72), stable from 2017 -Right upper lobe groundglass nodule 3 mm (5:81), new from 2018. -Right lower lobe pleural-based 7 mm (5:154) may be at the location of thefocal atelectasis/scarring seen in 2017. -Right middle lobe pleural-based 5 mm (5:157) stable from 2017 -Right middle lobe 3 mm (5:172) stable from 2017 -Right lower lobe pleural-based 4 mm (5:208) stable from 2018. - Right lower lobe 2 mm (5:211), stable from 2017 PLEURA: No pleural effusion. No pneumothorax. MEDIASTINUM AND ISABELLE: No adenopathy or masses. Prominent lymph node inthe anterior mediastinal fat is stable from 2017. Visualized thyroid isunremarkable. Esophagus appear unremarkable. HEART AND VESSELS: Heart is normal in size. Trace pericardial effusion.Ectasia of the ascending thoracic aorta measuring up to 4.0 cm(measurement on coronal view). Pulmonary trunk is normal in caliber. UPPER ABDOMEN: Multiple calcified gallstones. Scattered diverticula alongthe colonic loops. Stomach is distended with ingested content. BONES AND SOFT TISSUES: Soft tissues are grossly unremarkable. No acuteor suspicious osseous abnormalities. Stable hemangioma of T12 vertebralbody. IMPRESSION: 1. Multiple lung nodules, majority stable from May 2016. Onegroundglass nodule in the right upper lobe measuring 3 mm is probably newfrom June 2017. Based on Fleischner Criteria 2017, new ground glass orsub- solid pulmonary nodule measuring <6 mm does not need any furtherfollow up. 2. Stable ectasia of the ascending thoracic aorta TOTAL CTDIvol: 11.1 mGy POS - [id number] Kareem Esquivel MD IMG CT CHEST Final Resul t documented in this encounter Visit Diagnoses Diagnosis Multiple nodules of lung Multiple nodules of lung documented in this encounter Care Teams Big Data Developer Relationship Specialty Start Date End Date Kareem Esquivel MD [email or web address] PCP - General Family Medicine 12/13/16 Kareem Esquivel MD Referring Physician 12/26/16 Kareem Esquivel MD [address] [place] [address] Insurance Assigned Provider 08/18/17 04/26/19 documented as of this encounter Additional Source Comments The information contained in this document represents components of the legal health record. It is not the complete legal health record.[facility]
--- OUTSIDE RECORDS SUMMARY | 2025-03-30 08:16 | XMS_ITS | Encounter Summary ---
Author Organization [facility] Address [address] [place] [address] [place] [address] Phone Care Team Providers Care Environmental Studies Faculty Member Name Role Phone Kareem Esquivel MD Primary Care Provider Kareem Esquivel MD Unavailable [phone] Kareem Esquivel MD Unavailable [phone] Encounter Details Date Type Department Care Team (Late st Contact Info) Description 04/25/2018 Ancillary Orders Virtual Department [address] [place] [address] Kareem Esquivel MD [address] [place] [address] [email or web address] Solitary pulmonary nodule Social History Tobacco Use [...] nodule documented in this encounter Care Teams Environmental Studies Faculty Member Relationship Specialty Start Date End Date Kareem Esquivel MD PCP - General Family Medicine 12/13/16 Kareem Esquivel MD [email or web address] Referring Physician 12/26/16 Kareem Esquivel MD [address] [place] [address] [email or web address] Insurance Assigned Provider 08/18/17 04/26/19 documented as of this encounter Additional Source Comments The information contained in this document represents components of the legal health record. It is not the complete legal health record.[facility]
--- OUTSIDE RECORDS SUMMARY | 2025-03-30 08:16 | XMS_ITS | Encounter Summary ---
Author Organization [facility] Address [address] [facility] [address] [place] [address] Phone Care Team Providers Care Airport Ramp Attendant Name Role Phone Kareem Esquivel MD Primary Care Provider [phone] Kareem Esquivel MD Unavailable [phone] Kareem Esquivel MD Unavailable [phone] Reason for Referral * MRI/CAT Scan - Closed Specialty Diagnoses / Procedures Referred By Ritchie johns Referred To Contact Radiology Diagnoses Solitary pulmonary nodule Procedures CT Chest Kareem Esquivel MD Phone: tel: fax: mailto:[email or web address] Referral ID Status Reason Start Date Expiration Date Visits Re quested Visits Authorized [id number] Closed 06/25/2017 09/23/2017 1 1 Encounter Details Date Type Department Care Team (Late st Contact Info) Description 06/29/2017 Ancillary Orders Virtual Department [address] [place] [address] Kareem Esquivel MD [address] [place] [address] [email or web address] Solitary pulmonary nodule Social History Tobacco Use [...] Cholelithiasis. TOTAL CTDIvol: 10.40 mGy POS - [id number] Edited by: Sharon Tee on 07/09/2017 11:10 [...] in the posterior right lower lobe on [id number], punctate nodule in the right lower lobe [...] new compression deformities. Stable hemangioma within the [id number] body. No new destructive bone lesion. IMPRESSION: Right pulmonary nodules measuring up to 7 mm are stable as far back 06/14/2016. One of the nodules has ground-glass appearance. Recommendfollow-up CT in 12 months. Cholelithiasis. TOTAL CTDIvol: 10.40 mGy POS - [id number] Edited by: Sharon Tee on 07/09/2017 11:10 AM Kareem Esquivel MD IMG CT CHEST Final Resul t documented in this encounter Visit Diagnoses Diagnosis Solitary pulmonary nodule Solitary pulmonary nodule documented in this encounter Care Teams Airport Ramp Attendant Relationship Specialty Start Date End Date Kareem Esquivel MD PCP - General Family Medicine 12/13/16 Kareem Esquivel MD Referring Physician 12/26/16 Kareem Esquivel MD [address] [place] [address] [email or web address] Insurance Assigned Provider 08/18/17 04/26/19 documented as of this encounter Additional Source Comments The information contained in this document represents components of the legal health record. It is not the complete legal health record.[facility]
--- OUTSIDE RECORDS SUMMARY | 2025-03-30 08:17 | XMS_ITS | Encounter Summary ---
Author Organization [facility] Address [address] [place] [address] Phone Care Team Providers Care Sofa Inspector Name Role Phone Kodi Be NP Primary Care Provider [phone] Reason for Visit * Reason Comments Med Refill Encounter Details Date Type Department Care Team (Late st Contact Info) Description 08/08/2023 Refill [facility] [place], [address] [place] [address] Mihir Wheeler MD [address] [place] [address] Social History Tobacco Use Types [...] on filedocumented in this encounter Care Teams Sofa Inspector Relationship Specialty Start Date End Date Kodi Be NP [address] [place] [address] PCP - General Nurse Practitioner 03/23/22 documented as of this encounter
--- OUTSIDE RECORDS SUMMARY | 2025-03-30 08:17 | XMS_ITS | Encounter Summary ---
Author Organization [facility] Address [address] [place] [address] Phone Care Team Providers Care Semiconductor Wafers Etch Operator Name Role Phone Kodi Be NP Primary Care Provider [phone] Reason for Visit * Reason Comments Med Refill Encounter Details Date Type Department Care Team (Late st Contact Info) Description 11/05/2023 Refill [facility] [place], [address] [place] [address] Mihir Wheeler MD [address] [facility] [place] [address] Social History Tobacco Use Types [...] on filedocumented in this encounter Care Teams Semiconductor Wafers Etch Operator Relationship Specialty Start Date End Date Kodi Be NP [address] [place] [address] PCP - General Nurse Practitioner 03/23/22 documented as of this encounter
--- OUTSIDE RECORDS SUMMARY | 2025-03-30 08:17 | XMS_ITS | Clinical Summary ---
Author Organization [facility] Address [address] [place] [address] Care Team Providers Care Weight Loss Counselor Name Role Phone Unavailable Primary Care Provider [...]
--- OUTSIDE RECORDS SUMMARY | 2025-03-30 08:17 | XMS_ITS | Encounter Summary ---
Author Organization [facility] Address [address] [facility] [address] [place] [address] Phone Care Team Providers Care Tactical Air Control Party Manager Name Role Phone Kareem Esquivel MD Primary Care Provider Kareem Esquivel MD Unavailable [phone] Kareem Esquivel MD Unavailable [phone] Encounter Details Date Type Department Care Team (Late st Contact Info) Description 01/08/2017 Procedure Pass [facility] [address] [place] [address] Social History Tobacco Use Types Packs/Day Years [...] on filedocumented in this encounter Care Teams Tactical Air Control Party Manager Relationship Specialty Start Date End Date Kareem Esquivel MD PCP - General Family Medicine 12/13/16 Kareem Esquivel MD Referring Physician 12/26/16 Kareem Esquivel MD [address] [place] [address] [email or web address] Insurance Assigned Provider 08/18/17 04/26/19 documented as of this encounter Additional Source Comments The information contained in this document represents components of the legal health record. It is not the complete legal health record.[facility]
--- OUTSIDE RECORDS SUMMARY | 2025-03-30 08:17 | XMS_ITS | Clinical Summary ---
Author Organization [facility], Address [address] [place] [address] [place] [address] Phone Care Team Providers Care Sr Vice President Name Role Phone Kodi Be NP Primary Care Provider Allergies Active Allergy Reactions Criticality Noted Date [...] this topic Insurance Comprehensive Benefits Care Teams Sr Vice President Relationship Specialty Start Date End Date Kodi Be NP [address] [place] [address] PCP - General Nurse Practitioner 03/23/22
--- OUTSIDE RECORDS SUMMARY | 2025-03-30 08:17 | XMS_ITS | Encounter Summary ---
Author Organization [facility] Address [address] [facility] [address] [place] [address] Phone Care Team Providers Care Mail List Processor Name Role Phone Kareem Esquivel MD Primary Care Provider Kareem Esquivel MD Unavailable [phone] Kareem Esquivel MD Unavailable [phone] Encounter Details Date Type Department Care Team (Late st Contact Info) Description 01/08/2017 Procedure Pass [facility] [address] [place] [address] Social History Tobacco Use Types Packs/Day Years [...] on filedocumented in this encounter Care Teams Mail List Processor Relationship Specialty Start Date End Date Kareem Esquivel MD PCP - General Family Medicine 12/13/16 Kareem Esquivel MD Referring Physician 12/26/16 Kareem Esquivel MD [address] [place] [address] [email or web address] Insurance Assigned Provider 08/18/17 04/26/19 documented as of this encounter Additional Source Comments The information contained in this document represents components of the legal health record. It is not the complete legal health record.[facility]
--- OUTSIDE RECORDS SUMMARY | 2025-03-30 08:17 | XMS_ITS | Clinical Summary ---
Author Organization [facility] Address [address] [place] [address] Care Team Providers Care Furniture Sales Consultant Name Role Phone Kodi Be Primary Care [...] age to complete this topic Care Teams Furniture Sales Consultant Relationship Specialty Start Date End Date Kodi Be [address] [place] [address] PCP - General Family Medicine 08/26/20
--- OUTSIDE RECORDS SUMMARY | 2025-03-30 08:18 | XMS_ITS | Encounter Summary ---
Author Organization [facility] Address [address] [facility] [address] [place] [address] Phone Care Team Providers Care Photograph Retoucher Name Role Phone Kareem Esquivel MD Primary Care Provider Kareem Esquivel MD Unavailable [phone] Kareem Esquivel MD Unavailable [phone] Encounter Details Date Type Department Care Team (Late st Contact Info) Description 01/08/2017 Procedure Pass [facility] [address] [place] [address] Social History Tobacco Use Types Packs/Day Years [...] on filedocumented in this encounter Care Teams Photograph Retoucher Relationship Specialty Start Date End Date Kareem Esquivel MD PCP - General Family Medicine 12/13/16 Kareem Esquivel MD Referring Physician 12/26/16 Kareem Esquivel MD [address] [place] [address] [email or web address] Insurance Assigned Provider 08/18/17 04/26/19 documented as of this encounter Additional Source Comments The information contained in this document represents components of the legal health record. It is not the complete legal health record.[facility]
--- OUTSIDE RECORDS SUMMARY | 2025-03-30 08:18 | XMS_ITS | Encounter Summary ---
Author Organization [facility] Address [address] [place] [address] [place] [address] Phone Care Team Providers Care Bobcat Driver/Labor Name Role Phone Kareem Esquivel MD Primary Care Provider [phone] Kareem Esquivel MD Unavailable [phone] Kareem Esquivel MD Unavailable [phone] Encounter Details Date Type Department Care Team (Late st Contact Info) Description 01/08/2017 Procedure Pass [facility] OUTSIDE [address] [place] [address] Social History Tobacco Use Types Packs/Day Years [...] on filedocumented in this encounter Care Teams Bobcat Driver/Labor Relationship Specialty Start Date End Date Kareem Esquivel MD PCP - General Family Medicine 12/13/16 Kareem Esquivel MD Referring Physician 12/26/16 Kareem Esquivel MD [address] [place] [address] [email or web address] Insurance Assigned Provider 08/18/17 04/26/19 documented as of this encounter Additional Source Comments The information contained in this document represents components of the legal health record. It is not the complete legal health record.[facility]
--- OUTSIDE RECORDS SUMMARY | 2025-03-30 08:18 | XMS_ITS | Encounter Summary ---
Author Organization [facility] Address [address] [facility] [address] [place] [address] Phone Care Team Providers Care Behavior Management Specialist Name Role Phone Kareem Esquivel MD Primary Care Provider Kareem Esquivel MD Unavailable [phone] Kareem Esquivel MD Unavailable [phone] Encounter Details Date Type Department Care Team (Late st Contact Info) Description 01/08/2017 Ancillary Orders [facility] [address] [facility], [address]th [address], [address] [place] [address] MD, FACS [address] [place] [address] [email or web address] Social History Tobacco Use Types [...] on filedocumented in this encounter Care Teams Behavior Management Specialist Relationship Specialty Start Date End Date Kareem Esquivel MD [email or web address] PCP - General Family Medicine 12/13/16 Kareem Esquivel MD [email or web address] Referring Physician 12/26/16 Kareem Esquivel MD [address] [place] [address] [email or web address] Insurance Assigned Provider 08/18/17 04/26/19 documented as of this encounter Additional Source Comments The information contained in this document represents components of the legal health record. It is not the complete legal health record.[facility]
--- OUTSIDE RECORDS SUMMARY | 2025-03-30 08:18 | XMS_ITS | Encounter Summary ---
Author Organization [facility] Address [address] [facility] [address] [place] [address] Phone Care Team Providers Care Licensed Psychiatric Technician Name Role Phone Kareem Esquivel MD Primary Care Provider [phone] Kareem Esquivel MD Unavailable [phone] Kareem Esquivel MD Unavailable [phone] Reason for Referral * MRI/CAT Scan - Closed Specialty Diagnoses / Procedures Referred By Ritchie johns Referred To Contact Procedures CT Neck Outside (No Interpretation) Brendan Lane MD, FACS Phone: tel: fax: mailto:[email or web address] Referral ID Status Reason Start Date Expiration Date Visits Re quested Visits Authorized [id number] Closed 01/08/2017 01/08/2018 1 1 * MRI/CAT Scan - Closed Specialty Diagnoses / Procedures Referred By Ritchie johns Referred To Contact Procedures MRI Neck Outside (No Interpretation) Brendan Lane MD, FACS Phone: tel: fax: mailto:[email or web address] Referral ID Status Reason Start Date Expiration Date Visits Re quested Visits Authorized [id number] Closed 01/08/2017 01/08/2018 1 1 Encounter Details Date Type Department Care Team (Late st Contact Info) Description 01/08/2017 Ancillary Orders [facility] OUTSIDE [address] [place] [address] MD, FACS [address] [place] [address] [email or web address] Social History Tobacco Use Types [...] W/OUT INTERPRETATION Final Result Performing Organization Address [facility] de Phone Number [facility] INTERFACES * MRI Neck Outside (No Interpretation) (01/02/2017 12:30 AM EDT) Narrative [facility] INTERFACES - 01/08/2017 3:38 PM EDT This study is for PACS storage only and not for interpretation. us Brendan Lane MD, FACS IMG OUTSIDE IMAGING W/OUT INTERPRETATION Final Result Performing Organization Address [facility] de Phone Number [facility] INTERFACES documented in this encounter Visit Diagnoses Not on filedocumented in this encounter Care Teams Licensed Psychiatric Technician Relationship Specialty Start Date End Date Kareem Esquivel MD [email or web address] PCP - General Family Medicine 12/13/16 Kareem Esquivel MD [email or web address] Referring Physician 12/26/16 Kareem Esquivel MD [address] [place] [address] [email or web address] Insurance Assigned Provider 08/18/17 04/26/19 documented as of this encounter Additional Source Comments The information contained in this document represents components of the legal health record. It is not the complete legal health record.[facility]
--- OUTSIDE RECORDS SUMMARY | 2025-03-30 08:19 | XMS_ITS | Encounter Summary ---
Author Organization [facility] Address [address] [place] [address] Phone Care Team Providers Care Slackman Name Role Phone Kodi Be NP Primary Care Provider [phone] Encounter Details Date Type Department Care Team (Late st Contact Info) Description 03/28/2022 Documentation Only [facility] [place], [address] [place] [address] Kodi Be NP [address] [place] [address] Social History Tobacco Use Types Packs/Day Years [...] on filedocumented in this encounter Care Teams Slackman Relationship Specialty Start Date End Date Kodi Be NP [address] [place] [address] PCP - General Nurse Practitioner 03/23/22 documented as of this encounter
--- OUTSIDE RECORDS SUMMARY | 2025-03-30 08:19 | XMS_ITS | Encounter Summary ---
Author Organization [facility] Address [address] [place] [address] Phone Care Team Providers Care Consular Officer Name Role Phone Kareem Esquivel MD Primary Care Provider Kareem Esquivel MD Unavailable [phone] Kareem Esquivel MD Unavailable [phone] Encounter Details Date Type Department Care Team (Late st Contact Info) Description 01/08/[address] [facility] [address] [place] [address] Social History Tobacco Use Types Packs/Day Years [...] on filedocumented in this encounter Care Teams Consular Officer Relationship Specialty Start Date End Date Kareem Esquivel MD PCP - General Family Medicine 12/13/16 Kareem Esquivel MD [email or web address] Referring Physician 12/26/16 Kareem Esquivel MD [address] [place] [address] [email or web address] Insurance Assigned Provider 08/18/17 04/26/19 documented as of this encounter Additional Source Comments The information contained in this document represents components of the legal health record. It is not the complete legal health record.[facility]
--- OUTSIDE RECORDS SUMMARY | 2025-03-30 08:19 | XMS_ITS | Encounter Summary ---
Author Organization [facility] Address [address] [place] [address] Phone Care Team Providers Care Preventive Medicine Officer Name Role Phone Kodi Be NP Primary Care Provider [phone] Encounter Details Date Type Department Care Team (Late st Contact Info) Description 03/31/2022 Documentation Only [facility] [place], [address] [place] [address] Kodi Be NP [address] [place] [address] Social History Tobacco Use Types Packs/Day Years [...] on filedocumented in this encounter Care Teams Preventive Medicine Officer Relationship Specialty Start Date End Date Kodi Be NP [address] [place] [address] PCP - General Nurse Practitioner 03/23/22 documented as of this encounter
--- OUTSIDE RECORDS SUMMARY | 2025-03-30 08:19 | XMS_ITS | Encounter Summary ---
Author Organization [facility] Address [address] [place] [address] [place] [address] Phone Care Team Providers Care Wall Man Name Role Phone Kareem Esquivel MD Primary Care Provider [phone] Kareem Esquivel MD Unavailable [phone] Kareem Esquivel MD Unavailable [phone] Encounter Details Date Type Department Care Team (Late st Contact Info) Description 01/08/2017 Procedure Pass [facility] [address] [place] [address] Social History Tobacco Use Types Packs/Day Years [...] on filedocumented in this encounter Care Teams Wall Man Relationship Specialty Start Date End Date Kareem Esquivel MD PCP - General Family Medicine 12/13/16 Kareem Esquivel MD Referring Physician 12/26/16 Kareem Esquivel MD [address] [place] [address] [email or web address] Insurance Assigned Provider 08/18/17 04/26/19 documented as of this encounter Additional Source Comments The information contained in this document represents components of the legal health record. It is not the complete legal health record.[facility]
--- OUTSIDE RECORDS SUMMARY | 2025-03-30 08:19 | XMS_ITS | Encounter Summary ---
Author Organization [facility] Address [address] [place] [address] Phone Care Team Providers Care Barrer And Tacker Name Role Phone Kareem Esquivel MD Primary Care Provider Kareem Esquivel MD Unavailable [phone] Kareem Esquivel MD Unavailable [phone] Encounter Details Date Type Department Care Team (Late st Contact Info) Description 04/04/2017 Ancillary Orders [facility] [address] [place] [address] 3rd Floor, [address] [place] [address] Kareem Esquivel MD [address] [place], [place] [id number] [email or web address] Aortic root dilatation Social History Tobacco Use [...] rupture documented in this encounter Care Teams Barrer And Tacker Relationship Specialty Start Date End Date Kareem Esquivel MD [email or web address] PCP - General Family Medicine 12/13/16 Kareem Esquivel MD [email or web address] Referring Physician 12/26/16 Kareem Esquivel MD [address] [place] [address] [email or web address] Insurance Assigned Provider 08/18/17 04/26/19 documented as of this encounter Additional Source Comments The information contained in this document represents components of the legal health record. It is not the complete legal health record.[facility]
== END 2025-03-30 09:07 | disposition home or self-care (01) ==
PROVIDERS: PCP Nurse Practitioner Family; Visit Provider Nurse Practitioner Family
DX: Z13.9 Encounter for screening, unspecified (principal); R30.0 Dysuria

== ENCOUNTER 2025-03-30 08:06 | Outpatient (REF) | payer OTHER, SELFPAY ==
[2025-03-30 11:57] LABS: CT PCR Urine DETECTED (Not Detect.); NG PCR Urine NOT DETECTED (Not Detect.)
[2025-04-01 02:43] LABS: Trichomonas vag. RNA Ur Male DETECTED (NOT DETECTED)
== END 2025-03-30 08:07 | disposition home or self-care (01) ==
LOC: HO.LAB 08:06
PROVIDERS: PCP Nurse Practitioner Family; Visit Provider Nurse Practitioner Family
DX: R30.0 Dysuria (principal); Z13.89 Encounter for screening for other disorder; Z20.2 Contact with and (suspected) exposure to infections with a predominantly sexual mode of transmission
CPT/HCPCS: 81003; 87491; 87591; 87661

== ENCOUNTER 2025-04-13 07:11 | Outpatient (AMB) | payer OTHER, SELFPAY ==
--- OUTSIDE RECORDS SUMMARY | 2016-02-13 23:00 | XMS_ITS | Encounter Summary ---
Author Organization [facility] Address [address] [facility] [address] [place] [address] Phone Care Team Providers Care Sheet Rock Applier Name Role Phone Unavailable Primary Care Provider Unavailabl e Reason for Visit * MRI/CAT Scan - Closed Specialty Diagnoses / Procedures Referred By Contac t Referred To Contact Procedures CT Neck Outside (No Interpretation) Rodri Peña MD [address] [place] [address] Phone: tel: fax: mailto:[email or web address] Referral ID Status Reason Start Date Expiration Date Visits Re quested Visits Authorized [id number] Closed 01/08/2017 01/08/2018 1 1 Encounter Details Date Type Department Care Team (Late st Contact Info) Description 02/14/2016 Hospital Encounter [facility] [address] [place] [address] Rodri Peña MD [address] [place] [phone] [email or web address] Social History Tobacco Use Types Packs/Day Years [...] (02/14/2016 12:00 AM EDT) Narrative [facility] - 01/08/2017 10:27 AM EDT This study is for PACS storage only and not for interpretation. us Rodri Peña MD IMG OUTSIDE IMAGING W/OUT INT ERPRETATION Final Result [facility] documented in this encounter Visit Diagnoses Not on filedocumented in this encounter Additional Source Comments The information contained in this document represents components of the legal health record. It is not the complete legal health record.[facility]
--- OUTSIDE RECORDS SUMMARY | 2016-02-13 23:15 | XMS_ITS | Encounter Summary ---
Author Organization [facility] Address [address] [facility] [address] [place] [address] Phone Care Team Providers Care Cloth Bin Packer Name Role Phone Unavailable Primary Care Provider Unavailabl e Reason for Visit * MRI/CAT Scan - Closed Specialty Diagnoses / Procedures Referred By Contac t Referred To Contact Procedures CT Neck Outside (No Interpretation) Rodri Peña MD [address] [place] [address] Phone: tel: fax: mailto:[email or web address] Referral ID Status Reason Start Date Expiration Date Visits Re quested Visits Authorized [id number] Closed 01/08/2017 01/08/2018 1 1 Encounter Details Date Type Department Care Team (Late st Contact Info) Description 02/14/2016 12:15 AM EDT Hospital Encounter [facility] [address] [place] [address] Rodri Peña MD [address] [place] [phone] [email or web address] Social History Tobacco Use Types Packs/Day [...] (No Interpretation) (02/14/2016 12:15 AM EDT) Narrative [facility] - 01/08/2017 10:28 AM EDT This study is for PACS storage only and not for interpretation. us Rodri Peña MD IMG OUTSIDE IMAGING W/OUT INT ERPRETATION Final Result [facility] documented in this encounter Visit Diagnoses Not on filedocumented in this encounter Additional Source Comments The information contained in this document represents components of the legal health record. It is not the complete legal health record.[facility]
--- OUTSIDE RECORDS SUMMARY | 2025-04-13 07:13 | XMS_ITS | Encounter Summary ---
Author Organization [facility] Address [address] [facility] [address] [place] [address] Phone Care Team Providers Care Dip Painter Name Role Phone Kareem Esquivel MD Primary Care Provider Kareem Esquivel MD Unavailable [phone] Kareem Esquivel MD Unavailable [phone] Encounter Details Date Type Department Care Team (Late st Contact Info) Description 01/08/2017 Procedure Pass [facility] Imaging [address] [place] [address] Social History Tobacco Use Types Packs/Day Years [...] on filedocumented in this encounter Care Teams Dip Painter Relationship Specialty Start Date End Date Kareem Esquivel MD PCP - General Family Medicine 12/13/16 Kareem Esquivel MD [email or web address] Referring Physician 12/26/16 Kareem Esquivel MD [address] [place] [address] [email or web address] Insurance Assigned Provider 08/18/17 04/26/19 documented as of this encounter Additional Source Comments The information contained in this document represents components of the legal health record. It is not the complete legal health record.[facility]
--- OUTSIDE RECORDS SUMMARY | 2025-04-13 07:13 | XMS_ITS | Encounter Summary ---
Author Organization [facility] Address [address] [place] [address] [place] [address] Phone Care Team Providers Care Full Roll Inspector Name Role Phone Kareem Esquivel MD Primary Care Provider Kareem Esquivel MD Unavailable [phone] Kareem Esquivel MD Unavailable [phone] Encounter Details Date Type Department Care Team (Late st Contact Info) Description 06/29/2017 Procedure Pass [facility], Ct Scan - [address] [address] Social History Tobacco Use Types Packs/Day Years [...] on filedocumented in this encounter Care Teams Full Roll Inspector Relationship Specialty Start Date End Date Kareem Esquivel MD [email or web address] PCP - General Family Medicine 12/13/16 Kareem Esquivel MD [email or web address] Referring Physician 12/26/16 Kareem Esquivel MD [address] [place] [address] [email or web address] Insurance Assigned Provider 08/18/17 04/26/19 documented as of this encounter Additional Source Comments The information contained in this document represents components of the legal health record. It is not the complete legal health record.[facility]
--- OUTSIDE RECORDS SUMMARY | 2025-04-13 07:13 | XMS_ITS | Encounter Summary ---
Author Organization [facility] Address [address] [facility] [address] [place] [address] Phone Care Team Providers Care Data Mining Analyst Name Role Phone Kareem Esquivel MD Primary Care Provider Kareem Esquivel MD Unavailable [phone] aKreem Esquivel MD Unavailable [phone] Encounter Details Date Type Department Care Team (Late st Contact Info) Description 09/27/2017 Transcribe [facility] [address] [place] [address] 3rd Floor, [address] [place] [address] Kareem Esquivel MD [address] [place], [place] [id number] [email or web address] Chest pain, unspecified type (Primary Dx) Social [...] type documented in this encounter Care Teams Data Mining Analyst Relationship Specialty Start Date End Date Kareem Esquivel MD [email or web address] PCP - General Family Medicine 12/13/16 Kareem Esquivel MD [email or web address] Referring Physician 12/26/16 Kareem Esquivel MD [address] [place] [address] [email or web address] Insurance Assigned Provider 08/18/17 04/26/19 documented as of this encounter Additional Source Comments The information contained in this document represents components of the legal health record. It is not the complete legal health record.[facility]
--- OUTSIDE RECORDS SUMMARY | 2025-04-13 07:13 | XMS_ITS | Encounter Summary ---
Author Organization [facility] Address [address] [place] [address] [place] [address] Phone Care Team Providers Care Global Coordinator Name Role Phone Kareem Esquivel MD Primary Care Provider Kareem Esquivel MD Unavailable [phone] Kareem Esquivel MD Unavailable [phone] Encounter Details Date Type Department Care Team (Late st Contact Info) Description 04/25/2018 Ancillary Orders Virtual Department [address] [place] [address] Kareem Esquivel MD [address] [place] [address] [email or web address] Solitary pulmonary nodule Social History Tobacco Use [...] nodule documented in this encounter Care Teams Global Coordinator Relationship Specialty Start Date End Date Kareem Esquivel MD [email or web address] PCP - General Family Medicine 12/13/16 Kareem Esquivel MD [email or web address] Referring Physician 12/26/16 Kareem Esquivel MD [address] [place] [address] [email or web address] Insurance Assigned Provider 08/18/17 04/26/19 documented as of this encounter Additional Source Comments The information contained in this document represents components of the legal health record. It is not the complete legal health record.[facility]
--- OUTSIDE RECORDS SUMMARY | 2025-04-13 07:13 | XMS_ITS | Clinical Summary ---
Author Organization [facility] Address [address] [facility] [address] [place] [address] Phone Care Team Providers Care Route Carrier Name Role Phone Kareem Esquivel MD Primary Care Provider [phone] Kareem Esquivel MD Unavailable [phone] Allergies No known active allergies Medications LEVOTHYROXINE [...] Recently Relevant to Health Maintenance Care Teams Route Carrier Relationship Specialty Start Date End Date Kareem Esquivel MD PCP - General Family Medicine 12/13/16 Kareem Esquivel MD Referring Physician 12/26/16 Additional Source Comments The information contained in this document represents components of the legal health record. It is not the complete legal health record.[facility]
--- OUTSIDE RECORDS SUMMARY | 2025-04-13 07:13 | XMS_ITS | Encounter Summary ---
Author Organization [facility] Address [address] [place] [address] Phone Care Team Providers Care Zipper Cutter Name Role Phone Kareem Esquivel MD Primary Care Provider Kareem Esquivel MD Unavailable [phone] Kareem Esquivel MD Unavailable [phone] Encounter Details Date Type Department Care Team (Late st Contact Info) Description 01/08/2017 Procedure Pass [facility] [address] [place] [address] Social History Tobacco Use Types Packs/Day Years [...] on filedocumented in this encounter Care Teams Zipper Cutter Relationship Specialty Start Date End Date Kareem Esquivel MD PCP - General Family Medicine 12/13/16 Kareem Esquivel MD Referring Physician 12/26/16 Kareem Esquivel MD [address] [place] [address] Insurance Assigned Provider 08/18/17 04/26/19 documented as of this encounter Additional Source Comments The information contained in this document represents components of the legal health record. It is not the complete legal health record.[facility]
--- OUTSIDE RECORDS SUMMARY | 2025-04-13 07:13 | XMS_ITS | Encounter Summary ---
Author Organization [facility] Address [address] [facility] [address] [place] [address] Phone Care Team Providers Care Target Trimmer Name Role Phone Kareem Esquivel MD Primary Care Provider [phone] Kareem Esquivel MD Unavailable [phone] Kareem Esquivel MD Unavailable [phone] Reason for Referral * MRI/CAT Scan - Closed Specialty Diagnoses / Procedures Referred By Ritchie johns Referred To Contact Radiology Diagnoses Multiple nodules of lung Procedures CT Chest Kareem Esquivel MD Phone: tel: fax: [email or web address] Referral ID Status Reason Start Date Expiration Date Visits Re quested Visits Authorized [id number] Closed 07/09/2018 07/09/2019 1 1 Encounter Details Date Type Department Care Team (Late st Contact Info) Description 07/09/2018 Ancillary Orders Virtual Department [address] [place] [address] Kareem Esquivel MD [address] [place] [address] [email or web address] Multiple nodules of lung Social History Tobacco [...] lung documented in this encounter Care Teams Target Trimmer Relationship Specialty Start Date End Date Kareem Esquivel MD [email or web address] PCP - General Family Medicine 12/13/16 Kareem Esquivel MD Referring Physician 12/26/16 Kareem Esquivel MD [address] [place] [address] Insurance Assigned Provider 08/18/17 04/26/19 documented as of this encounter Additional Source Comments The information contained in this document represents components of the legal health record. It is not the complete legal health record.[facility]
--- OUTSIDE RECORDS SUMMARY | 2025-04-13 07:13 | XMS_ITS | Encounter Summary ---
Author Organization [facility] Address [address] [facility] [address] [place] [address] Phone Care Team Providers Care Doll Dresser Name Role Phone Kareem Esquivel MD Primary Care Provider [phone] Kareem Esquivel MD Unavailable [phone] Kareem Esquivel MD Unavailable [phone] Reason for Referral * MRI/CAT Scan - Closed Specialty Diagnoses / Procedures Referred By Ritchie johns Referred To Contact Radiology Diagnoses Solitary pulmonary nodule Procedures CT Chest Kareem Esquivel MD Phone: tel: fax: [email or web address] Referral ID Status Reason Start Date Expiration Date Visits Re quested Visits Authorized [id number] Closed 06/25/2017 09/23/2017 1 1 Encounter Details Date Type Department Care Team (Late st Contact Info) Description 06/29/2017 Ancillary Orders Virtual Department [address] [place] [address] Kareem Esquivel MD [address] [place] [address] [email or web address] Solitary pulmonary nodule Social History Tobacco Use [...] Cholelithiasis. TOTAL CTDIvol: 10.40 mGy POS - [id number] Edited by: Sharon Tee on 07/09/2017 11:10 [...] in the posterior right lower lobe on , punctate nodule in the right lower lobe [...] new compression deformities. Stable hemangioma within the [id number] body. No new destructive bone lesion. IMPRESSION: Right pulmonary nodules measuring up to 7 mm are stable as far back 06/14/2016. One of the nodules has ground-glass appearance. Recommendfollow-up CT in 12 months. Cholelithiasis. TOTAL CTDIvol: 10.40 mGy POS - [id number] Edited by: Sharon Tee on 07/09/2017 11:10 AM Kareem Esquivel MD IMG CT CHEST Final Resul t documented in this encounter Visit Diagnoses Diagnosis Solitary pulmonary nodule Solitary pulmonary nodule documented in this encounter Care Teams Doll Dresser Relationship Specialty Start Date End Date Kareem Esquivel MD PCP - General Family Medicine 12/13/16 Kareem Esquivel MD Referring Physician 12/26/16 Kareem Esquivel MD [address] [place] [address] [email or web address] Insurance Assigned Provider 08/18/17 04/26/19 documented as of this encounter Additional Source Comments The information contained in this document represents components of the legal health record. It is not the complete legal health record.[facility]
--- OUTSIDE RECORDS SUMMARY | 2025-04-13 07:13 | XMS_ITS | Encounter Summary ---
Author Organization [facility] Address [address] [place] [address] Phone Care Team Providers Care Photolithographer Name Role Phone Kodi Be NP Primary Care Provider [phone] Reason for Visit * Reason Comments Med Refill Encounter Details Date Type Department Care Team (Late st Contact Info) Description 08/08/2023 Refill [facility] [place], [address] [place] [address] Mihir Wheeler MD [address] [place] [address] Social History Tobacco Use Types [...] on filedocumented in this encounter Care Teams Photolithographer Relationship Specialty Start Date End Date Kodi Be NP [address] [place] [address] PCP - General Nurse Practitioner 03/23/22 documented as of this encounter
--- OUTSIDE RECORDS SUMMARY | 2025-04-13 07:13 | XMS_ITS | Clinical Summary ---
Author Organization [facility] Address [address] [place] [address] Care Team Providers Care News Director Name Role Phone Kodi Be Primary Care Provider [phone] Allergies No known active allergies Medications Medication [...] age to complete this topic Care Teams News Director Relationship Specialty Start Date End Date Kodi Be [address] [place] [address] PCP - General Family Medicine 08/26/20
--- OUTSIDE RECORDS SUMMARY | 2025-04-13 07:14 | XMS_ITS | Encounter Summary ---
Author Organization [facility] Address [address] [facility] [address] [place] [address] Phone Care Team Providers Care Head Start Assistant Teacher Name Role Phone Kareem Esquivel MD Primary Care Provider [phone] Kareem Esquivel MD Unavailable [phone] Kareem Esquivel MD Unavailable [phone] Encounter Details Date Type Department Care Team (Late st Contact Info) Description 01/08/2017 Procedure Pass [facility] [address] [place] [address] Social History Tobacco Use Types Packs/Day Years [...] on filedocumented in this encounter Care Teams Head Start Assistant Teacher Relationship Specialty Start Date End Date Kareem Esquivel MD PCP - General Family Medicine 12/13/16 Kareem Esquivel MD [email or web address] Referring Physician 12/26/16 Kareem Esquivel MD [address] [place] [address] [email or web address] Insurance Assigned Provider 08/18/17 04/26/19 documented as of this encounter Additional Source Comments The information contained in this document represents components of the legal health record. It is not the complete legal health record.[facility]
--- OUTSIDE RECORDS SUMMARY | 2025-04-13 07:14 | XMS_ITS | Encounter Summary ---
Author Organization [facility] Address [address] [place] [address] [place] [address] Phone Care Team Providers Care Relay Tester Name Role Phone Kareem Esquivel MD Primary Care Provider [phone] Kareem Esquivel MD Unavailable [phone] Kareem Esquivel MD Unavailable [phone] Encounter Details Date Type Department Care Team (Late st Contact Info) Description 01/08/2017 Procedure Pass [facility] OUTS[facility] [address] [place] [address] Social History Tobacco Use Types Packs/Day Years [...] on filedocumented in this encounter Care Teams Relay Tester Relationship Specialty Start Date End Date Kareem Esquivel MD PCP - General Family Medicine 12/13/16 Kareem Esquivel MD Referring Physician 12/26/16 Kareem Esquivel MD [address] [place] [address] [email or web address] Insurance Assigned Provider 08/18/17 04/26/19 documented as of this encounter Additional Source Comments The information contained in this document represents components of the legal health record. It is not the complete legal health record.[facility]
--- OUTSIDE RECORDS SUMMARY | 2025-04-13 07:14 | XMS_ITS | Clinical Summary ---
Author Organization [facility], Address [address] [place] [address] [place] [address] Phone Care Team Providers Care Docket Specialist Name Role Phone Kodi Be NP Primary Care Provider [phone] Allergies Active Allergy Reactions Criticality Noted Date [...] this topic Insurance Comprehensive Benefits Care Teams Docket Specialist Relationship Specialty Start Date End Date Kodi Be NP [address] [place] [address] PCP - General Nurse Practitioner 03/23/22
--- OUTSIDE RECORDS SUMMARY | 2025-04-13 07:14 | XMS_ITS | Encounter Summary ---
Author Organization [facility] Address [address] [place] [address] Phone Care Team Providers Care Professor Of Forest Planning Name Role Phone Kodi Be NP Primary Care Provider [phone] Encounter Details Date Type Department Care Team (Late st Contact Info) Description 03/31/2022 Documentation Only [facility] [place], [address] [place] [address] Kodi Be NP [address] [place], [place] Social History Tobacco Use Types Packs/Day Years Used Date Smoking Tobacco: Never Assessed Sex and Gender Information Value Date Recorded Sex Assigned at Not on file Legal Sex Male 9:21 AM EDT Gender Identity Not on file Sexual Orientation Not on file documented as of this encounter Functional Status documented as of this encounter Plan of Treatment Not on file documented as of this encounter Visit Diagnoses Not on filedocumented in this encounter Care Teams Professor Of Forest Planning Relationship Specialty Start Date End Date Kodi Be NP [address] [place] [address] PCP - General Nurse Practitioner 03/23/22 documented as of this encounter
--- OUTSIDE RECORDS SUMMARY | 2025-04-13 07:14 | XMS_ITS | Encounter Summary ---
Author Organization [facility] Address [address] [place] [address] Phone Care Team Providers Care Bait Painter Name Role Phone Kodi Be NP Primary Care Provider Encounter Details Date Type Department Care Team (Late st Contact Info) Description 03/28/2022 Documentation Only [facility] [place], [address] [place] [address] Kodi Be NP [address] [place], [place] Social History Tobacco Use Types Packs/Day [...] on filedocumented in this encounter Care Teams Bait Painter Relationship Specialty Start Date End Date Kodi Be NP [address] [place] [address] PCP - General Nurse Practitioner 03/23/22 documented as of this encounter
--- OUTSIDE RECORDS SUMMARY | 2025-04-13 07:14 | XMS_ITS | Encounter Summary ---
Author Organization [facility] Address [address] [place] [address] Phone Care Team Providers Care Plastering Supervisor Name Role Phone Kodi Be NP Primary Care Provider [phone] Reason for Visit * Reason Comments Med Refill Encounter Details Date Type Department Care Team (Late st Contact Info) Description 11/05/2023 Refill [facility] [place], [address] [place] [address] Mihir Wheeler MD [address] [facility] [address] [place] [address] Social History Tobacco Use Types [...] on filedocumented in this encounter Care Teams Plastering Supervisor Relationship Specialty Start Date End Date Kodi Be NP [address] [place] [address] PCP - General Nurse Practitioner 03/23/22 documented as of this encounter
--- OUTSIDE RECORDS SUMMARY | 2025-04-13 07:14 | XMS_ITS | Encounter Summary ---
Author Organization [facility] Address [address] [place] [address] [place] [address] Phone Care Team Providers Care Noc Technician Name Role Phone Kareem Esquivel MD Primary Care Provider [phone] Kareem Esquivel MD Unavailable [phone] Kareem Esquivel MD Unavailable [phone] Encounter Details Date Type Department Care Team (Late st Contact Info) Description 01/08/2017 Procedure Pass [facility] [address] [place] [address] Social History Tobacco Use Types Packs/Day Years [...] on filedocumented in this encounter Care Teams Noc Technician Relationship Specialty Start Date End Date aKreem Esquivel MD PCP - General Family Medicine 12/13/16 Kareem Esquivel MD Referring Physician 12/26/16 Kareem Esquivel MD [address] [place] [address] [email or web address] Insurance Assigned Provider 08/18/17 04/26/19 documented as of this encounter Additional Source Comments The information contained in this document represents components of the legal health record. It is not the complete legal health record.[facility]
--- OUTSIDE RECORDS SUMMARY | 2025-04-13 07:14 | XMS_ITS | Encounter Summary ---
Author Organization [facility] Address [address] [facility] [address] [place] [address] Phone Care Team Providers Care Director Strategy Name Role Phone Kareem Esquivel MD Primary Care Provider Kareem Esquivel MD Unavailable [phone] Kareem Esquivel MD Unavailable [phone] Encounter Details Date Type Department Care Team (Late st Contact Info) Description 01/08/2017 Ancillary Orders [facility] [address] [facility], 7th Floor, [address] [place] [address] MD, FACS [address] [place] [phone] [email or web address] Social History Tobacco Use Types Packs/Day [...] on filedocumented in this encounter Care Teams Director Strategy Relationship Specialty Start Date End Date Kareem Esquivel MD [email or web address] PCP - General Family Medicine 12/13/16 Kareem Esquivel MD [email or web address] Referring Physician 12/26/16 Kareem Esquivel MD [address] [place] [address] [email or web address] Insurance Assigned Provider 08/18/17 04/26/19 documented as of this encounter Additional Source Comments The information contained in this document represents components of the legal health record. It is not the complete legal health record.[facility]
--- OUTSIDE RECORDS SUMMARY | 2025-04-13 07:14 | XMS_ITS | Encounter Summary ---
Author Organization [facility] Address [address] [facility] [address] [place] [address] Phone Care Team Providers Care Interventional Cardiologist Name Role Phone Kareem Esquivel MD Primary Care Provider [phone] Kareem Esquivel MD Unavailable Kareem Esquivel MD Unavailable [phone] Reason for Referral * MRI/CAT Scan - Closed Specialty Diagnoses / Procedures Referred By Ritchie johns Referred To Contact Procedures CT Neck Outside (No Interpretation) Brendan Lane MD, FACS Phone: tel: fax: mailto:[email or web address] Referral ID Status Reason Start Date Expiration Date Visits Re quested Visits Authorized [id number] Closed 01/08/2017 01/08/2018 1 1 * MRI/CAT Scan - Closed Specialty Diagnoses / Procedures Referred By Ritchie johns Referred To Contact Procedures MRI Neck Outside (No Interpretation) Brendan Lane MD, FACS Phone: tel: fax: mailto:[email or web address] Referral ID Status Reason Start Date Expiration Date Visits Re quested Visits Authorized [id number] Closed 01/08/2017 01/08/2018 1 1 Encounter Details Date Type Department Care Team (Late st Contact Info) Description 01/08/2017 Ancillary Orders [facility] [address] [place] [address] MD, FACS [address] [place] [address] [email or web address] Social History Tobacco Use Types Packs/Day [...] W/OUT INTERPRETATION Final Result Performing Organization Address [facility] de Phone Number [facility] INTERFACES * MRI Neck Outside (No Interpretation) (01/02/2017 12:30 AM EDT) Narrative [facility] INTERFACES - 01/08/2017 3:38 PM EDT This study is for PACS storage only and not for interpretation. us Brendan Lane MD, FACS IMG OUTSIDE IMAGING W/OUT INTERPRETATION Final Result Performing Organization Address [facility] de Phone Number [facility] INTERFACES documented in this encounter Visit Diagnoses Not on filedocumented in this encounter Care Teams Interventional Cardiologist Relationship Specialty Start Date End Date Kareem Esquivel MD [email or web address] PCP - General Family Medicine 12/13/16 Kareem Esquivel MD [email or web address] Referring Physician 12/26/16 Kareem Esquivel MD [address] [place] [address] [email or web address] Insurance Assigned Provider 08/18/17 04/26/19 documented as of this encounter Additional Source Comments The information contained in this document represents components of the legal health record. It is not the complete legal health record.[facility]
--- OUTSIDE RECORDS SUMMARY | 2025-04-13 07:14 | XMS_ITS | Encounter Summary ---
Author Organization [facility] Address [address] [place] [address] Phone Care Team Providers Care It Programmer Name Role Phone Kareem Esquivel MD Primary Care Provider Kareem Esquivel MD Unavailable [phone] Kareem Esquivel MD Unavailable [phone] Encounter Details Date Type Department Care Team (Late st Contact Info) Description 04/04/2017 Ancillary Orders [facility] [address] [facility] 3rd Floor, [address] [place] [address] Kareem Esquivel MD [address] [place], [place] [id number] [email or web address] Aortic root dilatation Social [...] rupture documented in this encounter Care Teams It Programmer Relationship Specialty Start Date End Date Kareem Esquivel MD [email or web address] PCP - General Family Medicine 12/13/16 Kareem Esquivel MD [email or web address] Referring Physician 12/26/16 Kareem Esquivel MD [address] [place] [address] [email or web address] Insurance Assigned Provider 08/18/17 04/26/19 documented as of this encounter Additional Source Comments The information contained in this document represents components of the legal health record. It is not the complete legal health record.[facility]
--- OUTSIDE RECORDS SUMMARY | 2025-04-13 07:14 | XMS_ITS | Encounter Summary ---
Author Organization [facility] Address [address] [facility] [address] [place] [address] Phone Care Team Providers Care Core Checker Name Role Phone Kareem Esquivel MD Primary Care Provider Kareem Esquivel MD Unavailable [phone] Kareem Esquivel MD Unavailable [phone] Encounter Details Date Type Department Care Team (Late st Contact Info) Description 01/08/2017 Procedure Pass [facility] [address] [place] [address] Social History Tobacco Use Types Packs/Day Years [...] on filedocumented in this encounter Care Teams Core Checker Relationship Specialty Start Date End Date Kareem Esquivel MD PCP - General Family Medicine 12/13/16 Kareem Esquivel MD Referring Physician 12/26/16 Kareem Esquivel MD [address] [place] [address] [email or web address] Insurance Assigned Provider 08/18/17 04/26/19 documented as of this encounter Additional Source Comments The information contained in this document represents components of the legal health record. It is not the complete legal health record.[facility]
[2025-04-13 07:22] VITALS: BP 132/76; PULSE 98; O2SAT 96; BMI 34.2
--- NOTE | 2025-04-13 07:22 | MHC.OFFWIV ---
Intake Vital Signs 04/13/25 07:22 Height 5 ft 11 in Weight 245 lb BMI 34.2 BP 132/76 Blood Pressure Location Rt brachial Position Sitting Pulse 98 Pulse Source Pulse Oximeter Pulse Oximetry (%) 96 Oxygen Delivery Method Room Air Intake Visit Reasons: EP-STD Intake Note: Patient returns c/o STD & burning that has not gone away after completing ABX Patient Tobacco Use Status: Former Tobacco user Allergies methocarbamol (From Robaxin) Allergy (Intermediate, Verified 04/13/25 07:23) throat swells. Sulfa (Sulfonamide Antibiotics) Allergy (Intermediate, Verified 04/13/25 07:23) throat swelling ezetimibe Adverse Reaction (Verified 04/13/25 07:23) Muscle Pain HPI HPI Comments History of Present Illness Details History of Present Illness - The patient is a 64 year old individual presenting with evaluation and treatment of sexually transmitted infection. - The patient reported mina a sexually transmitted infection after intercourse with a partner, which was treated with antibiotics initially but did not resolve completely. - The patient experienced burning sensation during urination, which initially improved but recurred, prompting multiple visits for treatment. - There was no associated fever, rash, or significant pain apart from the burning sensation. - The patient was previously treated with antibiotics but symptoms persisted. - The patient has no known allergies to antibiotics except for a reaction to sulfa-based medications. - He rashes, fever, chills, chest pain, SOB, blood in the urine, or discharge. - He is not sexually active at this time and has not had intercourse with the previous partner since he was diagnosed. Physical Exam General: Cooperative, healthy appearing, comfortable, no acute distress and well developed Orientation: Patient oriented x3 Respiratory: Normal respiratory effort and able to speak in complete sentences. Clear to auscultation bilaterally Cardiovascular: Regular rate and rhythm. Normal S1 and S2. GI: Normal to inspection. Soft to palpation and nontender. Negative CVA tenderness noted. Skin: No rashes or lesions noted Patient was informed and verbally consented to the use of an ambient scribe for clinic note documentation during this visit. [facility] Medical History (Updated 03/31/25 @ 09:06 by Samantha Murray PA-C) Bone lesion Vocal cord nodule Thyroid nodule Mild ascending aorta dilatation Epididymal cyst COPD (chronic obstructive pulmonary disease) Thyroid disease Left testicular pain Dyslipidemia Surgical History (Updated 11/27/24 @ 14:12 by Kodi Be [facility]) H/O partial thyroidectomy History of repair of ACL H/O colonoscopy H/O hemorrhoidectomy History of nasal septoplasty Hx of tonsillectomy Family History Father Hypertension Stroke Mother No problems noted. 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 Cognitive needs: Yes (cane) Hearing needs: No Vision needs: Yes (glasses) Review of Systems Const All systems reviewed & are unremarkable except as noted in HPI and below Physical Exam Vital Signs: Last Vital Signs Pulse 98 04/13/25 07:22 BP 132/76 04/13/25 07:22 Pulse Ox 96 04/13/25 07:22 Oxygen Delivery Method Room Air 04/13/25 07:22 BMI result Body Mass Index 34.2 Office Meds ceftriaxone 500 mg solution for injection Performing Provider: Lucero William PA-C Performing Location: [facility] Administered by: Connie Sequeira RN on 04/13/25 08:10 Dose Route Admin Location Dispensed Lot Number Expiration Date [facility] Economic Consultant 500 mg IM left gluteal 500 mg [id number] 05/20/25 0349-3005-06 HOSPIRA/PFIZER Total Dispensed Waste 500 mg 0 % Comments: Reconstituted with 1ml xylocaine 1% Lot [id number] Exp [id number] Results AMB Urinalysis, Automated UA Leukoctes 0 Nikko/uL Last Edit by Dorie Hummel CMA on 04/13/25 08:05 UA Nitrite Negative Last Edit by Dorie Hummel CMA on 04/13/25 08:05 UA Urobilinogen 0.2 mg/dL Last Edit by Dorie Hummel CMA on 04/13/25 08:05 UA Protein 0 mg/dL Last Edit by Dorie Hummel CMA on 04/13/25 08:05 UA pH 6.0 Last Edit by Dorie Hummel CMA on 04/13/25 08:05 UA Blood 0 Morales/uL Last Edit by Dorie Hummel CMA on 04/13/25 08:05 UA Specific Plains 1.010 Last Edit by Dorie Hummel CMA on 04/13/25 08:05 UA Ketone Negative Last Edit by Dorie Hummel CMA on 04/13/25 08:05 UA Bilirubin 0 mg/dL Last Edit by Dorie Hummel CMA on 04/13/25 08:05 UA Glucose 0 mg/dL Last Edit by Dorie Hummel CMA on 04/13/25 08:05 Results Reviewed Results Reviewed: Laboratory Last Values Urine pH (Auto) 6.0 04/13/25 08:04 Specific Plains (Auto) 1.010 04/13/25 08:04 Urine Protein (Auto) 0 mg/dL 04/13/25 08:04 Glucose (UA)(Auto) 0 mg/dL 04/13/25 08:04 Urine Ketones (Auto) Negative 04/13/25 08:04 Urine Blood (Auto) 0 Morales/uL 04/13/25 08:04 Urine Nitrite (Auto) Negative 04/13/25 08:04 Urine Bilirubin (Auto) 0 mg/dL 04/13/25 08:04 Urine Urobilinogen (Auto) 0.2 mg/dL 04/13/25 08:04 Leukocyte Esterase (Auto) 0 Nikko/uL 04/13/25 08:04 Assessment & Plan Assessment & Plan (1) STD (male): Code(s): A64 - Unspecified sexually transmitted disease Plan Most likely STD UA was negative plan - Administered ceftriaxone injection and prescribed oral antibiotics to address potential resistance to previous treatment. - Planned urine tests to rule out urinary tract infection and confirm clearance of sexually transmitted infections. - Urine analysis to confirm or rule out urinary tract infection in the office today - Azithromycin 1 gm today - will call with the results - follow up with PCP - discussed safe sex practices and treating the partner Orders: Orders AMB Urinalysis Automated Today Z13.9 - Encounter for screening, unspecified AMB Ceftriaxone Injection Today A64 - Unspecified sexually transmitted disease Medications: New azithromycin 1,000 mg orally; 4 tabs 0RF 1 day Coding Level of Care Code Est Pt Level 3 (31751) Diagnoses STD (male) A64
== END 2025-04-13 08:32 | disposition home or self-care (01) ==
PROVIDERS: PCP Nurse Practitioner Family; Visit Provider Physician Assistant Medical
DX: A64 Unspecified sexually transmitted disease (principal); Z13.9 Encounter for screening, unspecified

== ENCOUNTER 2025-04-13 07:11 | Outpatient (REF) | payer OTHER, SELFPAY ==
[2025-04-13 12:23] LABS: CT PCR Urine DETECTED (Not Detect.); NG PCR Urine NOT DETECTED (Not Detect.)
== END 2025-04-13 07:12 | disposition home or self-care (01) ==
LOC: HO.LNP 07:11
PROVIDERS: Physician Assistant; PCP Nurse Practitioner Family; Visit Provider Physician Assistant Medical
DX: Z20.2 Contact with and (suspected) exposure to infections with a predominantly sexual mode of transmission (principal); A74.9 Chlamydial infection, unspecified
CPT/HCPCS: 81003; 87491; 87591; 96372; J0696

== ENCOUNTER 2025-04-23 08:11 | Outpatient (REF) | payer OTHER, SELFPAY ==
--- OUTSIDE RECORDS SUMMARY | 2016-02-13 23:00 | XMS_ITS | Encounter Summary ---
Author Organization [facility] Address [address] [facility] [address] [place] [address] Phone Care Team Providers Care Turkey Roll Maker Name Role Phone Unavailable Primary Care Provider Unavailabl e Reason for Visit * MRI/CAT Scan - Closed Specialty Diagnoses / Procedures Referred By Contac t Referred To Contact Procedures CT Neck Outside (No Interpretation) Rodri Peña MD [address] [place] [address] Phone: tel: fax: mailto:[email or web address] Referral ID Status Reason Start Date Expiration Date Visits Re quested Visits Authorized [id number] Closed 01/08/2017 01/08/2018 1 1 Encounter Details Date Type Department Care Team (Late st Contact Info) Description 02/14/2016 Hospital Encounter [facility] [address] [place] [address] Rodri Peña MD [address] [place] [phone] [email or web address] Social History Tobacco Use Types Packs/Day Years [...] (No Interpretation) (02/14/2016 12:00 AM EDT) Narrative [facility] [place] [place] - 01/08/2017 10:27 AM EDT This study is for PACS storage only and not for interpretation. us Rodri Peña MD IMG OUTSIDE IMAGING W/OUT INT ERPRETATION Final Result [facility] documented in this encounter Visit Diagnoses Not on filedocumented in this encounter Additional Source Comments The information contained in this document represents components of the legal health record. It is not the complete legal health record.[facility]
--- OUTSIDE RECORDS SUMMARY | 2016-02-13 23:15 | XMS_ITS | Encounter Summary ---
Author Organization [facility] Address [address] [facility] [address] [place] [address] Phone Care Team Providers Care Intake Worker Name Role Phone Unavailable Primary Care Provider Unavailabl e Reason for Visit * MRI/CAT Scan - Closed Specialty Diagnoses / Procedures Referred By Contac t Referred To Contact Procedures CT Neck Outside (No Interpretation) Rodri Peña MD [address] [place] [address] Phone: tel: fax: mailto:[email or web address] Referral ID Status Reason Start Date Expiration Date Visits Re quested Visits Authorized [id number] Closed 01/08/2017 01/08/2018 1 1 Encounter Details Date Type Department Care Team (Late st Contact Info) Description 02/14/2016 12:15 AM EDT Hospital Encounter [facility] [address] [place] [address] Rodri Peña MD [address] [place] [phone] [email or web address] Social History Tobacco Use Types Packs/Day Years [...] (No Interpretation) (02/14/2016 12:15 AM EDT) Narrative [facility] [place] - 01/08/2017 10:28 AM EDT This study is for PACS storage only and not for interpretation. us Rodri Peña MD IMG OUTSIDE IMAGING W/OUT INT ERPRETATION Final Result [facility] documented in this encounter Visit Diagnoses Not on filedocumented in this encounter Additional Source Comments The information contained in this document represents components of the legal health record. It is not the complete legal health record.[facility]
--- OUTSIDE RECORDS SUMMARY | 2025-04-23 08:22 | XMS_ITS | Encounter Summary ---
Author Organization [facility] Address [address] [place] [address] [place] [address] Phone Care Team Providers Care Missing Persons Investigator Name Role Phone Kareem Esquivel MD Primary Care Provider [phone] Kareem Esquivel MD Unavailable [phone] Kareem Esquivel MD Unavailable [phone] Encounter Details Date Type Department Care Team (Late st Contact Info) Description 06/29/2017 Procedure Pass [facility], Ct Scan - [address] [address] Social History Tobacco Use Types Packs/Day Years [...] on filedocumented in this encounter Care Teams Missing Persons Investigator Relationship Specialty Start Date End Date Kareem Esquivel MD [email or web address] PCP - General Family Medicine 12/13/16 Kareem Esquivel MD Referring Physician 12/26/16 Kareem Esquivel MD [address] [place] [address] [email or web address] Insurance Assigned Provider 08/18/17 04/26/19 documented as of this encounter Additional Source Comments The information contained in this document represents components of the legal health record. It is not the complete legal health record.[facility]
--- OUTSIDE RECORDS SUMMARY | 2025-04-23 08:23 | XMS_ITS | Encounter Summary ---
Author Organization [facility] Address [address] [place] [address] [place] [address] Phone Care Team Providers Care Event Marketing Intern Name Role Phone Kareem Esquivel MD Primary Care Provider [phone] Kareem Esquivel MD Unavailable [phone] Kareem Esquivel MD Unavailable [phone] Encounter Details Date Type Department Care Team (Late st Contact Info) Description 01/08/2017 Procedure Pass [facility] OUTSIDE [address] [place] [address] Social History Tobacco Use Types Packs/Day Years [...] on filedocumented in this encounter Care Teams Event Marketing Intern Relationship Specialty Start Date End Date Kareem Esquivel MD PCP - General Family Medicine 12/13/16 Kareem Esquivel MD Referring Physician 12/26/16 Kareem Esquivel MD [address] [place] [address] [email or web address] Insurance Assigned Provider 08/18/17 04/26/19 documented as of this encounter Additional Source Comments The information contained in this document represents components of the legal health record. It is not the complete legal health record.[facility]
--- OUTSIDE RECORDS SUMMARY | 2025-04-23 08:23 | XMS_ITS | Encounter Summary ---
Author Organization [facility] Address [address] [place] [address] Phone Care Team Providers Care It Service Continuity Supervisor Name Role Phone Kareem Esquivel MD Primary Care Provider [phone] Kareem Esquivel MD Unavailable [phone] Kareem Esquivel MD Unavailable [phone] Encounter Details Date Type Department Care Team (Late st Contact Info) Description 04/04/2017 Ancillary Orders [facility] [address] [place] [address] 3rd Floor, [address] [place] [address] Kareem Esquivel MD [address] [place], [place] [phone] [email or web address] Aortic root dilatation Social History Tobacco Use [...] documented in this encounter Care Teams It Service Continuity Supervisor Relationship Specialty Start Date End Date Kareem Esquivel MD [email or web address] PCP - General Family Medicine 12/13/16 Kareem Esquivel MD [email or web address] Referring Physician 12/26/16 Kareem Esquivel MD [address] [place] [address] [email or web address] Insurance Assigned Provider 08/18/17 04/26/19 documented as of this encounter Additional Source Comments The information contained in this document represents components of the legal health record. It is not the complete legal health record.[facility]
--- OUTSIDE RECORDS SUMMARY | 2025-04-23 08:23 | XMS_ITS | Encounter Summary ---
Author Organization [facility] Address [address] [place] [address] [place] [address] Phone Care Team Providers Care Oil Well Directional Surveyor Name Role Phone Kareem Esquivel MD Primary Care Provider [phone] Kareem Esquivel MD Unavailable [phone] Kareem Esquivel MD Unavailable [phone] Encounter Details Date Type Department Care Team (Late st Contact Info) Description 04/25/2018 Ancillary Orders Virtual Department [address] [place] [address] Kareem Esquivel MD [address] [place] [address] [email or web address] Solitary pulmonary nodule Social History Tobacco [...] nodule documented in this encounter Care Teams Oil Well Directional Surveyor Relationship Specialty Start Date End Date Kareem Esquivel MD PCP - General Family Medicine 12/13/16 Kareem Esquivel MD [email or web address] Referring Physician 12/26/16 Kareem Esquivel MD [address] [place] [address] [email or web address] Insurance Assigned Provider 08/18/17 04/26/19 documented as of this encounter Additional Source Comments The information contained in this document represents components of the legal health record. It is not the complete legal health record.[facility]
--- OUTSIDE RECORDS SUMMARY | 2025-04-23 08:23 | XMS_ITS | Encounter Summary ---
Author Organization [facility] Address [address] [place] [address] Phone Care Team Providers Care Orchestra Musician Name Role Phone Kareem Esquivel MD Primary Care Provider [phone] Kareem Esquivel MD Unavailable [phone] Kareem Esquivel MD Unavailable [phone] Encounter Details Date Type Department Care Team (Late st Contact Info) Description 01/08/2017 Procedure Pass [facility] [address] [place] [address] Social History Tobacco Use Types Packs/Day Years [...] on filedocumented in this encounter Care Teams Orchestra Musician Relationship Specialty Start Date End Date Kareem Esquivel MD PCP - General Family Medicine 12/13/16 Kareem Esquivel MD [email or web address] Referring Physician 12/26/16 Kareem Esquivel MD [address] [place] [address] [email or web address] Insurance Assigned Provider 08/18/17 04/26/19 documented as of this encounter Additional Source Comments The information contained in this document represents components of the legal health record. It is not the complete legal health record.[facility]
--- OUTSIDE RECORDS SUMMARY | 2025-04-23 08:23 | XMS_ITS | Encounter Summary ---
Author Organization [facility] Address [address] [place] [address] Phone Care Team Providers Care Landfill Gas Collection System Operator Name Role Phone Kareem Esquivel MD Primary Care Provider Kareem Esquivel MD Unavailable [phone] Kareem Esquivel MD Unavailable [phone] Encounter Details Date Type Department Care Team (Late st Contact Info) Description 01/08/2017 Ancillary Orders [facility] [address] [facility], 7th [address], [address] [place] [address] MD, FACS [address] [place] [phone] [email or web address] Social History Tobacco Use Types [...] on filedocumented in this encounter Care Teams Landfill Gas Collection System Operator Relationship Specialty Start Date End Date Kareem Esquivel MD [email or web address] PCP - General Family Medicine 12/13/16 Kareem Esquivel MD [email or web address] Referring Physician 12/26/16 Kareem Esquivel MD [address] [place] [address] [email or web address] Insurance Assigned Provider 08/18/17 04/26/19 documented as of this encounter Additional Source Comments The information contained in this document represents components of the legal health record. It is not the complete legal health record.[facility]
--- OUTSIDE RECORDS SUMMARY | 2025-04-23 08:23 | XMS_ITS | Encounter Summary ---
Author Organization [facility] Address [address] [facility] [address] [place] [address] Phone Care Team Providers Care Scudding Inspector Name Role Phone Kareem Esquivel MD Primary Care Provider [phone] Kareem Esquivel MD Unavailable [phone] Kareem Esquivel MD Unavailable [phone] Encounter Details Date Type Department Care Team (Late st Contact Info) Description 01/08/2017 Procedure Pass [facility] [address] [place] [address] Social History Tobacco Use Types Packs/Day Years [...] on filedocumented in this encounter Care Teams Scudding Inspector Relationship Specialty Start Date End Date Kareem Esquivel MD PCP - General Family Medicine 12/13/16 Kareem Esquivel MD [email or web address] Referring Physician 12/26/16 Kareem Esquivel MD [address] [place] [address] [email or web address] Insurance Assigned Provider 08/18/17 04/26/19 documented as of this encounter Additional Source Comments The information contained in this document represents components of the legal health record. It is not the complete legal health record.[facility]
--- OUTSIDE RECORDS SUMMARY | 2025-04-23 08:23 | XMS_ITS | Clinical Summary ---
Author Organization [facility] Address [address] [facility] [address] [place] [address] Phone Care Team Providers Care Firebrick And Refractory Tile Repairer Name Role Phone Kareem Esquivel MD Primary Care Provider [phone] Kareem Esquivel MD Unavailable [phone] Allergies No known active allergies Medications LEVOTHYROXINE [...] Recently Relevant to Health Maintenance Care Teams Firebrick And Refractory Tile Repairer Relationship Specialty Start Date End Date Kareem Esquivel MD [email or web address] PCP - General Family Medicine 12/13/16 Kareem Esquivel MD [email or web address] Referring Physician 12/26/16 Additional Source Comments The information contained in this document represents components of the legal health record. It is not the complete legal health record.[facility]
--- OUTSIDE RECORDS SUMMARY | 2025-04-23 08:23 | XMS_ITS | Encounter Summary ---
Author Organization [facility] Address [address] [place] [address] [place] [address] Phone Care Team Providers Care Outside Collector Name Role Phone Kareem Esquivel MD Primary Care Provider [phone] Kareem Esquivel MD Unavailable [phone] Kareem Esquivel MD Unavailable [phone] Encounter Details Date Type Department Care Team (Late st Contact Info) Description 01/08/2017 Procedure Pass [facility] [address] [place] [address] Social History Tobacco Use Types Packs/Day Years [...] on filedocumented in this encounter Care Teams Outside Collector Relationship Specialty Start Date End Date Kareem Esquivel MD PCP - General Family Medicine 12/13/16 Kareem Esquivel MD Referring Physician 12/26/16 Kareem Esquivel MD [address] [place] [address] [email or web address] Insurance Assigned Provider 08/18/17 04/26/19 documented as of this encounter Additional Source Comments The information contained in this document represents components of the legal health record. It is not the complete legal health record.[facility]
--- OUTSIDE RECORDS SUMMARY | 2025-04-23 08:23 | XMS_ITS | Encounter Summary ---
Author Organization [facility] Address [address] [facility] [address] [place] [address] Phone Care Team Providers Care Partner Marketing Manager Name Role Phone Kareem Esquivel MD Primary Care Provider Kareem Esquivel MD Unavailable [phone] Kareem Esquivel MD Unavailable [phone] Encounter Details Date Type Department Care Team (Late st Contact Info) Description 09/27/2017 Transcribe [facility] [address] [place] [address] [address]rd Floor, [address] [place] [address] Kareem Esquivel MD [address] [place], [place] [id number] [email or web address] Chest pain, unspecified type (Primary Dx) Social [...] type documented in this encounter Care Teams Partner Marketing Manager Relationship Specialty Start Date End Date Kareem Esquivel MD [email or web address] PCP - General Family Medicine 12/13/16 Kareem Esquivel MD [email or web address] Referring Physician 12/26/16 Kareem Esquivel MD [address] [place] [address] [email or web address] Insurance Assigned Provider 08/18/17 04/26/19 documented as of this encounter Additional Source Comments The information contained in this document represents components of the legal health record. It is not the complete legal health record.[facility]
--- OUTSIDE RECORDS SUMMARY | 2025-04-23 08:23 | XMS_ITS | Encounter Summary ---
Author Organization [facility] Address [address] [facility] [address] [place] [address] Phone Care Team Providers Care Book Sewer Name Role Phone Kareem Esquivel MD Primary Care Provider [phone] Kareem Esquivel MD Unavailable [phone] Kareem Esquivel MD Unavailable [phone] Reason for Referral * MRI/CAT Scan - Closed Specialty Diagnoses / Procedures Referred By Ritchie johns Referred To Contact Radiology Diagnoses Solitary pulmonary nodule Procedures CT Chest Kareem Esquivel MD Phone: tel: fax: mailto:[email or web address] Referral ID Status Reason Start Date Expiration Date Visits Re quested Visits Authorized [id number] Closed 06/25/2017 09/23/2017 1 1 Encounter Details Date Type Department Care Team (Late st Contact Info) Description 06/29/2017 Ancillary Orders Virtual Department [address] [place] [address] Kareem Esquivel MD [address] [place] [address] [email or web address] Solitary pulmonary nodule Social History Tobacco Use [...] Cholelithiasis. TOTAL CTDIvol: 10.40 mGy POS - [id number] Edited by: Sharon Tee on 07/09/2017 11:10 [...] new compression deformities. Stable hemangioma within the L70yssissmba body. No new destructive bone lesion. IMPRESSION: Right pulmonary nodules measuring up to 7 mm are stable as far back 06/14/2016. One of the nodules has ground-glass appearance. Recommendfollow-up CT in 12 months. Cholelithiasis. TOTAL CTDIvol: 10.40 mGy POS - [id number] Edited by: Sharon Tee on 07/09/2017 11:10 AM Kareem Esquivel MD IMG CT CHEST Final Resul t documented in this encounter Visit Diagnoses Diagnosis Solitary pulmonary nodule Solitary pulmonary nodule documented in this encounter Care Teams Book Sewer Relationship Specialty Start Date End Date Kareem Esquivel MD PCP - General Family Medicine 12/13/16 Kareem Esquivel MD Referring Physician 12/26/16 Kareem Esquivel MD [address] [place] [address] [email or web address] Insurance Assigned Provider 08/18/17 04/26/19 documented as of this encounter Additional Source Comments The information contained in this document represents components of the legal health record. It is not the complete legal health record.[facility]
--- OUTSIDE RECORDS SUMMARY | 2025-04-23 08:23 | XMS_ITS | Encounter Summary ---
Author Organization [facility] Address [address] [facility] [address] [place] [address] Phone Care Team Providers Care Technology Director Name Role Phone Kareem Esquivel MD Primary Care Provider [phone] Kareem Esquivel MD Unavailable [phone] Kareem Esquivel MD Unavailable [phone] Encounter Details Date Type Department Care Team (Late st Contact Info) Description 01/08/2017 Procedure Pass [facility] Imaging [address] [place] [address] Social History Tobacco Use Types Packs/Day Years [...] on filedocumented in this encounter Care Teams Technology Director Relationship Specialty Start Date End Date Kareem Esquivel MD PCP - General Family Medicine 12/13/16 Kareem Esquivel MD [email or web address] Referring Physician 12/26/16 Kareem Esquivel MD [address] [place] [address] [email or web address] Insurance Assigned Provider 08/18/17 04/26/19 documented as of this encounter Additional Source Comments The information contained in this document represents components of the legal health record. It is not the complete legal health record.[facility]
--- OUTSIDE RECORDS SUMMARY | 2025-04-23 08:23 | XMS_ITS | Encounter Summary ---
Author Organization [facility] Address [address] [facility] [address] [place] [address] Phone Care Team Providers Care Comber Operator Name Role Phone Kareem Esquivel MD Primary Care Provider [phone] Kareem Esquivel MD Unavailable [phone] Kareem Esquivel MD Unavailable [phone] Reason for Referral * MRI/CAT Scan - Closed Specialty Diagnoses / Procedures Referred By Ritchei johns Referred To Contact Procedures CT Neck Outside (No Interpretation) Brendan Lane MD, FACS Phone: tel: fax: mailto:[email or web address] Referral ID Status Reason Start Date Expiration Date Visits Re quested Visits Authorized [id number] Closed 01/08/2017 01/08/2018 1 1 * MRI/CAT Scan - Closed Specialty Diagnoses / Procedures Referred By Ritchie johns Referred To Contact Procedures MRI Neck Outside (No Interpretation) Brendan Lane MD, FACS Phone: tel: fax: mailto:[email or web address] Referral ID Status Reason Start Date Expiration Date Visits Re quested Visits Authorized [id number] Closed 01/08/2017 01/08/2018 1 1 Encounter Details Date Type Department Care Team (Late st Contact Info) Description 01/08/2017 Ancillary Orders [facility] OUTSIDE [address] [place] [address] MD, FACS [address] [place] [address] [email or web address] Social History Tobacco Use Types [...] W/OUT INTERPRETATION Final Result Performing Organization Address [facility] de Phone Number [facility] INTERFAC[facility] * MRI Neck Outside (No Interpretation) (01/02/2017 12:30 AM EDT) Narrative [facility] INTERFAC[facility] - 01/08/2017 3:38 PM EDT This study is for PACS storage only and not for interpretation. us Brendan Lane MD, FACS IMG OUTSIDE IMAGING W/OUT INTERPRETATION Final Result Performing Organization Address [facility] de Phone Number [facility] INTERFACES documented in this encounter Visit Diagnoses Not on filedocumented in this encounter Care Teams Comber Operator Relationship Specialty Start Date End Date Kareem Esquivel MD [email or web address] PCP - General Family Medicine 12/13/16 Kareem Esquivel MD [email or web address] Referring Physician 12/26/16 Kareem Esquivel MD [address] [place] [address] [email or web address] Insurance Assigned Provider 08/18/17 04/26/19 documented as of this encounter Additional Source Comments The information contained in this document represents components of the legal health record. It is not the complete legal health record.[facility]
--- OUTSIDE RECORDS SUMMARY | 2025-04-23 08:23 | XMS_ITS | Encounter Summary ---
Author Organization [facility] Address [address] [facility] [address] [place] [address] Phone Care Team Providers Care Stock Control Supervisor Name Role Phone Kareme Esquivel MD Primary Care Provider [phone] Kareem Esquivel MD Unavailable [phone] Kareem Esquivel MD Unavailable [phone] Reason for Referral * MRI/CAT Scan - Closed Specialty Diagnoses / Procedures Referred By Ritchie johns Referred To Contact Radiology Diagnoses Multiple nodules of lung Procedures CT Chest Kareem Esquivel MD Phone: tel: fax: mailto:[email or web address] Referral ID Status Reason Start Date Expiration Date Visits Re quested Visits Authorized [id number] Closed 07/09/2018 07/09/2019 1 1 Encounter Details Date Type Department Care Team (Late st Contact Info) Description 07/09/2018 Ancillary Orders Virtual Department [address] [place] [address] Kareem Esquivel MD [address] [place] [address] [email or web address] Multiple nodules of lung Social History Tobacco [...] lung documented in this encounter Care Teams Stock Control Supervisor Relationship Specialty Start Date End Date Kareem Esquivel MD [email or web address] PCP - General Family Medicine 12/13/16 Kareem Esquivel MD Referring Physician 12/26/16 Kareem Esquivel MD [address] [place] [address] Insurance Assigned Provider 08/18/17 04/26/19 documented as of this encounter Additional Source Comments The information contained in this document represents components of the legal health record. It is not the complete legal health record.[facility]
--- OUTSIDE RECORDS SUMMARY | 2025-04-23 08:23 | XMS_ITS | Clinical Summary ---
Author Organization [facility] Prior to 10/18/24 Address [address] [place] [address] Care Team Providers Care Core Stripper Name Role Phone Kodi Be Primary Care Provider [phone] Allergies No known active allergies Medications Medication [...] age to complete this topic Care Teams Core Stripper Relationship Specialty Start Date End Date Kodi Be [address] [place] [address] PCP - General Family Medicine 08/26/20
--- OUTSIDE RECORDS SUMMARY | 2025-04-23 08:23 | XMS_ITS | Encounter Summary ---
Author Organization [facility] Address [address] [facility] [address] [place] [address] Phone Care Team Providers Care Billet Grinder Name Role Phone Kareem Esquivel MD Primary Care Provider [phone] Kareem Esquivel MD Unavailable [phone] Kareem Esquivel MD Unavailable [phone] Encounter Details Date Type Department Care Team (Late st Contact Info) Description 01/08/2017 Procedure Pass [facility] Imaging [address] [place] [address] Social History Tobacco Use Types Packs/Day Years [...] on filedocumented in this encounter Care Teams Billet Grinder Relationship Specialty Start Date End Date Kareem Esquivel MD PCP - General Family Medicine 12/13/16 Kareem Esquivel MD Referring Physician 12/26/16 Kareem Esquivel MD [address] [place] [address] [email or web address] Insurance Assigned Provider 08/18/17 04/26/19 documented as of this encounter Additional Source Comments The information contained in this document represents components of the legal health record. It is not the complete legal health record.[facility]
[2025-04-23 10:28] LABS: MANUAL DIFF FLAG NO
[2025-04-23 10:35] LABS: Hematocrit 42.4 % (42.0-52.0); Hemoglobin 14.2 g/dl (14.0-18.0); Imm Gran Abs Auto 0.04 X10*3/uL (0.00-0.03); Imm Gran Pct Auto 0.4 % (0.0-0.4); Lymphocytes Absolute Auto 1.2 X10*3/uL (1.2-4.9); Mean Corpuscular HGB Conc 33.5 g/dl (31.0-36.0); Mean Corpuscular Hemoglobin 30.1 pg (27.0-33.0); Mean Corpuscular Volume 89.8 fL (80.0-98.0); NRBC Abs Auto 0.000 X10*3/uL (0.0-0.012); NRBC Pct Auto 0.0 /100WBC (0.0-0.2); Platelet Count 301 X10*3/uL (160-400); Red Blood Count 4.72 X10*6/uL (4.60-5.80); White Blood Count 9.4 X10*3/uL (4.8-10.8)
[2025-04-23 10:40] LABS: Appearance Urine Clear; Glucose Urine UA Negative (Negative); PH 7.5 (5.0-9.0); Specific Gravity - Urine 1.015 (1.005-1.025)
[2025-04-23 11:22] LABS: PSA,Total (Free>4and<10) 4.70 ng/mL (0.00-4.00)
[2025-04-23 11:56] LABS: Alanine Aminotransferase 30 U/L (0-40); Albumin Level 4.3 g/dL (3.5-5.0); Alkaline Phosphatase 66 U/L (39-117); Anion Gap 11 (12-20); Aspartate Amino Transferase 24 U/L (5-37); Blood Urea Nitrogen 12 mg/dL (9-16); Calcium 9.7 mg/dL (8.4-10.2); Carbon Dioxide 23 mmol/L (22-29); Chloride 107 mmol/L (96-108); Cholesterol 189 mg/dL (<200); Estimated Glomerular Filt Rate > 60; HDL Cholesterol 37 mg/dL (>40); Potassium 3.3 mmol/L (3.3-5.1); Sodium 138 mmol/L (135-145); Total Protein 7.3 g/dL (6.5-8.0); Triglycerides 78 mg/dL (<150)
[2025-04-23 13:46] LABS: CT PCR Urine DETECTED (Not Detect.); NG PCR Urine NOT DETECTED (Not Detect.)
[2025-04-24 13:13] LABS: Free Prostate Spec Ag 0.5 ng/mL; Percent Free Prostate Spec Ag 11 % (calc) (>25)
== END 2025-04-23 08:12 | disposition home or self-care (01) ==
LOC: HO.HMGCLDS 08:11
PROVIDERS: Physician Assistant Medical; PCP Nurse Practitioner Family; Visit Provider Urology
DX: A64 Unspecified sexually transmitted disease (principal); N34.2 Other urethritis; Z79.899 Other long term (current) drug therapy; Z12.5 Encounter for screening for malignant neoplasm of prostate; R97.20 Elevated prostate specific antigen [PSA]; I10 Essential (primary) hypertension
CPT/HCPCS: 36415; 80053; 80061; 81003; 84153; 84154; 84443; 85025; 87491; 87591; 96372; J0696

== ENCOUNTER 2025-04-23 08:44 | Outpatient (AMB) | payer OTHER, SELFPAY ==
--- NOTE | 2025-04-23 08:47 | AM.OFFWIN_ITS ---
Intake Vital Signs 04/23/25 08:48 Height 5 ft 11 in Weight 245 lb BMI 34.2 BP 110/66 Blood Pressure Location Lt brachial Position Sitting Pulse 107 H Pulse Source Pulse Oximeter Temp 98.1 F Temp Source Oral Pulse Oximetry (%) 97 Oxygen Delivery Method Room Air Intake Visit Reasons: EP-std Intake Note: pt presents with non resolving burning at the head of his penis and also when voiding Patient Tobacco Use Status: Former Tobacco user Allergies methocarbamol (From Robaxin) Allergy (Intermediate, Verified 04/23/25 08:53) throat swells. Sulfa (Sulfonamide Antibiotics) Allergy (Intermediate, Verified 04/23/25 08:53) throat swelling ezetimibe Adverse Reaction (Verified 04/23/25 08:53) Muscle Pain Do you need a note to return to daycare/school/sports/work: No HPI HPI Comments History of Present Illness Details History of Present Illness - The patient is a 64-year-old male pres enting with persistent dysuria due to a chlamydia infection. - His symptoms of burning on urination t emporarily resolved for a few days after his last treatment but have since returned. - He was initially treated with doxycycl ine 100 mg for 7 days, followed by a second course of treatment with a ceftriaxone injection and azithromycin. - The patient reports that the previous ceftriaxone injection may not have been fully administered. - He denies any rashes, hematuria, urina ry discharge, abdominal pain, or fevers. - The patient states he has been celibat e since the initial diagnosis. Physical Exam General: Cooperative, healthy appearing, comfortable, no acute distress and well developed Orientation: Patient oriented x3 Respiratory: Normal respiratory effort and able to speak in complete sentences. Clear to auscultation bilaterally Cardiovascular: Regular rate and rhythm. Normal S1 and S2 GI: Normal to inspection. Soft to palpation and nontender. Negative CVA tender ness noted. Skin: No rashes or lesions noted Patient was informed and verbally consented to the use of an ambient scribe for clinic note documentation during this visit. [facility] Medical History (Updated 03/31/25 @ 09:06 by Samantha Murray PA-C) Bone lesion Vocal cord nodule Thyroid nodule Mild ascending aorta dilatation Epididymal cyst COPD (chronic obstructive pulmonary disease) Thyroid disease Left testicular pain Dyslipidemia Surgical History (Updated 11/27/24 @ 14:12 by Kodi Be [facility]) H/O partial thyroidectomy History of repair of ACL H/O colonoscopy H/O hemorrhoidectomy History of nasal septoplasty Hx of tonsillectomy Family History Father Hypertension Stroke Mother No problems noted. 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 Administered by: Connie Sequeira RN on 04/23/25 09:55 Dose Route Admin Location Dispensed Lot Number Expiration Date NDC Blasting Helper 500 mg IM left gluteal 500 mg [id number] 05/20/25 0693-3878-00 [facility]OS[facility] /PFIZER Total Dispensed Waste 500 mg 0 % Comments: Xylocaine 1% used as diluent Lot [id number] Exp [id number] Assessment & Plan Assessment & Plan (1) Sexually transmitted infection in male: Code(s): A64 - Unspecified sexually transmitted disease (2) Urethritis: Code(s): N34.2 - Other urethritis Plan Most likely Chlamydia Infection plan - The patient has persistent symptoms of urethritis despite treatment with doxycycline and subsequently azithromycin - To address this, a third-line treatment will be initiated. - The patient will be administered another ceftriaxone injection to empirically cover for gonorrhea, which is standard practice for co-treatment. - A prescription for Levaquin (levofloxacin) 500 mg once daily for seven days will be sent to his pharmacy. - will call with the results - advised safe sex practices - has a f/u with urology - needs to f/u with PCP Orders: Orders AMB Ceftriaxone Injection Today A64 - Unspecified sexually transmitted disease CT NG by PCR Urine Today A64 - Unspecified sexually transmitted disease Medications: New levofloxacin 500 mg PO DAILY 7 tabs 0RF 7 days Coding Level of Care Code Est Pt Level 3 (37819) Diagnoses Sexually transmitted infection in male A64 Urethritis N34.2
[2025-04-23 08:48] VITALS: BP 110/66; PULSE 107; TEMP 36.7; O2SAT 97; BMI 34.2
== END 2025-04-23 10:13 | disposition home or self-care (01) ==
PROVIDERS: PCP Nurse Practitioner Family; Visit Provider Physician Assistant Medical
DX: A64 Unspecified sexually transmitted disease (principal); N34.2 Other urethritis

== ENCOUNTER 2025-05-05 08:02 | Outpatient (REF) | payer OTHER, SELFPAY ==
[2025-05-05 12:32] LABS: CT PCR Urine NOT DETECTED (Not Detect.); NG PCR Urine NOT DETECTED (Not Detect.)
== END 2025-05-05 08:03 | disposition home or self-care (01) ==
LOC: HO.HMGCLDS 08:02
PROVIDERS: PCP Nurse Practitioner Family; Visit Provider Nurse Practitioner Family
DX: A74.9 Chlamydial infection, unspecified (principal); R73.03 Prediabetes
CPT/HCPCS: 83036; 87491; 87591

== ENCOUNTER 2025-05-05 08:02 | Outpatient (AMB) | payer OTHER, SELFPAY ==
--- OUTSIDE RECORDS SUMMARY | 2016-02-13 23:00 | XMS_ITS | Encounter Summary ---
Author Organization [facility] Address [address] [facility] [address] [place] [address] Phone Care Team Providers Care Arboriculturist Name Role Phone Unavailable Primary Care Provider Unavailabl e Reason for Visit * MRI/CAT Scan - Closed Specialty Diagnoses / Procedures Referred By Contac t Referred To Contact Procedures CT Neck Outside (No Interpretation) Rodri Peña MD [address] [place] [address] Phone: tel: fax: mailto:[email or web address] Referral ID Status Reason Start Date Expiration Date Visits Re quested Visits Authorized [id number] Closed 01/08/2017 01/08/2018 1 1 Encounter Details Date Type Department Care Team (Late st Contact Info) Description 02/14/2016 Hospital Encounter [facility] [address] [place] [address] Rodri Peña MD [address] [place] [phone] [email or web address], located [facility] [...] (No Interpretation) (02/14/2016 12:00 AM EDT) Narrative [facility] INTERFACES - 01/08/2017 10:27 AM EDT This study is for PACS storage only and not for interpretation. us Rodri Peña MD IMG OUTSIDE IMAGING W/OUT INT ERPRETATION Final Result [facility] INTERFACES documented in this encounter Visit Diagnoses Not on filedocumented in this encounter Additional Source Comments The information contained in this document represents components of the legal health record. It is not the complete legal health record.[facility]
--- OUTSIDE RECORDS SUMMARY | 2016-02-13 23:15 | XMS_ITS | Encounter Summary ---
Author Organization [facility] Address [address] [facility] [address] [place] [address] Phone Care Team Providers Care Enrobing Machine Corder Name Role Phone Unavailable Primary Care Provider Unavailabl e Reason for Visit * MRI/CAT Scan - Closed Specialty Diagnoses / Procedures Referred By Contac t Referred To Contact Procedures CT Neck Outside (No Interpretation) Rodri Peña MD [address] [place] [address] Phone: tel: fax: mailto:[email or web address] Referral ID Status Reason Start Date Expiration Date Visits Re quested Visits Authorized [id number] Closed 01/08/2017 01/08/2018 1 1 Encounter Details Date Type Department Care Team (Late st Contact Info) Description 02/14/2016 12:15 AM EDT Hospital Encounter [facility] [address] [place] [address] Rodri Peña MD [address] [place] [phone] [email or web address] Social History Tobacco Use Types Packs/Day Years [...] Interpretation) (02/14/2016 12:15 AM EDT) Narrative [facility] INTER[facility]ACES - 01/08/2017 10:28 AM EDT This study is for PACS storage only and not for interpretation. us Rodri Peña MD IMG OUTSIDE IMAGING W/OUT INT ERPRETATION Final Result [facility] documented in this encounter Visit Diagnoses Not on filedocumented in this encounter Additional Source Comments The information contained in this document represents components of the legal health record. It is not the complete legal health record.[facility]
--- OUTSIDE RECORDS SUMMARY | 2025-05-05 08:10 | XMS_ITS | Encounter Summary ---
Author Organization [facility] Address [address] [facility] [address] [place] [address] Phone Care Team Providers Care Corn Popper Name Role Phone Kareem Esquivel MD Primary Care Provider Kareem Esquivel MD Unavailable [phone] Kareem Esquivel MD Unavailable [phone] Encounter Details Date Type Department Care Team (Late st Contact Info) Description 01/08/2017 Procedure Pass [facility] Imaging [address] [place] [address] Social History Tobacco Use Types Packs/Day Years [...] on filedocumented in this encounter Care Teams Corn Popper Relationship Specialty Start Date End Date Kareem Esquivel MD PCP - General Family Medicine 12/13/16 Kareem Esquivel MD [email or web address] Referring Physician 12/26/16 Kareem Esquivel MD [address] [place] [address] [email or web address] Insurance Assigned Provider 08/18/17 04/26/19 documented as of this encounter Additional Source Comments The information contained in this document represents components of the legal health record. It is not the complete legal health record.[facility]
--- OUTSIDE RECORDS SUMMARY | 2025-05-05 08:10 | XMS_ITS | Clinical Summary ---
Author Organization [facility] Address [address] [facility] [address] [place] [address] Phone Care Team Providers Care Vocational Rehabilitation Specialist Name Role Phone Kareem Esquivel MD Primary Care Provider [phone] Kareem Esquivel MD Unavailable [phone] Allergies No known active allergies Medications LEVOTHYROXINE [...] Recently Relevant to Health Maintenance Care Teams Vocational Rehabilitation Specialist Relationship Specialty Start Date End Date Kareem Esquivel MD [email or web address] PCP - General Family Medicine 12/13/16 Kareem Esquivel MD [email or web address] Referring Physician 12/26/16 Additional Source Comments The information contained in this document represents components of the legal health record. It is not the complete legal health record.[facility]
--- OUTSIDE RECORDS SUMMARY | 2025-05-05 08:10 | XMS_ITS | Encounter Summary ---
Author Organization [facility] Address [address] [place] [address] [place] [address] Phone Care Team Providers Care Warehouse Freight Handler Name Role Phone Kareem Esquivel MD Primary Care Provider [phone] Kareem Esquivel MD Unavailable [phone] Kareem Esquivel MD Unavailable [phone] Encounter Details Date Type Department Care Team (Late st Contact Info) Description 04/25/2018 Ancillary Orders Virtual Department [address] [place] [address] Kareem Esquivel MD [address] [place] [address] [email or web address] Solitary pulmonary nodule Social History Tobacco Use [...] nodule documented in this encounter Care Teams Warehouse Freight Handler Relationship Specialty Start Date End Date Kareem Esquivel MD PCP - General Family Medicine 12/13/16 Kareem Esquivel MD [email or web address] Referring Physician 12/26/16 Kareem Esquivel MD [address] [place] [address] [email or web address] Insurance Assigned Provider 08/18/17 04/26/19 documented as of this encounter Additional Source Comments The information contained in this document represents components of the legal health record. It is not the complete legal health record.[facility]
--- OUTSIDE RECORDS SUMMARY | 2025-05-05 08:10 | XMS_ITS | Encounter Summary ---
Author Organization [facility] Address [address] [facility] [address] [place] [address] Phone Care Team Providers Care Realty Specialist Name Role Phone Kareem Esquivel MD Primary Care Provider Kareem Esquivel MD Unavailable [phone] Kareem Esquivel MD Unavailable [phone] Encounter Details Date Type Department Care Team (Late st Contact Info) Description 09/27/2017 Transcribe [facility] [address] [place] [address] 3rd Floor, [address] [place] [address] Kareem Esquivel MD [address] [place], [place] [id number] [email or web address] Chest pain, unspecified type (Primary Dx) Social [...] type documented in this encounter Care Teams Realty Specialist Relationship Specialty Start Date End Date Kareem Esquivel MD [email or web address] PCP - General Family Medicine 12/13/16 Kareem Esquivel MD [email or web address] Referring Physician 12/26/16 Kareem Esquivel MD [address] [place] [address] [email or web address] Insurance Assigned Provider 08/18/17 04/26/19 documented as of this encounter Additional Source Comments The information contained in this document represents components of the legal health record. It is not the complete legal health record.[facility]
--- OUTSIDE RECORDS SUMMARY | 2025-05-05 08:10 | XMS_ITS | Encounter Summary ---
Author Organization [facility] Address [address] [place] [address] [place] [address] Phone Care Team Providers Care Cost Report Clerk Name Role Phone Kareem Esquivel MD Primary Care Provider Kareem Esquivel MD Unavailable [phone] Kareem Esquivel MD Unavailable [phone] Encounter Details Date Type Department Care Team (Late st Contact Info) Description 06/29/2017 Procedure Pass [facility], Ct Scan - [address] [address] Social History Tobacco Use Types Packs/Day Years [...] on filedocumented in this encounter Care Teams Cost Report Clerk Relationship Specialty Start Date End Date Kareem Esquivel MD PCP - General Family Medicine 12/13/16 Kareem Esquivel MD Referring Physician 12/26/16 Kareem Esquivel MD [address] [place] [address] [email or web address] Insurance Assigned Provider 08/18/17 04/26/19 documented as of this encounter Additional Source Comments The information contained in this document represents components of the legal health record. It is not the complete legal health record.[facility]
--- OUTSIDE RECORDS SUMMARY | 2025-05-05 08:10 | XMS_ITS | Encounter Summary ---
Author Organization [facility] Address [address] [facility] [address] [place] [address] Phone Care Team Providers Care Recreation Therapy Director Name Role Phone Kareem Esquivel MD Primary Care Provider [phone] Kareem Esquivel MD Unavailable [phone] Kareem Esquivel MD Unavailable [phone] Reason for Referral * MRI/CAT Scan - Closed Specialty Diagnoses / Procedures Referred By Ritchie johns Referred To Contact Radiology Diagnoses Multiple nodules of lung Procedures CT Chest Kareem Esquivel MD Phone: tel: fax: mailto:[email or web address] Referral ID Status Reason Start Date Expiration Date Visits Re quested Visits Authorized [id number] Closed 07/09/2018 07/09/2019 1 1 Encounter Details Date Type Department Care Team (Late st Contact Info) Description 07/09/2018 Ancillary Orders Virtual Department [address] [place] [address] Kareem Esquivel MD [address] [place] [address] [email or web address] Multiple nodules of lung Social History Tobacco [...] lung documented in this encounter Care Teams Recreation Therapy Director Relationship Specialty Start Date End Date Kareem Esquivel MD [email or web address] PCP - General Family Medicine 12/13/16 Kareem Esquivel MD Referring Physician 12/26/16 Kareem Esquivel MD [address] [place] [address] Insurance Assigned Provider 08/18/17 04/26/19 documented as of this encounter Additional Source Comments The information contained in this document represents components of the legal health record. It is not the complete legal health record.[facility]
--- OUTSIDE RECORDS SUMMARY | 2025-05-05 08:10 | XMS_ITS | Encounter Summary ---
Author Organization [facility] Address [address] [facility] [address] [place] [address] Phone Care Team Providers Care Assembly Line Brazer Name Role Phone Kareem Esquivel MD Primary Care Provider [phone] Kareem Esquivel MD Unavailable [phone] Kareem Esquivel MD Unavailable [phone] Reason for Referral * MRI/CAT Scan - Closed Specialty Diagnoses / Procedures Referred By Ritchie johns Referred To Contact Procedures CT Neck Outside (No Interpretation) Brendan Lane MD, FACS Phone: tel: fax: mailto:[email or web address] Referral ID Status Reason Start Date Expiration Date Visits Re quested Visits Authorized [id number] Closed 01/08/2017 01/08/2018 1 1 * MRI/CAT Scan - Closed Specialty Diagnoses / Procedures Referred By Ritchie johns Referred To Contact Procedures MRI Neck Outside (No Interpretation) Brendan Lane MD, FACS Phone: tel: fax: mailto:[email or web address] Referral ID Status Reason Start Date Expiration Date Visits Re quested Visits Authorized [id number] Closed 01/08/2017 01/08/2018 1 1 Encounter Details Date Type Department Care Team (Late st Contact Info) Description 01/08/2017 Ancillary Orders [facility] [address] [place] [address] MD, FACS [address] [place] [address] [email or web address] Social History Tobacco Use Types [...] W/OUT INTERPRETATION Final Result Performing Organization Address [facility] de Phone Number [facility] INTERFAC[facility] * MRI Neck Outside (No Interpretation) (01/02/2017 12:30 AM EDT) Narrative [facility] INTERFAC[facility] - 01/08/2017 3:38 PM EDT This study is for PACS storage only and not for interpretation. us Brendan Lane MD, FACS IMG OUTSIDE IMAGING W/OUT INTERPRETATION Final Result Performing Organization Address [facility] de Phone Number [facility] INTERFACES documented in this encounter Visit Diagnoses Not on filedocumented in this encounter Care Teams Assembly Line Brazer Relationship Specialty Start Date End Date Kareem Esquivel MD [email or web address] PCP - General Family Medicine 12/13/16 Kareem Esquivel MD [email or web address] Referring Physician 12/26/16 Kareem Esquivel MD [address] [place] [address] [email or web address] Insurance Assigned Provider 08/18/17 04/26/19 documented as of this encounter Additional Source Comments The information contained in this document represents components of the legal health record. It is not the complete legal health record.[facility]
--- OUTSIDE RECORDS SUMMARY | 2025-05-05 08:10 | XMS_ITS | Encounter Summary ---
Author Organization [facility] Address [address] [facility] [address] [place] [address] Phone Care Team Providers Care Deputy Chief Executive Name Role Phone Kareem Esquivel MD Primary Care Provider Kareem Esquivel MD Unavailable [phone] Kareem Esquivel MD Unavailable [phone] Encounter Details Date Type Department Care Team (Late st Contact Info) Description 01/08/2017 Ancillary Orders [facility] [address] [facility], 7th Floor, [address] [place] [address] MD, FACS [address] [place] [phone] [email or web address] Social History Tobacco Use Types Packs/Day [...] on filedocumented in this encounter Care Teams Deputy Chief Executive Relationship Specialty Start Date End Date Kareem Esquivel MD [email or web address] PCP - General Family Medicine 12/13/16 Kareem Esquivel MD [email or web address] Referring Physician 12/26/16 Kareem Esquivel MD [address] [place] [address] [email or web address] Insurance Assigned Provider 08/18/17 04/26/19 documented as of this encounter Additional Source Comments The information contained in this document represents components of the legal health record. It is not the complete legal health record.[facility]
--- OUTSIDE RECORDS SUMMARY | 2025-05-05 08:10 | XMS_ITS | Encounter Summary ---
Author Organization [facility] Address [address] [facility] [address] [place] [address] Phone Care Team Providers Care Hand Hardener Name Role Phone Kareem Esquivel MD Primary Care Provider Kareem Esquivel MD Unavailable [phone] Kareem Esquivel MD Unavailable [phone] Encounter Details Date Type Department Care Team (Late st Contact Info) Description 01/08/2017 Procedure Pass [facility] [address] [place] [address] Social History Tobacco Use Types Packs/Day Years [...] on filedocumented in this encounter Care Teams Hand Hardener Relationship Specialty Start Date End Date Kareem Esquivel MD PCP - General Family Medicine 12/13/16 Kareem Esquivel MD [email or web address] Referring Physician 12/26/16 Kareem Esquivel MD [address] [place] [address] [email or web address] Insurance Assigned Provider 08/18/17 04/26/19 documented as of this encounter Additional Source Comments The information contained in this document represents components of the legal health record. It is not the complete legal health record.[facility]
--- OUTSIDE RECORDS SUMMARY | 2025-05-05 08:10 | XMS_ITS | Encounter Summary ---
Author Organization [facility] Address [address] [facility] [place] [address] Phone Care Team Providers Care Animal Nutrition Teacher Name Role Phone Kareem Esquivel MD Primary Care Provider Kareem Esquivel MD Unavailable [phone] Kareem Esquivel MD Unavailable [phone] Encounter Details Date Type Department Care Team (Late st Contact Info) Description 04/04/2017 Ancillary Orders [facility] [address] [place] [address] 3rd Floor, [address] [place] [address] Kareem Esquivel MD [address] [place], [place] [phone] [email or web address] Aortic root dilatation Social History Tobacco Use [...] rupture documented in this encounter Care Teams Animal Nutrition Teacher Relationship Specialty Start Date End Date Kareem Esquivel MD [email or web address] PCP - General Family Medicine 12/13/16 Kareem Esquivel MD [email or web address] Referring Physician 12/26/16 Kareem Esquivel MD [address] [place] [address] [email or web address] Insurance Assigned Provider 08/18/17 04/26/19 documented as of this encounter Additional Source Comments The information contained in this document represents components of the legal health record. It is not the complete legal health record.[facility]
--- OUTSIDE RECORDS SUMMARY | 2025-05-05 08:10 | XMS_ITS | Encounter Summary ---
Author Organization [facility] Address [address] [facility] [address] [place] [address] Phone Care Team Providers Care Vocational Rehabilitation Technician Name Role Phone Kareem Esquivel MD Primary Care Provider Kareem Esquivel MD Unavailable [phone] Kareem Esquivel MD Unavailable [phone] Encounter Details Date Type Department Care Team (Late st Contact Info) Description 01/08/2017 Procedure Pass [facility] [address] [place] [address] Social History Tobacco Use Types Packs/Day Years [...] on filedocumented in this encounter Care Teams Vocational Rehabilitation Technician Relationship Specialty Start Date End Date Kareem Esquivel MD PCP - General Family Medicine 12/13/16 Kareem Esqiuvel MD [email or web address] Referring Physician 12/26/16 Kareem Esquivel MD [address] [place] [address] [email or web address] Insurance Assigned Provider 08/18/17 04/26/19 documented as of this encounter Additional Source Comments The information contained in this document represents components of the legal health record. It is not the complete legal health record.[facility]
--- OUTSIDE RECORDS SUMMARY | 2025-05-05 08:10 | XMS_ITS | Encounter Summary ---
Author Organization [facility] Address [address] [facility] [address] [place] [address] Phone Care Team Providers Care Product Distribution Specialist Name Role Phone Kareem Esquivel MD Primary Care Provider [phone] Kareem Esquivel MD Unavailable [phone] Kareem Esquivel MD Unavailable [phone] Reason for Referral * MRI/CAT Scan - Closed Specialty Diagnoses / Procedures Referred By Ritchie johns Referred To Contact Radiology Diagnoses Solitary pulmonary nodule Procedures CT Chest Kareem Esquivel MD Phone: tel: fax: mailto:[email or web address] Referral ID Status Reason Start Date Expiration Date Visits Re quested Visits Authorized [id number] Closed 06/25/2017 09/23/2017 1 1 Encounter Details Date Type Department Care Team (Late st Contact Info) Description 06/29/2017 Ancillary Orders Virtual Department [address] [place] [address] Kareem Esquivel MD [address] [place] [address] [email or web address] Solitary pulmonary nodule Social History Tobacco Use [...] Cholelithiasis. TOTAL CTDIvol: 10.40 mGy POS - [id number] Edited by: Sharon Tee on 07/09/2017 11:10 [...] new compression deformities. Stable hemangioma within the [id number] body. No new destructive bone lesion. IMPRESSION: Right pulmonary nodules measuring up to 7 mm are stable as far back 06/14/2016. One of the nodules has ground-glass appearance. Recommendfollow-up CT in 12 months. Cholelithiasis. TOTAL CTDIvol: 10.40 mGy POS - [id number] Edited by: Sharon Tee on 07/09/2017 11:10 AM Kareem Esquivel MD IMG CT CHEST Final Resul t documented in this encounter Visit Diagnoses Diagnosis Solitary pulmonary nodule Solitary pulmonary nodule documented in this encounter Care Teams Product Distribution Specialist Relationship Specialty Start Date End Date Kareem Esquivel MD PCP - General Family Medicine 12/13/16 Kareem Esquivel MD Referring Physician 12/26/16 Kareem Esquivel MD [address] [place] [address] [email or web address] Insurance Assigned Provider 08/18/17 04/26/19 documented as of this encounter Additional Source Comments The information contained in this document represents components of the legal health record. It is not the complete legal health record.[facility]
--- OUTSIDE RECORDS SUMMARY | 2025-05-05 08:10 | XMS_ITS | Clinical Summary ---
Author Organization [facility] Prior to 10/18/24 Address [address] [place] [address] Care Team Providers Care Religion Instructor Name Role Phone Kodi Be Primary Care Provider [phone] Allergies No known active allergies Medications Medication [...] age to complete this topic Care Teams Religion Instructor Relationship Specialty Start Date End Date Kodi Be [address] [place] [address] PCP - General Family Medicine 08/26/20
--- OUTSIDE RECORDS SUMMARY | 2025-05-05 08:10 | XMS_ITS | Encounter Summary ---
Author Organization [facility] Address [address] [facility] [address] [place] [address] Phone Care Team Providers Care Auger Machine Offbearer Name Role Phone Kareem Esquivel MD Primary Care Provider Kareem Esquivel MD Unavailable [phone] Kareem Esquivel MD Unavailable [phone] Encounter Details Date Type Department Care Team (Late st Contact Info) Description 01/08/2017 Procedure Pass [facility] [address] [place] [address] Social History Tobacco Use Types Packs/Day Years [...] on filedocumented in this encounter Care Teams Auger Machine Offbearer Relationship Specialty Start Date End Date Kareem Esquivel MD PCP - General Family Medicine 12/13/16 Kareem Esquivel MD [email or web address] Referring Physician 12/26/16 Kareem Esquivel MD [address] [place] [address] [email or web address] Insurance Assigned Provider 08/18/17 04/26/19 documented as of this encounter Additional Source Comments The information contained in this document represents components of the legal health record. It is not the complete legal health record.[facility]
--- OUTSIDE RECORDS SUMMARY | 2025-05-05 08:10 | XMS_ITS | Encounter Summary ---
Author Organization [facility] Address [address] [place] [address] [place] [address] Phone Care Team Providers Care Sales And Marketing Specialist Name Role Phone Kareem Esquivel MD Primary Care Provider [phone] Kareem Esquivel MD Unavailable [phone] Kareem Esquivel MD Unavailable [phone] Encounter Details Date Type Department Care Team (Late st Contact Info) Description 01/08/2017 Procedure Pass [facility] OUTS[facility] [address] [place] [address] Social History Tobacco Use Types Packs/Day Years [...] on filedocumented in this encounter Care Teams Sales And Marketing Specialist Relationship Specialty Start Date End Date Kareem Esquivel MD PCP - General Family Medicine 12/13/16 Kareem Esquivel MD Referring Physician 12/26/16 Kareem Esquivel MD [address] [place] [address] [email or web address] Insurance Assigned Provider 08/18/17 04/26/19 documented as of this encounter Additional Source Comments The information contained in this document represents components of the legal health record. It is not the complete legal health record.[facility]
--- OUTSIDE RECORDS SUMMARY | 2025-05-05 08:10 | XMS_ITS | Encounter Summary ---
Author Organization [facility] Address [address] [place] [address] [place] [address] Phone Care Team Providers Care Statistical Technician Name Role Phone Kareem Esquivel MD Primary Care Provider [phone] Kareem Esquivel MD Unavailable [phone] Kareem Esquivel MD Unavailable [phone] Encounter Details Date Type Department Care Team (Late st Contact Info) Description 01/08/2017 Procedure Pass [facility] [address] [place] [address] Social History Tobacco Use Types Packs/Day Years [...] on filedocumented in this encounter Care Teams Statistical Technician Relationship Specialty Start Date End Date Kareem Esquivel MD PCP - General Family Medicine 12/13/16 Kareem Esquivel MD Referring Physician 12/26/16 Kareem Esquivel MD [address] [place] [address] [email or web address] Insurance Assigned Provider 08/18/17 04/26/19 documented as of this encounter Additional Source Comments The information contained in this document represents components of the legal health record. It is not the complete legal health record.[facility]
[2025-05-05 08:16] VITALS: BP 132/74; PULSE 79; O2SAT 97; BMI 34.2
--- NOTE | 2025-05-05 08:16 | AM.OFFWIN_ITS ---
Intake Vital Signs 05/05/25 08:16 Height 5 ft 11 in Weight 245 lb BMI 34.2 BP 132/74 Blood Pressure Location Lt brachial Position Sitting Pulse 79 Pulse Source Pulse Oximeter Pulse Oximetry (%) 97 Oxygen Delivery Method Room Air Intake Visit Reasons: EP std and glucose testing per alberto Intake Note: Patient presents c/o repeat FBS (needs A1C per alberto) Patient Tobacco Use Status: Former Tobacco user Allergies methocarbamol (From Robaxin) Allergy (Intermediate, Verified 05/05/25 08:19) throat swells. Sulfa (Sulfonamide Antibiotics) Allergy (Intermediate, Verified 05/05/25 08:19) throat swelling ezetimibe Adverse Reaction (Verified 05/05/25 08:19) Muscle Pain HPI HPI Comments History of Present Illness Details History of Present Illness - The patient is a 64 year old male pres enting for follow-up of a sexually transmitted disease with recurrent burning symptoms. - He completed a full course of antibiot ics several days ago for the condition. - His symptoms initially resolved for th ree to four days before the burning sensation returned. - He has not been sexually active. - He has no rashes, lesions or discharge . - The patient notes he may have prediabe jesus or be borderline diabetic, though he has recently lost weight. - He denies any associated blurry vision , double vision, numbness, tingling, or vomiting. Physical Exam General: Cooperative, healthy appearing, comfortable, no acute distress and well developed Orientation: Patient oriented x3 Limitations: No limitations Respiratory: Normal respiratory effort and able to speak in complete sentences. Clear to auscultation bilaterally Cardiovascular: Regular rate and rhythm. Normal S1 and S2 GI: Normal to inspection. Soft to palpation and nontender. No guarding noted. Negative CVA tenderness noted. Skin: No rashes or lesions noted Patient was informed and verbally consented to the use of an ambient scribe for clinic note documentation during this visit. [facility] Medical History (Updated 04/25/25 @ 10:23 by BRYAN Diaz) Bone lesion Vocal cord nodule Thyroid nodule Mild ascending aorta dilatation Epididymal cyst COPD (chronic obstructive pulmonary disease) Thyroid disease Left testicular pain Dyslipidemia Surgical History (Updated 11/27/24 @ 14:12 by BRYAN Diaz) H/O partial thyroidectomy History of repair of ACL H/O colonoscopy H/O hemorrhoidectomy History of nasal septoplasty Hx of tonsillectomy Family History Father Hypertension Stroke Mother No problems noted. 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 Sexually Transmitted Infection - The patient reports recurrent burning symptoms despite completing a course of antibiotics. - A repeat test for the sexually transmitted infection will be obtained. - If the test returns positive, the case will be re-evaluated to determine the next steps and reason for treatment failure. 2. Prediabetes - An in-office A1c test will be performed to evaluate the patient's blood sugar status, given his history of being borderline diabetic. - A1c is 5.4 today - will need f/u with PCP Orders: Orders AMB Hemoglobin A1c Today R73.03 - Prediabetes Coding Level of Care Code Est Pt Level 3 (68920) Diagnoses Sexually transmitted infection in male A64 Prediabetes R73.03
== END 2025-05-05 09:11 | disposition home or self-care (01) ==
PROVIDERS: PCP Nurse Practitioner Family; Visit Provider Physician Assistant Medical
DX: A64 Unspecified sexually transmitted disease (principal); R73.03 Prediabetes

== ENCOUNTER 2025-05-11 06:19 | Outpatient (REF) | payer OTHER, SELFPAY ==
--- OUTSIDE RECORDS SUMMARY | 2016-02-13 23:00 | XMS_ITS | Encounter Summary ---
Author Organization [facility] Address [address] [facility] [address] [place] [address] Phone Care Team Providers Care Distillery Manager Name Role Phone Unavailable Primary Care Provider Unavailabl e Reason for Visit * MRI/CAT Scan - Closed Specialty Diagnoses / Procedures Referred By Contac t Referred To Contact Procedures CT Neck Outside (No Interpretation) Rodri Peña MD [address] [place] [address] Phone: tel: fax: mailto:[email or web address] Referral ID Status Reason Start Date Expiration Date Visits Re quested Visits Authorized [id number] Closed 01/08/2017 01/08/2018 1 1 Encounter Details Date Type Department Care Team (Late st Contact Info) Description 02/14/[address] [facility] [address] [place] [address] Rodri Peña MD [address] [place] [address] [email or web address], located [facility] Social History Tobacco Use Types Packs/Day Years Used Date Smoking Tobacco: Former Cigarettes Smokeless Tobacco: Never Alcohol Use Standard Drinks/Week Comments No 0 (1 standard drink = 0.6 oz pur e alcohol) Education Answer Date Recorded Are you interested in more education? Not on jaren e 09/15/2022 Are you concerned about learning? Not on file 09/15/2022 No 09/15/2022 No 09/15/2022 Digital Access Answer Date Recorded No 10/16/2022 No 10/16/2022 No 10/16/2022 Reliable internet access at home? Not on file 10/16/2022 Device with a working camera? Not on file Sex and Gender Information Value Date Recorded Sex Assigned at Not on file Legal Sex Male 11:46 AM EDT Gender Identity Not on file Sexual Orientation Not on file documented as of this encounter Plan of Treatment Not on file documented as of this encounter Procedures Procedure Name Priority Date/Time Associated Diagnosis Comments CT NECK OUTSIDE (NO INTERPRETATION) Routine 02/14/2016 12:00 AM EDT documented in this encounter Results * CT Neck Outside (No Interpretation) (02/14/2016 12:00 AM EDT) Narrative [facility] - 01/08/2017 10:27 AM EDT This study is for PACS storage only and not for interpretation. us Rodri Peña MD IMG OUTSIDE IMAGING W/OUT INT ERPRETATION Final Result [facility] documented in this encounter Visit Diagnoses Not on filedocumented in this encounter Additional Source Comments The information contained in this document represents components of the legal health record. It is not the complete legal health record.[facility]
--- OUTSIDE RECORDS SUMMARY | 2016-02-13 23:15 | XMS_ITS | Encounter Summary ---
Author Organization [facility] Address [address] [facility] [address] [place] [address] Phone Care Team Providers Care Operator/Assistant Foreman Name Role Phone Unavailable Primary Care Provider Unavailabl e Reason for Visit * MRI/CAT Scan - Closed Specialty Diagnoses / Procedures Referred By Contac t Referred To Contact Procedures CT Neck Outside (No Interpretation) Rodri Peña MD [address] [place] [address] Phone: tel: fax: mailto:[email or web address] Referral ID Status Reason Start Date Expiration Date Visits Re quested Visits Authorized [id number] Closed 01/08/2017 01/08/2018 1 1 Encounter Details Date Type Department Care Team (Late st Contact Info) Description 02/14/2016 12:15 AM EDT Hospital Encounter [facility] [address] [place] [address] Rodri Peña MD [address] [place] [phone] [email or web address] Social History Tobacco Use Types Packs/Day Years [...] (No Interpretation) (02/14/2016 12:15 AM EDT) Narrative [facility]G INTERFACES - 01/08/2017 10:28 AM EDT This study is for PACS storage only and not for interpretation. us Rodri Peña MD IMG OUTSIDE IMAGING W/OUT INT ERPRETATION Final Result [facility] INTERFACES documented in this encounter Visit Diagnoses Not on filedocumented in this encounter Additional Source Comments The information contained in this document represents components of the legal health record. It is not the complete legal health record.[facility]
--- OUTSIDE RECORDS SUMMARY | 2025-05-11 06:23 | XMS_ITS | Encounter Summary ---
Author Organization [facility] Address [address] [facility] [address] [place] [address] Phone Care Team Providers Care Wealth Management Consultant Name Role Phone Kareem Esquivel MD Primary Care Provider Kareem Esquivel MD Unavailable [phone] Kareem Esquivel MD Unavailable [phone] Encounter Details Date Type Department Care Team (Late st Contact Info) Description 01/08/2017 Procedure Pass [facility] [address] [place] [address] Social History Tobacco Use Types Packs/Day Years [...] on filedocumented in this encounter Care Teams Wealth Management Consultant Relationship Specialty Start Date End Date Kareem Esquivel MD PCP - General Family Medicine 12/13/16 Kareem Esquivel MD Referring Physician 12/26/16 Kareem Esquivel MD [address] [place] [address] [email or web address] Insurance Assigned Provider 08/18/17 04/26/19 documented as of this encounter Additional Source Comments The information contained in this document represents components of the legal health record. It is not the complete legal health record.[facility]
--- OUTSIDE RECORDS SUMMARY | 2025-05-11 06:23 | XMS_ITS | Encounter Summary ---
Author Organization [facility] Address [address] [facility] [address] [place] [address] Phone Care Team Providers Care Tire Fabric Inspector Name Role Phone Kareem Esquivel MD Primary Care Provider [phone] Kareem Esquivel MD Unavailable [phone] Kareem Esquivel MD Unavailable [phone] Encounter Details Date Type Department Care Team (Late st Contact Info) Description 01/08/2017 Procedure Pass [facility] [address] [place] [address] Social History Tobacco Use Types Packs/Day Years [...] on filedocumented in this encounter Care Teams Tire Fabric Inspector Relationship Specialty Start Date End Date Kareem Esquivel MD PCP - General Family Medicine 12/13/16 Kareem Esquivel MD [email or web address] Referring Physician 12/26/16 Kareem Esquivel MD [address] [place] [address] [email or web address] Insurance Assigned Provider 08/18/17 04/26/19 documented as of this encounter Additional Source Comments The information contained in this document represents components of the legal health record. It is not the complete legal health record.[facility]
--- OUTSIDE RECORDS SUMMARY | 2025-05-11 06:23 | XMS_ITS | Clinical Summary ---
Author Organization [facility] Address [address] [facility] [address] [place] [address] Phone Care Team Providers Care Integrity Engineer Name Role Phone Kareem Esquivel MD Primary Care Provider [phone] Kareem Esquivel MD Unavailable [phone] Allergies No known active allergies Medications LEVOTHYROXINE [...] Recently Relevant to Health Maintenance Care Teams Integrity Engineer Relationship Specialty Start Date End Date Kareem Esquivel MD PCP - General Family Medicine 12/13/16 Kareem Esquivel MD Referring Physician 12/26/16 Additional Source Comments The information contained in this document represents components of the legal health record. It is not the complete legal health record.[facility]
--- OUTSIDE RECORDS SUMMARY | 2025-05-11 06:23 | XMS_ITS | Encounter Summary ---
Author Organization [facility] Address [address] [facility] [address] [place] [address] Phone Care Team Providers Care Wool Puller Name Role Phone Kareem Esquivel MD Primary Care Provider Kareem Esquivel MD Unavailable [phone] Kareem Esquivel MD Unavailable [phone] Encounter Details Date Type Department Care Team (Late st Contact Info) Description 01/08/[address] [facility] [address] [place] [address] Social History Tobacco Use Types Packs/Day Years [...] on filedocumented in this encounter Care Teams Wool Puller Relationship Specialty Start Date End Date Kareem Esquivel MD PCP - General Family Medicine 12/13/16 Kareem Esquivel MD Referring Physician 12/26/16 Kareem Esquivel MD [address] [place] [address] [email or web address] Insurance Assigned Provider 08/18/17 04/26/19 documented as of this encounter Additional Source Comments The information contained in this document represents components of the legal health record. It is not the complete legal health record.[facility]
--- OUTSIDE RECORDS SUMMARY | 2025-05-11 06:23 | XMS_ITS | Encounter Summary ---
Author Organization [facility] Address [address] [place] [address] [place] [address] Phone Care Team Providers Care Pediatric Anesthesiologist Name Role Phone Kareem Esquivel MD Primary Care Provider Kareem Esquivel MD Unavailable [phone] Kareem Esquivel MD Unavailable [phone] Encounter Details Date Type Department Care Team (Late st Contact Info) Description 04/25/2018 Ancillary Orders Virtual Department [address] [place] [address] Kareem Esquivel MD [address] [place] [address] [email or web address] Solitary pulmonary [...] nodule documented in this encounter Care Teams Pediatric Anesthesiologist Relationship Specialty Start Date End Date Kareem Esquivel MD PCP - General Family Medicine 12/13/16 Kareem Esquivel MD [email or web address] Referring Physician 12/26/16 Kareem Esquivle MD [address] [place] [address] [email or web address] Insurance Assigned Provider 08/18/17 04/26/19 documented as of this encounter Additional Source Comments The information contained in this document represents components of the legal health record. It is not the complete legal health record.[facility]
--- OUTSIDE RECORDS SUMMARY | 2025-05-11 06:23 | XMS_ITS | Encounter Summary ---
Author Organization [facility] Address [address] [place] [address] Phone Care Team Providers Care Electrician Second Name Role Phone Kodi Be NP Primary Care Provider [phone] Encounter Details Date Type Department Care Team (Late st Contact Info) Description 03/31/2022 Documentation Only [facility], [address] [place] [address] Kodi Be NP [address] [place] [address] Social History Tobacco Use Types Packs/Day Years [...] on filedocumented in this encounter Care Teams Electrician Second Relationship Specialty Start Date End Date Kodi Be NP [address] [place] [address] PCP - General Nurse Practitioner 03/23/22 documented as of this encounter
--- OUTSIDE RECORDS SUMMARY | 2025-05-11 06:23 | XMS_ITS | Encounter Summary ---
Author Organization [facility] Address [address] [facility] [address] [place] [address] Phone Care Team Providers Care Operations Superintendent Name Role Phone Kareem Esquivel MD Primary Care Provider Kareem Esquivel MD Unavailable [phone] Kareem Esquivel MD Unavailable [phone] Encounter Details Date Type Department Care Team (Late st Contact Info) Description 09/27/2017 Transcribe Orders [facility] [address] [facility] [place], [place] [id number] Kareem Esquivel MD [address] [place], [place] [id number] [email or web address] Chest pain, unspecified type (Primary [...] exam. EKG reviewed with Dr. Gurrola. Kofi Collado NP . Kareem Esquivel MD CV STRESS ORDERABLES Final Result documented in this encounter Visit Diagnoses Diagnosis Chest pain, unspecified type- Primary Chest pain, unspecified type documented in this encounter Care Teams Operations Superintendent Relationship Specialty Start Date End Date Kareem Esquivel MD [email or web address] PCP - General Family Medicine 12/13/16 Kareem Esquivel MD [email or web address] Referring Physician 12/26/16 Kareem Esquivel MD [address] [place] [address] [email or web address] Insurance Assigned Provider 08/18/17 04/26/19 documented as of this encounter Additional Source Comments The information contained in this document represents components of the legal health record. It is not the complete legal health record.[facility]
--- OUTSIDE RECORDS SUMMARY | 2025-05-11 06:23 | XMS_ITS | Encounter Summary ---
Author Organization [facility] Address [address] [facility] [address] [place] [address] Phone Care Team Providers Care Manufacturing Process Engineer Name Role Phone Kareem Esquivel MD Primary Care Provider [phone] Kareem Esquivel MD Unavailable [phone] Kareem Esquivel MD Unavailable [phone] Reason for Referral * MRI/CAT Scan - Closed Specialty Diagnoses / Procedures Referred By Ritchie johns Referred To Contact Radiology Diagnoses Solitary pulmonary nodule Procedures CT Chest Kareem Esquivel MD Phone: tel: fax: [email or web address]:[email or web address] Referral ID Status Reason Start Date Expiration Date Visits Re quested Visits Authorized [id number] Closed 06/25/2017 09/23/2017 1 1 Encounter Details Date Type Department Care Team (Late st Contact Info) Description 06/29/2017 Ancillary Orders Virtual Department [address] [place] [address] Kareem Esquivel MD [address] [place] [address] [email or web address] Solitary pulmonary nodule Social History Tobacco Use [...] Cholelithiasis. TOTAL CTDIvol: 10.40 mGy POS - [id number] Edited by: Sharon Tee on 07/09/2017 11:10 [...] in the posterior right lower lobe on [id number], punctate nodule in the right lower lobe [...] new compression deformities. Stable hemangioma within the [id number] body. No new destructive bone lesion. IMPRESSION: Right pulmonary nodules measuring up to 7 mm are stable as far back 06/14/2016. One of the nodules has ground-glass appearance. Recommendfollow-up CT in 12 months. Cholelithiasis. TOTAL CTDIvol: 10.40 mGy POS - [id number] Edited by: Sharon Tee on 07/09/2017 11:10 AM Kareem Esquivel MD IMG CT CHEST Final Resul t documented in this encounter Visit Diagnoses Diagnosis Solitary pulmonary nodule Solitary pulmonary nodule documented in this encounter Care Teams Manufacturing Process Engineer Relationship Specialty Start Date End Date Kareem Esquivel MD PCP - General Family Medicine 12/13/16 Kareem Esquivel MD Referring Physician 12/26/16 Kareem Esquivel MD [address] [place] [address] [email or web address] Insurance Assigned Provider 08/18/17 04/26/19 documented as of this encounter Additional Source Comments The information contained in this document represents components of the legal health record. It is not the complete legal health record.[facility]
--- OUTSIDE RECORDS SUMMARY | 2025-05-11 06:23 | XMS_ITS | Encounter Summary ---
Author Organization [facility] Address [address] [facility] [address] [place] [address] Phone Care Team Providers Care Bark Skinner Name Role Phone Kareem Esquivel MD Primary Care Provider [phone] Kareem Esquivel MD Unavailable [phone] Kareem Esquivel MD Unavailable [phone] Encounter Details Date Type Department Care Team (Late st Contact Info) Description 01/08/2017 Ancillary Orders [facility] [address] [facility], 7th Floor, [address] [place] [address] MD, FACS [address] [place] [address] [email or web address] Social History Tobacco Use Types Packs/Day [...] on filedocumented in this encounter Care Teams Bark Skinner Relationship Specialty Start Date End Date Kareem Esquivel MD PCP - General Family Medicine 12/13/16 Kareem Esquivel MD [email or web address] Referring Physician 12/26/16 Kareem Esquivel MD [address] [place] [address] [email or web address] Insurance Assigned Provider 08/18/17 04/26/19 documented as of this encounter Additional Source Comments The information contained in this document represents components of the legal health record. It is not the complete legal health record.[facility]
--- OUTSIDE RECORDS SUMMARY | 2025-05-11 06:23 | XMS_ITS | Encounter Summary ---
Author Organization [facility] Address [address] [facility] [address] [place] [address] Phone Care Team Providers Care Candle Making Supervisor Name Role Phone Kareem Esquivel MD Primary Care Provider [phone] Kareem Esquivel MD Unavailable [phone] Kareem Esquivel MD Unavailable [phone] Reason for Referral * MRI/CAT Scan - Closed Specialty Diagnoses / Procedures Referred By Ritchie johns Referred To Contact Procedures CT Neck Outside (No Interpretation) Brendan Lane MD, FACS Phone: tel: fax: mailto:[email or web address] Referral ID Status Reason Start Date Expiration Date Visits Re quested Visits Authorized [id number] Closed 01/08/2017 01/08/2018 1 1 * MRI/CAT Scan - Closed Specialty Diagnoses / Procedures Referred By Ritchie johns Referred To Contact Procedures MRI Neck Outside (No Interpretation) Brendan Lane MD, FACS Phone: tel: fax: mailto:[email or web address] Referral ID Status Reason Start Date Expiration Date Visits Re quested Visits Authorized [id number] Closed 01/08/2017 01/08/2018 1 1 Encounter Details Date Type Department Care Team (Late st Contact Info) Description 01/08/2017 Ancillary Orders [facility] [address] [place] [address] MD, FACS [address] [place] [address] [email or web address] Social History Tobacco Use Types Packs/Day [...] INTERPRETATION Final Result Performing Organization Address [facility] de Phone Number [facility] INTERFACES * MRI Neck Outside (No Interpretation) (01/02/2017 12:30 AM EDT) Narrative [facility] INTER[facility]AC[facility] - 01/08/2017 3:38 PM EDT This study is for PACS storage only and not for interpretation. us Brendan Lane MD, FACS IMG OUTSIDE IMAGING W/OUT INTERPRETATION Final Result Performing Organization Address [facility] de Phone Number [facility] INTERFACES documented in this encounter Visit Diagnoses Not on filedocumented in this encounter Care Teams Candle Making Supervisor Relationship Specialty Start Date End Date Kareem Esquivel MD [email or web address] PCP - General Family Medicine 12/13/16 Kareem Esquivel MD [email or web address] Referring Physician 12/26/16 Kareem Esquivel MD [address] [place] [address] [email or web address] Insurance Assigned Provider 08/18/17 04/26/19 documented as of this encounter Additional Source Comments The information contained in this document represents components of the legal health record. It is not the complete legal health record.[facility]
--- OUTSIDE RECORDS SUMMARY | 2025-05-11 06:23 | XMS_ITS | Encounter Summary ---
Author Organization [facility] Address [address] [place] [address] [place] [address] Phone Care Team Providers Care Supervisor Transferring And Boxing Name Role Phone Kareem Esquivel MD Primary Care Provider [phone] Kareem Esquivel MD Unavailable [phone] Kareem Esquivel MD Unavailable [phone] Encounter Details Date Type Department Care Team (Late st Contact Info) Description 01/08/2017 Procedure Pass [facility] OUTSIDE [address] [place] [address] Social History Tobacco Use Types Packs/Day Years [...] on filedocumented in this encounter Care Teams Supervisor Transferring And Boxing Relationship Specialty Start Date End Date Kareem Esquivel MD PCP - General Family Medicine 12/13/16 Kareem Esquivel MD Referring Physician 12/26/16 Kareem Esquivel MD [address] [place] [address] [email or web address] Insurance Assigned Provider 08/18/17 04/26/19 documented as of this encounter Additional Source Comments The information contained in this document represents components of the legal health record. It is not the complete legal health record.[facility]
--- OUTSIDE RECORDS SUMMARY | 2025-05-11 06:23 | XMS_ITS | Encounter Summary ---
Author Organization [facility] Address [address] [facility] [address] [place] [address] Phone Care Team Providers Care Clerical Support Name Role Phone Kareem Esquivel MD Primary Care Provider Kareem Esquivel MD Unavailable [phone] Kareem Esquivel MD Unavailable [phone] Encounter Details Date Type Department Care Team (Late st Contact Info) Description 01/08/2017 Procedure Pass [facility] [address] [place] [address] Social History Tobacco Use Types Packs/Day Years [...] on filedocumented in this encounter Care Teams Clerical Support Relationship Specialty Start Date End Date Kareem Esquivel MD PCP - General Family Medicine 12/13/16 Kareem Esquivel MD [email or web address] Referring Physician 12/26/16 Kareem Esquivel MD [address] [place] [address] [email or web address] Insurance Assigned Provider 08/18/17 04/26/19 documented as of this encounter Additional Source Comments The information contained in this document represents components of the legal health record. It is not the complete legal health record.[facility]
--- OUTSIDE RECORDS SUMMARY | 2025-05-11 06:23 | XMS_ITS | Encounter Summary ---
Author Organization [facility] Address [address] [place] [address] Phone Care Team Providers Care Motor Vehicle Assembly Supervisor Name Role Phone Kodi Be NP Primary Care Provider [phone] Reason for Visit * Reason Comments Med Refill Encounter Details Date Type Department Care Team (Late st Contact Info) Description 11/05/2023 Refill [facility] [place], [address] [place] [address] Mihir Wheeler MD [address] [place] [address] Social History Tobacco Use Types [...] filedocumented in this encounter Care Teams Motor Vehicle Assembly Supervisor Relationship Specialty Start Date End Date Kodi Be NP [address] [place] [address] PCP - General Nurse Practitioner 03/23/22 documented as of this encounter
--- OUTSIDE RECORDS SUMMARY | 2025-05-11 06:23 | XMS_ITS | Encounter Summary ---
Author Organization [facility] Address [address] [place] [address] Phone Care Team Providers Care Cellular Equipment Installer Name Role Phone Kodi Be NP Primary Care Provider [phone] Encounter Details Date Type Department Care Team (Late st Contact Info) Description 03/28/2022 Documentation Only [facility] [place], [address] [place] [address] Kodi Be NP [address] [place] [address] Social History Tobacco Use Types Packs/Day Years [...] on filedocumented in this encounter Care Teams Cellular Equipment Installer Relationship Specialty Start Date End Date Kodi Be NP [address] [place] [address] PCP - General Nurse Practitioner 03/23/22 documented as of this encounter
--- OUTSIDE RECORDS SUMMARY | 2025-05-11 06:23 | XMS_ITS | Encounter Summary ---
Author Organization [facility] Address [address] [facility] [address] [place] [address] Phone Care Team Providers Care Furnace Process Supervisor Name Role Phone Kareem Esquivel MD Primary Care Provider Kareem Esquivel MD Unavailable [phone] Kareem Esquivel MD Unavailable [phone] Encounter Details Date Type Department Care Team (Late st Contact Info) Description 04/04/2017 Ancillary Orders [facility] [address] 3rd Floor, [address] [place] [address] Kareem Esquivel MD [address] [place], [place] [id number] [email or web address] Aortic root dilatation Social History Tobacco Use [...] EST) Anatomical Region Laterality Modality Heart Ultrasound Kareem Esquivel MD CV ECHO ORDERABLES Final Re sult documented in this encounter Visit Diagnoses Diagnosis Aortic root dilatation Thoracic 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 of rupture documented in this encounter Care Teams Furnace Process Supervisor Relationship Specialty Start Date End Date Kareem Esquivel MD [email or web address] PCP - General Family Medicine 12/13/16 Kareem Esquivel MD [email or web address] Referring Physician 12/26/16 Kareem Esquivel MD [address] [place] [address] [email or web address] Insurance Assigned Provider 08/18/17 04/26/19 documented as of this encounter Additional Source Comments The information contained in this document represents components of the legal health record. It is not the complete legal health record.[facility]
--- OUTSIDE RECORDS SUMMARY | 2025-05-11 06:23 | XMS_ITS | Clinical Summary ---
Author Organization [facility], Address [address] [place] [address] [place] [address] Phone Care Team Providers Care Cable Tower Operator Name Role Phone Kodi Be NP Primary Care Provider [phone] Allergies Active Allergy Reactions Criticality Noted Date [...] this topic Insurance Comprehensive Benefits Care Teams Cable Tower Operator Relationship Specialty Start Date End Date Kodi Be NP [address] [place] [address] PCP - General Nurse Practitioner 03/23/22
--- OUTSIDE RECORDS SUMMARY | 2025-05-11 06:23 | XMS_ITS | Clinical Summary ---
Author Organization [facility] Prior to 10/18/24 Address [address] [place] [address] Care Team Providers Care Lawn Specialist Name Role Phone Kodi Be Primary Care Provider [phone] Allergies No known active allergies Medications Medication [...] age to complete this topic Care Teams Lawn Specialist Relationship Specialty Start Date End Date Kodi Be [address] [place] [address] PCP - General Family Medicine 08/26/20
--- OUTSIDE RECORDS SUMMARY | 2025-05-11 06:23 | XMS_ITS | Encounter Summary ---
Author Organization [facility] Address [address] [facility] [address] [place] [address] Phone Care Team Providers Care Disease And Insect Control Boss Name Role Phone Kareem Esquivel MD Primary Care Provider [phone] Kareem Esquivel MD Unavailable [phone] Kareem Esquivel MD Unavailable [phone] Reason for Referral * MRI/CAT Scan - Closed Specialty Diagnoses / Procedures Referred By Ritchie johns Referred To Contact Radiology Diagnoses Multiple nodules of lung Procedures CT Chest Kareem Esquivel MD Phone: tel: fax: mailto:[email or web address] Referral ID Status Reason Start Date Expiration Date Visits Re quested Visits Authorized [id number] Closed 07/09/2018 07/09/2019 1 1 Encounter Details Date Type Department Care Team (Late st Contact Info) Description 07/09/2018 Ancillary Orders Virtual Department [address] [place] [address] Kareem Esquivel MD [address] [place] [address] [email or web address] Multiple nodules of lung Social History Tobacco [...] lung documented in this encounter Care Teams Disease And Insect Control Boss Relationship Specialty Start Date End Date Kareem Esquivel MD [email or web address] PCP - General Family Medicine 12/13/16 Kareem Esquivel MD [email or web address] Referring Physician 12/26/16 Kareem Esquivel MD [address] [place] [address] [email or web address] Insurance Assigned Provider 08/18/17 04/26/19 documented as of this encounter Additional Source Comments The information contained in this document represents components of the legal health record. It is not the complete legal health record.[facility]
--- OUTSIDE RECORDS SUMMARY | 2025-05-11 06:23 | XMS_ITS | Encounter Summary ---
Author Organization [facility] Address [address] [place] [address] Phone Care Team Providers Care Middle School Spanish Teacher Name Role Phone Kodi Be NP Primary Care Provider [phone] Reason for Visit * Reason Comments Med Refill Encounter Details Date Type Department Care Team (Late st Contact Info) Description 08/08/2023 Refill [facility] [place], [address] [place] [address] Mihir Wheeler MD [address] [place] [address] Social History Tobacco Use Types [...] on filedocumented in this encounter Care Teams Middle School Spanish Teacher Relationship Specialty Start Date End Date Kodi Be NP [address] [place] [address] PCP - General Nurse Practitioner 03/23/22 documented as of this encounter
--- OUTSIDE RECORDS SUMMARY | 2025-05-11 06:23 | XMS_ITS | Encounter Summary ---
Author Organization [facility] Address [address] [place] [address] [place] [address] Phone Care Team Providers Care Fire Loss Prevention Engineer Name Role Phone Kareem Esquivel MD Primary Care Provider Kareem Esquivel MD Unavailable [phone] Kareem Esquivel MD Unavailable [phone] Encounter Details Date Type Department Care Team (Late st Contact Info) Description 06/29/2017 Procedure Pass [facility], Ct Scan - [address] [address] Social History Tobacco Use Types Packs/Day Years [...] on filedocumented in this encounter Care Teams Fire Loss Prevention Engineer Relationship Specialty Start Date End Date Kareem Esquivel MD [email or web address] PCP - General Family Medicine 12/13/16 Kareem Esquivel MD Referring Physician 12/26/16 Kareem Esquivel MD [address] [place] [address] [email or web address] Insurance Assigned Provider 08/18/17 04/26/19 documented as of this encounter Additional Source Comments The information contained in this document represents components of the legal health record. It is not the complete legal health record.[facility]
--- OUTSIDE RECORDS SUMMARY | 2025-05-11 06:23 | XMS_ITS | Encounter Summary ---
Author Organization [facility] Address [address] [place] [address] [place] [address] Phone Care Team Providers Care Syrup Blender Name Role Phone Kareem Esquivel MD Primary Care Provider [phone] Kareem Esquivel MD Unavailable [phone] Kareem Esquivel MD Unavailable [phone] Encounter Details Date Type Department Care Team (Late st Contact Info) Description 01/08/2017 Procedure Pass [facility] OUTSIDE [address] [place] [address] Social History Tobacco Use Types Packs/Day Years [...] on filedocumented in this encounter Care Teams Syrup Blender Relationship Specialty Start Date End Date Kareem Esquivel MD PCP - General Family Medicine 12/13/16 Kareem Esquivel MD Referring Physician 12/26/16 Kareem Esquivel MD [address] [place] [address] [email or web address] Insurance Assigned Provider 08/18/17 04/26/19 documented as of this encounter Additional Source Comments The information contained in this document represents components of the legal health record. It is not the complete legal health record.[facility]
[2025-05-11 08:40] LABS: Alanine Aminotransferase 25 U/L (0-40); Albumin Level 4.1 g/dL (3.5-5.0); Alkaline Phosphatase 63 U/L (39-117); Anion Gap 12 (12-20); Aspartate Amino Transferase 16 U/L (5-37); Blood Urea Nitrogen 15 mg/dL (9-16); Calcium 10.0 mg/dL (8.4-10.2); Carbon Dioxide 25 mmol/L (22-29); Chloride 107 mmol/L (96-108); Estimated Glomerular Filt Rate > 60; Potassium 3.9 mmol/L (3.3-5.1); Sodium 140 mmol/L (135-145); Total Protein 6.9 g/dL (6.5-8.0)
[2025-05-11 09:03] LABS: Prostate Specific Antigen 4.37 ng/mL (<0.05-4.0)
== END 2025-05-11 06:20 | disposition home or self-care (01) ==
LOC: HO.LAB 06:19
PROVIDERS: PCP Nurse Practitioner Family; Visit Provider Urology
DX: R97.20 Elevated prostate specific antigen [PSA] (principal); R73.01 Impaired fasting glucose; Z12.5 Encounter for screening for malignant neoplasm of prostate
CPT/HCPCS: 36415; 80053; 84153

== ENCOUNTER 2025-05-13 11:00 | Outpatient (AMB) | payer OTHER, SELFPAY ==
--- OUTSIDE RECORDS SUMMARY | 2016-02-13 23:00 | XMS_ITS | Encounter Summary ---
Author Organization [facility] Address [address] [facility] [address] [place] [address] Phone Care Team Providers Care Appliance Worker Name Role Phone Unavailable Primary Care Provider Unavailabl e Reason for Visit * MRI/CAT Scan - Closed Specialty Diagnoses / Procedures Referred By Contac t Referred To Contact Procedures CT Neck Outside (No Interpretation) Rodri Peña MD [address] [place] [address] Phone: tel: fax: mailto:[email or web address] Referral ID Status Reason Start Date Expiration Date Visits Re quested Visits Authorized [id number] Closed 01/08/2017 01/08/2018 1 1 Encounter Details Date Type Department Care Team (Late st Contact Info) Description 02/14/2016 Hospital Encounter [facility] [address] [place] [address] Rodri Peña MD [address] [place] [phone] [email or web address] Social History Tobacco Use Types Packs/Day [...] (No Interpretation) (02/14/2016 12:00 AM EDT) Narrative [facility] [place] [facility] - 01/08/2017 10:27 AM EDT This study is for PACS storage only and not for interpretation. us Rodri Peña MD IMG OUTSIDE IMAGING W/OUT INT ERPRETATION Final Result [facility] documented in this encounter Visit Diagnoses Not on filedocumented in this encounter Additional Source Comments The information contained in this document represents components of the legal health record. It is not the complete legal health record.[facility]
--- OUTSIDE RECORDS SUMMARY | 2016-02-13 23:15 | XMS_ITS | Encounter Summary ---
Author Organization [facility] Address [address] [facility] [address] [place] [address] Phone Care Team Providers Care Equipment Technician Name Role Phone Unavailable Primary Care Provider Unavailabl e Reason for Visit * MRI/CAT Scan - Closed Specialty Diagnoses / Procedures Referred By Contac t Referred To Contact Procedures CT Neck Outside (No Interpretation) Rodri Peña MD [address] [place] [address] Phone: tel: fax: mailto:[email or web address] Referral ID Status Reason Start Date Expiration Date Visits Re quested Visits Authorized [id number] Closed 01/08/2017 01/08/2018 1 1 Encounter Details Date Type Department Care Team (Late st Contact Info) Description 02/14/2016 12:15 AM EDT Hospital Encounter [facility] [address] [place] [address] Rodri Peña MD [address] [place] [address] [email or web address] Social History Tobacco Use Types Packs/Day Years [...] CT NECK OUTSIDE (NO INTERPRETATION) Routine 02/14/2016 12:15 AM EDT documented in this encounter Results * CT Neck Outside (No Interpretation) (02/14/2016 12:15 AM EDT) Narrative [facility] INTER[facility]AC[facility] - 01/08/2017 10:28 AM EDT This study is for PACS storage only and not for interpretation. us Rodri Peña MD IMG OUTSIDE IMAGING W/OUT INT ERPRETATION Final Result [facility] documented in this encounter Visit Diagnoses Not on filedocumented in this encounter Additional Source Comments The information contained in this document represents components of the legal health record. It is not the complete legal health record.[facility]
--- OUTSIDE RECORDS SUMMARY | 2025-05-13 11:06 | XMS_ITS | Encounter Summary ---
Author Organization [facility] Address [address] [place] [address] [place] [address] Phone Care Team Providers Care Justice Professor Name Role Phone Kareem Esquivel MD Primary Care Provider Kareem Esquivel MD Unavailable [phone] Kareem Esquivel MD Unavailable [phone] Encounter Details Date Type Department Care Team (Late st Contact Info) Description 04/25/2018 Ancillary Orders Virtual Department [address] [place] [address] Kareem Esquivel MD [address] [place] [address] [email or web address] Solitary pulmonary nodule Social History Tobacco Use [...] nodule documented in this encounter Care Teams Justice Professor Relationship Specialty Start Date End Date Kareem Esquivel MD PCP - General Family Medicine 12/13/16 Kareem Esquivel MD [email or web address] Referring Physician 12/26/16 Kareem Esquivel MD [address] [place] [address] [email or web address] Insurance Assigned Provider 08/18/17 04/26/19 documented as of this encounter Additional Source Comments The information contained in this document represents components of the legal health record. It is not the complete legal health record.[facility]
--- OUTSIDE RECORDS SUMMARY | 2025-05-13 11:06 | XMS_ITS | Encounter Summary ---
Author Organization [facility] Address [address] [facility] [address] [place] [address] Phone Care Team Providers Care Babbitter Name Role Phone Kareem Esquivel MD Primary Care Provider Kareem Esquivel MD Unavailable [phone] Kareem Esquivel MD Unavailable [phone] Encounter Details Date Type Department Care Team (Late st Contact Info) Description 09/27/2017 Transcribe Orders [facility] [address] [facility] [facility] [address], [address] [place], [place] [id number] Kareem Esquivel MD [address] [place], [place] [id number] [email or web address] Chest pain, unspecified type (Primary Dx) Social [...] type documented in this encounter Care Teams Babbitter Relationship Specialty Start Date End Date Kareem Esquivel MD [email or web address] PCP - General Family Medicine 12/13/16 Kareem Esquivel MD [email or web address] Referring Physician 12/26/16 Kareem Esquivel MD [address] [place] [address] [email or web address] Insurance Assigned Provider 08/18/17 04/26/19 documented as of this encounter Additional Source Comments The information contained in this document represents components of the legal health record. It is not the complete legal health record.[facility]
--- OUTSIDE RECORDS SUMMARY | 2025-05-13 11:06 | XMS_ITS | Clinical Summary ---
Author Organization [facility] Address [address] [facility] [address] [place] [address] Phone Care Team Providers Care Italian Teacher Name Role Phone Kareem Esquivel MD Primary Care Provider [phone] Kareem Esquivel MD Unavailable [phone] Allergies No known active allergies Medications LEVOTHYROXINE [...] Recently Relevant to Health Maintenance Care Teams Italian Teacher Relationship Specialty Start Date End Date Kareem Esquivel MD [email or web address] PCP - General Family Medicine 12/13/16 Kareem Esquivel MD [email or web address] Referring Physician 12/26/16 Additional Source Comments The information contained in this document represents components of the legal health record. It is not the complete legal health record.[facility]
--- OUTSIDE RECORDS SUMMARY | 2025-05-13 11:06 | XMS_ITS | Encounter Summary ---
Author Organization [facility] Address [address] [facility] [address] [place] [address] Phone Care Team Providers Care Contract Graphic Designer Name Role Phone Kareem Esquivel MD Primary Care Provider Kareem Esquivel MD Unavailable [phone] Kareem Esquivel MD Unavailable [phone] Encounter Details Date Type Department Care Team (Late st Contact Info) Description 01/08/2017 Procedure Pass [facility] [address] [place] [address] Social History Tobacco Use Types Packs/Day Years [...] on filedocumented in this encounter Care Teams Contract Graphic Designer Relationship Specialty Start Date End Date Kareem Esquivel MD PCP - General Family Medicine 12/13/16 Kareem Esquivel MD Referring Physician 12/26/16 Kareem Esquivel MD [address] [place] [address] [email or web address] Insurance Assigned Provider 08/18/17 04/26/19 documented as of this encounter Additional Source Comments The information contained in this document represents components of the legal health record. It is not the complete legal health record.[facility]
--- OUTSIDE RECORDS SUMMARY | 2025-05-13 11:06 | XMS_ITS | Clinical Summary ---
Author Organization [facility], Address [address] [place] [address] [place] [address] Phone Care Team Providers Care Equity Analyst Name Role Phone Kodi Be NP Primary Care Provider [phone] Allergies Active Allergy Reactions Criticality Noted Date [...] Health Maintenance Due Date Last Done Comments Colorectal Cancer Screening: Annual FOBT 12/25/2011 Colorectal Cancer Screening: Colonoscopy 12/25/2011 Colorectal Cancer Screening: Sigmoidoscopy 12/25/2011 Pneumococcal Vaccine: 50+ Ye ars (1 of 1 - PCV) 2012 Influenza Vaccine (#1) 2025 Hepatitis B Vaccine Aged Out No longe r eligible based on patient's age to complete this topic [place] [address] Care Teams Equity Analyst Relationship Specialty Start Date End Date Kodi Be NP [address] [place] [address] PCP - General Nurse Practitioner 03/23/22
--- OUTSIDE RECORDS SUMMARY | 2025-05-13 11:06 | XMS_ITS | Encounter Summary ---
Author Organization [facility] Address [address] [facility] [address] [place] [address] Phone Care Team Providers Care Customer Experience Analyst Name Role Phone Kareem Esquivel MD Primary Care Provider [phone] Kareem Esquivel MD Unavailable [phone] Kareem Esquivel MD Unavailable [phone] Reason for Referral * MRI/CAT Scan - Closed Specialty Diagnoses / Procedures Referred By Ritchie johns Referred To Contact Radiology Diagnoses Solitary pulmonary nodule Procedures CT Chest Kareem Esquivel MD Phone: tel: fax: mailto:[email or web address] Referral ID Status Reason Start Date Expiration Date Visits Re quested Visits Authorized [id number] Closed 06/25/2017 09/23/2017 1 1 Encounter Details Date Type Department Care Team (Late st Contact Info) Description 06/29/2017 Ancillary Orders Virtual Department [address] [place] [address] Kareem Esquivel MD [address] [place] [address] [email or web address] Solitary pulmonary nodule Social History Tobacco Use [...] Cholelithiasis. TOTAL CTDIvol: 10.40 mGy POS - [id number] Edited by: Sharon Tee on 07/09/2017 11:10 [...] in the posterior right lower lobe on [id number], punctate nodule in the right lower lobe [...] new compression deformities. Stable hemangioma within the [id number] body. No new destructive bone lesion. IMPRESSION: Right pulmonary nodules measuring up to 7 mm are stable as far back 06/14/2016. One of the nodules has ground-glass appearance. Recommendfollow-up CT in 12 months. Cholelithiasis. TOTAL CTDIvol: 10.40 mGy POS - [id number] Edited by: Sharon Tee on 07/09/2017 11:10 AM Kareem Esquivel MD IMG CT CHEST Final Resul t documented in this encounter Visit Diagnoses Diagnosis Solitary pulmonary nodule Solitary pulmonary nodule documented in this encounter Care Teams Customer Experience Analyst Relationship Specialty Start Date End Date Kareem Esquivel MD PCP - General Family Medicine 12/13/16 Kareem Esquivel MD Referring Physician 12/26/16 Kareem Esquivel MD [address] [place] [address] [email or web address] Insurance Assigned Provider 08/18/17 04/26/19 documented as of this encounter Additional Source Comments The information contained in this document represents components of the legal health record. It is not the complete legal health record.[facility]
--- OUTSIDE RECORDS SUMMARY | 2025-05-13 11:06 | XMS_ITS | Encounter Summary ---
Author Organization [facility] Address [address] [place] [address] [place] [address] Phone Care Team Providers Care Osteology Teacher Name Role Phone Kareem Esquivel MD Primary Care Provider Kareem Esquivel MD Unavailable [phone] Kareem Esquivel MD Unavailable [phone] Encounter Details Date Type Department Care Team (Late st Contact Info) Description 06/29/2017 Procedure Pass [facility], Ct Scan - [address] [address] Social History Tobacco Use Types Packs/Day Years [...] on filedocumented in this encounter Care Teams Osteology Teacher Relationship Specialty Start Date End Date Kareem Esquivel MD PCP - General Family Medicine 12/13/16 Kareem Esquivel MD [email or web address] Referring Physician 12/26/16 Kareem Esquivel MD [address] [place] [address] [email or web address] Insurance Assigned Provider 08/18/17 04/26/19 documented as of this encounter Additional Source Comments The information contained in this document represents components of the legal health record. It is not the complete legal health record.[facility]
--- OUTSIDE RECORDS SUMMARY | 2025-05-13 11:06 | XMS_ITS | Encounter Summary ---
Author Organization [facility] Address [address] [facility] [address] [place] [address] Phone Care Team Providers Care Cap Lining Machine Operator Name Role Phone Kareem Esquivel MD Primary Care Provider [phone] Kareem Esquivel MD Unavailable [phone] Kareem Esquivel MD Unavailable [phone] Reason for Referral * MRI/CAT Scan - Closed Specialty Diagnoses / Procedures Referred By Ritchie johns Referred To Contact Radiology Diagnoses Multiple nodules of lung Procedures CT Chest Kareem Esquivel MD Phone: tel: fax: mailto:[email or web address] Referral ID Status Reason Start Date Expiration Date Visits Re quested Visits Authorized [id number] Closed 07/09/2018 07/09/2019 1 1 Encounter Details Date Type Department Care Team (Late st Contact Info) Description 07/09/2018 Ancillary Orders Virtual Department [address] [place] [address] Kareem Esquivel MD [address] [place] [address] [email or web address] Multiple nodules of lung Social History Tobacco [...] lung documented in this encounter Care Teams Cap Lining Machine Operator Relationship Specialty Start Date End Date Kareem Esquivel MD [email or web address] PCP - General Family Medicine 12/13/16 Kareem Esquivel MD Referring Physician 12/26/16 Kareem Esquivel MD [address] [place] [address] Insurance Assigned Provider 08/18/17 04/26/19 documented as of this encounter Additional Source Comments The information contained in this document represents components of the legal health record. It is not the complete legal health record.[facility]
--- OUTSIDE RECORDS SUMMARY | 2025-05-13 11:06 | XMS_ITS | Encounter Summary ---
Author Organization [facility] Address [address] [facility] [address] [place] [address] Phone Care Team Providers Care Director Of Event Marketing Name Role Phone Kareem Esquivel MD Primary Care Provider Kareem Esquivel MD Unavailable [phone] Kareem Esquivel MD Unavailable [phone] Encounter Details Date Type Department Care Team (Late st Contact Info) Description 01/08/2017 Ancillary Orders [facility] [address] [facility], 7th Floor, [address] [place] [address] MD, FACS [address] [place] [address] [email or web address] Social History Tobacco Use Types Packs/Day [...] filedocumented in this encounter Care Teams Director Of Event Marketing Relationship Specialty Start Date End Date Kareem Esquivel MD PCP - General Family Medicine 12/13/16 Kareem Esquivel MD [email or web address] Referring Physician 12/26/16 Kareem Esquivel MD [address] [place] [address] [email or web address] Insurance Assigned Provider 08/18/17 04/26/19 documented as of this encounter Additional Source Comments The information contained in this document represents components of the legal health record. It is not the complete legal health record.[facility]
--- OUTSIDE RECORDS SUMMARY | 2025-05-13 11:06 | XMS_ITS | Clinical Summary ---
Author Organization [facility] Prior to 10/18/24 Address [address] [place] [address] Care Team Providers Care Photovoltaic Fabrication Technician Name Role Phone Kodi Be Primary Care Provider [phone] Allergies No known active allergies Medications Medication [...] age to complete this topic Care Teams Photovoltaic Fabrication Technician Relationship Specialty Start Date End Date Kodi Be [address] [place] [address] PCP - General Family Medicine 08/26/20
--- OUTSIDE RECORDS SUMMARY | 2025-05-13 11:06 | XMS_ITS | Encounter Summary ---
Author Organization [facility] Address [address] [place] [address] Phone Care Team Providers Care Loan Documentation Specialist Name Role Phone Kodi Be NP Primary Care Provider [phone] Reason for Visit * Reason Comments Med Refill Encounter Details Date Type Department Care Team (Late st Contact Info) Description 11/05/2023 Refill [facility] [place], [address] [place] [address] Mihir Wheeler MD [address] [facility] [place] [address] Social History Tobacco Use Types [...] on filedocumented in this encounter Care Teams Loan Documentation Specialist Relationship Specialty Start Date End Date Kodi Be NP [address] [place] [address] PCP - General Nurse Practitioner 03/23/22 documented as of this encounter
--- OUTSIDE RECORDS SUMMARY | 2025-05-13 11:06 | XMS_ITS | Encounter Summary ---
Author Organization [facility] Address [address] [place] [address] Phone Care Team Providers Care Airplane Pilot Commercial Name Role Phone Kodi Be NP Primary Care Provider [phone] Reason for Visit * Reason Comments Med Refill Encounter Details Date Type Department Care Team (Late st Contact Info) Description 08/08/2023 Refill [facility] [place], [address] [place] [address] Mihir Wheeler MD [address] [place] [address] Social History Tobacco Use Types [...] on filedocumented in this encounter Care Teams Airplane Pilot Commercial Relationship Specialty Start Date End Date Kodi Be NP [address] [place] [address] PCP - General Nurse Practitioner 03/23/22 documented as of this encounter
--- OUTSIDE RECORDS SUMMARY | 2025-05-13 11:06 | XMS_ITS | Encounter Summary ---
Author Organization [facility] Address [address] [facility] [address] [place] [address] Phone Care Team Providers Care Payroll Representative Name Role Phone Kareem Esquivel MD Primary Care Provider [phone] Kareem Esquivel MD Unavailable [phone] Kareem Esquivel MD Unavailable [phone] Reason for Referral * MRI/CAT Scan - Closed Specialty Diagnoses / Procedures Referred By Ritchie johns Referred To Contact Procedures CT Neck Outside (No Interpretation) Brendan Lane MD, FACS Phone: tel: fax: mailto:[email or web address] Referral ID Status Reason Start Date Expiration Date Visits Re quested Visits Authorized [id number] Closed 01/08/2017 01/08/2018 1 1 * MRI/CAT Scan - Closed Specialty Diagnoses / Procedures Referred By Ritchie johns Referred To Contact Procedures MRI Neck Outside (No Interpretation) Brendan Lane MD, FACS Phone: tel: fax: mailto:[email or web address] Referral ID Status Reason Start Date Expiration Date Visits Re quested Visits Authorized [id number] Closed 01/08/2017 01/08/2018 1 1 Encounter Details Date Type Department Care Team (Late st Contact Info) Description 01/08/2017 Ancillary Orders [facility] OUTS[facility] [address] [place] [address] MD, FACS [address] [place] [address] [email or web address] Social History Tobacco Use Types Packs/Day [...] W/OUT INTERPRETATION Final Result Performing Organization Address [facility] de Phone Number [facility] INTERFACES * MRI Neck Outside (No Interpretation) (01/02/2017 12:30 AM EDT) Narrative [facility] INTERFAC[facility] - 01/08/2017 3:38 PM EDT This study is for PACS storage only and not for interpretation. us Brendan Lane MD, FACS IMG OUTSIDE IMAGING W/OUT INTERPRETATION Final Result Performing Organization Address [facility] de Phone Number [facility] INTERFACES documented in this encounter Visit Diagnoses Not on filedocumented in this encounter Care Teams Payroll Representative Relationship Specialty Start Date End Date Kareem Esquivel MD [email or web address] PCP - General Family Medicine 12/13/16 Kareem Esquivel MD [email or web address] Referring Physician 12/26/16 Kareem Esquivel MD [address] [place] [address] [email or web address] Insurance Assigned Provider 08/18/17 04/26/19 documented as of this encounter Additional Source Comments The information contained in this document represents components of the legal health record. It is not the complete legal health record.[facility]
--- OUTSIDE RECORDS SUMMARY | 2025-05-13 11:06 | XMS_ITS | Encounter Summary ---
Author Organization [facility] Address [address] [place] [address] Phone Care Team Providers Care Rotary Dryer Operator Name Role Phone Kareem Esquivel MD Primary Care Provider Kareem Esquivel MD Unavailable [phone] Kareem Esquivel MD Unavailable [phone] Encounter Details Date Type Department Care Team (Late st Contact Info) Description 01/08/2017 Procedure Pass [facility] [address] [place] [address] Social History Tobacco Use Types Packs/Day Years [...] on filedocumented in this encounter Care Teams Rotary Dryer Operator Relationship Specialty Start Date End Date Kareem Esquivel MD PCP - General Family Medicine 12/13/16 Kareem Esquivel MD [email or web address] Referring Physician 12/26/16 Kareem Esquivel MD [address] [place] [address] [email or web address] Insurance Assigned Provider 08/18/17 04/26/19 documented as of this encounter Additional Source Comments The information contained in this document represents components of the legal health record. It is not the complete legal health record.[facility]
--- OUTSIDE RECORDS SUMMARY | 2025-05-13 11:06 | XMS_ITS | Encounter Summary ---
Author Organization [facility] Address [address] [place] [address] Phone Care Team Providers Care Table Worker Name Role Phone Kareem Esquivel MD Primary Care Provider Kareem Esquivel MD Unavailable [phone] Kareem Esquivel MD Unavailable [phone] Encounter Details Date Type Department Care Team (Late st Contact Info) Description 01/08/2017 Procedure Pass [facility] [address] [place] [address] Social History Tobacco Use Types Packs/Day Years [...] on filedocumented in this encounter Care Teams Table Worker Relationship Specialty Start Date End Date Kareem Esquivel MD PCP - General Family Medicine 12/13/16 Kareem Esquivel MD [email or web address] Referring Physician 12/26/16 Kareem Esquivel MD [address] [place] [address] [email or web address] Insurance Assigned Provider 08/18/17 04/26/19 documented as of this encounter Additional Source Comments The information contained in this document represents components of the legal health record. It is not the complete legal health record.[facility]
--- OUTSIDE RECORDS SUMMARY | 2025-05-13 11:07 | XMS_ITS | Encounter Summary ---
Author Organization [facility] Address [address] [place] [address] Phone Care Team Providers Care Primer Charging Tool Setter Name Role Phone Kodi Be NP Primary Care Provider [phone] Encounter Details Date Type Department Care Team (Late st Contact Info) Description 03/28/2022 Documentation Only [facility], [address] [place] [address] Kodi Be NP [address] [place] [address] Social History Tobacco Use Types Packs/Day Years [...] on filedocumented in this encounter Care Teams Primer Charging Tool Setter Relationship Specialty Start Date End Date Kodi Be NP [address] [place] [address] PCP - General Nurse Practitioner 03/23/22 documented as of this encounter
--- OUTSIDE RECORDS SUMMARY | 2025-05-13 11:07 | XMS_ITS | Encounter Summary ---
Author Organization [facility] Address [address] [place] [address] Phone Care Team Providers Care Paper Colorer Name Role Phone Kareem Esquivel MD Primary Care Provider [phone] Kareem Esquivel MD Unavailable [phone] Kareem Esquivel MD Unavailable [phone] Encounter Details Date Type Department Care Team (Late st Contact Info) Description 01/08/2017 Procedure Pass [facility] [address] [place] [address] Social History Tobacco Use Types Packs/Day Years [...] on filedocumented in this encounter Care Teams Paper Colorer Relationship Specialty Start Date End Date Kareem Esquivel MD PCP - General Family Medicine 12/13/16 Kareem Esquivel MD Referring Physician 12/26/16 Kareem Esquivel MD [address] [place] [address] [email or web address] Insurance Assigned Provider 08/18/17 04/26/19 documented as of this encounter Additional Source Comments The information contained in this document represents components of the legal health record. It is not the complete legal health record.[facility]
--- OUTSIDE RECORDS SUMMARY | 2025-05-13 11:07 | XMS_ITS | Encounter Summary ---
Author Organization [facility] Address [address] [place] [address] Phone Care Team Providers Care Steel Fixer Name Role Phone Kareem Esquivel MD Primary Care Provider Kareem Esquivel MD Unavailable [phone] Kareem Esquivel MD Unavailable [phone] Encounter Details Date Type Department Care Team (Late st Contact Info) Description 04/04/2017 Ancillary Orders [facility] [address], [address] [place] [address] Kareem Esquivel MD [address] [place], [place] [phone] [email or web address] Aortic root dilatation Social [...] rupture documented in this encounter Care Teams Steel Fixer Relationship Specialty Start Date End Date Kareem Esquivel MD [email or web address] PCP - General Family Medicine 12/13/16 Kareem Esquivel MD [email or web address] Referring Physician 12/26/16 Kareem Esquivel MD [address] [place] [address] [email or web address] Insurance Assigned Provider 08/18/17 04/26/19 documented as of this encounter Additional Source Comments The information contained in this document represents components of the legal health record. It is not the complete legal health record.[facility]
--- OUTSIDE RECORDS SUMMARY | 2025-05-13 11:07 | XMS_ITS | Encounter Summary ---
Author Organization [facility] Address [address] [place] [address] [place] [address] Phone Care Team Providers Care Housing Case Manager Name Role Phone Kareem Esquivel MD Primary Care Provider [phone] Kareem Esquivel MD Unavailable [phone] Kareem Esquivel MD Unavailable [phone] Encounter Details Date Type Department Care Team (Late st Contact Info) Description 01/08/2017 Procedure Pass [facility] [address] [place] [address] Social History Tobacco Use Types Packs/Day Years [...] on filedocumented in this encounter Care Teams Housing Case Manager Relationship Specialty Start Date End Date Kareem Esquivel MD PCP - General Family Medicine 12/13/16 Kareem Esquivel MD Referring Physician 12/26/16 Kareem Esquivel MD [address] [place] [address] [email or web address] Insurance Assigned Provider 08/18/17 04/26/19 documented as of this encounter Additional Source Comments The information contained in this document represents components of the legal health record. It is not the complete legal health record.[facility]
--- OUTSIDE RECORDS SUMMARY | 2025-05-13 11:07 | XMS_ITS | Encounter Summary ---
Author Organization [facility] Address [address] [place] [address] Phone Care Team Providers Care Net Front End Developer Name Role Phone Kodi Be NP Primary Care Provider [phone] Encounter Details Date Type Department Care Team (Late st Contact Info) Description 03/31/2022 Documentation Only [facility], [address] [place] [address] Kodi Be NP [address] [place] [address] Social History Tobacco Use Types Packs/Day Years [...] on filedocumented in this encounter Care Teams Net Front End Developer Relationship Specialty Start Date End Date Kodi Be NP [address] [place] [address] PCP - General Nurse Practitioner 03/23/22 documented as of this encounter
--- OUTSIDE RECORDS SUMMARY | 2025-05-13 11:07 | XMS_ITS | Encounter Summary ---
Author Organization [facility] Address [address] [place] [address] [place] [address] Phone Care Team Providers Care Veterinary Dentist Name Role Phone Kareem Esquivel MD Primary Care Provider [phone] Kareem Esquivel MD Unavailable [phone] Kareem Esquivel MD Unavailable [phone] Encounter Details Date Type Department Care Team (Late st Contact Info) Description 01/08/2017 Procedure Pass [facility] [address] [place] [address] Social History Tobacco Use Types Packs/Day Years [...] on filedocumented in this encounter Care Teams Veterinary Dentist Relationship Specialty Start Date End Date Kareem Esquivel MD PCP - General Family Medicine 12/13/16 Kareem Esquivel MD Referring Physician 12/26/16 Kareem Esquivel MD [address] [place] [address] [email or web address] Insurance Assigned Provider 08/18/17 04/26/19 documented as of this encounter Additional Source Comments The information contained in this document represents components of the legal health record. It is not the complete legal health record.[facility]
--- NOTE | 2025-05-13 11:20 | MHC.OFFVIS ---
Intake Visit Reasons: 6M PSA/UA/PVR(set) Intake Note: Reason for Visit: PSA/UA/PVR Follow up Urology Meds: Finasteride, Tadalafil Blood Thinners: None Labs: Total PSA: 4.70 Free PSA: 0.5 %Free PSA: 11 (04/23/25) PSA: 4.37(05/11/2025) Imaging: None Last PVR: 32ml PVR:15ml Environmental Adviser Required: No Accompanied by: Self / Same As Patient Allergies methocarbamol (From Robaxin) Allergy (Intermediate, Verified 05/13/25 11:34) throat swells. Sulfa (Sulfonamide Antibiotics) Allergy (Intermediate, Verified 05/13/25 11:34) throat swelling ezetimibe Adverse Reaction (Verified 05/13/25 11:34) Muscle Pain HPI Comments Details: Karel SHAH is a very pleasant male. They are a patient of Dr Esquivel. He is seen for the following urologic conditions. - lower urinary tract symptoms - prior elevated PSA - left inguinal disruption Three-month follow-up from testicle procedure Left testicle hanging much lower Tadalafil 10 mg daily PSA remains highly variable - elevated despite finasteride Recommend prostate biopsy Elevated PSA/Abnormal SANDRO:? Laboratory investigations include?05/08 4.58.? - 02/08 4.8, 08/09 3.6, 01/09 3.6, 01/10 3.8 18%, 01/11 5.9 15%, 08/12 4.3 12%, 05/14 4.4 11% Lower Urinary Tract Symptoms:? Current visit is for?further symptom evaluation of, lower urinary tract symptoms.? Current treatment includes?observation.? Prostate Symptom Score?05/08 , Mild (0-8), Bother 3.? Symptoms include?incomplete emptying, weak stream, nocturia (>2), and are progressing.? Prostate volume?50+gm.? Testing at next visit will include?bladder scan.? Treatment plan?continue review [facility] Medical History (Updated 05/17/25 @ 15:05 by Sharad Pizarro MD) Retractile testis Screening PSA (prostate specific antigen) Bone lesion Vocal cord nodule Thyroid nodule Mild ascending aorta dilatation Epididymal cyst COPD (chronic obstructive pulmonary disease) Thyroid disease Left testicular pain Dyslipidemia Surgical History H/O partial thyroidectomy History of repair of ACL H/O colonoscopy H/O hemorrhoidectomy History of nasal septoplasty Hx of tonsillectomy Family History Father Hypertension Stroke Mother No problems noted. 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 Cognitive needs: Yes (cane) Hearing needs: No Vision needs: Yes (glasses) Review of Systems Const Denies chills and Denies fever(s) Card Reports no additional complaints and Denies syncope Resp Denies cough GI Denies abdominal pain and Denies heartburn Reports as per HPI and Denies change in libido Neuro Denies syncope Psych Denies change in libido Endo Denies change in libido Physical Exam Const General: cooperative, healthy appearing, comfortable and no acute distress Orientation/consciousness: patient oriented x3 HEENT Face and sinus: Yes normal facial exam Mouth: moist mucous membranes Neck Neck: Yes normal visual inspection, Yes full ROM and Yes trachea midline Chest Chest palpation & inspection: normal inspection of the chest Resp Effort & Inspection: normal respiratory effort, able to speak in complete sentences and no respiratory distress GI Inspection: Yes normal to inspection Back/Spine/Pelvis Cervical Spine: normal cervical lordosis Thoracic/Lumbar Spine: thoracic and lumbar spine normal to inspection Skin General skin exam: no rashes or lesions noted Neuro General: patient oriented x3, gait normal, tone normal and moves all extremities Extrem General: Yes normal to inspection and Yes capillary refill normal Office Procedures Post Void Residual Post Residual Void Post Void Residual (PVR): 15 [id number] Void Residual by ultrasound Assessment & Plan Assessment & Plan (1) Elevated PSA: Code(s): R97.20 - Elevated prostate specific antigen [PSA] Category: Medical Plan Risks and benefits regarding trans rectal ultrasound with prostate biopsy were discussed. Options of continued surveillance, no treatment and biopsy were offered. The risks include but are not limited to, urinary tract infection, sepsis, difficulty urinating, bleeding into the rectum or bladder that requires intervention and transfusion,and failure to diagnose prostate cancer. The patient understands the options and the risks involved. They wish to proceed. Printed information was provided to ensure he remains off anticoagulation for the appropriate length of time. He may require cardiology or PCP clearance. An antibiotic will be administered prior to, and following the procedure Orders: Orders AMB Post Void Residual by ultrasound 05/13/25 N32.0 - Bladder-neck obstruction Medications: New levofloxacin take 1 tablet day before prostate biopsy, 1 tablet day of biopsy and 1 tablet day after 500 mg PO DAILY 3 tabs 0RF 3 days R97.20 - Elevated prostate specific antigen [PSA] Patient Instructions: This note is constructed using voice recognition software. While every effort has been made to ensure accuracy network controller errors may have been included. Imaging studies, laboratory and physical exam results were discussed and reviewed in detail. No major barriers to patient understanding were identified. An opportunity to ask questions regarding the treatment plan was provided. All questions were answered. The patient expressed understanding and agreement with the above treatment plan. The patient is aware they should contact our office by phone for worsening of their current condition or the appearance of new urologic symptoms. Compliance is encouraged with any medications and followup testing that is ordered. It is a privilege to participate in the urologic care of your patient. If you have any questions or concerns regarding treatment for the above conditions, or other urologic issues, please do not hesitate to contact me. The office telephone contact is [phone]. Sincerely, Dr Sharad Pizarro MD, [facility] - Urology Compassionate Specialist Care for the Genitourinary System Coding Level of Care Code Est Pt Level 4 (02872) Diagnoses Elevated PSA R97.20 CPT Codes Post Residual Void - PVR CPT Code: 84973-Zzcs Void Residual by ultrasound ([id number])
== END 2025-05-13 11:54 | disposition home or self-care (01) ==
LOC: HO.HUSH 11:01
PROVIDERS: PCP Nurse Practitioner Family; Visit Provider Urology
DX: R97.20 Elevated prostate specific antigen [PSA] (principal)
CPT/HCPCS: 99214

== ENCOUNTER → 2025-05-13 11:00 | Outpatient (BNVA) | payer OTHER, SELFPAY | PROVIDERS: PCP Nurse Practitioner Family; Visit Provider Urology | DX: R97.20 Elevated prostate specific antigen [PSA] (principal) | CPT/HCPCS: 51798 ==